=== PATIENT | male | born 1945 ===

== ENCOUNTER 2017-07-16 06:03 | Day surgery (SDC) | payer MEDICARE ==
[2017-07-16 07:38] VITALS: BMI 39.0
[2017-07-16] MEDS ORDERED: Sodium Chloride 0.9% 500 ML IV ONE (08:00)
[2017-07-16] MEDS ORDERED: (Novolin R) Insulin Human Regular 100 units/ml vial SC ONE (08:00)
[2017-07-16] MEDS ORDERED: Propofol 10 mg/ml Inj (20 ML) ONE ×2 (11:50→12:13)
[2017-07-16] MEDS ORDERED: Lactated Ringer's 500 ML IV ONE (11:53)
[2017-07-16 14:10] VITALS: TEMP 97
[2017-07-16 14:12] VITALS: PULSE 88; RESP 20
[2017-07-16 14:13] VITALS: O2SAT 100
[2017-07-16 14:24] VITALS: BP 140/70
== END 2017-07-16 13:15 | disposition home or self-care (01) ==
LOC: C.ENDO 06:03
PROVIDERS: ATTEND Internal Medicine Gastroenterology
DX: Z12.11 Encounter for screening for malignant neoplasm of colon (principal); K64.1 Second degree hemorrhoids; K60.2 Anal fissure, unspecified; E11.9 Type 2 diabetes mellitus without complications; I10 Essential (primary) hypertension
CPT/HCPCS: 82948; G0121; J2704; J3010; J7040; J7120

== ENCOUNTER 2018-03-18 16:28 | Inpatient (IN) | payer MEDICARE, OTHER ==
[~2018-03-18 16:28] MED LIST: CALCIUM CHLORIDE 100 MG/ML VIAL IV ONE; Sodium Bicarbonate (8.4%) 50 Meq Syringe ONE
[2018-03-18 16:29] VITALS: BMI 39.0
[2018-03-18] MEDS ORDERED: Morphine 4 MG/ML VIAL ONE (17:26)
--- NOTE | 2018-03-18 18:17 | C.PDOC ---
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 Patient states that he was getting out of the shower in the bathroom and he felt weakness in his right leg. He fell and he landed on his buttocks. He reports that he has difficulty moving his right leg. Patient denies having head injury an other complaints. Time Seen by Provider: 03/18/18 16:30 Chief Complaint (Nursing): Hip Pain History Per: Patient History/Exam Limitations: no limitations Onset/Duration Of Symptoms: Hrs Current Symptoms Are (Timing): Still Present Severity: Moderate Past Medical History Reviewed: Historical Data, Nursing Documentation, Vital Signs Vital Signs: Last Vital Signs Temp 97.8 F 03/18/18 16:37 Pulse 75 03/18/18 17:29 Resp 18 03/18/18 17:29 BP 196/79 H 03/18/18 17:29 Pulse Ox 97 03/18/18 18:37 - Medical History PMH: Arthritis (KNEES), HTN, Peripheral Edema, Sleep Apnea Denies: Fractures, Chronic Kidney Disease Other Surgeries: Hx of surgeries Family History: States: No Known Family Hx - Social History Hx Alcohol Use: No Hx Substance Use: No - Immunization History Hx Tetanus Toxoid Vaccination: Yes Hx Influenza Vaccination: Yes Hx Pneumococcal Vaccination: Yes Review Of Systems Except As Marked, All Systems Reviewed And Found Negative. Constitutional: Negative for: Fever, Chills Musculoskeletal: Positive for: Other (right hip pain) Neurological: Negative for: Weakness, Numbness Physical Exam - Physical Exam Appears: Non-toxic, No Acute Distress Skin: Normal Color, Warm Head: Atraumatic, Normacephalic Eye(s): bilateral: Normal Inspection Nose: Normal Oral Mucosa: Moist Neck: Supple Chest: Symmetrical Cardiovascular: Rhythm Regular Respiratory: Normal Breath Sounds, No Rales, No Rhonchi, No Wheezing Extremity: No Normal ROM (unable to move right leg secondary to pain), Tenderness (tenderness in lateral aspect of right hip), Other (erythema to anterior aspect of bilateral shins ( family reports that the erythema is chronic )) Pulses: Left Dorsalis Pedis: Decreased, Right Dorsalis Pedis: Decreased Neurological/Psych: Oriented x3, Normal Speech, Normal Cognition ED Course And Treatment - Laboratory Results Result Diagrams: 03/18/18 18:19 03/18/18 18:19 O2 Sat by Pulse Oximetry: 97 (RA) Pulse Ox Interpretation: Normal - Other Rad X-Ray- Right Hip X-Ray: Viewed By Me, Read By Radiologist Interpretation: PROCEDURE: Right femur. HISTORY: fall. COMPARISON: None. TECHNIQUE: Standard protocol for this study/examination. FINDINGS: Oblique fracture of the proximal right femur. Angulation of the major fracture fragments identified.The fracture does not extend to the lesser trochanter. Preservation of femoral acetabular relationship. No pelvic ring abnormalities identified. IMPRESSION: Acute fracture of the proximal right femur. Progress Note: Labs, UA, CXR, and X-Ray- Pelvis ordered. Case was d/w Ortho who requested CT of hip, ask to clear patient medically for surgery in the morning, keep him NPO after midnight and do not put him in DVT prophylaxis. Case was d/w hospitalist who accepted patient to CT for an admission. 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 - Scribe Statement The provider has reviewed the documentation as recorded by the Yessi Mathis Provider Attestation All medical record entries made by the Scribe were at my direction and personally dictated by me. I have reviewed the chart and agree that the record accurately reflects my personal performance of the history, physical exam, medical decision making, and the department course for this patient. I have also personally directed, reviewed, and agree with the discharge instructions and disposition. Decision To Admit - Pt Status Changed To: Hospital Disposition Of: Inpatient - Admit Certification Admit to Inpatient:: After my assessment, the patient will require hospitalization for at least two midnights. This is because of the severity of symptoms shown, intensity of services needed, and/or the medical risk in this patient being treated as an outpatient. - InPatient: Physician Admission Certification: I certify that this patient requires 2 or more midnights of care for the following reason:: Patient needs to be medically cleared and to have surgical treatment for hip fracture. - . Bed Request Type: Regular Admitting Physician: Mark Lee Patient Diagnosis: Hip fracture
[2018-03-18] MEDS ORDERED: Sodium Chloride 0.9% 1,000 ML IV ONE (18:18)
[2018-03-18 18:22] LABS: BASO # 0.1 K/uL (0.0-0.2); BASO % 0.5 % (0.0-2.0); EOS # 0.2 K/uL (0.0-0.7); EOS % 1.6 % (0.0-4.0); HEMOGLOBIN 13.8 g/dL (12.0-18.0); LYMPH # 1.6 K/uL (1.0-4.3); LYMPH % 10.9 % (20.0-40.0); MEAN CELL VOLUME 81.3 fL (80.0-94.0); MEAN PLATELET VOLUME 9.9 fL (7.2-11.7); MONO # 0.8 K/uL (0.0-0.8); MONO % 5.3 % (0.0-10.0); NEUT # 11.6 K/uL (1.8-7.0); NEUT % 81.7 % (50.0-75.0); RBC 5.32 Mil/uL (4.40-5.90); RED CELL DISTRIBUTION WIDTH 15.9 % (11.5-14.5); WHITE BLOOD COUNT 14.3 K/uL (4.8-10.8)
--- NOTE | 2018-03-18 18:25 | RAD ---
PROCEDURE: Right femur HISTORY: fall COMPARISON: None. TECHNIQUE: Standard protocol for this study/examination. FINDINGS: Oblique fracture of the proximal right femur. Angulation of the major fracture fragments identified.The fracture does not extend to the lesser trochanter. Preservation of femoral acetabular relationship. No pelvic ring abnormalities identified. IMPRESSION: Acute fracture of the proximal right femur.
[2018-03-18 18:29] LABS: SQUAMOUS EPITHIAL < 1 /hpf (0-5); URINE BILIRUBIN NEGATIVE (NEGATIVE); URINE BLOOD NEGATIVE (NEGATIVE); URINE CLARITY Clear (Clear); URINE COLOR Yellow (YELLOW); URINE GLUCOSE (UA) 3+ mg/dL (Normal); URINE LEUKOCYTE ESTERASE TRACE Leu/uL (Negative); URINE PROTEIN NEGATIVE (NEGATIVE); URINE UROBILINOGEN NORMAL mg/dL (0.2-1.0)
[2018-03-18 18:33] LABS: PROTHROMBIN TIME 10.9 SECONDS (9.7-12.2)
[2018-03-18 18:35] LABS: ALBUMIN 3.7 g/dL (3.5-5.0); ALT/SGPT 21 U/L (21-72); AST/SGOT 23 U/L (17-59); BLOOD UREA NITROGEN 17 mg/dL (9-20); CALCIUM 9.1 mg/dl (8.6-10.4); GFR AFRICAN-AMERICAN > 60; GFR NON-AFRICAN AMERICAN > 60
--- NOTE | 2018-03-18 20:26 | CT ---
EXAM: CT Right Lower Extremity Without Intravenous Contrast, Hip EXAM DATE/TIME: Exam ordered 03/18/2018 6:57 PM CLINICAL HISTORY: 72 years old, male; Injury or trauma; Fall; Initial encounter; Abrasion; Hip; Right; Additional info: Right hip fracture, requested by ortho for SX TECHNIQUE: Axial computed tomography images of the right hip without intravenous contrast. All CT scans at this facility use one or more dose reduction techniques, viz.: automated exposure control; ma/kV adjustment per patient size (including targeted exams where dose is matched to indication; i.e. head); or iterative reconstruction technique. Coronal and sagittal reformatted images were created and reviewed. COMPARISON: No relevant prior studies available. FINDINGS: Bones/joints: There is a comminuted fracture of the proximal femoral diaphysis. There is overriding of the fracture ends. No dislocation. Soft tissues: Unremarkable. Vasculature: Vascular calcifications are present. IMPRESSION: Comminuted fracture of the proximal right femoral diaphysis..
[2018-03-18] MEDS ORDERED: Sodium Chloride 0.9% 1,000 ML ONE (23:04)
--- NOTE | 2018-03-18 23:50 | CP.PCM.HP ---
<Min Em - Last Filed: 03/19/18 02:27> History of Present Illness - History of Present Illness History of Present Illness: 72 year old male with past medical history of hypertension, diabetes, CAD, arthritis of the knees, and obesity presents to the ED today after sustaining a fall at home today. Patient had just stepped out of the slower and his legs gave out and fell onto the floor. Patient landed on his buttocks on the tiled floor and unable to get up afterwards. He denies hitting his head or hurting anywhere else in his body. Patient complaints of right hip pain which is worse with any motion with left lower extremity. Patient has a right lower leg ulcer which he is taking Keflex as a treatment (8 of 10 days completed). Patient states his right leg is causing him pain and weakness. Patient is schedule to have a "circulation test" done by the end of this month to evaluate his lower extremity weakness. Patient further denies fever, chills, dizziness, headache, shortness of breath, chest pain, nausea, vomiting, or diarrhea. Son: Beck [phone] PMD: Aniceto PMHx: hypertension, diabetes, ?CAD, arthritis of the knees, and obesity PSHx: none Allergy: none Social Hx: Current smoker. Denies alcohol or other drug use. Retired, lives with 2 sons and . Family Hx: both parents with diabetes Home meds: ASA, baclofen, canagliflozin, gabapentin, insulin 70/30, losartan/ HCTZ, metoclopramide, metoprolol, protonix, setraline Present on Admission - Present on Admission Any Indicators Present on Admission: No Review of Systems - Constitutional Constitutional: As Per HPI. absent: Anorexia, Chills, Fever - EENT Eyes: As Per HPI. absent: Blind Spots, Blurred Vision, Decreased Night Vision Ears: As Per HPI. absent: Decreased Hearing, Dizziness Nose/Mouth/Throat: As Per HPI. absent: Epistaxis, Nasal Congestion, Nasal Obstruction - Cardiovascular Cardiovascular: As Per HPI. absent: Chest Pain, Chest Pain at Rest, Chest Pain with Activity - Respiratory Respiratory: As Per HPI. absent: Cough, Dyspnea, Wheezing - Gastrointestinal Gastrointestinal: As Per HPI, Constipation. absent: Abdominal Pain, Change in Bowel Habits - Genitourinary Genitourinary: As Per HPI. absent: Change in Urinary Stream - Reproductive: Male Reproductive:Male: As Per HPI - Musculoskeletal Musculoskeletal: As Per HPI, Arthralgias, Joint Swelling. absent: Numbness, Tingling - Integumentary Integumentary: As Per HPI. absent: Acne, Alopecia - Neurological Neurological: As Per HPI Past Patient History - Past Medical History & Family History Past Medical History?: Yes - Past Social History Smoking Status: Never Smoked - CARDIAC Hx Hypertension: Yes Hx Peripheral Edema: Yes - PULMONARY Hx Sleep Apnea: Yes - NEUROLOGICAL Hx Neurological Disorder: No - HEENT Hx HEENT Problems: Yes Hx Cataracts: Yes (BILAT IOL) Hx Glaucoma: Yes - RENAL Hx Chronic Kidney Disease: No - ENDOCRINE/METABOLIC Hx Endocrine Disorders: Yes Hx Diabetes Mellitus Type 2: Yes - HEMATOLOGICAL/ONCOLOGICAL Hx Blood Disorders: No - INTEGUMENTARY Hx Dermatological Problems: Yes (REDDNESS BLE) Other/Comment: FUNGAL INFECTION BILATERAL GROINS - MUSCULOSKELETAL/RHEUMATOLOGICAL Hx Arthritis: Yes (KNEES) Hx Fractures: No - GASTROINTESTINAL Hx Gastrointestinal Disorders: Yes (HEMORRHOIDS CONSTIPATION) Other/Comment: hx anal fissure - GENITOURINARY/GYNECOLOGICAL Hx Genitourinary Disorders: Yes Hx Prostate Problems: Yes - PSYCHIATRIC Hx Substance Use: No - SURGICAL HISTORY Hx Surgeries: Yes Hx Cataract Extraction: Yes (CAT EXT IOL BILAT) - ANESTHESIA Hx Anesthesia: Yes Hx Anesthesia Reactions: No Hx Malignant Hyperthermia: No Meds Allergies/Adverse Reactions: Allergies Allergy/AdvReac Type Severity Reaction Status Date / Time No Known Allergies Allergy Verified 07/16/17 07:37 Physical Exam - Constitutional Appears: No Acute Distress Additional comments: Morbidly obese male - Head Exam Head Exam: ATRAUMATIC, NORMOCEPHALIC - Eye Exam Eye Exam: EOMI, Normal appearance, PERRL Pupil Exam: PERRL - ENT Exam ENT Exam: Mucous Membranes Moist - Neck Exam Neck exam: Positive for: Normal Inspection - Respiratory Exam Respiratory Exam: Clear to Auscultation Bilateral, NORMAL BREATHING PATTERN. absent: Wheezes, Respiratory Distress - Cardiovascular Exam Cardiovascular Exam: REGULAR RHYTHM, +S1, +S2 - GI/Abdominal Exam GI & Abdominal Exam: Normal Bowel Sounds, Soft. absent: Tenderness - Extremities Exam Extremities exam: Positive for: joint swelling (right upper thigh swelling), pedal pulses present. Negative for: calf tenderness, full ROM, normal inspection (right lower leg erythema, warm, no activing drainage) - Neurological Exam Neurological exam: Alert, Oriented x3 - Psychiatric Exam Psychiatric exam: Normal Affect, Normal Mood - Skin Skin Exam: Dry, Warm Results - Vital Signs Recent Vital Signs: Last Vital Signs Temp 97.8 F 03/18/18 23:26 Pulse 100 H 03/18/18 23:26 Resp 20 03/18/18 23:26 BP 199/84 H 03/18/18 23:26 Pulse Ox 98 03/18/18 23:26 - Labs Result Diagrams: 03/18/18 18:19 03/18/18 18:19 Labs: Laboratory Results - last 24 hr 03/18/18 03/18/18 03/18/18 17:23 18:19 18:19 WBC 14.3 H RBC 5.32 Hgb 13.8 Hct 43.2 MCV 81.3 MCH 26.0 L MCHC 32.0 L RDW 15.9 H Plt Count 241 MPV 9.9 Neut % (Auto) 81.7 H Lymph % (Auto) 10.9 L [place] % (Auto) 5.3 Eos % (Auto) 1.6 Baso % (Auto) 0.5 Neut # (Auto) 11.6 H Lymph # (Auto) 1.6 [place] # (Auto) 0.8 Eos # (Auto) 0.2 Baso # (Auto) 0.1 PT 10.9 INR 1.0 APTT 42 H Sodium Potassium Chloride Carbon Dioxide Anion Gap BUN Creatinine Est GFR ( Amer) Est GFR (Non-Af Amer) POC Glucose (mg/dL) 257 H Random Glucose Calcium Total Bilirubin AST ALT Alkaline Phosphatase Total Protein Albumin Globulin Albumin/Globulin Ratio Urine Color Urine Clarity Urine pH Ur Specific [place] Urine Protein Urine Glucose (UA) Urine Ketones Urine Blood Urine Nitrate Urine Bilirubin Urine Urobilinogen Ur Leukocyte Esterase Urine WBC (Auto) Urine RBC (Auto) Ur Squamous Epith Cells 03/18/18 03/18/18 18:19 18:22 WBC RBC Hgb Hct MCV MCH MCHC RDW Plt Count MPV Neut % (Auto) Lymph % (Auto) [place] % (Auto) Eos % (Auto) Baso % (Auto) Neut # (Auto) Lymph # (Auto) [place] # (Auto) Eos # (Auto) Baso # (Auto) PT INR APTT Sodium 141 Potassium 4.2 Chloride 102 Carbon Dioxide 25 Anion Gap 18 BUN 17 Creatinine 0.7 L Est GFR ( Amer) > 60 Est GFR (Non-Af Amer) > 60 POC Glucose (mg/dL) Random Glucose 251 H Calcium 9.1 Total Bilirubin 0.5 AST 23 ALT 21 Alkaline Phosphatase 124 Total Protein 7.4 Albumin 3.7 Globulin 3.7 Albumin/Globulin Ratio 1.0 Urine Color Yellow Urine Clarity Clear Urine pH 5.0 Ur Specific [place] 1.014 Urine Protein Negative Urine Glucose (UA) 3+ H Urine Ketones Negative Urine Blood Negative Urine Nitrate Negative Urine Bilirubin Negative Urine Urobilinogen Normal Ur Leukocyte Esterase Trace Urine WBC (Auto) 3 Urine RBC (Auto) 2 Ur Squamous Epith Cells < 1 Assessment & Plan - Assessment and Plan (Free Text) Assessment: Right femur fracture -Hip xray shows acute fracture of the proximal right femur -CT right lower extremity shows comminuted fracture of the proximal right femoral diaphysis -Percocet for pain -Orthopedic consulted, Dr. Quinton Santiago help appreciated -NPO -Based on Detsky cardiac risk score calculation, patient has 20% risk of cardiovascular complications after non cardiac surgery Cellulitis, chronic -Continue Keflex 500mg Q12 -Patient already finished 8 of 10 days -Afebrile, leukocytosis may be contributed by stress response of femur fracture CAD -ASA 81mg -Metoprolol 50mg bid -Follow up echo Hypertension -HCTZ 25mg -Losartan 100mg Diabetes -FS Q6H -Lantus 15u BID, decreased from home dose due to NPO -ISS Constipation -Colace 100mg BID Prophylactic measures -Protonix -hold DVT prophylaxis for orthopedic surgery -PT/OT <Mark Lee P - Last Filed: 03/19/18 06:21> Results - Vital Signs Recent Vital Signs: Last Vital Signs Temp 97.3 F L 03/19/18 04:00 Pulse 84 03/19/18 04:00 Resp 20 03/19/18 04:00 BP 164/81 H 03/19/18 04:00 Pulse Ox 98 03/19/18 04:00 - Labs Result Diagrams: 03/18/18 18:19 03/18/18 18:19 Labs: Laboratory Results - last 24 hr 03/18/18 03/18/18 03/18/18 17:23 18:19 18:19 WBC 14.3 H RBC 5.32 Hgb 13.8 Hct 43.2 MCV 81.3 MCH 26.0 L MCHC 32.0 L RDW 15.9 H Plt Count 241 MPV 9.9 Neut % (Auto) 81.7 H Lymph % (Auto) 10.9 L [place] % (Auto) 5.3 Eos % (Auto) 1.6 Baso % (Auto) 0.5 Neut # (Auto) 11.6 H Lymph # (Auto) 1.6 [place] # (Auto) 0.8 Eos # (Auto) 0.2 Baso # (Auto) 0.1 PT 10.9 INR 1.0 APTT 42 H Sodium Potassium Chloride Carbon Dioxide Anion Gap BUN Creatinine Est GFR ( Amer) Est GFR (Non-Af Amer) POC Glucose (mg/dL) 257 H Random Glucose Calcium Total Bilirubin AST ALT Alkaline Phosphatase Total Protein Albumin Globulin Albumin/Globulin Ratio Urine Color Urine Clarity Urine pH Ur Specific [place] Urine Protein Urine Glucose (UA) Urine Ketones Urine Blood Urine Nitrate Urine Bilirubin Urine Urobilinogen Ur Leukocyte Esterase Urine WBC (Auto) Urine RBC (Auto) Ur Squamous Epith Cells 03/18/18 03/18/18 03/18/18 18:19 18:22 23:54 WBC RBC Hgb Hct MCV MCH MCHC RDW Plt Count MPV Neut % (Auto) Lymph % (Auto) [place] % (Auto) Eos % (Auto) Baso % (Auto) Neut # (Auto) Lymph # (Auto) [place] # (Auto) Eos # (Auto) Baso # (Auto) PT INR APTT Sodium 141 Potassium 4.2 Chloride 102 Carbon Dioxide 25 Anion Gap 18 BUN 17 Creatinine 0.7 L Est GFR ( Amer) > 60 Est GFR (Non-Af Amer) > 60 POC Glucose (mg/dL) 197 H Random Glucose 251 H Calcium 9.1 Total Bilirubin 0.5 AST 23 ALT 21 Alkaline Phosphatase 124 Total Protein 7.4 Albumin 3.7 Globulin 3.7 Albumin/Globulin Ratio 1.0 Urine Color Yellow Urine Clarity Clear Urine pH 5.0 Ur Specific [place] 1.014 Urine Protein Negative Urine Glucose (UA) 3+ H Urine Ketones Negative Urine Blood Negative Urine Nitrate Negative Urine Bilirubin Negative Urine Urobilinogen Normal Ur Leukocyte Esterase Trace Urine WBC (Auto) 3 Urine RBC (Auto) 2 Ur Squamous Epith Cells < 1 Attending/Attestation - Attestation I have personally seen and examined this patient.: Yes I have fully participated in the care of the patient.: Yes I have reviewed all pertinent clinical information: Yes Notes (Text): Assessment * Right femur shaft, proximal comminuted fracture, with swelling pain, after fall. * Obese, chronic OA of knees, poor functional capacity, inferior q waves in EKG with out acute ischemia. * IDDM, H/o HTN, neuropathy, chronic constipation, functional capacity not tested. * Plan * Patient is cleared for surgery for above acute fracture with moderate to high risk for prioperative CV event risk, as benefits out weigh the risk * Patient should get his am metoprolol dose prior to surgery * Maintain euglycemia, patient takes insulin 70/30 40 units bidac will give single dose of lantus 15 units with q6 hr coverage * Condom cath, hold pharmacological dvt prophylaxis till the surg done this morning.
[2018-03-19] MEDS: (Lantus) Insulin Glargine, Recombinant SC SCH ×2 (00:03→21:18)
[2018-03-19] MEDS: Oxycodone/Acetaminophen 5/325 mg Tab PO PRN ×2 (02:17→06:04)
[2018-03-19] MEDS: (Novolin R) Insulin Human Regular 100 units/ml vial SC SCH ×2 (08:10→21:12)
[2018-03-19 08:29] LABS: BASO # 0.1 K/uL (0.0-0.2); BASO % 0.7 % (0.0-2.0); EOS # 0.3 K/uL (0.0-0.7); EOS % 2.4 % (0.0-4.0); HEMOGLOBIN 11.9 g/dL (12.0-18.0); LYMPH # 2.4 K/uL (1.0-4.3); MEAN CELL VOLUME 80.1 fL (80.0-94.0); MEAN CORPUSCULAR HEMOGLOBIN 25.9 pg (27.0-31.0); MEAN CORPUSCULAR HGB CONC 32.4 g/dL (33.0-37.0); MEAN PLATELET VOLUME 9.5 fL (7.2-11.7); MONO # 0.8 K/uL (0.0-0.8); MONO % 7.5 % (0.0-10.0); NEUT # 7.3 K/uL (1.8-7.0); NEUT % 67.4 % (50.0-75.0); NRBC % 0.1 % (0.0-2.0); RBC 4.58 Mil/uL (4.40-5.90); RED CELL DISTRIBUTION WIDTH 15.5 % (11.5-14.5); WHITE BLOOD COUNT 10.8 K/uL (4.8-10.8)
[2018-03-19 08:31] LABS: INR 1.1; PROTHROMBIN TIME 12.8 SECONDS (9.7-12.2)
[2018-03-19 08:35] LABS: ALBUMIN 3.1 g/dL (3.5-5.0); ALT/SGPT 17 U/L (21-72); AST/SGOT 18 U/L (17-59); BLOOD UREA NITROGEN 22 mg/dL (9-20); CALCIUM 8.5 mg/dl (8.6-10.4); GFR AFRICAN-AMERICAN > 60; GFR NON-AFRICAN AMERICAN > 60
--- NOTE | 2018-03-19 09:13 | RAD ---
Chest x-ray single frontal view History: Preoperative evaluation. Comparison: 08/05/2016 Findings: Mild venous congestion. Right hilar prominence. Top normal heart size. Degenerative changes in the spine and shoulders. Impression: Mild venous congestion.
[2018-03-19] MEDS ORDERED: Perflutren Lipid Microsphere 1.5 ML SUS IV ONE (09:19)
[2018-03-19] MEDS ORDERED: ceFAZolin 1 gm in NS 2 GM/200 ML BAG IVPB ONE (10:00)
[2018-03-19] MEDS ORDERED: Bacitracin 50,000 UNIT in Sodium Chloride 0.9% Irrig 1,000 ML IR SCH (10:15)
[2018-03-19] MEDS ORDERED: Propofol 10 mg/ml Inj (20 ML) ONE (10:39)
[2018-03-19] MEDS ORDERED: Midazolam 2 MG/2 ML VIAL ONE (10:39)
[2018-03-19] MEDS ORDERED: Neostigmine Methylsulfate 3mg/3ml Syringe IV ONE (14:08)
[2018-03-19] MEDS: HYDROmorphone 0.5 mg/0.5 ml ISec IVP PRN ×2 (16:15→16:47)
--- NOTE | 2018-03-19 16:17 | CP.PCM.PN ---
Subjective - Date & Time of Evaluation Date of Evaluation: 03/19/18 Time of Evaluation: 16:17 - Subjective Subjective: patient seen and examined at bedside Doing well with no complaints at this time pain is controlled no appetite at this time but will order diet leg is warm and pulses are 2+ Objective - Vital Signs/Intake and Output Vital Signs (last 24 hours): Temp Pulse Resp BP Pulse Ox 97.8 F 79 20 175/77 H 99 03/19/18 08:00 03/19/18 08:00 03/19/18 08:00 03/19/18 08:00 03/19/18 08:00 Intake and Output: 03/19/18 03/19/18 06:59 18:59 Intake Total 1200 Balance 1200 - Medications Medications: Current Medications Aspirin (Ecotrin) 81 mg PO DAILY [facility] Cephalexin Monohydrate (Keflex) 500 mg PO Q12 [facility] PRN Reason: Protocol Docusate Sodium (Colace) 100 mg PO BID [facility] Gabapentin (Neurontin) 300 mg PO BID [facility] Hydrochlorothiazide (Hydrodiuril) 25 mg PO DAILY [facility] Hydromorphone HCl (Dilaudid) 0.5 mg IVP Q5M PRN PRN Reason: Pain, severe (8-10) Stop: 03/19/18 18:06 Insulin Glargine (Lantus) 15 unit SC BID [facility] Last Admin: 03/19/18 00:03 Dose: 15 unit Insulin Human Regular (Novolin R) 0 unit SC ACHS [facility] PRN Reason: Protocol Last Admin: 03/19/18 08:10 Dose: Not Given Losartan Potassium (Cozaar) 100 mg PO DAILY [facility] Metoclopramide HCl (Reglan) 5 mg PO DAILY [facility] Metoprolol Tartrate (Lopressor) 50 mg PO BID [facility] Oxycodone/Acetaminophen (Percocet 5/325 Mg Tab) 1 tab PO Q4H PRN PRN Reason: Pain, severe (8-10) Stop: 03/21/18 23:41 Last Admin: 03/19/18 06:04 Dose: 1 tab Pantoprazole Sodium (Protonix Ec Tab) 40 mg PO DAILY [facility] - Labs Labs: 03/19/18 08:12 03/19/18 08:12 PT 12.8 SECONDS (9.7-12.2) H 03/19/18 08:12 INR 1.1 03/19/18 08:12 APTT 42 SECONDS (21-34) H 03/18/18 18:19 - Constitutional Appears: Well - Head Exam Head Exam: ATRAUMATIC, NORMAL INSPECTION, NORMOCEPHALIC - Eye Exam Eye Exam: EOMI, Normal appearance, PERRL Pupil Exam: NORMAL ACCOMODATION, PERRL - ENT Exam ENT Exam: Mucous Membranes Moist, Normal Exam - Neck Exam Neck Exam: Full ROM, Normal Inspection. absent: Lymphadenopathy - Respiratory Exam Respiratory Exam: Clear to Ausculation Bilateral, NORMAL BREATHING PATTERN - Cardiovascular Exam Cardiovascular Exam: REGULAR RHYTHM, +S1, +S2. absent: Murmur - GI/Abdominal Exam GI & Abdominal Exam: Soft, Normal Bowel Sounds. absent: Tenderness - Extremities Exam Extremities Exam: Full ROM, Joint Swelling, Normal Capillary Refill, Normal Inspection, Pedal Edema Additional comments: s/p R. hip surgery. dressing c/d/i - Back Exam Back Exam: NORMAL INSPECTION - Neurological Exam Neurological Exam: Alert, Awake, CN II-XII Intact, Normal Gait, Oriented x3 - Psychiatric Exam Psychiatric exam: Normal Affect, Normal Mood - Skin Skin Exam: Dry, Intact, Normal Color, Warm Assessment and Plan (1) Hip fracture Assessment & Plan: s/p ORIF of R. leg Ortho ([facility]) ansef IV Q8 Morphine 2mg Q4 for pain Status: Acute (2) Diabetes Assessment & Plan: ASA 81 PO QD neurontin 300 PO BID ISS High Glargine 15 SC BID Reglan 5 PO QD Status: Acute (3) Constipation Assessment & Plan: colace 100 BID Status: Acute (4) HTN (hypertension) Assessment & Plan: Lopressor 50 PO BID Losartan 100 PO QD Status: Acute (5) Prophylactic measure Assessment & Plan: Lovenox 30 SC Q12 Protonix 40 Status: Acute
[2018-03-19] MEDS ORDERED: Oxycodone/Acetaminophen 5/325 mg Tab PO PRN (17:07)
[2018-03-19] MEDS ORDERED: Morphine 4 MG/ML VIAL IVP PRN (17:07)
[2018-03-19] MEDS ORDERED: Enoxaparin 30 mg Syringe SC SCH (17:15)
[2018-03-19] MEDS ORDERED: ceFAZolin IV 2 gm in Dextrose 2 GM/50 ML BAG IVPB SCH (18:00)
--- NOTE | 2018-03-19 18:36 | RAD ---
PROCEDURE: Intraoperative fluoroscopy HISTORY: RT. HIP FX. COMPARISON: Not available TECHNIQUE: Intraoperative fluoroscopy was provided for ORIF comminuted proximal right femoral fracture. Total time of fluoroscopy was less than 1 hour. FINDINGS: Multiple fluoroscopic spot films are submitted. Films are on file for review. IMPRESSION: Fluoroscopy provided.
[2018-03-19 18:47] LABS: HEMOGLOBIN 10.7 g/dL (12.0-18.0); MEAN CELL VOLUME 81.4 fL (80.0-94.0); MEAN CORPUSCULAR HEMOGLOBIN 25.5 pg (27.0-31.0); MEAN CORPUSCULAR HGB CONC 31.3 g/dL (33.0-37.0); MEAN PLATELET VOLUME 9.4 fL (7.2-11.7); RBC 4.18 Mil/uL (4.40-5.90); RED CELL DISTRIBUTION WIDTH 15.5 % (11.5-14.5); WHITE BLOOD COUNT 20.8 K/uL (4.8-10.8)
[2018-03-19 19:01] LABS: ALT/SGPT 16 U/L (21-72); AST/SGOT 23 U/L (17-59); BLOOD UREA NITROGEN 25 mg/dL (9-20); CALCIUM 8.1 mg/dl (8.6-10.4); GFR AFRICAN-AMERICAN > 60; GFR NON-AFRICAN AMERICAN 60
[2018-03-19] MEDS: ceFAZolin 2 GM in Sodium Chloride 0.9% 100 ML IVPB SCH (20:00)
[2018-03-19] MEDS: Sodium Chloride 0.9% 1,000 ML IV SCH (21:04)
--- NOTE | 2018-03-19 22:44 | PCM.SURG1 ---
Surgeon's Initial Post Op Note - Surgeon's Notes Surgeon: Missy Rushing MD Continuous Process Rotary Drum Tanner: Merline Pagan PA-C Type of Anesthesia: General Endo Pre-Operative Diagnosis: Right Hip displaced segmental subtrochanteric/ femoral shaft fracture Operative Findings: Right Hip displaced segmental subtrochanteric/ femoral shaft fracture Post-Operative Diagnosis: Right Hip displaced segmental subtrochanteric/ femoral shaft fracture Operation Performed: Right Hip displaced segmental subtrochanteric/ femoral shaft fracture. Open reduction and internal fixation with long hip nail (Long TFN) Specimen/Specimens Removed: specimen= none. complications= none. Implants= Synthes Long TFN nail, 11 mm diam, 420mm length, 110 mm helical blade, distal interlocking screws x2 Estimated Blood Loss: EBL {In ML}: 200 Blood Products Given: N/A Drains Used: No Drains Post-Op Condition: Good Date of Surgery/Procedure: 03/19/18 Time of Surgery/Procedure: 14:00
[2018-03-19 22:58] LABS: BASO # 0.1 K/uL (0.0-0.2); BASO % 0.5 % (0.0-2.0); EOS # 0.1 K/uL (0.0-0.7); EOS % 0.9 % (0.0-4.0); HEMOGLOBIN 10.6 g/dL (12.0-18.0); LYMPH # 2.2 K/uL (1.0-4.3); MEAN CELL VOLUME 81.7 fL (80.0-94.0); MEAN CORPUSCULAR HEMOGLOBIN 25.9 pg (27.0-31.0); MEAN CORPUSCULAR HGB CONC 31.6 g/dL (33.0-37.0); MEAN PLATELET VOLUME 9.7 fL (7.2-11.7); MONO # 1.5 K/uL (0.0-0.8); MONO % 9.1 % (0.0-10.0); NEUT # 12.9 K/uL (1.8-7.0); NEUT % 76.5 % (50.0-75.0); RBC 4.08 Mil/uL (4.40-5.90); RED CELL DISTRIBUTION WIDTH 15.5 % (11.5-14.5); WHITE BLOOD COUNT 16.9 K/uL (4.8-10.8)
[2018-03-19 23:13] LABS: ALBUMIN 3.1 g/dL (3.5-5.0); ALT/SGPT 17 U/L (21-72); AST/SGOT 33 U/L (17-59); BLOOD UREA NITROGEN 27 mg/dL (9-20); CALCIUM 8.3 mg/dl (8.6-10.4); GFR AFRICAN-AMERICAN > 60; GFR NON-AFRICAN AMERICAN 60
--- NOTE | 2018-03-20 00:02 | CP.PCM.PN ---
<Marily Tse - Last Filed: 03/20/18 06:07> Subjective - Date & Time of Evaluation Date of Evaluation: 03/20/18 Time of Evaluation: 06:00 - Subjective Subjective: PGY 1 Medicine Note Patient seen and examined at bedside and in no acute distress. Patient is sleepy from his medications. Patients pain is well managed. Patient denies any shortness of breath, chest pain, abdominal pain, nausea, vomiting, constipation , or diarrhea. Objective - Vital Signs/Intake and Output Vital Signs (last 24 hours): Temp Pulse Resp BP Pulse Ox 97.7 F 92 H 20 106/64 100 03/19/18 19:49 03/19/18 19:49 03/19/18 19:49 03/19/18 19:49 03/19/18 19:49 Intake and Output: 03/19/18 03/20/18 18:59 06:59 Intake Total 1750 Balance 1750 - Medications Medications: Current Medications Acetaminophen (Tylenol 325mg Tab) 650 mg PO Q4 PRN PRN Reason: Fever 101 degrees fahrenheit Aspirin (Ecotrin) 81 mg PO DAILY [facility] Docusate Sodium (Colace) 100 mg PO BID [facility] Last Admin: 03/19/18 19:49 Dose: Not Given Enoxaparin Sodium (Lovenox) 40 mg SC DAILY [facility] Gabapentin (Neurontin) 300 mg PO BID [facility] Last Admin: 03/19/18 19:51 Dose: Not Given Hydrochlorothiazide (Hydrodiuril) 25 mg PO DAILY [facility] Sodium Chloride (Sodium Chloride 0.9%) 1,000 mls @ 90 mls/hr IV .Q11H7M [facility] Last Admin: 03/19/18 21:04 Dose: 90 mls/hr Cefazolin Sodium 2 gm/ Sodium (Chloride) 100 mls @ 100 mls/hr IVPB Q8H [facility] PRN Reason: Protocol Last Admin: 03/19/18 20:00 Dose: 100 mls/hr Insulin Glargine (Lantus) 15 unit SC BID [facility] Last Admin: 03/19/18 21:18 Dose: 15 unit Insulin Human Regular (Novolin R) 0 unit SC ACHS [facility] PRN Reason: Protocol Last Admin: 03/19/18 21:12 Dose: Not Given Losartan Potassium (Cozaar) 100 mg PO DAILY [facility] Metoclopramide HCl (Reglan) 5 mg PO DAILY [facility] Metoprolol Tartrate (Lopressor) 50 mg PO BID [facility] Last Admin: 03/19/18 19:50 Dose: Not Given Morphine Sulfate (Morphine) 2 mg IVP Q4H PRN PRN Reason: Pain, severe (8-10) Ondansetron HCl (Zofran Inj) 4 mg IVP ONCE PRN PRN Reason: Nausea/Vomiting Oxycodone/Acetaminophen (Percocet 5/325 Mg Tab) 2 tab PO Q4H PRN PRN Reason: Pain, severe (8-10) Stop: 03/22/18 17:08 Pantoprazole Sodium (Protonix Ec Tab) 40 mg PO DAILY [facility] - Labs Labs: 03/19/18 22:56 03/19/18 22:56 PT 12.8 SECONDS (9.7-12.2) H 03/19/18 08:12 INR 1.1 03/19/18 08:12 APTT 42 SECONDS (21-34) H 03/18/18 18:19 - Additional Findings Additional findings: - Constitutional Appears: Well - Head Exam Head Exam: ATRAUMATIC, NORMAL INSPECTION, NORMOCEPHALIC - Eye Exam Eye Exam: EOMI, Normal appearance, PERRL Pupil Exam: NORMAL ACCOMODATION, PERRL - ENT Exam ENT Exam: Mucous Membranes Moist, Normal Exam - Neck Exam Neck Exam: Full ROM, Normal Inspection. absent: Lymphadenopathy - Respiratory Exam Respiratory Exam: Clear to Ausculation Bilateral, NORMAL BREATHING PATTERN - Cardiovascular Exam Cardiovascular Exam: REGULAR RHYTHM, +S1, +S2. absent: Murmur - GI/Abdominal Exam GI & Abdominal Exam: Soft, Normal Bowel Sounds. absent: Tenderness - Extremities Exam Extremities Exam: Full ROM, Joint Swelling, Normal Capillary Refill, Normal Inspection, Pedal Edema Additional comments: s/p R. hip surgery. dressing c/d/i - Back Exam Back Exam: NORMAL INSPECTION - Neurological Exam Neurological Exam: Alert, Awake, CN II-XII Intact, Normal Gait, Oriented x3 - Psychiatric Exam Psychiatric exam: Normal Affect, Normal Mood - Skin Skin Exam: Dry, Intact, Normal Color, Warm Assessment and Plan - Assessment and Plan (Free Text) Assessment: (1) Hip fracture Assessment & Plan: s/p ORIF of R. leg Ortho ([facility]) ansef IV Q8 Morphine 2mg Q4 for pain Status: Acute (2) Diabetes Assessment & Plan: ASA 81 PO QD neurontin 300 PO BID [facility] High Glargine 15 SC BID Reglan 5 PO QD Status: Acute (3) Constipation Assessment & Plan: colace 100 BID Status: Acute (4) HTN (hypertension) Assessment & Plan: Lopressor 50 PO BID Losartan 100 PO QD Status: Acute (5) Prophylactic measure Assessment & Plan: Lovenox 30 SC Q12 Protonix 40 Status: Acute <Alexis Olivarez - Last Filed: 03/20/18 17:43> Objective - Vital Signs/Intake and Output Vital Signs (last 24 hours): Temp Pulse Resp BP Pulse Ox 98.1 F 108 H 20 150/77 97 03/20/18 09:24 03/20/18 09:24 03/20/18 09:24 03/20/18 09:24 03/20/18 09:24 Intake and Output: 03/20/18 03/20/18 06:59 18:59 Output Total 200 Balance -200 - Medications Medications: Current Medications Acetaminophen (Tylenol 325mg Tab) 650 mg PO Q4 PRN PRN Reason: Fever 101 degrees fahrenheit Aspirin (Ecotrin) 81 mg PO DAILY [facility] Last Admin: 03/20/18 12:19 Dose: Not Given Docusate Sodium (Colace) 100 mg PO BID [facility] Last Admin: 03/20/18 12:18 Dose: Not Given Enoxaparin Sodium (Lovenox) 40 mg SC DAILY [facility] Last Admin: 03/20/18 09:43 Dose: 40 mg Gabapentin (Neurontin) 300 mg PO BID [facility] Last Admin: 03/20/18 12:14 Dose: Not Given Hydrochlorothiazide (Hydrodiuril) 25 mg PO DAILY [facility] Hydromorphone HCl (Dilaudid) 0.5 mg IVP Q6H PRN PRN Reason: Pain, moderate (4-7) Last Admin: 03/20/18 11:50 Dose: 0.5 mg Hydromorphone HCl (Dilaudid) 1 mg IVP Q6H PRN PRN Reason: Pain, severe (8-10) Sodium Chloride (Sodium Chloride 0.9%) 1,000 mls @ 90 mls/hr IV .Q11H7M [facility] Last Admin: 03/20/18 16:29 Dose: Not Given Cefazolin Sodium 2 gm/ Sodium (Chloride) 100 mls @ 100 mls/hr IVPB Q8H [facility] PRN Reason: Protocol Last Admin: 03/20/18 10:40 Dose: 100 mls/hr Insulin Glargine (Lantus) 15 unit SC BID [facility] Last Admin: 03/20/18 09:43 Dose: 15 unit Insulin Human Regular (Novolin R) 0 unit SC ACHS [facility] PRN Reason: Protocol Last Admin: 03/20/18 13:02 Dose: Not Given Losartan Potassium (Cozaar) 100 mg PO DAILY [facility] Last Admin: 03/20/18 12:13 Dose: Not Given Metoclopramide HCl (Reglan) 5 mg PO DAILY [facility] Last Admin: 03/20/18 12:14 Dose: Not Given Metoprolol Tartrate (Lopressor) 50 mg PO BID [facility] Last Admin: 03/20/18 12:13 Dose: Not Given Nystatin (Nystop Topical Powder) 0 gm TOP BID [facility] Stop: 04/03/18 18:00 Ondansetron HCl (Zofran Inj) 4 mg IVP Q6H PRN PRN Reason: Nausea/Vomiting Last Admin: 03/20/18 16:24 Dose: 4 mg Oxycodone/Acetaminophen (Percocet 5/325 Mg Tab) 2 tab PO Q4H PRN PRN Reason: Pain, severe (8-10) Stop: 03/22/18 17:08 Pantoprazole Sodium (Protonix Ec Tab) 40 mg PO DAILY [facility] Last Admin: 03/20/18 12:14 Dose: Not Given - Labs Labs: 03/20/18 06:32 03/20/18 06:32 PT 12.8 SECONDS (9.7-12.2) H 03/19/18 08:12 INR 1.1 03/19/18 08:12 APTT 42 SECONDS (21-34) H 03/18/18 18:19 Attending/Attestation - Attestation I have personally seen and examined this patient.: Yes I have fully participated in the care of the patient.: Yes I have reviewed all pertinent clinical information, including history, physical exam and plan: Yes Notes (Text): 03/20/18 17:23 Patient was seen and examined at 2:30 PM 03/20/18 Bed 667 B Also on ROS: Right Hip pain that comes and goes but is currently controlled Episode of nausea and vomiting earlier today Has not moved his bowels yet but is passing flatus Also on Exam: Phimosis of penis (this was checked as Nurse Kasia explained that she had difficulty pulling the foreskin back) Bilateral LQ Abdominal Fungal Skin infection Right Lower Leg blanchable erythema around and superior to the ankle (chronic in nature and is not warm or edematous) Assessments: 1). Right Subtrochanteric Femoral Fracture ORIF with Long Hip Nail 03/19/18 POD #1 Percocet 2 tab PO Q4H PRN Sever Pain 2). Chronic Right Lower Leg Erythema 3). Hx CAD ASA 81 mg PO 1x/day Metoprolol Tartrate 50 mg PO 2x/day Crestor 5 mg PO HS 4). Hx HTN Holding HCTZ Cozaar 100 mg PO 1x/day Metoprolol Tartrate 50 mg PO 2x/day 5). Hx DM 1 with Peripheral Neuropathy Lantus 15 units SC 2x/day [facility] ACHS Hypoglycemic Protocol Gabapentin 300 mg PO 2x/day 6). Hx Constipation Last bowel movement was 03/18/18 Colace 100 mg PO 2x/day Reglan 5 mg PO 1x/day 7). Hx Difficulty starting Urinary Stream Patient stated that he has had this for some time He does not pull skin back from head of penis when he urinates Considering the possibility of phimosis, I explained that he would certainly need to follow up with a Urologist as an outpatient for circumcision 8). Possible Depression Patient explained that he worked his entire life and then when he retired, he had multiple medical problems. He stated that he prayed every day for God to take him but he has not plans to hurt himself. His Son at bedside stated that the patient has been saying the above for years. Monitor for now 9). Prophylaxis Lovenox 40 mg SC 1x/day Bilateral SCDs Protonix 40 mg PO 1x/day Zofran 4 mg IV Q4H PRN N/V NS at 50 ml/hour Rodriguez placed today as patient had difficulty urinating and was retaining urine. Rodriguez Care (clean insertion site with betadine 3x/day was ordered) Continue PT Medicine Team to speak with Human Resources Operations Specialist on Thursday03/22/18 to make arrangements for ERIC Olivarez D.O.
[2018-03-20] MEDS: ceFAZolin 2 GM in Sodium Chloride 0.9% 100 ML IVPB SCH ×3 (02:55→19:59)
[2018-03-20 06:42] LABS: BASO % 0.3 % (0.0-2.0); EOS % 0.2 % (0.0-4.0); HEMOGLOBIN 9.6 g/dL (12.0-18.0); LYMPH # 1.2 K/uL (1.0-4.3); LYMPH % 9.2 % (20.0-40.0); MEAN CELL VOLUME 81.2 fL (80.0-94.0); MEAN CORPUSCULAR HEMOGLOBIN 26.1 pg (27.0-31.0); MEAN CORPUSCULAR HGB CONC 32.1 g/dL (33.0-37.0); MEAN PLATELET VOLUME 9.6 fL (7.2-11.7); MONO # 1.2 K/uL (0.0-0.8); MONO % 8.7 % (0.0-10.0); NEUT # 10.9 K/uL (1.8-7.0); NEUT % 81.6 % (50.0-75.0); PLATELET COUNT 249 K/uL (130-400); RBC 3.67 Mil/uL (4.40-5.90); RED CELL DISTRIBUTION WIDTH 15.7 % (11.5-14.5); WHITE BLOOD COUNT 13.4 K/uL (4.8-10.8)
[2018-03-20 07:08] LABS: ALB/GLOB RATIO 0.9 (1.0-2.1); ALBUMIN 2.7 g/dL (3.5-5.0); ALT/SGPT 15 U/L (21-72); AST/SGOT 33 U/L (17-59); BLOOD UREA NITROGEN 29 mg/dL (9-20); CALCIUM 7.9 mg/dl (8.6-10.4); GFR AFRICAN-AMERICAN > 60; GFR NON-AFRICAN AMERICAN 54
[2018-03-20] MEDS: (Novolin R) Insulin Human Regular 100 units/ml vial SC SCH ×4 (08:09→22:04)
[2018-03-20 09:20] LABS: ANISOCYTOSIS SLIGHT; BANDS 2 % (0-2); HYPOCHROMIC SLIGHT; LYMPHOCYTE 8 % (20-40); MONOCYTE 4 % (0-10); NEUTROPHIL 85 % (50-75); PLATELET ESTIMATE NORMAL (NORMAL); POLYCHROMIC SLIGHT; REACTIVE LYMPHOCYTES 1 % (0-0); TOTAL CELLS COUNTED 100; TOXIC GRANULATION PRESENT
[2018-03-20 09:21] LABS: GIANT PLATELETS PRESENT; LARGE PLATELETS PRESENT
[2018-03-20] MEDS: Pantoprazole 40 mg EC Tab PO SCH ×2 (09:42→12:14)
[2018-03-20] MEDS: (Lantus) Insulin Glargine, Recombinant SC SCH ×2 (09:43→18:53)
[2018-03-20] MEDS: Enoxaparin 40 mg Syringe SC SCH (09:43)
[2018-03-20] MEDS: Sodium Chloride 0.9% 1,000 ML IV SCH ×3 (10:41→18:45)
--- NOTE | 2018-03-20 11:10 | RAD ---
PROCEDURE: BILATERAL FEMUR RADIOGRAPHS HISTORY: pre-op evaluation COMPARISON: RIGHT HIP CT 03/18/2018. No comparison available for left femur. TECHNIQUE: Multi views of both femurs images submitted for interpretation. FINDINGS: At the right femur, the patient is seen to be status post ORIF proximal right femoral fracture with the fracture reduced by a lengthy intramedullary nail transfixed by proximal and distal interlocking components. Adequate reduction appears to have been achieved. Skin ben are identified at the lateral thigh soft tissues proximally as well as distally. Limited postoperative changes seen in local soft tissues. A small area of cortical thickening is seen medially at the distal diaphysis of the right femur history reflecting sequelae from prior trauma or other insult. Clinically correlate further. Degenerative changes are seen at the right knee and hip joint incidentally. No fracture or destructive bony lesion seen related to the left femur. Degenerative changes are seen at the left knee and hip joint incidentally. IMPRESSION: Status post ORIF reducing proximal right femoral fracture with limited postop changes noted. Small air cortical thickening is seen at the medial distal diaphysis right femur potentially from prior trauma in the past but is ultimately of uncertain origin. Clinically correlate further. Acute fracture or destructive bony lesion left femur. degenerative changes seen the bilateral hip and knee joints incidentally.
[2018-03-20] MEDS ORDERED: HYDROmorphone 0.5 mg/0.5 ml ISec IVP PRN ×2 (11:32→11:33)
[2018-03-20] MEDS ORDERED: Glucagon Recombinant 1 mg Inj IM PRN (17:35)
[2018-03-20] MEDS ORDERED: Dextrose 50% SYRINGE Inj (50 ml) IV PRN (17:35)
[2018-03-20] MEDS: Nystatin 100,000 Units/gm Topical Pow(15 gm) TOP SCH (18:03)
[2018-03-20] MEDS: Povidone Iodine Oint 10% (1 oz) TOP SCH (19:59)
[2018-03-20] MEDS ORDERED: Simethicone 80 mg Chewtab PO ONE (20:40)
[2018-03-21] MEDS ORDERED: Bisacodyl 5mg EC Tab PO ONE (00:08)
[2018-03-21] MEDS: Povidone Iodine Oint 10% (1 oz) TOP SCH ×4 (02:36→17:35)
--- NOTE | 2018-03-21 02:54 | CP.PCM.PN ---
Addendum entered and electronically signed by Patricia Reddy DO 03/21/18 06:43: of note, patient vomited dark green material overnight in small about 5cc amounts. NGT was decided to be placed with patient consent. NGT was being placed and patient pulled it out with both hands. Patient decided to wait to have NGT placed. Patient seen and evaluated by night attending Dr. Lee. CT abdomen/pelvis with IV contrast was ordered to evaluate for LLQ pain. Original Note: <Patricia Reddy - Last Filed: 03/21/18 03:08> Subjective - Date & Time of Evaluation Date of Evaluation: 03/21/18 Time of Evaluation: 02:52 - Subjective Subjective: Progress note for Dr. Olivarez Patient seen and examined multiple times during the security shift manager with son at bedside. Patient is complaining of abdominal pain in left lower quadrant, distension, and eructation. Per Son and patient, patient is vomiting liquid in small amounts in the kidney basin. Patient was given colace, dulcolax and reglan. Patient was then given a fleet enema to follow for BM. Consider NGT for decompression. Patient likely to have post-op ileus due to lack of ambulation and pain medication. Dilaudid was discontinued. Objective - Vital Signs/Intake and Output Vital Signs (last 24 hours): Temp Pulse Resp BP Pulse Ox 97.9 F 80 20 187/82 H 95 03/20/18 23:30 03/20/18 23:30 03/20/18 23:30 03/20/18 23:30 03/20/18 23:30 Intake and Output: 03/20/18 03/21/18 18:59 06:59 Output Total 200 750 Balance -200 -750 - Medications Medications: Current Medications Acetaminophen (Tylenol 325mg Tab) 650 mg PO Q4 PRN PRN Reason: Fever 101 degrees fahrenheit Aspirin (Ecotrin) 81 mg PO DAILY [facility] Last Admin: 03/20/18 12:19 Dose: Not Given Dextrose (Dextrose 50% Inj) 0 ml IV STAT PRN; Protocol PRN Reason: Hypoglycemia Protocol Dextrose (Glutose 15) 0 gm PO ONCE PRN; Protocol PRN Reason: Hypoglycemia Protocol Docusate Sodium (Colace) 100 mg PO BID [facility] Last Admin: 03/20/18 18:03 Dose: 100 mg Enoxaparin Sodium (Lovenox) 40 mg SC DAILY [facility] Last Admin: 03/20/18 09:43 Dose: 40 mg Gabapentin (Neurontin) 300 mg PO BID [facility] Last Admin: 03/20/18 18:03 Dose: 300 mg Glucagon (Glucagen Diagnostic Kit) 0 mg IM STAT PRN; Protocol PRN Reason: Hypoglycemia Protocol Hydrochlorothiazide (Hydrodiuril) 25 mg PO DAILY [facility] Hydromorphone HCl (Dilaudid) 0.5 mg IVP Q6H PRN PRN Reason: Pain, moderate (4-7) Last Admin: 03/20/18 11:50 Dose: 0.5 mg Hydromorphone HCl (Dilaudid) 1 mg IVP Q6H PRN PRN Reason: Pain, severe (8-10) Dextrose (Dextrose 5% In Water 1000 Ml) 1,000 mls @ 0 mls/hr IV .Q0M PRN; Protocol; Per Protocol PRN Reason: Hypoglycemia Protocol Sodium Chloride (Sodium Chloride 0.9%) 1,000 mls @ 50 mls/hr IV .Q20H [facility] Last Admin: 03/20/18 18:45 Dose: 50 mls/hr Cefazolin Sodium 2,000 mg/ (Sodium Chloride) 100 mls @ 100 mls/hr IVPB Q8H [facility] PRN Reason: Protocol Last Admin: 03/21/18 02:21 Dose: 100 mls/hr Insulin Glargine (Lantus) 15 unit SC BID [facility] Last Admin: 03/20/18 18:53 Dose: Not Given Insulin Human Regular (Novolin R) 0 unit SC ACHS [facility] PRN Reason: Protocol Last Admin: 03/20/18 22:04 Dose: Not Given Losartan Potassium (Cozaar) 100 mg PO DAILY [facility] Last Admin: 03/20/18 12:13 Dose: Not Given Metoclopramide HCl (Reglan) 5 mg PO DAILY [facility] Last Admin: 03/20/18 12:14 Dose: Not Given Metoprolol Tartrate (Lopressor) 50 mg PO BID [facility] Last Admin: 03/20/18 18:02 Dose: 50 mg Nystatin (Nystop Topical Powder) 0 gm TOP BID [facility] Stop: 04/03/18 18:00 Last Admin: 03/20/18 18:03 Dose: 1 applic Ondansetron HCl (Zofran Inj) 4 mg IVP Q6H PRN PRN Reason: Nausea/Vomiting Last Admin: 03/20/18 16:24 Dose: 4 mg Oxycodone/Acetaminophen (Percocet 5/325 Mg Tab) 2 tab PO Q4H PRN PRN Reason: Pain, severe (8-10) Stop: 03/22/18 17:08 Pantoprazole Sodium (Protonix Ec Tab) 40 mg PO DAILY [facility] Last Admin: 03/20/18 12:14 Dose: Not Given Povidone Iodine (Betadine 10% Oint) 0 gm TOP Q8H [facility] Last Admin: 03/21/18 02:38 Dose: 1 dose Rosuvastatin Calcium (Crestor) 5 mg PO HS [facility] Last Admin: 03/20/18 22:44 Dose: Not Given - Labs Labs: 03/20/18 06:32 03/20/18 06:32 PT 12.8 SECONDS (9.7-12.2) H 03/19/18 08:12 INR 1.1 03/19/18 08:12 APTT 42 SECONDS (21-34) H 03/18/18 18:19 - Constitutional Appears: Non-toxic, Other (uncomfortable) - Head Exam Head Exam: ATRAUMATIC, NORMAL INSPECTION, NORMOCEPHALIC - Eye Exam Eye Exam: EOMI, Normal appearance Pupil Exam: NORMAL ACCOMODATION - ENT Exam ENT Exam: Mucous Membranes Moist, Normal Exam - Neck Exam Neck Exam: Full ROM, Normal Inspection. absent: Lymphadenopathy, Tenderness - Respiratory Exam Respiratory Exam: Clear to Ausculation Bilateral, NORMAL BREATHING PATTERN. absent: Accessory Muscle Use, Chest Wall Tenderness, Decreased Breath Sounds - Cardiovascular Exam Cardiovascular Exam: REGULAR RHYTHM, +S1, +S2 - GI/Abdominal Exam GI & Abdominal Exam: Distended, Tenderness (focused on LLQ), Hypoactive Bowel Sounds (LLQ and LUQ). absent: Guarding, Rigid, Pulsatile Mass, Rebound - Extremities Exam Extremities Exam: Normal Capillary Refill. absent: Pedal Edema Additional comments: Right hip surgery dressings c/d/i - Back Exam Back Exam: NORMAL INSPECTION - Psychiatric Exam Psychiatric exam: Anxious, Normal Affect - Skin Skin Exam: Dry, Normal Color, Warm Assessment and Plan - Assessment and Plan (Free Text) Assessment: - Assessment and Plan (Free Text) Assessment: (1) Right Subtrochanteric Femoral Fracture s/p ORIF with Long Hip Nail 03/19/18 POD #[address] Bernabe Percocet 2 tab PO Q4H PRN Sever Pain, discontinued Diladudid Discontinued Ansef IV Q8 Morphine 2mg Q4 for pain, discontinued Status: Acute Bilateral Lower quadrant Abdominal Fungal Skin infection monitor Hx Diabetes Assessment & Plan: ASA 81 PO QD neurontin 300 PO BID ISS High Glargine 15 SC BID Reglan 5 PO QD Hx CAD ASA 81 mg PO QD Metoprolol Tartrate 50 mg PO BID Crestor 5 mg PO HS Hx Constipation Assessment & Plan: colace 100 BID overnight 03/21: Colace, dulcolax, reglan, and fleet enema consider NGT placement with Continuous wall suction of patient continues to feel distended. Anal fissures-per son at bedside encourage fiber diet and relaxation when having bowel movement consider sitz baths for home/outpatient treatment HTN (hypertension) Assessment & Plan: Lopressor 50 PO BID Losartan 100 PO QD Hx Difficulty starting Urinary Stream, Per nursing notes and Dr. Alexis Olivarez: Phimosis of penis He does not pull skin back from head of penis when he urinates Dr. lOivarez discussed with patient to follow up with Urologist as an outpatient for circumcision Possible Depression He stated that he prayed every day for God to take him because he worked for so long and now has many medical problems. Patient states he has no plans to hurt himself. continue to monitor Prophylaxis Lovenox 40 SC QD SCDs Protonix 40 mg SC PO QD Nausea: Zofran 4mg IV Q4H PRN Nausea/Vomiting NS @ 50cc/hr Rodriguez in place, clean insertion site with betadine TID Physical therapy: 03/22 speak with shoe parts caser to arrange for ERIC <Alexis Olivarez - Last Filed: 03/21/18 09:57> Objective - Vital Signs/Intake and Output Vital Signs (last 24 hours): Temp Pulse Resp BP Pulse Ox 98.4 F 96 H 20 185/90 H 94 L 03/21/18 08:45 03/21/18 08:45 03/21/18 08:45 03/21/18 08:45 03/21/18 08:45 Intake and Output: 03/21/18 03/21/18 06:59 18:59 Output Total 1300 Balance -1300 - Medications Medications: Current Medications Acetaminophen (Tylenol 325mg Tab) 650 mg PO Q4 PRN PRN Reason: Fever 101 degrees fahrenheit Last Admin: 03/21/18 03:35 Dose: 650 mg Aspirin (Ecotrin) 81 mg PO DAILY [facility] Last Admin: 03/20/18 12:19 Dose: Not Given Dextrose (Dextrose 50% Inj) 0 ml IV STAT PRN; Protocol PRN Reason: Hypoglycemia Protocol Dextrose (Glutose 15) 0 gm PO ONCE PRN; Protocol PRN Reason: Hypoglycemia Protocol Docusate Sodium (Colace) 100 mg PO BID [facility] Last Admin: 03/20/18 18:03 Dose: 100 mg Enoxaparin Sodium (Lovenox) 40 mg SC DAILY [facility] Last Admin: 03/20/18 09:43 Dose: 40 mg Gabapentin (Neurontin) 300 mg PO BID [facility] Last Admin: 03/20/18 18:03 Dose: 300 mg Glucagon (Glucagen Diagnostic Kit) 0 mg IM STAT PRN; Protocol PRN Reason: Hypoglycemia Protocol Hydrochlorothiazide (Hydrodiuril) 25 mg PO DAILY [facility] Hydromorphone HCl (Dilaudid) 0.5 mg IVP Q6H PRN PRN Reason: Pain, moderate (4-7) Last Admin: 03/20/18 11:50 Dose: 0.5 mg Hydromorphone HCl (Dilaudid) 1 mg IVP Q6H PRN PRN Reason: Pain, severe (8-10) Dextrose (Dextrose 5% In Water 1000 Ml) 1,000 mls @ 0 mls/hr IV .Q0M PRN; Protocol; Per Protocol PRN Reason: Hypoglycemia Protocol Sodium Chloride (Sodium Chloride 0.9%) 1,000 mls @ 50 mls/hr IV .Q20H [facility] Last Admin: 03/21/18 04:50 Dose: 50 mls/hr Cefazolin Sodium 2,000 mg/ (Sodium Chloride) 100 mls @ 100 mls/hr IVPB Q8H [facility] PRN Reason: Protocol Last Admin: 03/21/18 02:21 Dose: 100 mls/hr Vancomycin HCl 1,000 mg/ (Sodium Chloride) 250 mls @ 166.6 mls/hr IVPB Q12H [facility] PRN Reason: Protocol Piperacillin Sod/Tazobactam (Sod 3.375 gm/ Sodium Chloride) 100 mls @ 200 mls/ hr IVPB Q6H [facility] PRN Reason: Protocol Insulin Glargine (Lantus) 15 unit SC BID [facility] Last Admin: 03/20/18 18:53 Dose: Not Given Insulin Human Regular (Novolin R) 0 unit SC ACHS [facility] PRN Reason: Protocol Last Admin: 03/21/18 08:21 Dose: 3 unit Losartan Potassium (Cozaar) 100 mg PO DAILY [facility] Last Admin: 03/20/18 12:13 Dose: Not Given Metoclopramide HCl (Reglan) 5 mg PO DAILY [facility] Last Admin: 03/20/18 12:14 Dose: Not Given Metoprolol Tartrate (Lopressor) 50 mg PO BID [facility] Last Admin: 03/20/18 18:02 Dose: 50 mg Nystatin (Nystop Topical Powder) 0 gm TOP BID [facility] Stop: 04/03/18 18:00 Last Admin: 03/20/18 18:03 Dose: 1 applic Ondansetron HCl (Zofran Inj) 4 mg IVP Q6H PRN PRN Reason: Nausea/Vomiting Last Admin: 03/20/18 16:24 Dose: 4 mg Oxycodone/Acetaminophen (Percocet 5/325 Mg Tab) 2 tab PO Q4H PRN PRN Reason: Pain, severe (8-10) Stop: 03/22/18 17:08 Pantoprazole Sodium (Protonix Ec Tab) 40 mg PO DAILY [facility] Last Admin: 03/20/18 12:14 Dose: Not Given Povidone Iodine (Betadine 10% Oint) 0 gm TOP Q8H [facility] Last Admin: 03/21/18 02:38 Dose: 1 dose Rosuvastatin Calcium (Crestor) 5 mg PO HS [facility] Last Admin: 03/20/18 22:44 Dose: Not Given - Labs Labs: 03/21/18 08:08 03/21/18 08:08 PT 12.8 SECONDS (9.7-12.2) H 03/19/18 08:12 INR 1.1 03/19/18 08:12 APTT 42 SECONDS (21-34) H 03/18/18 18:19 Attending/Attestation - Attestation I have personally seen and examined this patient.: Yes I have fully participated in the care of the patient.: Yes I have reviewed all pertinent clinical information, including history, physical exam and plan: Yes Notes (Text): 03/21/18 09:16 Patient was seen and examined at 8:45 AM 03/21/18 Bed 667 B Was notified by Nurse Jess that patient was having slight blood tinged vomiting. Upon exam noticed that the patient's abdomen was extremely distended and tender to palpation in all quadrants without guarding/rebound tenderness and the patient appeared to be uncomfortable. Reviewed CT Abdomen/Pelvis myself and this indicated severe colonic distention as well as a mass like area in the rectosigmoid area. Spoke with Radiologist Dr. Falcon via phone shortly after my review and this was confirmed: CT Abdomen/Pelvis with IV Contrast: 1). Rectosigmoid colonic wall thickening with masslike appearance seen on image 164 with dilatation of colon proximal to this thickening and large amount of stool and gas within the colon. These findings are suspicious for partial versus early colonic obstruction secondary to colon cancer versus inflammatory mass secondary to infectious inflammatory versus stool related proctocolitis. 2). Gallbladder distention with gall stones and mild gallbladder wall prominence. 3). There is a gastroduodenal distention this can be due to recent ingestion versus delayed emptying. 4). Bilbasilar nonspecific infiltrates are present, consistent with atelectasis or pneumonia Spoke with both patient and son Beck (who was at the bedside) and explained the necessity of NGT placement and they agreed. NGT was placed with assistance of resident Dr. Jorge Reyez and immediately 600 mls of feculant brown fluid was produced and patient was became less uncomfortable. Stressed to patient the importance of NOT pulling out the NGT. It was placed initially on continuous suction and then on intermittent suction. General Surgery Dr. Sabillon was consulted. After explaining the possibility of RectoSigmoid Mass to patient and Son Beck, it was revealed by Beck that the patient had an unsuccessful Colonoscopy roughly 1 to 2 months ago with his outpatient Supervisor Mending Dr. Bernard. The reasons as to why the Colonoscopy could not be completed are not clear to Son and patient. Dr. Bernard has been consulted for further recommendations concerning this issue. Iron Studies have also been ordered. Considering the rise in WBC after surgery and findings on CT Abdomen/Pelvis as mentioned above, he has been started on Vancomycin 1 gm IV Q12H and Zosyn 3.375 gm IV Q6H. Blood and Urine Cultures were also drawn. Rapid Influenza, Urine Legionella Ag, Urine Strep pnuemonia Ag, Serum Mycoplasma IgG and IgM have been ordered. ID consult with Dr. Dylan Kam has been ordered. Please see below for further Assesment and Plans: Also on ROS: Right Hip pain that comes and goes but is currently controlled Episode of nausea and vomiting earlier today with some bright red blood in the vomitus Has not moved his bowels yet but is passing flatus Complains of abdominal pain secondary to distention Also on Exam: Phimosis of penis (this was checked as Nurse Kasia explained that she had difficulty pulling the foreskin back) Bilateral LQ Abdominal Fungal Skin infection Right Lower Leg blanchable erythema around and superior to the ankle (chronic in nature and is not warm or edematous) Assessments: 1). Right Subtrochanteric Femoral Fracture ORIF with Long Hip Nail 03/19/18 POD #2 Percocet 2 tab PO Q4H PRN Sever Pain has been placed on HOLD 2). Possible RectoSigmoid Mass Please see above 3). Possible Bilateral Basilar Infiltrates Please see above 4). Elevated WBC Please see above 5). Chronic Right Lower Leg Erythema 6). Hx CAD ASA 81 mg PO 1x/day Metoprolol Tartrate 50 mg PO 2x/day Crestor 5 mg PO HS 7). Hx HTN Holding HCTZ Cozaar 100 mg PO 1x/day Metoprolol Tartrate 50 mg PO 2x/day 8). Hx DM 1 with Peripheral Neuropathy Lantus 15 units SC 2x/day [facility] ACHS Hypoglycemic Protocol Gabapentin 300 mg PO 2x/day 9). Hx Constipation Last bowel movement was 03/18/18 Colace 100 mg PO 2x/day Reglan 5 mg PO 1x/day 10). Hx Difficulty starting Urinary Stream Patient stated that he has had this for some time He does not pull skin back from head of penis when he urinates Considering the possibility of phimosis, I explained 03/20/18 that he would certainly need to follow up with a Urologist as an outpatient for circumcision 11). Possible Depression Patient explained 03/20/18 that he worked his entire life and then when he retired, he had multiple medical problems. He stated that he prayed every day for God to take him but he has not plans to hurt himself. His Son at bedside stated that the patient has been saying the above for years. Monitor for now 12). Bilateral LQ Abdominal Skin Fungal Infection Nystatin Powder Topical 2x/day for 14 days from 03/20/18 through 04/03/18 13). Prophylaxis Lovenox 40 mg SC 1x/day Bilateral SCDs Protonix 40 mg PO 1x/day Zofran 4 mg IV Q4H PRN N/V NS at 50 ml/hour Rodriguez placed 03/20/18 as patient had difficulty urinating and was retaining urine. Rodriguez Care (clean insertion site with betadine 3x/day was ordered) Continue PT Medicine Team to speak with Want Ad Receiver on Thursday03/22/18 to make arrangements for ERIC Olivarez D.O. 03/21/18 09:55
[2018-03-21] MEDS: Sodium Chloride 0.9% 1,000 ML IV SCH ×2 (04:50→13:47)
[2018-03-21] MEDS ORDERED: Iohexol 350mg/ml 100 ML ONE (06:29)
[2018-03-21 08:13] LABS: BASO # 0.1 K/uL (0.0-0.2); BASO % 0.5 % (0.0-2.0); EOS % 0.1 % (0.0-4.0); HEMOGLOBIN 8.9 g/dL (12.0-18.0); LYMPH # 1.6 K/uL (1.0-4.3); LYMPH % 10.5 % (20.0-40.0); MEAN CELL VOLUME 80.5 fL (80.0-94.0); MEAN CORPUSCULAR HEMOGLOBIN 26.2 pg (27.0-31.0); MEAN CORPUSCULAR HGB CONC 32.6 g/dL (33.0-37.0); MEAN PLATELET VOLUME 9.3 fL (7.2-11.7); MONO # 1.4 K/uL (0.0-0.8); NEUT # 12.5 K/uL (1.8-7.0); NEUT % 79.9 % (50.0-75.0); NRBC % 0.1 % (0.0-2.0); RBC 3.4 Mil/uL (4.40-5.90); RED CELL DISTRIBUTION WIDTH 15.7 % (11.5-14.5); WHITE BLOOD COUNT 15.6 K/uL (4.8-10.8)
--- NOTE | 2018-03-21 08:14 | CARD ---
APPROVED REPORT EXAM: Two-dimensional and M-mode echocardiogram with Doppler, color Doppler with contrast. Other Information Quality : Technically LimitedRhythm : INDICATION Cardiac Disease: CAD Echo Enhancing Agent Indication: Endocardial border delineation Agent/Amount Used: Definity M-Mode DIMENSIONS Left Atrium (MM)4.52 (2.5-4.0cm)IVSd1.41 (0.7-1.1cm) Aortic Root3.14 (2.2-3.7cm)LVDd4.30 (4.0-5.6cm) Aortic Cusp Exc.1.57 (1.5-2.0cm)PWd1.60 (0.7-1.1cm) FS (%) 63 %LVDs1.60 (2.0-3.8cm) LVEF (%)91 (>50%) Mitral Valve MV E Ipfrkhaj64.7cm/sMV A Biydusnb621.3cm/s Tricuspid Valve TR Peak [id number]/sTR Peak [id number] LEFT VENTRICLE The left ventricle is normal size. Left ventricle systolic function is normal. The Ejection Fraction is 60-65%. There is normal LV segmental wall motion. Tissue Doppler imaging reveals abnormal left ventricular diastolic dysfunction. No left ventricle thrombus noted on this study. There is no ventricular septal defect visualized. RIGHT VENTRICLE The right ventricle is normal size. The right ventricular systolic function is normal. ATRIA The left atrium size is normal. The right atrium size is normal. The interatrial septum is intact with no evidence for an atrial septal defect. AORTIC VALVE Aortic valve fibrosclerotic with normal excursion No aortic regurgitation is present. There is no aortic valvular stenosis. There is no aortic valvular vegetation. MITRAL VALVE Mitral annular calcification is mild. There is no mitral valve stenosis. Mitral regurgitation is mild. TRICUSPID VALVE The tricuspid valve is normal in structure. There is mild tricuspid regurgitation. There is no tricuspid valve stenosis. PULMONIC VALVE The pulmonary valve is normal in structure. GREAT VESSELS The aortic root is normal in size. <Conclusion> Left ventricle systolic function is normal. LVH The Ejection Fraction is 60-65%. The right ventricular systolic function is normal. Aortic valve fibrosclerotic with normal excursion Mitral annular calcification is mild. Mitral regurgitation is mild. There is mild tricuspid regurgitation. The aortic root is normal in size.
[2018-03-21] MEDS: (Novolin R) Insulin Human Regular 100 units/ml vial SC SCH ×4 (08:21→21:32)
--- NOTE | 2018-03-21 08:27 | CT ---
EXAM: CT Abdomen and Pelvis With Intravenous Contrast CLINICAL HISTORY: 72 years old, male; Signs and symptoms; Abdominal tenderness and bloating; Prior surgery; Surgery type: Status post orif right femur; Additional info: Ileus TECHNIQUE: Axial computed tomography images of the abdomen and pelvis with intravenous contrast. All CT scans at this facility use one or more dose reduction techniques, viz.: automated exposure control; ma/kV adjustment per patient size (including targeted exams where dose is matched to indication; i.e. head); or iterative reconstruction technique. 781 images are submitted. Axial images are submitted in soft tissue and lung windows. Coronal and sagittal reformatted images were created and reviewed. CONTRAST: 100 mL of visipaque 320 administered intravenously. COMPARISON: No relevant prior studies available. FINDINGS: Lung bases: Bibasilar nonspecific infiltrates are present, consistent with atelectasis or pneumonia. Pleural space: Small left pleural effusion. Mediastinum: Nonspecific esophageal thickening likely due to underdistention versus esophagitis. Small hiatal hernia. ABDOMEN: Liver: Enlarged fatty liver. Gallbladder and bile ducts: Gallbladder distention with gallstones and mild gallbladder wall prominence. Pancreas: Unremarkable. No mass. No ductal dilation. Spleen: Unremarkable. No splenomegaly. Adrenals: Unremarkable. No mass. Kidneys and ureters: There are renal hypodensities too small to characterize. No hydronephrosis. Stomach and bowel: There is gastroduodenal distention this can be due to recent ingestion versus delayed emptying.There is rectosigmoid colonic wall thickening with masslike appearance seen on image 164 series 3 with dilatation of colon proximal to this thickening and large amount of stool and gas within the colon. These findings are suspicious for partial versus early colonic obstruction secondary to colon cancer versus inflammatory mass secondary to proctocolitis. Duodenal diverticulum. Diverticulosis. There are nonspecific fluid filled small bowel loops. These findings can represent ileus versus enteritis versus slow transit versus peristalsis. Appendix: Normal appendix. PELVIS: Bladder: Partially decompressed bladder with bladder wall thickening. Correlation with urinalysis is recommended only if clinical cystitis is suspected. There is Rodriguez catheter in place. Reproductive: Unremarkable. ABDOMEN and PELVIS: Intraperitoneal space: Unremarkable. No free air. No significant fluid collection. Bones/joints: There is right intramedullary luciana and screw fixation. The intramedullary luciana is incompletely visualized. No acute fracture. No dislocation.There are anterior flowing osteophytes bridging more than 4 vertebral bodies suggestive of dish. Soft tissues: Right lateral thigh postoperative changes. Vasculature: Unremarkable. No abdominal aortic aneurysm. Lymph nodes: Unremarkable. No enlarged lymph nodes. IMPRESSION: 1. There is rectosigmoid colonic wall thickening with masslike appearance seen on image 164 series 3 with dilatation of colon proximal to this thickening and large amount of stool and gas within the colon. These findings are suspicious for partial versus early colonic obstruction secondary to colon cancer versus inflammatory mass secondary to infectious inflammatory versus stool related proctocolitis. 2. Gallbladder distention with gallstones and mild gallbladder wall prominence.If clinically warranted, a right upper quadrant ultrasound and correlation with LFTs may be helpful for further assessment. 3.There is gastroduodenal distention this can be due to recent ingestion versus delayed emptying. 4.Bibasilar nonspecific infiltrates are present, consistent with atelectasis or pneumonia. Correlation with internal medicine , gastroenterology evaluation and further workup or followup as recommended by patient's clinical data.
[2018-03-21 08:30] LABS: ALB/GLOB RATIO 0.9 (1.0-2.1); ALBUMIN 3.2 g/dL (3.5-5.0); ALT/SGPT 12 U/L (21-72); AST/SGOT 33 U/L (17-59); BLOOD UREA NITROGEN 26 mg/dL (9-20); GFR AFRICAN-AMERICAN > 60; GFR NON-AFRICAN AMERICAN > 60
[2018-03-21] MEDS: Pantoprazole 40 mg EC Tab PO SCH (09:30)
[2018-03-21] MEDS: (Lantus) Insulin Glargine, Recombinant SC SCH ×2 (09:32→18:06)
[2018-03-21] MEDS: Enoxaparin 40 mg Syringe SC SCH (09:38)
[2018-03-21] MEDS: Nystatin 100,000 Units/gm Topical Pow(15 gm) TOP SCH ×2 (09:50→17:35)
[2018-03-21] MEDS: Piperacill/Tazo 3.375gm in Dex 3.375 GM/50 ML BAG IVPB SCH ×3 (09:54→20:57)
[2018-03-21] MEDS: Vancomycin 1 gm/NS 200 ml 1 GM/200 ML BAG IVPB SCH ×2 (11:10→22:08)
--- NOTE | 2018-03-21 12:02 | CP.PCM.CON ---
History of Present Illness - History of Present Illness History of Present Illness: General Surgery - Dr. Sabillon 72 yo M w/ hx of HTN, DM, CAD, Arthritis, Obesity, admitted to the hospital s/p fall with R femur Fx. He underwent ORIF on Thursday with Dr. Bernabe. Since surgery pt had been unable to have a BM or flatus, he developed increasing abdominal distension and so a CT abdomen/pelvis was ordered. The CT showed a dilated colon with thickening of the recto-sigmoid colon concerning for obstructing proctitis vs. malignancy. NGT was placed to relieve gastric distension with 600ml gastric contents initially drained. He currently states he feels better after NGT placement, denies any abdominal pain at this time but does admit to distension above baseline. Per the son, Pt has had issues with constipation for the past 5 years. He takes stool softeners and laxatives at home and has infrequent small/soft stools. His last colonoscopy was in June but had incomplete visualization d/t poor prep. Pt also has history of anal fissures. Review of Systems - Review of Systems All systems: reviewed and no additional remarkable complaints except (as perHPI) Past Patient History - Past Medical History & Family History Past Medical History?: Yes - Past Social History Smoking Status: Never Smoked - CARDIAC Hx Hypertension: Yes - PULMONARY Hx Sleep Apnea: Yes - NEUROLOGICAL Hx Neurological Disorder: No - HEENT Hx HEENT Problems: Yes Hx Cataracts: Yes (BILAT IOL) Hx Glaucoma: Yes - RENAL Hx Chronic Kidney Disease: No - ENDOCRINE/METABOLIC Hx Diabetes Mellitus Type 2: Yes - HEMATOLOGICAL/ONCOLOGICAL Hx Blood Disorders: No - INTEGUMENTARY Hx Dermatological Problems: Yes (REDDNESS BLE) Other/Comment: FUNGAL INFECTION BILATERAL GROINS - MUSCULOSKELETAL/RHEUMATOLOGICAL Hx Arthritis: Yes (KNEES) - GASTROINTESTINAL Hx Gastrointestinal Disorders: Yes (HEMORRHOIDS CONSTIPATION) Other/Comment: hx anal fissure - GENITOURINARY/GYNECOLOGICAL Hx Genitourinary Disorders: Yes Hx Prostate Problems: Yes - PSYCHIATRIC Hx Substance Use: No - SURGICAL HISTORY Hx Surgeries: Yes Hx Cataract Extraction: Yes (CAT EXT IOL BILAT) - ANESTHESIA Hx Anesthesia: Yes Hx Anesthesia Reactions: No Hx Malignant Hyperthermia: No Meds Allergies/Adverse Reactions: Allergies Allergy/AdvReac Type Severity Reaction Status Date / Time No Known Allergies Allergy Verified 07/16/17 07:37 - Medications Medications: Current Medications Acetaminophen (Tylenol 325mg Tab) 650 mg PO Q4 PRN PRN Reason: Fever 101 degrees fahrenheit Last Admin: 03/21/18 03:35 Dose: 650 mg Aspirin (Ecotrin) 81 mg PO DAILY [facility] Last Admin: 03/21/18 09:31 Dose: 81 mg Dextrose (Dextrose 50% Inj) 0 ml IV STAT PRN; Protocol PRN Reason: Hypoglycemia Protocol Dextrose (Glutose 15) 0 gm PO ONCE PRN; Protocol PRN Reason: Hypoglycemia Protocol Docusate Sodium (Colace) 100 mg PO BID [facility] Last Admin: 03/21/18 09:48 Dose: 100 mg Enoxaparin Sodium (Lovenox) 40 mg SC DAILY [facility] Last Admin: 03/21/18 09:38 Dose: 40 mg Gabapentin (Neurontin) 300 mg PO BID [facility] Last Admin: 03/21/18 09:31 Dose: 300 mg Glucagon (Glucagen Diagnostic Kit) 0 mg IM STAT PRN; Protocol PRN Reason: Hypoglycemia Protocol Hydrochlorothiazide (Hydrodiuril) 25 mg PO DAILY [facility] Hydromorphone HCl (Dilaudid) 0.5 mg IVP Q6H PRN PRN Reason: Pain, moderate (4-7) Last Admin: 03/20/18 11:50 Dose: 0.5 mg Hydromorphone HCl (Dilaudid) 1 mg IVP Q6H PRN PRN Reason: Pain, severe (8-10) Dextrose (Dextrose 5% In Water 1000 Ml) 1,000 mls @ 0 mls/hr IV .Q0M PRN; Protocol; Per Protocol PRN Reason: Hypoglycemia Protocol Sodium Chloride (Sodium Chloride 0.9%) 1,000 mls @ 50 mls/hr IV .Q20H [facility] Last Admin: 03/21/18 04:50 Dose: 50 mls/hr Vancomycin/Sodium Chloride (Vancomycin 1 Gm/Ns 200 Ml) 1 gm in 200 mls @ 133.333 mls/hr IVPB Q12H [facility] PRN Reason: Protocol Last Admin: 03/21/18 11:10 Dose: 133.333 mls/hr Piperacillin Sod/Tazobactam Sod (Zosyn 3.375 Gm Iv Premix) 3.375 gm in 50 mls @ 100 mls/hr IVPB Q6H [facility] PRN Reason: Protocol Last Admin: 03/21/18 09:54 Dose: 100 mls/hr Insulin Glargine (Lantus) 15 unit SC BID [facility] Last Admin: 03/21/18 09:32 Dose: 15 unit Insulin Human Regular (Novolin R) 0 unit SC ACHS [facility] PRN Reason: Protocol Last Admin: 03/21/18 08:21 Dose: 3 unit Losartan Potassium (Cozaar) 100 mg PO DAILY [facility] Last Admin: 03/21/18 09:31 Dose: 100 mg Metoclopramide HCl (Reglan) 5 mg PO DAILY [facility] Last Admin: 03/21/18 11:10 Dose: Not Given Metoprolol Tartrate (Lopressor) 50 mg PO BID [facility] Last Admin: 03/21/18 09:48 Dose: 50 mg Nystatin (Nystop Topical Powder) 0 gm TOP BID [facility] Stop: 04/03/18 18:00 Last Admin: 03/21/18 09:50 Dose: 1 applic Ondansetron HCl (Zofran Inj) 4 mg IVP Q6H PRN PRN Reason: Nausea/Vomiting Last Admin: 03/20/18 16:24 Dose: 4 mg Oxycodone/Acetaminophen (Percocet 5/325 Mg Tab) 2 tab PO Q4H PRN PRN Reason: Pain, severe (8-10) Stop: 03/22/18 17:08 Pantoprazole Sodium (Protonix Ec Tab) 40 mg PO DAILY [facility] Last Admin: 03/21/18 09:30 Dose: 40 mg Povidone Iodine (Betadine 10% Oint) 0 gm TOP Q8H [facility] Last Admin: 03/21/18 09:50 Dose: 1 dose Rosuvastatin Calcium (Crestor) 5 mg PO HS [facility] Last Admin: 03/20/18 22:44 Dose: Not Given Saccharomyces Boulardii (Florastor) 250 mg PO BID [facility] Physical Exam - Constitutional Appears: No Acute Distress - Head Exam Head Exam: ATRAUMATIC, NORMAL INSPECTION, NORMOCEPHALIC - Eye Exam Eye Exam: Normal appearance - Respiratory Exam Respiratory Exam: NORMAL BREATHING PATTERN. absent: Respiratory Distress - Cardiovascular Exam Cardiovascular Exam: REGULAR RHYTHM - GI/Abdominal Exam GI & Abdominal Exam: Distended, Soft. absent: Firm, Guarding, Rebound, Rigid, Tenderness - Neurological Exam Neurological exam: Alert, Oriented x3 - Psychiatric Exam Psychiatric exam: Normal Affect, Normal Mood - Skin Skin Exam: Dry, Intact Results - Vital Signs Recent Vital Signs: Last Vital Signs Temp 98.4 F 03/21/18 08:45 Pulse 96 H 03/21/18 08:45 Resp 20 03/21/18 08:45 BP 185/90 H 03/21/18 08:45 Pulse Ox 94 L 03/21/18 08:45 - Labs Result Diagrams: 03/21/18 08:08 03/21/18 08:08 Labs: Laboratory Results - last 24 hr 03/20/18 03/20/18 03/20/18 12:21 16:43 21:38 WBC RBC Hgb Hct MCV MCH MCHC RDW Plt Count MPV Neut % (Auto) Lymph % (Auto) [place] % (Auto) Eos % (Auto) Baso % (Auto) Neut # (Auto) Lymph # (Auto) [place] # (Auto) Eos # (Auto) Baso # (Auto) Sodium Potassium Chloride Carbon Dioxide Anion Gap BUN Creatinine Est GFR ( Amer) Est GFR (Non-Af Amer) POC Glucose (mg/dL) 202 H 207 H 217 H Random Glucose Calcium Total Bilirubin AST ALT Alkaline Phosphatase Total Protein Albumin Globulin Albumin/Globulin Ratio 03/21/18 03/21/18 03/21/18 06:25 08:08 08:08 WBC 15.6 H RBC 3.40 L Hgb 8.9 L Hct 27.4 L MCV 80.5 MCH 26.2 L MCHC 32.6 L RDW 15.7 H Plt Count 254 MPV 9.3 Neut % (Auto) 79.9 H Lymph % (Auto) 10.5 L [place] % (Auto) 9.0 Eos % (Auto) 0.1 Baso % (Auto) 0.5 Neut # (Auto) 12.5 H Lymph # (Auto) 1.6 [place] # (Auto) 1.4 H Eos # (Auto) 0.0 Baso # (Auto) 0.1 Sodium 141 Potassium 3.3 L Chloride 102 Carbon Dioxide 24 Anion Gap 18 BUN 26 H Creatinine 0.8 Est GFR ( Amer) > 60 Est GFR (Non-Af Amer) > 60 POC Glucose (mg/dL) 215 H Random Glucose 227 H Calcium 8.0 L Total Bilirubin 0.8 AST 33 ALT 12 L Alkaline Phosphatase 81 Total Protein 6.7 Albumin 3.2 L Globulin 3.4 Albumin/Globulin Ratio 0.9 L 03/21/18 11:41 WBC RBC Hgb Hct MCV MCH MCHC RDW Plt Count MPV Neut % (Auto) Lymph % (Auto) [place] % (Auto) Eos % (Auto) Baso % (Auto) Neut # (Auto) Lymph # (Auto) [place] # (Auto) Eos # (Auto) Baso # (Auto) Sodium Potassium Chloride Carbon Dioxide Anion Gap BUN Creatinine Est GFR ( Amer) Est GFR (Non-Af Amer) POC Glucose (mg/dL) 220 H Random Glucose Calcium Total Bilirubin AST ALT Alkaline Phosphatase Total Protein Albumin Globulin Albumin/Globulin Ratio Assessment & Plan - Assessment and Plan (Free Text) Assessment: 72M w/ R femur fx s/p ORIF, post-op developed sx of colonic obstruction for which general surgery was consulted -CT reviewed -Continue NGT to low continuous suction -F/U GI , Colonoscopy -Further reccs to follow after c-scope DW DR Ramandeep Marion PGY3
--- NOTE | 2018-03-21 12:10 | CP.PCM.CON ---
History of Present Illness - History of Present Illness History of Present Illness: INFECTIOUS DISEASE CONSULT; HPI; Patient is a 72yo male with PMHx significant for diabetes, hypertension, chronic idiopathic constipation using amitiza, anal fissures, osteoarthritis, depression and obesity who presented to the hospital following a mechanical fall at home. Patient fractured his right femur and is now post-op day 2 from ORIF of the right femur. Following surgery, the patient developed abdominal discomfort and has been unable to pass flatus/BM concerning for ileus. With worsening abdominal distention, a CT A/P was performed showing rectosigmoid thickening with "masslike appearance" and dilation of the colon proximal to this area. Nasogastric tube was placed for decompression, immediately draining 500-800cc dark bilious/feculent material with approximately 3000cc in the last 24 hours. Currently, patient states he is feeling better overall but continues to have abdominal distention. PATIENT WAS STARTED EMPIRICALLY ON iv ZOSYN AND iv VANCOMYCIN. INFECTIOUS DISEASE CONSULT REQUESTED BY DR TIMI DE LA CRUZ FOR INCREASING LEUKOCYTOSIS/AND Proximal colon OBSTRUCTION.. ALLERGY; NKA PMHx: See HPI PSHx: ORIF of the right femur 03/19/18 FHx: Mother/Father - DM Social: +Daily tobacco use, denies EtOH or illicit drug use. Review of Systems - Constitutional Constitutional: absent: Fever - EENT Eyes: absent: Change in Vision, Photophobia Nose/Mouth/Throat: absent: Sore Throat - Cardiovascular Cardiovascular: absent: Chest Pain, Dyspnea - Respiratory Respiratory: absent: Cough, Hemoptysis - Gastrointestinal Gastrointestinal: Abdominal Pain, Constipation, Cramping. absent: Nausea, Vomiting - Genitourinary Genitourinary: absent: Dysuria, Urinary Hesitance - Neurological Neurological: As Per HPI - Hematologic/Lymphatic Hematologic: As Per HPI. absent: Easy Bleeding, Easy Bruising Past Patient History - Past Medical History & Family History Past Medical History?: Yes - Past Social History Smoking Status: Never Smoked - CARDIAC Hx Hypertension: Yes - PULMONARY Hx Sleep Apnea: Yes - NEUROLOGICAL Hx Neurological Disorder: No - HEENT Hx HEENT Problems: Yes Hx Cataracts: Yes (BILAT IOL) Hx Glaucoma: Yes - RENAL Hx Chronic Kidney Disease: No - ENDOCRINE/METABOLIC Hx Diabetes Mellitus Type 2: Yes - HEMATOLOGICAL/ONCOLOGICAL Hx Blood Disorders: No - INTEGUMENTARY Hx Dermatological Problems: Yes (REDDNESS BLE) Other/Comment: FUNGAL INFECTION BILATERAL GROINS - MUSCULOSKELETAL/RHEUMATOLOGICAL Hx Arthritis: Yes (KNEES) - GASTROINTESTINAL Hx Gastrointestinal Disorders: Yes (HEMORRHOIDS CONSTIPATION) Other/Comment: hx anal fissure - GENITOURINARY/GYNECOLOGICAL Hx Genitourinary Disorders: Yes Hx Prostate Problems: Yes - PSYCHIATRIC Hx Substance Use: No - SURGICAL HISTORY Hx Surgeries: Yes Hx Cataract Extraction: Yes (CAT EXT IOL BILAT) - ANESTHESIA Hx Anesthesia: Yes Hx Anesthesia Reactions: No Hx Malignant Hyperthermia: No Meds Allergies/Adverse Reactions: Allergies Allergy/AdvReac Type Severity Reaction Status Date / Time No Known Allergies Allergy Verified 07/16/17 07:37 - Medications Medications: Current Medications Acetaminophen (Tylenol 325mg Tab) 650 mg PO Q4 PRN PRN Reason: Fever 101 degrees fahrenheit Last Admin: 03/21/18 03:35 Dose: 650 mg Aspirin (Ecotrin) 81 mg PO DAILY [facility] Last Admin: 03/21/18 09:31 Dose: 81 mg Dextrose (Dextrose 50% Inj) 0 ml IV STAT PRN; Protocol PRN Reason: Hypoglycemia Protocol Dextrose (Glutose 15) 0 gm PO ONCE PRN; Protocol PRN Reason: Hypoglycemia Protocol Docusate Sodium (Colace) 100 mg PO BID [facility] Last Admin: 03/21/18 09:48 Dose: 100 mg Enoxaparin Sodium (Lovenox) 40 mg SC DAILY [facility] Last Admin: 03/21/18 09:38 Dose: 40 mg Gabapentin (Neurontin) 300 mg PO BID [facility] Last Admin: 03/21/18 09:31 Dose: 300 mg Glucagon (Glucagen Diagnostic Kit) 0 mg IM STAT PRN; Protocol PRN Reason: Hypoglycemia Protocol Hydrochlorothiazide (Hydrodiuril) 25 mg PO DAILY [facility] Hydromorphone HCl (Dilaudid) 0.5 mg IVP Q6H PRN PRN Reason: Pain, moderate (4-7) Last Admin: 03/20/18 11:50 Dose: 0.5 mg Hydromorphone HCl (Dilaudid) 1 mg IVP Q6H PRN PRN Reason: Pain, severe (8-10) Dextrose (Dextrose 5% In Water 1000 Ml) 1,000 mls @ 0 mls/hr IV .Q0M PRN; Protocol; Per Protocol PRN Reason: Hypoglycemia Protocol Sodium Chloride (Sodium Chloride 0.9%) 1,000 mls @ 50 mls/hr IV .Q20H [facility] Last Admin: 03/21/18 04:50 Dose: 50 mls/hr Vancomycin/Sodium Chloride (Vancomycin 1 Gm/Ns 200 Ml) 1 gm in 200 mls @ 133.333 mls/hr IVPB Q12H [facility] PRN Reason: Protocol Last Admin: 03/21/18 11:10 Dose: 133.333 mls/hr Piperacillin Sod/Tazobactam Sod (Zosyn 3.375 Gm Iv Premix) 3.375 gm in 50 mls @ 100 mls/hr IVPB Q6H [facility] PRN Reason: Protocol Last Admin: 03/21/18 09:54 Dose: 100 mls/hr Insulin Glargine (Lantus) 15 unit SC BID [facility] Last Admin: 03/21/18 09:32 Dose: 15 unit Insulin Human Regular (Novolin R) 0 unit SC ACHS [facility] PRN Reason: Protocol Last Admin: 03/21/18 08:21 Dose: 3 unit Losartan Potassium (Cozaar) 100 mg PO DAILY [facility] Last Admin: 03/21/18 09:31 Dose: 100 mg Metoclopramide HCl (Reglan) 5 mg PO DAILY [facility] Last Admin: 03/21/18 11:10 Dose: Not Given Metoprolol Tartrate (Lopressor) 50 mg PO BID [facility] Last Admin: 03/21/18 09:48 Dose: 50 mg Nystatin (Nystop Topical Powder) 0 gm TOP BID [facility] Stop: 04/03/18 18:00 Last Admin: 03/21/18 09:50 Dose: 1 applic Ondansetron HCl (Zofran Inj) 4 mg IVP Q6H PRN PRN Reason: Nausea/Vomiting Last Admin: 03/20/18 16:24 Dose: 4 mg Oxycodone/Acetaminophen (Percocet 5/325 Mg Tab) 2 tab PO Q4H PRN PRN Reason: Pain, severe (8-10) Stop: 03/22/18 17:08 Pantoprazole Sodium (Protonix Ec Tab) 40 mg PO DAILY [facility] Last Admin: 03/21/18 09:30 Dose: 40 mg Povidone Iodine (Betadine 10% Oint) 0 gm TOP Q8H [facility] Last Admin: 03/21/18 09:50 Dose: 1 dose Rosuvastatin Calcium (Crestor) 5 mg PO HS [facility] Last Admin: 03/20/18 22:44 Dose: Not Given Saccharomyces Boulardii (Florastor) 250 mg PO BID [facility] Physical Exam - Constitutional Appears: No Acute Distress - Head Exam Head Exam: NORMAL INSPECTION - Eye Exam Eye Exam: EOMI, PERRL - ENT Exam ENT Exam: Normal Oropharynx - Neck Exam Neck exam: Positive for: Normal Inspection - Respiratory Exam Respiratory Exam: Clear to Auscultation Bilateral - Cardiovascular Exam Cardiovascular Exam: REGULAR RHYTHM, +S1, +S2 - GI/Abdominal Exam GI & Abdominal Exam: Distended, Hypoactive Bowel Sounds, Tenderness. absent: Guarding - Extremities Exam Extremities exam: Positive for: pedal pulses present. Negative for: calf tenderness, pedal edema - Neurological Exam Neurological exam: Alert, Oriented x3 - Psychiatric Exam Psychiatric exam: Normal Mood - Skin Skin Exam: Normal Color, Warm Results - Vital Signs Recent Vital Signs: Last Vital Signs Temp 98.4 F 03/21/18 08:45 Pulse 96 H 03/21/18 08:45 Resp 20 03/21/18 08:45 BP 185/90 H 03/21/18 08:45 Pulse Ox 94 L 03/21/18 08:45 - Labs Result Diagrams: 03/22/18 07:17 03/22/18 07:17 Labs: Laboratory Results - last 24 hr 03/20/18 03/20/18 03/20/18 12:21 16:43 21:38 WBC RBC Hgb Hct MCV MCH MCHC RDW Plt Count MPV Neut % (Auto) Lymph % (Auto) [place] % (Auto) Eos % (Auto) Baso % (Auto) Neut # (Auto) Lymph # (Auto) [place] # (Auto) Eos # (Auto) Baso # (Auto) Sodium Potassium Chloride Carbon Dioxide Anion Gap BUN Creatinine Est GFR ( Amer) Est GFR (Non-Af Amer) POC Glucose (mg/dL) 202 H 207 H 217 H Random Glucose Calcium Total Bilirubin AST ALT Alkaline Phosphatase Total Protein Albumin Globulin Albumin/Globulin Ratio 03/21/18 03/21/18 03/21/18 06:25 08:08 08:08 WBC 15.6 H RBC 3.40 L Hgb 8.9 L Hct 27.4 L MCV 80.5 MCH 26.2 L MCHC 32.6 L RDW 15.7 H Plt Count 254 MPV 9.3 Neut % (Auto) 79.9 H Lymph % (Auto) 10.5 L [place] % (Auto) 9.0 Eos % (Auto) 0.1 Baso % (Auto) 0.5 Neut # (Auto) 12.5 H Lymph # (Auto) 1.6 [place] # (Auto) 1.4 H Eos # (Auto) 0.0 Baso # (Auto) 0.1 Sodium 141 Potassium 3.3 L Chloride 102 Carbon Dioxide 24 Anion Gap 18 BUN 26 H Creatinine 0.8 Est GFR ( Amer) > 60 Est GFR (Non-Af Amer) > 60 POC Glucose (mg/dL) 215 H Random Glucose 227 H Calcium 8.0 L Total Bilirubin 0.8 AST 33 ALT 12 L Alkaline Phosphatase 81 Total Protein 6.7 Albumin 3.2 L Globulin 3.4 Albumin/Globulin Ratio 0.9 L 03/21/18 11:41 WBC RBC Hgb Hct MCV MCH MCHC RDW Plt Count MPV Neut % (Auto) Lymph % (Auto) [place] % (Auto) Eos % (Auto) Baso % (Auto) Neut # (Auto) Lymph # (Auto) [place] # (Auto) Eos # (Auto) Baso # (Auto) Sodium Potassium Chloride Carbon Dioxide Anion Gap BUN Creatinine Est GFR ( Amer) Est GFR (Non-Af Amer) POC Glucose (mg/dL) 220 H Random Glucose Calcium Total Bilirubin AST ALT Alkaline Phosphatase Total Protein Albumin Globulin Albumin/Globulin Ratio - Imaging and Cardiology CT scan - abdomen/PELVISWITH iv CONTRAST. Status: Report reviewed by me (SEE FULL REPORT. nEGATIVE FOR FREE AIR,? MASS RECTOSIGMOID WITH DILATATION OF THE COLON.GALLBLADDER DISTENTION WITH GALLSTONES.) Assessment & Plan (1) Leukocytosis Status: Acute (2) Colonic obstruction Status: Acute (3) Proctitis Status: Acute (4) Constipation Status: Acute (5) Diabetes Status: Acute (6) HTN (hypertension) Status: Acute (7) Hip fracture Status: Acute - Assessment and Plan (Free Text) Plan: PLAN; PANCULTURES NGT. CONTINUE IV ZOSYN 3.375 EVERY 8 HOURLY 03/21/18. CONTINUE iv VANCOMYCIN 1 G EVERY 12 HOURLY 03/21/18. ADD IV fLAGYL 500 iv PIGGYBACK EVERY 8 HOURLY 03/21/18. GI AND SURGERY ON BOARD. FOLLOW-UP CULTURES TO ADJUST ABX. CASE DISCUSSED WITH PMD. WILL FOLLOW ALONG WITH YOU.
[2018-03-21] MEDS: metroNIDAZOLE IV 500 mg/100 ml 500 MG/100 ML BAG IVPB SCH ×2 (13:43→21:50)
[2018-03-21] MEDS: Saccharomyces Boulardi 250 mg Cap PO SCH (17:44)
[2018-03-22] MEDS: Povidone Iodine Oint 10% (1 oz) TOP SCH ×3 (02:40→17:22)
[2018-03-22] MEDS: Piperacill/Tazo 3.375gm in Dex 3.375 GM/50 ML BAG IVPB SCH (03:39)
[2018-03-22] MEDS: metroNIDAZOLE IV 500 mg/100 ml 500 MG/100 ML BAG IVPB SCH ×3 (05:10→21:06)
--- NOTE | 2018-03-22 06:32 | CP.PCM.CON ---
<Reinaldo Jeffers - Last Filed: 03/22/18 08:59> History of Present Illness - History of Present Illness History of Present Illness: PGY5 GI Fellow Consult Note Patient is a 72yo male with PMHx significant for diabetes, hypertension, chronic idiopathic constipation using amitiza, anal fissures, osteoarthritis, depression and obesity who presented to the hospital following a mechanical fall at home. Patient fractured his right femur and is now post-op day 3 from ORIF of the right femur. Following surgery, the patient developed abdominal discomfort and has been unable to pass flatus/BM concerning for ileus. With worsening abdominal distention, a CT A/P was performed showing rectosigmoid thickening with "masslike appearance" and dilation of the colon proximal to this area. Nasogastric tube was placed for decompression, immediately draining 500-800cc dark bilious/feculent material with approximately 3000cc in the last 24 hours. Currently, patient states he is feeling better overall but continues to have abdominal distention. He passed a minimal smear of fecal material last night but otherwise denies flatus/BM. 12 system ROS performed and negative except where stated. PMHx: See HPI PSHx: ORIF of the right femur FHx: Mother/Father - DM Social: +Daily tobacco use, denies EtOH or illicit drug use Endo: Colonoscopy in 2011 which was unremarkable per patient Colonoscopy in 06/2017 - copious liquid and semi-solid stool precluding visualization - examination limited to extent of transverse colon without any overt lesions Past Patient History - Past Medical History & Family History Past Medical History?: Yes - Past Social History Smoking Status: Never Smoked - CARDIAC Hx Hypertension: Yes - PULMONARY Hx Sleep Apnea: Yes - NEUROLOGICAL Hx Neurological Disorder: No - HEENT Hx HEENT Problems: Yes Hx Cataracts: Yes (BILAT IOL) Hx Glaucoma: Yes - RENAL Hx Chronic Kidney Disease: No - ENDOCRINE/METABOLIC Hx Diabetes Mellitus Type 2: Yes - HEMATOLOGICAL/ONCOLOGICAL Hx Blood Disorders: No - INTEGUMENTARY Hx Dermatological Problems: Yes (REDDNESS BLE) Other/Comment: FUNGAL INFECTION BILATERAL GROINS - MUSCULOSKELETAL/RHEUMATOLOGICAL Hx Arthritis: Yes (KNEES) - GASTROINTESTINAL Hx Gastrointestinal Disorders: Yes (HEMORRHOIDS CONSTIPATION) Other/Comment: hx anal fissure - GENITOURINARY/GYNECOLOGICAL Hx Genitourinary Disorders: Yes Hx Prostate Problems: Yes - PSYCHIATRIC Hx Substance Use: No - SURGICAL HISTORY Hx Surgeries: Yes Hx Cataract Extraction: Yes (CAT EXT IOL BILAT) - ANESTHESIA Hx Anesthesia: Yes Hx Anesthesia Reactions: No Hx Malignant Hyperthermia: No Meds Allergies/Adverse Reactions: Allergies Allergy/AdvReac Type Severity Reaction Status Date / Time No Known Allergies Allergy Verified 07/16/17 07:37 - Medications Medications: Current Medications Acetaminophen (Tylenol 325mg Tab) 650 mg PO Q4 PRN PRN Reason: Fever 101 degrees fahrenheit Last Admin: 03/21/18 03:35 Dose: 650 mg Aspirin (Ecotrin) 81 mg PO DAILY [facility] Last Admin: 03/21/18 09:31 Dose: 81 mg Dextrose (Dextrose 50% Inj) 0 ml IV STAT PRN; Protocol PRN Reason: Hypoglycemia Protocol Dextrose (Glutose 15) 0 gm PO ONCE PRN; Protocol PRN Reason: Hypoglycemia Protocol Docusate Sodium (Colace) 100 mg PO BID [facility] Last Admin: 03/21/18 17:44 Dose: 100 mg Enoxaparin Sodium (Lovenox) 40 mg SC DAILY [facility] Last Admin: 03/21/18 09:38 Dose: 40 mg Gabapentin (Neurontin) 300 mg PO BID [facility] Last Admin: 03/21/18 17:44 Dose: 300 mg Glucagon (Glucagen Diagnostic Kit) 0 mg IM STAT PRN; Protocol PRN Reason: Hypoglycemia Protocol Hydrochlorothiazide (Hydrodiuril) 25 mg PO DAILY [facility] Hydromorphone HCl (Dilaudid) 0.5 mg IVP Q6H PRN PRN Reason: Pain, moderate (4-7) Last Admin: 03/20/18 11:50 Dose: 0.5 mg Hydromorphone HCl (Dilaudid) 1 mg IVP Q6H PRN PRN Reason: Pain, severe (8-10) Dextrose (Dextrose 5% In Water 1000 Ml) 1,000 mls @ 0 mls/hr IV .Q0M PRN; Protocol; Per Protocol PRN Reason: Hypoglycemia Protocol Sodium Chloride (Sodium Chloride 0.9%) 1,000 mls @ 50 mls/hr IV .Q20H [facility] Last Admin: 03/21/18 13:47 Dose: 50 mls/hr Vancomycin/Sodium Chloride (Vancomycin 1 Gm/Ns 200 Ml) 1 gm in 200 mls @ 133.333 mls/hr IVPB Q12H [facility] PRN Reason: Protocol Last Admin: 03/21/18 22:08 Dose: 133.333 mls/hr Piperacillin Sod/Tazobactam Sod (Zosyn 3.375 Gm Iv Premix) 3.375 gm in 50 mls @ 100 mls/hr IVPB Q6H [facility] PRN Reason: Protocol Last Admin: 03/22/18 03:39 Dose: 100 mls/hr Metronidazole (Flagyl) 500 mg in 100 mls @ 100 mls/hr IVPB Q8 [facility] PRN Reason: Protocol Last Admin: 03/22/18 05:10 Dose: 100 mls/hr Insulin Glargine (Lantus) 15 unit SC BID [facility] Last Admin: 03/21/18 18:06 Dose: Not Given Insulin Human Regular (Novolin R) 0 unit SC ACHS [facility] PRN Reason: Protocol Last Admin: 03/21/18 21:32 Dose: Not Given Losartan Potassium (Cozaar) 100 mg PO DAILY [facility] Last Admin: 03/21/18 09:31 Dose: 100 mg Metoclopramide HCl (Reglan) 5 mg PO DAILY [facility] Last Admin: 03/21/18 11:10 Dose: Not Given Metoprolol Tartrate (Lopressor) 50 mg PO BID [facility] Last Admin: 03/21/18 17:44 Dose: 50 mg Nystatin (Nystop Topical Powder) 0 gm TOP BID [facility] Stop: 04/03/18 18:00 Last Admin: 03/21/18 17:35 Dose: 1 applic Ondansetron HCl (Zofran Inj) 4 mg IVP Q6H PRN PRN Reason: Nausea/Vomiting Last Admin: 03/20/18 16:24 Dose: 4 mg Oxycodone/Acetaminophen (Percocet 5/325 Mg Tab) 2 tab PO Q4H PRN PRN Reason: Pain, severe (8-10) Stop: 03/22/18 17:08 Pantoprazole Sodium (Protonix Ec Tab) 40 mg PO DAILY [facility] Last Admin: 03/21/18 09:30 Dose: 40 mg Povidone Iodine (Betadine 10% Oint) 0 gm TOP Q8H [facility] Last Admin: 03/22/18 02:40 Dose: 1 dose Rosuvastatin Calcium (Crestor) 5 mg PO HS [facility] Last Admin: 03/21/18 22:00 Dose: Not Given Saccharomyces Boulardii (Florastor) 250 mg PO BID [facility] Last Admin: 03/21/18 17:44 Dose: 250 mg Sodium Phosphate (Fleet Enema) 135 ml DE TID [facility] Stop: 03/22/18 14:01 Last Admin: 03/21/18 21:23 Dose: Not Given Physical Exam - Constitutional Appears: No Acute Distress, Other (obese) - Eye Exam Eye Exam: EOMI, PERRL - ENT Exam ENT Exam: Mucous Membranes Dry Additional comments: NGT in place, bilious output - Respiratory Exam Respiratory Exam: Clear to Auscultation Bilateral. absent: Rales, Rhonchi, Wheezes - Cardiovascular Exam Cardiovascular Exam: RRR, +S1, +S2 - GI/Abdominal Exam GI & Abdominal Exam: Distended, Hypoactive Bowel Sounds, Tenderness (RUQ/ Epigastric/LUQ). absent: Firm, Guarding, Hernia, Normal Bowel Sounds, Rigid - Extremities Exam Extremities exam: Positive for: normal inspection. Negative for: pedal edema - Neurological Exam Neurological exam: Alert, Oriented x3 - Psychiatric Exam Psychiatric exam: Normal Affect, Normal Mood - Skin Skin Exam: Dry, Warm Results - Vital Signs Recent Vital Signs: Last Vital Signs Temp 99.4 F 03/22/18 04:20 Pulse 86 03/22/18 04:20 Resp 20 03/22/18 04:20 BP 162/71 H 03/22/18 04:20 Pulse Ox 95 03/22/18 04:20 - Labs Result Diagrams: 03/22/18 07:17 03/22/18 07:17 Labs: Laboratory Results - last 24 hr 03/21/18 03/21/18 03/21/18 06:25 08:08 08:08 WBC 15.6 H RBC 3.40 L Hgb 8.9 L Hct 27.4 L MCV 80.5 MCH 26.2 L MCHC 32.6 L RDW 15.7 H Plt Count 254 MPV 9.3 Neut % (Auto) 79.9 H Lymph % (Auto) 10.5 L [place] % (Auto) 9.0 Eos % (Auto) 0.1 Baso % (Auto) 0.5 Neut # (Auto) 12.5 H Lymph # (Auto) 1.6 [place] # (Auto) 1.4 H Eos # (Auto) 0.0 Baso # (Auto) 0.1 Sodium 141 Potassium 3.3 L Chloride 102 Carbon Dioxide 24 Anion Gap 18 BUN 26 H Creatinine 0.8 Est GFR ( Amer) > 60 Est GFR (Non-Af Amer) > 60 POC Glucose (mg/dL) 215 H Random Glucose 227 H Calcium 8.0 L Total Bilirubin 0.8 AST 33 ALT 12 L Alkaline Phosphatase 81 Total Protein 6.7 Albumin 3.2 L Globulin 3.4 Albumin/Globulin Ratio 0.9 L Influenza Typ A,B (EIA) 03/21/18 03/21/18 03/21/18 11:41 16:45 21:04 WBC RBC Hgb Hct MCV MCH MCHC RDW Plt Count MPV Neut % (Auto) Lymph % (Auto) [place] % (Auto) Eos % (Auto) Baso % (Auto) Neut # (Auto) Lymph # (Auto) [place] # (Auto) Eos # (Auto) Baso # (Auto) Sodium Potassium Chloride Carbon Dioxide Anion Gap BUN Creatinine Est GFR ( Amer) Est GFR (Non-Af Amer) POC Glucose (mg/dL) 220 H 180 H 154 H Random Glucose Calcium Total Bilirubin AST ALT Alkaline Phosphatase Total Protein Albumin Globulin Albumin/Globulin Ratio Influenza Typ A,B (EIA) 03/21/18 22:40 WBC RBC Hgb Hct MCV MCH MCHC RDW Plt Count MPV Neut % (Auto) Lymph % (Auto) [place] % (Auto) Eos % (Auto) Baso % (Auto) Neut # (Auto) Lymph # (Auto) [place] # (Auto) Eos # (Auto) Baso # (Auto) Sodium Potassium Chloride Carbon Dioxide Anion Gap BUN Creatinine Est GFR ( Amer) Est GFR (Non-Af Amer) POC Glucose (mg/dL) Random Glucose Calcium Total Bilirubin AST ALT Alkaline Phosphatase Total Protein Albumin Globulin Albumin/Globulin Ratio Influenza Typ A,B (EIA) Negative for flu a/b Assessment & Plan - Assessment and Plan (Free Text) Assessment: Patient is a 72yo male with PMHx significant for diabetes, hypertension, chronic idiopathic constipation using amitiza, anal fissures, osteoarthritis, depression and obesity who presented to the hospital following a mechanical fall at home. Our service is consulted for abnormal CT findings and constipation. -Constipation 2/2 post-operative ileus vs bowel obstruction R/O malignancy given CT findings -Cholelithiasis -Chronic idiopathic constipation -HTN -DM Plan: -Pt is POD#3 from ORIF right femur -CT A/P with IV contrast reviewed - bowel evaluation limited in absence of PO contrast -Rectosigmoid thickening/fecal impaction/stercoral procto-colitis in differential - no overt lesion/mass/obstructions noted on poorly prepped colonoscopy in June and were able to pass colonoscopy to transverse colon -Patient will ultimately benefit from non-emergent flexible sigmoidoscopy to evaluate rectosigmoid thickening noted on imaging; in the meantime, would urge attempts at disimpaction with medication and digital disimpaction if patient allows -Disimpaction attempted yesterday but stopped due to patient discomfort -NGT to LIS, NPO for now - diet per surgery/medicine - OK to have ice chips -Tap water enema x2 -Management of suspected ileus vs obstruction per primary/surgical services -As no plan for procedure today; recommend ongoing Lovenox prophylaxis as indicated - Date & Time Date: 03/22/18 Time: 06:30 <Víctor Puente - Last Filed: 03/22/18 12:45> Meds - Medications Medications: Current Medications Aspirin (Ecotrin) 81 mg PO DAILY [facility] Last Admin: 03/22/18 10:39 Dose: 81 mg Docusate Sodium (Colace) 100 mg PO BID [facility] Last Admin: 03/22/18 10:38 Dose: 100 mg Enoxaparin Sodium (Lovenox) 40 mg SC DAILY [facility] Last Admin: 03/22/18 10:40 Dose: 40 mg Gabapentin (Neurontin) 300 mg PO BID [facility] Last Admin: 03/22/18 10:39 Dose: 300 mg Hydrochlorothiazide (Hydrodiuril) 25 mg PO DAILY [facility] Hydromorphone HCl (Dilaudid) 0.5 mg IVP Q6H PRN PRN Reason: Pain, moderate (4-7) Last Admin: 03/20/18 11:50 Dose: 0.5 mg Hydromorphone HCl (Dilaudid) 1 mg IVP Q6H PRN PRN Reason: Pain, severe (8-10) Sodium Chloride (Sodium Chloride 0.9%) 1,000 mls @ 50 mls/hr IV .Q20H [facility] Last Admin: 03/22/18 10:40 Dose: 50 mls/hr Vancomycin/Sodium Chloride (Vancomycin 1 Gm/Ns 200 Ml) 1 gm in 200 mls @ 133.333 mls/hr IVPB Q12H [facility] PRN Reason: Protocol Last Admin: 03/22/18 10:41 Dose: 133.333 mls/hr Metronidazole (Flagyl) 500 mg in 100 mls @ 100 mls/hr IVPB Q8 [facility] PRN Reason: Protocol Last Admin: 03/22/18 05:10 Dose: 100 mls/hr Potassium Chloride (Potassium Chloride 10 Meq/100 Ml) 10 meq in 100 mls @ 100 mls/hr IVPB Q1H [facility] Stop: 03/22/18 13:14 Last Admin: 03/22/18 12:21 Dose: Not Given Ciprofloxacin (Cipro 400mg/200ml Dsw) 400 mg in 200 mls @ 133 mls/hr IVPB Q12H [facility] PRN Reason: Protocol Last Admin: 03/22/18 10:39 Dose: 133 mls/hr Insulin Human Regular (Novolin R) 0 unit SC ACHS [facility] PRN Reason: Protocol Last Admin: 03/22/18 12:20 Dose: 2 unit Losartan Potassium (Cozaar) 100 mg PO DAILY [facility] Last Admin: 03/22/18 10:39 Dose: 100 mg Metoprolol Tartrate (Lopressor) 50 mg PO BID [facility] Last Admin: 03/22/18 10:39 Dose: 50 mg Nystatin (Nystop Topical Powder) 0 gm TOP BID [facility] Stop: 04/03/18 18:00 Last Admin: 03/22/18 10:40 Dose: 1 applic Povidone Iodine (Betadine 10% Oint) 0 gm TOP Q8H [facility] Last Admin: 03/22/18 10:39 Dose: 1 dose Rosuvastatin Calcium (Crestor) 5 mg PO HS [facility] Last Admin: 03/21/18 22:00 Dose: Not Given Saccharomyces Boulardii (Florastor) 250 mg PO BID [facility] Last Admin: 03/22/18 10:38 Dose: 250 mg Sodium Phosphate (Fleet Enema) 135 ml DE TID [facility] Stop: 03/22/18 14:01 Last Admin: 03/22/18 10:39 Dose: Not Given Results - Vital Signs Recent Vital Signs: Last Vital Signs Temp 97.6 F 03/22/18 08:43 Pulse 90 03/22/18 08:43 Resp 20 03/22/18 08:43 BP 165/82 H 03/22/18 08:43 Pulse Ox 100 03/22/18 08:43 - Labs Result Diagrams: 03/22/18 07:17 03/22/18 07:17 Labs: Laboratory Results - last 24 hr 03/21/18 03/21/18 03/21/18 16:45 21:04 22:40 WBC RBC Hgb Hct MCV MCH MCHC RDW Plt Count MPV Neut % (Auto) Lymph % (Auto) [place] % (Auto) Eos % (Auto) Baso % (Auto) Neut # (Auto) Lymph # (Auto) [place] # (Auto) Eos # (Auto) Baso # (Auto) Sodium Potassium Chloride Carbon Dioxide Anion Gap BUN Creatinine Est GFR ( Amer) Est GFR (Non-Af Amer) POC Glucose (mg/dL) 180 H 154 H Random Glucose Calcium Phosphorus Magnesium Iron TIBC % Saturation Ferritin Total Bilirubin AST ALT Alkaline Phosphatase Total Protein Albumin Globulin Albumin/Globulin Ratio Influenza Typ A,B (EIA) Negative for flu a/b 03/22/18 03/22/18 03/22/18 06:56 07:17 07:17 WBC 15.6 H RBC 3.23 L Hgb 8.5 L Hct 26.1 L MCV 80.9 MCH 26.2 L MCHC 32.4 L RDW 15.1 H Plt Count 244 MPV 9.5 Neut % (Auto) 74.1 Lymph % (Auto) 14.2 L [place] % (Auto) 8.4 Eos % (Auto) 3.0 Baso % (Auto) 0.3 Neut # (Auto) 11.5 H Lymph # (Auto) 2.2 [place] # (Auto) 1.3 H Eos # (Auto) 0.5 Baso # (Auto) 0.0 Sodium 144 Potassium 3.1 L Chloride 105 Carbon Dioxide 24 Anion Gap 18 BUN 25 H Creatinine 0.9 Est GFR ( Amer) > 60 Est GFR (Non-Af Amer) > 60 POC Glucose (mg/dL) 156 H Random Glucose 148 H Calcium 7.8 L Phosphorus 3.2 Magnesium 2.0 Iron TIBC % Saturation Ferritin 28.6 Total Bilirubin 0.9 AST 32 ALT 18 L D Alkaline Phosphatase 76 Total Protein 6.0 L Albumin 2.8 L Globulin 3.2 Albumin/Globulin Ratio 0.9 L Influenza Typ A,B (EIA) 04/23/18 04/23/18 07:17 11:14 WBC RBC Hgb Hct MCV MCH MCHC RDW Plt Count MPV Neut % (Auto) Lymph % (Auto) [place] % (Auto) Eos % (Auto) Baso % (Auto) Neut # (Auto) Lymph # (Auto) [place] # (Auto) Eos # (Auto) Baso # (Auto) Sodium Potassium Chloride Carbon Dioxide Anion Gap BUN Creatinine Est GFR ( Amer) Est GFR (Non-Af Amer) POC Glucose (mg/dL) 159 H Random Glucose Calcium Phosphorus Magnesium Iron < 10 L TIBC 292 % Saturation 3.4 L Ferritin Total Bilirubin AST ALT Alkaline Phosphatase Total Protein Albumin Globulin Albumin/Globulin Ratio Influenza Typ A,B (EIA) Attending/Attestation - Attestation I have personally seen and examined this patient.: Yes I have fully participated in the care of the patient.: Yes I have reviewed all pertinent clinical information: Yes Notes (Text): 03/22/18 12:44 This is a 72 year old male with PMHx significant for diabetes, hypertension, chronic idiopathic constipation using amitiza, anal fissures, osteoarthritis, depression and obesity who presented to the hospital following a mechanical fall at home. Our service is consulted for abnormal CT findings and constipation s/p POD#[address] from [address] A/P with IV contrast reviewed - bowel evaluation limited in absence of PO contrast with Rectosigmoid thickening/fecal impaction/stercoral procto-colitis in differential - no overt lesion/mass/obstructions noted on poorly prepped colonoscopy in June and were able to pass colonoscopy to transverse colon -Patient will ultimately benefit from non-emergent colonoscopy to evaluate rectosigmoid thickening noted on imaging; in the meantime, would urge attempts at disimpaction with medication and digital disimpaction if patient allows -Disimpaction attempted yesterday but stopped due to patient discomfort -NGT to LIS, NPO for now - diet per surgery/medicine - OK to have ice chips -Tap water enema x2 -Management of suspected ileus vs obstruction per primary/surgical services -As no plan for procedure today; recommend ongoing Lovenox prophylaxis as indicated
[2018-03-22 07:33] LABS: BASO % 0.3 % (0.0-2.0); EOS # 0.5 K/uL (0.0-0.7); HEMOGLOBIN 8.5 g/dL (12.0-18.0); LYMPH # 2.2 K/uL (1.0-4.3); LYMPH % 14.2 % (20.0-40.0); MEAN CELL VOLUME 80.9 fL (80.0-94.0); MEAN CORPUSCULAR HEMOGLOBIN 26.2 pg (27.0-31.0); MEAN CORPUSCULAR HGB CONC 32.4 g/dL (33.0-37.0); MEAN PLATELET VOLUME 9.5 fL (7.2-11.7); MONO # 1.3 K/uL (0.0-0.8); MONO % 8.4 % (0.0-10.0); NEUT # 11.5 K/uL (1.8-7.0); NEUT % 74.1 % (50.0-75.0); NRBC % 0.1 % (0.0-2.0); RBC 3.23 Mil/uL (4.40-5.90); RED CELL DISTRIBUTION WIDTH 15.1 % (11.5-14.5); WHITE BLOOD COUNT 15.6 K/uL (4.8-10.8)
[2018-03-22] MEDS: (Novolin R) Insulin Human Regular 100 units/ml vial SC SCH ×4 (08:11→22:02)
[2018-03-22 08:15] LABS: ALB/GLOB RATIO 0.9 (1.0-2.1); ALBUMIN 2.8 g/dL (3.5-5.0); ALT/SGPT 18 U/L (21-72); AST/SGOT 32 U/L (17-59); BLOOD UREA NITROGEN 25 mg/dL (9-20); CALCIUM 7.8 mg/dl (8.6-10.4); GFR AFRICAN-AMERICAN > 60; GFR NON-AFRICAN AMERICAN > 60
[2018-03-22 08:16] LABS: % IRON SATURATION 3.4 (20-55); IRON < 10 ug/dL (49-181); TOTAL IRON BINDING CAPACITY 292 ug/dL (250-450)
--- NOTE | 2018-03-22 08:20 | CP.PCM.PN ---
Subjective - Date & Time of Evaluation Date of Evaluation: 03/22/18 Time of Evaluation: 08:18 - Subjective Subjective: PGY-1 surgery progress note for Dr Sabillon. No acute events noted overnight. Patient with NGT in place with suction with output cannister full. He stated he felt better compared to yesterday but stated his belly still seems larger than normal and also still feels some abdominal discomfort. He currently denies flatus or bowel movement. He asked if the NGT could be removed because it irritated him. Objective - Vital Signs/Intake and Output Vital Signs (last 24 hours): Temp Pulse Resp BP Pulse Ox 99.4 F 86 20 162/71 H 95 03/22/18 04:20 03/22/18 04:20 03/22/18 04:20 03/22/18 04:20 03/22/18 04:20 Intake and Output: 03/22/18 03/22/18 06:59 18:59 Intake Total 750 Output Total 1000 Balance -250 - Medications Medications: Current Medications Aspirin (Ecotrin) 81 mg PO DAILY [facility] Last Admin: 03/21/18 09:31 Dose: 81 mg Docusate Sodium (Colace) 100 mg PO BID [facility] Last Admin: 03/21/18 17:44 Dose: 100 mg Enoxaparin Sodium (Lovenox) 40 mg SC DAILY [facility] Last Admin: 03/21/18 09:38 Dose: 40 mg Gabapentin (Neurontin) 300 mg PO BID [facility] Last Admin: 03/21/18 17:44 Dose: 300 mg Hydrochlorothiazide (Hydrodiuril) 25 mg PO DAILY [facility] Hydromorphone HCl (Dilaudid) 0.5 mg IVP Q6H PRN PRN Reason: Pain, moderate (4-7) Last Admin: 03/20/18 11:50 Dose: 0.5 mg Hydromorphone HCl (Dilaudid) 1 mg IVP Q6H PRN PRN Reason: Pain, severe (8-10) Sodium Chloride (Sodium Chloride 0.9%) 1,000 mls @ 50 mls/hr IV .Q20H [facility] Last Admin: 03/21/18 13:47 Dose: 50 mls/hr Vancomycin/Sodium Chloride (Vancomycin 1 Gm/Ns 200 Ml) 1 gm in 200 mls @ 133.333 mls/hr IVPB Q12H [facility] PRN Reason: Protocol Last Admin: 03/21/18 22:08 Dose: 133.333 mls/hr Piperacillin Sod/Tazobactam Sod (Zosyn 3.375 Gm Iv Premix) 3.375 gm in 50 mls @ 100 mls/hr IVPB Q6H [facility] PRN Reason: Protocol Last Admin: 03/22/18 03:39 Dose: 100 mls/hr Metronidazole (Flagyl) 500 mg in 100 mls @ 100 mls/hr IVPB Q8 [facility] PRN Reason: Protocol Last Admin: 03/22/18 05:10 Dose: 100 mls/hr Insulin Glargine (Lantus) 15 unit SC BID [facility] Last Admin: 03/21/18 18:06 Dose: Not Given Insulin Human Regular (Novolin R) 0 unit SC ACHS [facility] PRN Reason: Protocol Last Admin: 03/22/18 08:11 Dose: 2 unit Losartan Potassium (Cozaar) 100 mg PO DAILY [facility] Last Admin: 03/21/18 09:31 Dose: 100 mg Metoclopramide HCl (Reglan) 5 mg PO DAILY [facility] Last Admin: 03/21/18 11:10 Dose: Not Given Metoprolol Tartrate (Lopressor) 50 mg PO BID [facility] Last Admin: 03/21/18 17:44 Dose: 50 mg Nystatin (Nystop Topical Powder) 0 gm TOP BID [facility] Stop: 04/03/18 18:00 Last Admin: 03/21/18 17:35 Dose: 1 applic Povidone Iodine (Betadine 10% Oint) 0 gm TOP Q8H [facility] Last Admin: 03/22/18 02:40 Dose: 1 dose Rosuvastatin Calcium (Crestor) 5 mg PO HS [facility] Last Admin: 03/21/18 22:00 Dose: Not Given Saccharomyces Boulardii (Florastor) 250 mg PO BID [facility] Last Admin: 03/21/18 17:44 Dose: 250 mg Sodium Phosphate (Fleet Enema) 135 ml UT TID [facility] Stop: 03/22/18 14:01 Last Admin: 03/21/18 21:23 Dose: Not Given - Labs Labs: 03/22/18 07:17 03/22/18 07:17 PT 12.8 SECONDS (9.7-12.2) H 03/19/18 08:12 INR 1.1 03/19/18 08:12 APTT 42 SECONDS (21-34) H 03/18/18 18:19 - Additional Findings Additional findings: - Constitutional Appears: No Acute Distress, Other (obese) - Eye Exam Eye Exam: EOMI, PERRL - ENT Exam ENT Exam: Mucous Membranes Dry Additional comments: NGT in place, bilious output - Respiratory Exam Respiratory Exam: Clear to Auscultation Bilateral. absent: Rales, Rhonchi, Wheezes - Cardiovascular Exam Cardiovascular Exam: RRR, +S1, +S2 - GI/Abdominal Exam GI & Abdominal Exam: Distended, Hypoactive Bowel Sounds, Tenderness (RUQ/ Epigastric/LUQ). absent: Firm, Guarding, Hernia, Normal Bowel Sounds, Rigid - Extremities Exam Extremities exam: Positive for: normal inspection. Negative for: pedal edema - Neurological Exam Neurological exam: Alert, Oriented x3 - Psychiatric Exam Psychiatric exam: Normal Affect, Normal Mood - Skin Skin Exam: Dry, Warm Assessment and Plan - Assessment and Plan (Free Text) Assessment: 72M w/ R femur fx s/p ORIF, post-op developed sx of colonic obstruction for which general surgery was consulted -CT reviewed - rectosigmoid colonic wall thickening with mass-like appearance -Continue NGT to low continuous suction -F/U GI, flexible sigmoidoscopy (planned for later this afternoon) -Further reccs to follow after flexible sigmoidoscopy RAJIV Sabillon
[2018-03-22 09:25] LABS: FERRITIN 28.6 ng/mL
[2018-03-22] MEDS: Saccharomyces Boulardi 250 mg Cap PO SCH ×2 (10:38→17:22)
[2018-03-22] MEDS: Ciprofloxacin 400mg/200ml D5W 400 MG/200 ML BAG IVPB SCH ×2 (10:39→21:06)
[2018-03-22] MEDS: Nystatin 100,000 Units/gm Topical Pow(15 gm) TOP SCH ×2 (10:40→17:22)
[2018-03-22] MEDS: Sodium Chloride 0.9% 1,000 ML IV SCH (10:40)
[2018-03-22] MEDS: Enoxaparin 40 mg Syringe SC SCH (10:40)
[2018-03-22] MEDS: Vancomycin 1 gm/NS 200 ml 1 GM/200 ML BAG IVPB SCH ×2 (10:41→23:54)
[2018-03-22] MEDS ORDERED: Mineral Oil Enema 135 ml RC ONE (13:21)
[2018-03-22] MEDS ORDERED: Hydrocortisone 2.5% Rectal Cream(30 gm) PR PRN (13:22)
--- NOTE | 2018-03-22 13:31 | CP.PCM.PN ---
Subjective - Date & Time of Evaluation Date of Evaluation: 03/22/18 Time of Evaluation: 13:28 - Subjective Subjective: Patient seen and examined at bedside Complaining of rectal pain that he attributes to his anal fissure Agrees to mineral oil enema No other complaints at this time Objective - Vital Signs/Intake and Output Vital Signs (last 24 hours): Temp Pulse Resp BP Pulse Ox 97.6 F 90 20 165/82 H 100 03/22/18 08:43 03/22/18 08:43 03/22/18 08:43 03/22/18 08:43 03/22/18 08:43 Intake and Output: 03/22/18 03/22/18 06:59 18:59 Intake Total 750 Output Total 1000 Balance -250 - Medications Medications: Current Medications Aspirin (Ecotrin) 81 mg PO DAILY [facility] Last Admin: 03/22/18 10:39 Dose: 81 mg Enoxaparin Sodium (Lovenox) 40 mg SC DAILY [facility] Last Admin: 03/22/18 10:40 Dose: 40 mg Gabapentin (Neurontin) 300 mg PO BID [facility] Last Admin: 03/22/18 10:39 Dose: 300 mg Hydralazine HCl (Apresoline) 10 mg IVP Q6H PRN PRN Reason: Systolic Blood Pressure Hydrochlorothiazide (Hydrodiuril) 25 mg PO DAILY [facility] Hydrocortisone (Anusol-Hc) [address] BID PRN PRN Reason: Pain, Mild (1-3) Hydromorphone HCl (Dilaudid) 0.5 mg IVP Q6H PRN PRN Reason: Pain, moderate (4-7) Last Admin: 03/20/18 11:50 Dose: 0.5 mg Hydromorphone HCl (Dilaudid) 1 mg IVP Q6H PRN PRN Reason: Pain, severe (8-10) Sodium Chloride (Sodium Chloride 0.9%) 1,000 mls @ 50 mls/hr IV .Q20H [facility] Last Admin: 03/22/18 10:40 Dose: 50 mls/hr Vancomycin/Sodium Chloride (Vancomycin 1 Gm/Ns 200 Ml) 1 gm in 200 mls @ 133.333 mls/hr IVPB Q12H [facility] PRN Reason: Protocol Last Admin: 03/22/18 10:41 Dose: 133.333 mls/hr Metronidazole (Flagyl) 500 mg in 100 mls @ 100 mls/hr IVPB Q8 [facility] PRN Reason: Protocol Last Admin: 03/22/18 05:10 Dose: 100 mls/hr Ciprofloxacin (Cipro 400mg/200ml Dsw) 400 mg in 200 mls @ 133 mls/hr IVPB Q12H [facility] PRN Reason: Protocol Last Admin: 03/22/18 10:39 Dose: 133 mls/hr Insulin Human Regular (Novolin R) 0 unit SC ACHS [facility] PRN Reason: Protocol Last Admin: 03/22/18 12:20 Dose: 2 unit Mineral Oil (Fleet Mineral Oil Enema) 135 ml RC ONCE ONE Stop: 03/22/18 13:22 Nystatin (Nystop Topical Powder) 0 gm TOP BID [facility] Stop: 04/03/18 18:00 Last Admin: 03/22/18 10:40 Dose: 1 applic Povidone Iodine (Betadine 10% Oint) 0 gm TOP Q8H [facility] Last Admin: 03/22/18 10:39 Dose: 1 dose Saccharomyces Boulardii (Florastor) 250 mg PO BID [facility] Last Admin: 03/22/18 10:38 Dose: 250 mg Sodium Phosphate (Fleet Enema) [address] TID [facility] Stop: 03/22/18 14:01 Last Admin: 03/22/18 10:39 Dose: Not Given - Labs Labs: 03/22/18 07:17 03/22/18 07:17 PT 12.8 SECONDS (9.7-12.2) H 03/19/18 08:12 INR 1.1 03/19/18 08:12 APTT 42 SECONDS (21-34) H 03/18/18 18:19 - Constitutional Appears: Well - Head Exam Head Exam: ATRAUMATIC, NORMAL INSPECTION, NORMOCEPHALIC - Eye Exam Eye Exam: EOMI, Normal appearance, PERRL Pupil Exam: NORMAL ACCOMODATION, PERRL - ENT Exam ENT Exam: Mucous Membranes Moist, Normal Exam - Neck Exam Neck Exam: Full ROM, Normal Inspection. absent: Lymphadenopathy - Respiratory Exam Respiratory Exam: Clear to Ausculation Bilateral, NORMAL BREATHING PATTERN - Cardiovascular Exam Cardiovascular Exam: REGULAR RHYTHM, +S1, +S2. absent: Murmur - GI/Abdominal Exam GI & Abdominal Exam: Distended, Soft, Hypoactive Bowel Sounds, Normal Bowel Sounds. absent: Tenderness - Rectal Exam Rectal Exam: NORMAL INSPECTION - Exam Exam: Circumcision, NORMAL INSPECTION External exam: NORMAL EXTERNAL EXAM Speculum exam: NORMAL SPECULUM EXAM Bimanual exam: NORMAL BIMANUAL EXAM - Extremities Exam Extremities Exam: Full ROM, Normal Capillary Refill, Normal Inspection. absent : Joint Swelling, Pedal Edema - Back Exam Back Exam: NORMAL INSPECTION - Neurological Exam Neurological Exam: Alert, Awake, CN II-XII Intact, Normal Gait, Oriented x3 - Psychiatric Exam Psychiatric exam: Normal Affect, Normal Mood - Skin Skin Exam: Dry, Intact, Normal Color, Warm Assessment and Plan (1) Constipation Assessment & Plan: CT: rectosigmoid colonic wall thickening w/mass like irma w/ dilation of colon proximal thickening and large amount of stool and gas w/in colon. Suspicious for colon cancer Vs inflammatory mass 2/2 infectious inflam Vs stool related proctocolitis GI ([facility]) - plan for non emergent colonoscopy. Surgery ([facility]) - Waiting for results of scope Mineral oil enema NGT Low-intermittent suction Cipro/flagyl Status: Acute (2) Hip fracture Assessment & Plan: Right Subtrochanteric Femoral Fracture s/p ORIF with Long Hip Nail 03/19/[address] Bernabe PT OT Lovenox resumed Spoke with Ortho PA as to when he can be manipulated to get colonoscopy. Will follow her reccs Status: Acute (3) Diabetes Assessment & Plan: ISS High Hold home insulin as patient NPO Status: Acute (4) HTN (hypertension) Assessment & Plan: hydralzine PRN hold PO meds as patient is NPO to suction Status: Acute (5) Prophylactic measure Assessment & Plan: Lovenox GI PPX not indicated Status: Acute
[2018-03-22 16:49] LABS: LEGIONELLA AG URINE NEGATIVE (NEGATIVE)
--- NOTE | 2018-03-22 17:13 | CP.PCM.PN ---
Subjective - Date & Time of Evaluation Date of Evaluation: 03/22/18 Time of Evaluation: 14:00 - Subjective Subjective: Patient still complaining of a lot of pain in his right hip, but he says that he was out of bed to chair today. Denies numbness/tinglign. Objective - Vital Signs/Intake and Output Vital Signs (last 24 hours): Temp Pulse Resp BP Pulse Ox 98.6 F 89 20 162/75 H 97 03/22/18 15:47 03/22/18 15:47 03/22/18 15:47 03/22/18 15:47 03/22/18 15:47 Intake and Output: 03/22/18 03/22/18 06:59 18:59 Intake Total 750 Output Total 1000 400 Balance -250 -400 - Medications Medications: Current Medications Aspirin (Ecotrin) 81 mg PO DAILY [facility] Last Admin: 03/22/18 10:39 Dose: 81 mg Enoxaparin Sodium (Lovenox) 40 mg SC DAILY [facility] Last Admin: 03/22/18 10:40 Dose: 40 mg Gabapentin (Neurontin) 300 mg PO BID [facility] Last Admin: 03/22/18 10:39 Dose: 300 mg Hydralazine HCl (Apresoline) 10 mg IVP Q6H PRN PRN Reason: Systolic Blood Pressure Hydrocortisone (Anusol-Hc) 0 gm ID BID PRN PRN Reason: Pain, Mild (1-3) Sodium Chloride (Sodium Chloride 0.9%) 1,000 mls @ 50 mls/hr IV .Q20H [facility] Last Admin: 03/22/18 10:40 Dose: 50 mls/hr Vancomycin/Sodium Chloride (Vancomycin 1 Gm/Ns 200 Ml) 1 gm in 200 mls @ 133.333 mls/hr IVPB Q12H [facility] PRN Reason: Protocol Last Admin: 03/22/18 10:41 Dose: 133.333 mls/hr Metronidazole (Flagyl) 500 mg in 100 mls @ 100 mls/hr IVPB Q8 [facility] PRN Reason: Protocol Last Admin: 03/22/18 15:05 Dose: 100 mls/hr Ciprofloxacin (Cipro 400mg/200ml Dsw) 400 mg in 200 mls @ 133 mls/hr IVPB Q12H [facility] PRN Reason: Protocol Last Admin: 03/22/18 10:39 Dose: 133 mls/hr Insulin Human Regular (Novolin R) 0 unit SC ACHS [facility] PRN Reason: Protocol Last Admin: 03/22/18 12:20 Dose: 2 unit Nystatin (Nystop Topical Powder) 0 gm TOP BID [facility] Stop: 04/03/18 18:00 Last Admin: 03/22/18 10:40 Dose: 1 applic Povidone Iodine (Betadine 10% Oint) 0 gm TOP Q8H [facility] Last Admin: 03/22/18 10:39 Dose: 1 dose Saccharomyces Boulardii (Florastor) 250 mg PO BID [facility] Last Admin: 03/22/18 10:38 Dose: 250 mg - Labs Labs: 03/22/18 07:17 03/22/18 07:17 PT 12.8 SECONDS (9.7-12.2) H 03/19/18 08:12 INR 1.1 03/19/18 08:12 APTT 42 SECONDS (21-34) H 03/18/18 18:19 - Extremities Exam Additional comments: Right hip: +ROM ankle/toes, sensation intact, +DP/PT pulses calves soft NT neg homans dressing change, small amount of serous drainage from middle incision Assessment and Plan (1) Displaced subtrochanteric fracture of right femur Assessment & Plan: POD#3 s/p right hip nail -patient with post op ileus, possible rectal mass -d/w Dr. Rushing regarding if position for flex sig is acceptable at this time -PT/OT -VTE proph -d/w Dr. Rushing Status: Acute
[2018-03-22 18:21] LABS: N MENINGITIS ACY/W135 NEGATIVE (NEGATIVE); N MENINGITIS B/ECOLI K1 NEGATIVE (NEGATIVE); STREP PNEUMONIAE NEGATIVE (NEGATIVE); STREPTOCOCCUS B NEGATIVE (NEGATIVE)
--- NOTE | 2018-03-22 18:43 | CP.PCM.PN ---
Subjective - Date & Time of Evaluation Date of Evaluation: 03/22/18 Time of Evaluation: 18:43 - Subjective Subjective: CHIEF COMPLAINTS TODAY : Tmax 99.7 vs BP 155/64 +VE NGT draining greenish aspirate. c/o abdominal pain on palpation. Denies any flatus so far. ROS. HEENT : N. Resp : No SOB wheezing, cough Cardio : No CP, PND orthopnea GI : +ve ABDOMINAL PAIN, NO n/v DIRECTOR OF NEUROLOGY : No headache , focal deficit. Musculoskel : N Ext. : Pedal pulses intact, no edema or calf pain RT. HIP DRESSING IN PLACE. Derm : N Psych : N. PE. Pt. is alert awake in no distress. +VE NGT DRAINING GREENISH DRAINAGE. V.S As noted in the chart Head ,ear nose,throat and eyes : Normal. Neck : Supple with normal carotids. Lungs: Clear air entry. Heart : S1 & S2 normal . . No murmur. S4 + Abd : SLIGHTLY DISTENDED, DIFFUSE GENERALIZED TENDERNESS ON PALPATION, HYPOACTIVE BOWEL SOUNDS. Neuro : Moves all ext. with no localized deficit. Ext : RT HIP FRACTURE S/P ORIF, DRESSING C/D/I. with intact pulses. Neg. calf tenderness Derm : No rashes or decubitus ulcer. Radiology/Labs . WBC'S 15.6 H/H 8.5/26 0.1 cREATININE 0.9/bun 25 LFTS NORMAL. BLOOD CULTURES 03/21/18 -VE 24 HOURS URINE CULTURE -VE GROWTH . Asssessment : LEUKOCYTOSIS. ? COLONIC OBSTRUCTION/ RECTOSIGMOID MASS CHRONIC CONSTIPATION. PROCTOCOLITIS/ANAL FISSURE DIABETES MELLITUS. HYPERTENSION. MORBID OBESITY. S/P ORIF RT FEMUR FRACTURE/WITH NAILING. 03/19/18 Plan : NGT-TO SUCTION. NPO CONTINUE iv ANTIBIOTICS- PATIENT PRESENTLY ON CIPRO/ IV fLAGYL. GI ON BOARD- PATIENT FOR URGENT COLONOSCOPY VS SIGMOIDOSCOPY LATER THIS AFTERNOON.. SURGERY ON BOARD. Objective - Vital Signs/Intake and Output Vital Signs (last 24 hours): Temp Pulse Resp BP Pulse Ox 98.6 F 89 20 162/75 H 97 03/22/18 15:47 03/22/18 15:47 03/22/18 15:47 03/22/18 15:47 03/22/18 15:47 Intake and Output: 03/22/18 03/22/18 06:59 18:59 Intake Total 750 Output Total 1000 400 Balance -250 -400 - Medications Medications: Current Medications Aspirin (Ecotrin) 81 mg PO DAILY [facility] Last Admin: 03/22/18 10:39 Dose: 81 mg Enoxaparin Sodium (Lovenox) 40 mg SC DAILY [facility] Last Admin: 03/22/18 10:40 Dose: 40 mg Gabapentin (Neurontin) 300 mg PO BID [facility] Last Admin: 03/22/18 17:22 Dose: 300 mg Hydralazine HCl (Apresoline) 10 mg IVP Q6H PRN PRN Reason: Systolic Blood Pressure Last Admin: 03/22/18 17:33 Dose: 10 mg Hydrocortisone (Anusol-Hc) 0 gm NE BID PRN PRN Reason: Pain, Mild (1-3) Sodium Chloride (Sodium Chloride 0.9%) 1,000 mls @ 50 mls/hr IV .Q20H [facility] Last Admin: 03/22/18 10:40 Dose: 50 mls/hr Vancomycin/Sodium Chloride (Vancomycin 1 Gm/Ns 200 Ml) 1 gm in 200 mls @ 133.333 mls/hr IVPB Q12H [facility] PRN Reason: Protocol Last Admin: 03/22/18 10:41 Dose: 133.333 mls/hr Metronidazole (Flagyl) 500 mg in 100 mls @ 100 mls/hr IVPB Q8 [facility] PRN Reason: Protocol Last Admin: 03/22/18 15:05 Dose: 100 mls/hr Ciprofloxacin (Cipro 400mg/200ml Dsw) 400 mg in 200 mls @ 133 mls/hr IVPB Q12H [facility] PRN Reason: Protocol Last Admin: 03/22/18 10:39 Dose: 133 mls/hr Insulin Human Regular (Novolin R) 0 unit SC ACHS [facility] PRN Reason: Protocol Last Admin: 03/22/18 17:22 Dose: 2 unit Nystatin (Nystop Topical Powder) 0 gm TOP BID [facility] Stop: 04/03/18 18:00 Last Admin: 03/22/18 17:22 Dose: 1 applic Povidone Iodine (Betadine 10% Oint) 0 gm TOP Q8H [facility] Last Admin: 03/22/18 17:22 Dose: 1 dose Saccharomyces Boulardii (Florastor) 250 mg PO BID [facility] Last Admin: 03/22/18 17:22 Dose: 250 mg - Labs Labs: 03/22/18 07:17 03/22/18 07:17 PT 12.8 SECONDS (9.7-12.2) H 03/19/18 08:12 INR 1.1 03/19/18 08:12 APTT 42 SECONDS (21-34) H 03/18/18 18:19 Assessment and Plan (1) Leukocytosis Status: Acute (2) Colonic obstruction Status: Acute (3) Proctitis Status: Acute (4) Constipation Status: Acute (5) Diabetes Status: Acute (6) HTN (hypertension) Status: Acute (7) Hip fracture Status: Acute
[2018-03-23] MEDS: Povidone Iodine Oint 10% (1 oz) TOP SCH ×4 (02:30→18:18)
[2018-03-23] MEDS: metroNIDAZOLE IV 500 mg/100 ml 500 MG/100 ML BAG IVPB SCH ×3 (05:27→21:16)
--- NOTE | 2018-03-23 07:14 | CP.PCM.PN ---
<Reinaldo Jeffers - Last Filed: 03/23/18 08:16> Subjective - Date & Time of Evaluation Date of Evaluation: 03/23/18 Time of Evaluation: 07:08 - Subjective Subjective: PGY5 GI Fellow Progress Note Patient seen and examined bedside this morning. The patient's son is present during examination to assist with translation, though patient does understand some Belarusian. The patient continues to have some abdominal pain along with right leg/hip discomfort. He had no significant bowel movement with the use of enemas yesterday. He does not currently have any rectal pain but is very hesitant to have any manipulation of this area due to severe pain experienced previously with disimpaction attempt. 12 system ROS performed and negative except where stated. Objective - Vital Signs/Intake and Output Vital Signs (last 24 hours): Temp Pulse Resp BP Pulse Ox 98.6 F 86 20 136/78 96 03/22/18 23:40 03/22/18 23:40 03/22/18 23:40 03/22/18 23:40 03/22/18 23:40 Intake and Output: 03/23/18 03/23/18 06:59 18:59 Output Total 650 Balance -650 - Medications Medications: Current Medications Aspirin (Ecotrin) 81 mg PO DAILY [facility] Last Admin: 03/22/18 10:39 Dose: 81 mg Docusate Sodium (Colace) 100 mg PO BID [facility] Enoxaparin Sodium (Lovenox) 40 mg SC DAILY [facility] Last Admin: 03/22/18 10:40 Dose: 40 mg Gabapentin (Neurontin) 300 mg PO BID [facility] [place] Last Admin: 03/22/18 17:22 Dose: 300 mg Hydralazine HCl (Apresoline) 10 mg IVP Q6H [facility]N PRN Reason: Systolic Blood Pressure Last Admin: 03/22/18 17:33 Dose: 10 mg Hydrocortisone (Anusol-Hc) 0 gm [place] BID PRN PRN Reason: Pain, Mild (1-3) Sodium Chloride (Sodium Chloride 0.9%) 1,000 mls @ 50 mls/hr IV .Q20H [facility] [place] Last Admin: 03/22/18 10:40 Dose: 50 mls/hr Vancomycin/Sodium Chloride (Vancomycin 1 Gm/Ns 200 Ml) 1 gm in 200 mls @ 133.333 mls/hr IVPB Q12H [facility] PRN Reason: Protocol Last Admin: 03/22/18 23:54 Dose: 133.333 mls/hr Metronidazole (Flagyl) 500 mg in 100 mls @ 100 mls/hr IVPB Q8 [facility] PRN Reason: Protocol Last Admin: 03/23/18 05:27 Dose: 100 mls/hr Ciprofloxacin (Cipro 400mg/200ml Dsw) 400 mg in 200 mls @ 133 mls/hr IVPB Q12H [facility] PRN Reason: Protocol Last Admin: 03/22/18 21:06 Dose: 133 mls/hr Insulin Human Regular (Novolin R) 0 unit SC ACHS [facility] PRN Reason: Protocol Last Admin: 03/22/18 22:02 Dose: Not Given Lidocaine HCl (Lidocaine Hydrochloride Jelly 2% 5 Ml) 15 ml TOP BID PRN PRN Reason: Other Nystatin (Nystop Topical Powder) 0 gm TOP BID [facility] [place] Stop: 04/03/18 18:00 Last Admin: 03/22/18 17:22 Dose: 1 applic Povidone Iodine (Betadine 10% Oint) 0 gm TOP Q8H [facility] [place] Last Admin: 03/23/18 02:30 Dose: 1 dose Saccharomyces Boulardii (Florastor) 250 mg PO BID [facility] [place] Last Admin: 03/22/18 17:22 Dose: 250 mg - Labs Labs: 03/22/18 07:17 03/22/18 07:17 PT 12.8 SECONDS (9.7-12.2) H 03/19/18 08:12 INR 1.1 03/19/18 08:12 APTT 42 SECONDS (21-34) H 03/18/18 18:19 - Constitutional Appears: No Acute Distress, Other (obese) - Eye Exam Eye Exam: EOMI, PERRL - ENT Exam ENT Exam: Mucous Membranes Dry Additional comments: NGT to LIS - Respiratory Exam Respiratory Exam: Clear to Ausculation Bilateral. absent: Rales, Rhonchi, Wheezes - Cardiovascular Exam Cardiovascular Exam: RRR, +S1, +S2 - GI/Abdominal Exam GI & Abdominal Exam: Distended, Firm, Hypoactive Bowel Sounds. absent: Guarding , Rigid, Tenderness, Organomegaly - Extremities Exam Extremities Exam: Normal Inspection. absent: Pedal Edema - Neurological Exam Neurological Exam: Alert, Awake, Oriented x3 - Psychiatric Exam Psychiatric exam: Normal Affect, Normal Mood - Skin Skin Exam: Dry, Warm Assessment and Plan - Assessment and Plan (Free Text) Assessment: Patient is a 72yo male with PMHx significant for diabetes, hypertension, chronic idiopathic constipation using amitiza, anal fissures, osteoarthritis, depression and obesity who presented to the hospital following a mechanical fall at home. Our service is consulted for abnormal CT findings and constipation. -Constipation 2/2 post-operative ileus vs bowel obstruction R/O malignancy given CT findings -Anal fissure -Cholelithiasis -Chronic idiopathic constipation -HTN -DM Plan: -Pt is POD#4 from ORIF right femur -Suspect fecal impaction though patient unwilling to undergo digital disimpaction 2/2 pain - positioning is also limiting given that patient cannot readily be placed in left lateral decubitus positioning -Use Lidocaine jelly BID PRN rectal pain 2/2 fissure -Nitroglycerine and Diltiazem MN not available in pharmacy; patient to bring Diltiazem MN from home - of note, was only using occasionally, not daily as directed -Sitz bath Q8H -Colace 100mg PO BID once tolerating PO -Consider agents such as Methylnaltrexone for ongoing constipation -Abnormal CT imaging noted - colonoscopy in June with poor prep though no overt lesions in rectosigmoid -Consider non-emergent sigmoidoscopy - OK to place in left lateral positioning per orthopedics -May require disimpaction under anesthesia -NGT to LIS - management per surgical service -Ongoing Lovenox prophylaxis as indicated <Balbir Bernard - Last Filed: 03/23/18 08:35> Objective - Vital Signs/Intake and Output Vital Signs (last 24 hours): Temp Pulse Resp BP Pulse Ox 98.0 F 88 20 177/76 H 98 03/23/18 08:15 03/23/18 08:15 03/23/18 08:15 03/23/18 08:15 03/23/18 08:15 Intake and Output: 03/23/18 03/23/18 06:59 18:59 Intake Total 250 Output Total 1200 Balance -950 - Medications Medications: Current Medications Aspirin (Ecotrin) 81 mg PO DAILY [facility] [place] Last Admin: 03/22/18 10:39 Dose: 81 mg Docusate Sodium (Colace) 100 mg PO BID [facility] [place] Enoxaparin Sodium (Lovenox) 40 mg SC DAILY [facility] Last Admin: 03/22/18 10:40 Dose: 40 mg Gabapentin (Neurontin) 300 mg PO BID [facility] Last Admin: 03/22/18 17:22 Dose: 300 mg Hydralazine HCl (Apresoline) 10 mg IVP Q6H PRN PRN Reason: Systolic Blood Pressure Last Admin: 03/22/18 17:33 Dose: 10 mg Hydrocortisone (Anusol-Hc) 0 gm [place] BID PRN PRN Reason: Pain, Mild (1-3) Sodium Chloride (Sodium Chloride 0.9%) 1,000 mls @ 50 mls/hr IV .Q20H [facility] [place] Last Admin: 03/22/18 10:40 Dose: 50 mls/hr Vancomycin/Sodium Chloride (Vancomycin 1 Gm/Ns 200 Ml) 1 gm in 200 mls @ 133.333 mls/hr IVPB Q12H [facility] PRN Reason: Protocol Last Admin: 03/22/18 23:54 Dose: 133.333 mls/hr Metronidazole (Flagyl) 500 mg in 100 mls @ 100 mls/hr IVPB Q8 [facility] PRN Reason: Protocol Last Admin: 03/23/18 05:27 Dose: 100 mls/hr Ciprofloxacin (Cipro 400mg/200ml Dsw) 400 mg in 200 mls @ 133 mls/hr IVPB Q12H [facility] PRN Reason: Protocol Last Admin: 03/22/18 21:06 Dose: 133 mls/hr Insulin Human Regular (Novolin R) 0 unit SC ACHS [facility] PRN Reason: Protocol Last Admin: 03/22/18 22:02 Dose: Not Given Lidocaine HCl (Lidocaine Hydrochloride Jelly 2% 5 Ml) 15 ml TOP BID PRN PRN Reason: Other Non-Formulary Medication (Non-Formulary) 1 ea MN TID [facility] [place] Stop: 05/18/18 23:59 Nystatin (Nystop Topical Powder) 0 gm TOP BID [facility] [place] [place] Stop: 04/03/18 18:00 Last Admin: 03/22/18 17:22 Dose: 1 applic Povidone Iodine (Betadine 10% Oint) 0 gm TOP Q8H [facility] Last Admin: 03/23/18 02:30 Dose: 1 dose Saccharomyces Boulardii (Florastor) 250 mg PO BID [facility] Last Admin: 03/22/18 17:22 Dose: 250 mg - Labs Labs: 03/23/18 08:02 03/22/18 07:17 PT 12.8 SECONDS (9.7-12.2) H 03/19/18 08:12 INR 1.1 03/19/18 08:12 APTT 42 SECONDS (21-34) H 03/18/18 18:19 Attending/Attestation - Attestation I have personally seen and examined this patient.: Yes I have fully participated in the care of the patient.: Yes I have reviewed all pertinent clinical information, including history, physical exam and plan: Yes Notes (Text): 03/23/18 08:31 I have seen and examined patient with GI fellow. No acute events overnight. He denies abdominal pain, nausea, vomiting. He continues to have high output via NGT (nearly 600 cc of fecal material over past 4 hours). He has not had any significant bowel movement despite multiple enemas yesterday. DM / HTN Obesity CIC s/p mechanical fall with R femur trauma s/p ORIF Post operative ileus vs bowel obstruction - NPO - Continue with NGT, monitor output - Continue with IVF hydration - Avoid narcotic pain medication as this may exacerbate underlying constipation - Obtain abdominal XR - Maintain bowel regimen, repeat enema today - Consider use of relistor given post operative ileus refractory to conventional therapy - Case discussed with orthopedic team at bedside, would be ok to position patient in L lateral decubitus position if sigmoidoscopy is indicated. Will defer for time being but consider if symptoms persist after additional 24-48 hours. Will continue to monitor patient clinical course.
[2018-03-23 08:19] LABS: BASO # 0.2 K/uL (0.0-0.2); LYMPH % 11.8 % (20.0-40.0); MEAN CORPUSCULAR HGB CONC 32.3 g/dL (33.0-37.0); MEAN PLATELET VOLUME 9.7 fL (7.2-11.7); WHITE BLOOD COUNT 16.9 K/uL (4.8-10.8)
[2018-03-23 08:28] LABS: BASO % 0.9 % (0.0-2.0); EOS # 1.4 K/uL (0.0-0.7); HEMOGLOBIN 8.9 g/dL (12.0-18.0); MEAN CELL VOLUME 82.3 fL (80.0-94.0); MEAN CORPUSCULAR HEMOGLOBIN 26.6 pg (27.0-31.0); MONO # 1.6 K/uL (0.0-0.8); MONO % 9.7 % (0.0-10.0); NEUT # 11.8 K/uL (1.8-7.0); NEUT % 69.6 % (50.0-75.0); NRBC % 0.2 % (0.0-2.0); RBC 3.37 Mil/uL (4.40-5.90); RED CELL DISTRIBUTION WIDTH 16.2 % (11.5-14.5)
[2018-03-23 08:37] LABS: ALB/GLOB RATIO 0.9 (1.0-2.1); ALBUMIN 2.9 g/dL (3.5-5.0); ALT/SGPT 13 U/L (21-72); AST/SGOT 33 U/L (17-59); BLOOD UREA NITROGEN 25 mg/dL (9-20); GFR AFRICAN-AMERICAN > 60; GFR NON-AFRICAN AMERICAN > 60
[2018-03-23] MEDS: (Novolin R) Insulin Human Regular 100 units/ml vial SC SCH ×4 (08:43→21:07)
[2018-03-23] MEDS ORDERED: Sodium Chloride 0.9% 1,000 ML IV SCH (09:07)
--- NOTE | 2018-03-23 09:11 | CP.PCM.PN ---
Subjective - Date & Time of Evaluation Date of Evaluation: 03/23/18 Time of Evaluation: 09:11 - Subjective Subjective: patient seen and examined at bedside Small BM at bedside. No other complaints at this time denies belly pain, nausea or vomiting. some pain in the right hip Objective - Vital Signs/Intake and Output Vital Signs (last 24 hours): Temp Pulse Resp BP Pulse Ox 98.0 F 88 20 177/76 H 98 03/23/18 08:15 03/23/18 08:15 03/23/18 08:15 03/23/18 08:15 03/23/18 08:15 Intake and Output: 03/23/18 03/23/18 06:59 18:59 Intake Total 250 Output Total 1200 Balance -950 - Medications Medications: Current Medications Aspirin (Ecotrin) 81 mg PO DAILY [facility] Last Admin: 03/22/18 10:39 Dose: 81 mg Docusate Sodium (Colace) 100 mg PO BID [facility] Enoxaparin Sodium (Lovenox) 40 mg SC DAILY [facility] Last Admin: 03/22/18 10:40 Dose: 40 mg Gabapentin (Neurontin) 300 mg PO BID [facility] Last Admin: 03/22/18 17:22 Dose: 300 mg Hydralazine HCl (Apresoline) 10 mg IVP Q6H PRN PRN Reason: Systolic Blood Pressure Last Admin: 03/22/18 17:33 Dose: 10 mg Hydrocortisone (Anusol-Hc) 0 gm [place] BID PRN PRN Reason: Pain, Mild (1-3) Vancomycin/Sodium Chloride (Vancomycin 1 Gm/Ns 200 Ml) 1 gm in 200 mls @ 133.333 mls/hr IVPB Q12H [facility] PRN Reason: Protocol Last Admin: 03/22/18 23:54 Dose: 133.333 mls/hr Metronidazole (Flagyl) 500 mg in 100 mls @ 100 mls/hr IVPB Q8 [facility] PRN Reason: Protocol Last Admin: 03/23/18 05:27 Dose: 100 mls/hr Ciprofloxacin (Cipro 400mg/200ml Dsw) 400 mg in 200 mls @ 133 mls/hr IVPB Q12H [facility] PRN Reason: Protocol Last Admin: 03/22/18 21:06 Dose: 133 mls/hr Sodium Chloride (Sodium Chloride 0.9%) 1,000 mls @ 75 mls/hr IV .[id number] [facility] Insulin Human Regular (Novolin R) 0 unit SC ACHS [facility] PRN Reason: Protocol Last Admin: 03/23/18 08:43 Dose: Not Given Lidocaine HCl (Lidocaine Hydrochloride Jelly 2% 5 Ml) 15 ml TOP BID PRN PRN Reason: Other Non-Formulary Medication (Non-Formulary) 1 ea AL TID [facility] Stop: 05/18/18 23:59 Nystatin (Nystop Topical Powder) 0 gm TOP BID [facility] Stop: 04/03/18 18:00 Last Admin: 03/22/18 17:22 Dose: 1 applic Povidone Iodine (Betadine 10% Oint) 0 gm TOP Q8H [facility] Last Admin: 03/23/18 02:30 Dose: 1 dose Saccharomyces Boulardii (Florastor) 250 mg PO BID [facility] Last Admin: 03/22/18 17:22 Dose: 250 mg - Labs Labs: 03/23/18 08:02 03/23/18 08:02 PT 12.8 SECONDS (9.7-12.2) H 03/19/18 08:12 INR 1.1 03/19/18 08:12 APTT 42 SECONDS (21-34) H 03/18/18 18:19 - Additional Findings Additional findings: - Constitutional Appears: Well - Head Exam Head Exam: ATRAUMATIC, NORMAL INSPECTION, NORMOCEPHALIC - Eye Exam Eye Exam: EOMI, Normal appearance, PERRL Pupil Exam: NORMAL ACCOMODATION, PERRL - ENT Exam ENT Exam: Mucous Membranes Moist, Normal Exam - Neck Exam Neck Exam: Full ROM, Normal Inspection. absent: Lymphadenopathy - Respiratory Exam Respiratory Exam: Clear to Ausculation Bilateral, NORMAL BREATHING PATTERN - Cardiovascular Exam Cardiovascular Exam: REGULAR RHYTHM, +S1, +S2. absent: Murmur - GI/Abdominal Exam GI & Abdominal Exam: Distended, Soft, Hypoactive Bowel Sounds, Normal Bowel Sounds. absent: Tenderness - Rectal Exam Rectal Exam: NORMAL INSPECTION - Exam Exam: Circumcision, NORMAL INSPECTION External exam: NORMAL EXTERNAL EXAM Speculum exam: NORMAL SPECULUM EXAM Bimanual exam: NORMAL BIMANUAL EXAM - Extremities Exam Extremities Exam: Full ROM, Normal Capillary Refill, Normal Inspection. absent : Joint Swelling, Pedal Edema - Back Exam Back Exam: NORMAL INSPECTION - Neurological Exam Neurological Exam: Alert, Awake, CN II-XII Intact, Normal Gait, Oriented x3 - Psychiatric Exam Psychiatric exam: Normal Affect, Normal Mood - Skin Skin Exam: Dry, Intact, Normal Color, Warm Assessment and Plan (1) Constipation Assessment & Plan: (1) Constipation Assessment & Plan: CT: rectosigmoid colonic wall thickening w/mass like irma w/ dilation of colon proximal thickening and large amount of stool and gas w/in colon. Suspicious for colon cancer Vs inflammatory mass 2/2 infectious inflam Vs stool related proctocolitis GI ([facility]) - if no improvement in 24-248 hrs, flex sig Surgery ([facility]) - Waiting for results of scope. before intervention. Spoke about possibility of rectal tube to decompress. will follow reccs Mineral oil enema NGT Low-intermittent suction Cipro/flagyl Status: Acute (2) Hip fracture Assessment & Plan: Right Subtrochanteric Femoral Fracture s/p ORIF with Long Hip Nail 03/19/[address] Bernabe - amanda with positioning for scope PT OT Lovenox held today Status: Acute (3) Diabetes Assessment & Plan: ISS High Hold home insulin as patient NPO Status: Acute (4) HTN (hypertension) Assessment & Plan: hydralzine PRN hold PO meds as patient is NPO to suction Status: Acute (5) Prophylactic measure Assessment & Plan: Lovenox GI PPX not indicated Status: Acute Status: Acute (2) Hip fracture Status: Acute (3) Diabetes Status: Acute (4) HTN (hypertension) Status: Acute (5) Prophylactic measure Status: Acute
--- NOTE | 2018-03-23 09:30 | CP.PCM.PN ---
Subjective - Date & Time of Evaluation Date of Evaluation: 03/23/18 Time of Evaluation: 08:00 - Subjective Subjective: Patient seen and examined at bedside this AM. Patient complains of nausea but no emesis, and worsened pain in his abdomen. patient denies passing flatus or having a bowel movement. Objective - Vital Signs/Intake and Output Vital Signs (last 24 hours): Temp Pulse Resp BP Pulse Ox 98.0 F 88 20 177/76 H 98 03/23/18 08:15 03/23/18 08:15 03/23/18 08:15 03/23/18 08:15 03/23/18 08:15 Intake and Output: 03/23/18 03/23/18 06:59 18:59 Intake Total 250 Output Total 1200 Balance -950 - Medications Medications: Current Medications Aspirin (Ecotrin) 81 mg PO DAILY [facility] Last Admin: 03/22/18 10:39 Dose: 81 mg Docusate Sodium (Colace) 100 mg PO BID [facility] Enoxaparin Sodium (Lovenox) 40 mg SC DAILY [facility] Last Admin: 03/22/18 10:40 Dose: 40 mg Gabapentin (Neurontin) 300 mg PO BID [facility] Last Admin: 03/22/18 17:22 Dose: 300 mg Home Med (Patient's Own Topical) 1 gm TOP TID [facility] Stop: 05/18/18 23:59 Hydralazine HCl (Apresoline) 10 mg IVP Q6H PRN PRN Reason: Systolic Blood Pressure Last Admin: 03/22/18 17:33 Dose: 10 mg Hydrocortisone (Anusol-Hc) 0 gm [place] BID PRN PRN Reason: Pain, Mild (1-3) Vancomycin/Sodium Chloride (Vancomycin 1 Gm/Ns 200 Ml) 1 gm in 200 mls @ 133.333 mls/hr IVPB Q12H [facility] PRN Reason: Protocol Last Admin: 03/22/18 23:54 Dose: 133.333 mls/hr Metronidazole (Flagyl) 500 mg in 100 mls @ 100 mls/hr IVPB Q8 [facility] PRN Reason: Protocol Last Admin: 03/23/18 05:27 Dose: 100 mls/hr Ciprofloxacin (Cipro 400mg/200ml Dsw) 400 mg in 200 mls @ 133 mls/hr IVPB Q12H [facility] PRN Reason: Protocol Last Admin: 03/22/18 21:06 Dose: 133 mls/hr Sodium Chloride (Sodium Chloride 0.9%) 1,000 mls @ 75 mls/hr IV .[id number] [facility] Potassium Chloride (Potassium Chloride 10 Meq/100 Ml) 10 meq in 100 mls @ 100 mls/hr IVPB Q1H [facility] Stop: 03/23/18 12:59 Insulin Human Regular (Novolin R) 0 unit SC ACHS [facility] PRN Reason: Protocol Last Admin: 03/23/18 08:43 Dose: Not Given Lidocaine HCl (Lidocaine Hydrochloride Jelly 2% 5 Ml) 15 ml TOP BID PRN PRN Reason: Other Nystatin (Nystop Topical Powder) 0 gm TOP BID [facility] Stop: 04/03/18 18:00 Last Admin: 03/22/18 17:22 Dose: 1 applic Povidone Iodine (Betadine 10% Oint) 0 gm TOP Q8H [facility] Last Admin: 03/23/18 02:30 Dose: 1 dose Saccharomyces Boulardii (Florastor) 250 mg PO BID [facility] Last Admin: 03/22/18 17:22 Dose: 250 mg - Labs Labs: 03/23/18 08:02 03/23/18 08:02 PT 12.8 SECONDS (9.7-12.2) H 03/19/18 08:12 INR 1.1 03/19/18 08:12 APTT 42 SECONDS (21-34) H 03/18/18 18:19 - Constitutional Appears: Well, Non-toxic, No Acute Distress - Head Exam Head Exam: ATRAUMATIC, NORMOCEPHALIC - Eye Exam Eye Exam: Normal appearance. absent: Conjunctival injection, Scleral icterus - ENT Exam ENT Exam: Mucous Membranes Dry Additional comments: NGT in place in right nares - Respiratory Exam Respiratory Exam: NORMAL BREATHING PATTERN. absent: Accessory Muscle Use, Respiratory Distress - GI/Abdominal Exam GI & Abdominal Exam: Distended (severe), Soft, Tenderness (RUQ, Epigastrium, LUQ ). absent: Rebound - Extremities Exam Extremities Exam: absent: Calf Tenderness, Pedal Edema, Tenderness - Neurological Exam Neurological Exam: Alert, Awake, Oriented x3 - Psychiatric Exam Psychiatric exam: Anxious, Normal Affect - Skin Skin Exam: Dry, Normal Color, Warm Assessment and Plan - Assessment and Plan (Free Text) Assessment: 72M with colonic obstruction d/t thickening of sigmoid colon/rectum concerning for inflammation vs mass Plan: -No surgical intervention at this time--would recommend colonoscopy for decompression and diagnosis of the distal sigmoid/rectal thickening. Patient may need diverting colostomy if obstruction does not resolve and he is not decompressed by other means but would prefer a diagnosis to guide surgical planning -NPO -NGT to continuous low wall suction -Monitor closely for bowel function -Enemas -IVF -Management per primary -discussed with Primary and GI team Discussed with Dr. Ramandeep Jimenez PYG2
[2018-03-23] MEDS ORDERED: Mineral Oil Enema 135 ml RC ONE (09:34)
--- NOTE | 2018-03-23 09:52 | CP.PCM.PN ---
Subjective - Date & Time of Evaluation Date of Evaluation: 03/23/18 Time of Evaluation: 09:50 - Subjective Subjective: Patient states he is not feeling as good today. Still complaining of pain in his right hip. Objective - Vital Signs/Intake and Output Vital Signs (last 24 hours): Temp Pulse Resp BP Pulse Ox 98.0 F 88 20 177/76 H 98 03/23/18 08:15 03/23/18 08:15 03/23/18 08:15 03/23/18 08:15 03/23/18 08:15 Intake and Output: 03/23/18 03/23/18 06:59 18:59 Intake Total 250 Output Total 1200 Balance -950 - Medications Medications: Current Medications Aspirin (Ecotrin) 81 mg PO DAILY [facility] Last Admin: 03/22/18 10:39 Dose: 81 mg Docusate Sodium (Colace) 100 mg PO BID [facility] Enoxaparin Sodium (Lovenox) 40 mg SC DAILY [facility] Last Admin: 03/22/18 10:40 Dose: 40 mg Gabapentin (Neurontin) 300 mg PO BID [facility] Last Admin: 03/22/18 17:22 Dose: 300 mg Home Med (Patient's Own Topical) 1 gm TOP TID [facility] Stop: 05/18/18 23:59 Hydralazine HCl (Apresoline) 10 mg IVP Q6H PRN PRN Reason: Systolic Blood Pressure Last Admin: 03/22/18 17:33 Dose: 10 mg Hydrocortisone (Anusol-Hc) 0 gm [place] BID PRN PRN Reason: Pain, Mild (1-3) Vancomycin/Sodium Chloride (Vancomycin 1 Gm/Ns 200 Ml) 1 gm in 200 mls @ 133.333 mls/hr IVPB Q12H [facility] PRN Reason: Protocol Last Admin: 03/22/18 23:54 Dose: 133.333 mls/hr Metronidazole (Flagyl) 500 mg in 100 mls @ 100 mls/hr IVPB Q8 [facility] PRN Reason: Protocol Last Admin: 03/23/18 05:27 Dose: 100 mls/hr Ciprofloxacin (Cipro 400mg/200ml Dsw) 400 mg in 200 mls @ 133 mls/hr IVPB Q12H [facility] PRN Reason: Protocol Last Admin: 03/22/18 21:06 Dose: 133 mls/hr Sodium Chloride (Sodium Chloride 0.9%) 1,000 mls @ 75 mls/hr IV .[id number] [facility] Potassium Chloride (Potassium Chloride 10 Meq/100 Ml) 10 meq in 100 mls @ 100 mls/hr IVPB Q1H [facility] Stop: 03/23/18 12:59 Insulin Human Regular (Novolin R) 0 unit SC ACHS [facility] PRN Reason: Protocol Last Admin: 03/23/18 08:43 Dose: Not Given Lidocaine HCl (Lidocaine Hydrochloride Jelly 2% 5 Ml) 15 ml TOP BID PRN PRN Reason: Other Mineral Oil (Fleet Mineral Oil Enema) 135 ml RC ONCE ONE Stop: 03/23/18 09:35 Nystatin (Nystop Topical Powder) 0 gm TOP BID [facility] Stop: 04/03/18 18:00 Last Admin: 03/22/18 17:22 Dose: 1 applic Povidone Iodine (Betadine 10% Oint) 0 gm TOP Q8H [facility] Last Admin: 03/23/18 02:30 Dose: 1 dose Saccharomyces Boulardii (Florastor) 250 mg PO BID [facility] Last Admin: 03/22/18 17:22 Dose: 250 mg - Labs Labs: 03/23/18 08:02 03/23/18 08:02 PT 12.8 SECONDS (9.7-12.2) H 03/19/18 08:12 INR 1.1 03/19/18 08:12 APTT 42 SECONDS (21-34) H 03/18/18 18:19 - Extremities Exam Additional comments: thigh swollen, ice applied, moderate serous drainage from middle incision, incision intact, no erythema, +ROM ankle/toes, sensation intact +Dp/PT pulses Assessment and Plan (1) Displaced subtrochanteric fracture of right femur Assessment & Plan: POD#4 s/p IM nailing Dr. Rushing notified of drainage, will hold lovenox today/joey ice PT/OT per Dr. Rushing, patient ok for positioning for GI procedures d/c planning VTE proph, cont SCDs Status: Acute
[2018-03-23] MEDS: Ciprofloxacin 400mg/200ml D5W 400 MG/200 ML BAG IVPB SCH ×2 (10:30→22:32)
[2018-03-23] MEDS: Saccharomyces Boulardi 250 mg Cap PO SCH ×2 (10:31→18:14)
--- NOTE | 2018-03-23 10:34 | RAD ---
HISTORY: abdominal pain, constipation COMPARISON: Abdomen and pelvis CT examination 03/21/2018. FINDINGS: BOWEL: Gaseous distention of the colon is appreciated with mild improvement at the right upper quadrant and transverse colon segment with remaining loops not simply change, particularly the mid to distal sigmoid segment remains prominently distended up to 13.8 cm greatest transverse dimension. Trace gas is suggested possibly a rectum or within the small-bowel loop in the inferior right hemipelvis. Potential distal large bowel obstruction pattern persists. A large volume of free intraperitoneal gas is not identified with lesser amounts difficult to evaluate using KUB technique. Consider follow-up obstructive series or CT if free air is a clinical question. Nasonex tube is in placed apparently terminating at the proximal stomach. Consider advancing the catheter further 10-15 cm into the stomach although the stomach is currently decompressed as compared to the prior CT. No suspicious intra-abdominal calcifications. BONES: Multilevel lumbar spondylosis appreciated. OTHER FINDINGS: None. IMPRESSION: A mild decrease in proximal large bowel distention is evident though significant distension remains there. Prominent distention of the distal large bowel including the mid to distal sigmoid segment is unchanged. There is questionable gas at the rectum. Potential distal large bowel obstruction pattern remains. Nasogastric tube is in place terminating in the proximal stomach. Consider advancing the catheter further 10-15 cm into the stomach.
[2018-03-23] MEDS: Nystatin 100,000 Units/gm Topical Pow(15 gm) TOP SCH ×3 (11:58→18:18)
[2018-03-23] MEDS: Vancomycin 1 gm/NS 200 ml 1 GM/200 ML BAG IVPB SCH (12:49)
[2018-03-23] MEDS ORDERED: Lidocaine 2% Jelly (5 ml) TOP PRN (13:39)
--- NOTE | 2018-03-23 14:52 | CP.PCM.PN ---
Subjective - Date & Time of Evaluation Date of Evaluation: 03/23/18 Time of Evaluation: 14:52 - Subjective Subjective: CHIEF COMPLAINTS TODAY : afebrile +VE NGT draining greenish aspirate. c/o abdominal pain on palpation. Denies any flatus so far. abdomen slightly more distended. ROS. HEENT : N. 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 Musculoskel : N Ext. : Pedal pulses intact, no edema or calf pain RT. HIP DRESSING IN PLACE. Derm : N Psych : N. PE. Pt. is alert awake in no distress. +VE NGT DRAINING GREENISH DRAINAGE. V.S As noted in the chart Head ,ear nose,throat and eyes : Normal. Neck : Supple with normal carotids. Lungs: Clear air entry. Heart : S1 & S2 normal . . No murmur. S4 + Abd : SLIGHTLY DISTENDED, DIFFUSE GENERALIZED TENDERNESS ON PALPATION, HYPOACTIVE BOWEL SOUNDS. Neuro : Moves all ext. with no localized deficit. Ext : RT HIP FRACTURE S/P ORIF, DRESSING C/D/I. with intact pulses. Neg. calf tenderness Derm : No rashes or decubitus ulcer. Radiology/Labs . . BLOOD CULTURES 03/21/18 -VE to date URINE CULTURE -VE GROWTH . Asssessment : LEUKOCYTOSIS. ? COLONIC OBSTRUCTION/ RECTOSIGMOID MASS CHRONIC CONSTIPATION. PROCTOCOLITIS/ANAL FISSURE DIABETES MELLITUS. HYPERTENSION. MORBID OBESITY. S/P ORIF RT FEMUR FRACTURE/WITH NAILING. 03/19/18 Plan : NGT-TO SUCTION. NPO CONTINUE iv ANTIBIOTICS- PATIENT PRESENTLY ON CIPRO/ IV fLAGYL. GI ON BOARD- PATIENT FOR sigmoidoscopy/coloscopy in a.m. SURGERY ON BOARD. CASE DISCUSSED WITH THE SON/AND PATIENT. Objective - Vital Signs/Intake and Output Vital Signs (last 24 hours): Temp Pulse Resp BP Pulse Ox 98.0 F 88 20 177/76 H 98 03/23/18 08:15 03/23/18 08:15 03/23/18 08:15 03/23/18 08:15 03/23/18 08:15 Intake and Output: 03/23/18 03/23/18 06:59 18:59 Intake Total 250 Output Total 1200 Balance -950 - Medications Medications: Current Medications Aspirin (Ecotrin) 81 mg PO DAILY [facility] Last Admin: 03/23/18 10:31 Dose: Not Given Docusate Sodium (Colace) 100 mg PO BID [facility] Last Admin: 03/23/18 10:31 Dose: Not Given Enoxaparin Sodium (Lovenox) 40 mg SC DAILY [facility] Last Admin: 03/22/18 10:40 Dose: 40 mg Gabapentin (Neurontin) 300 mg PO BID [facility] Last Admin: 03/23/18 10:31 Dose: Not Given Home Med (Patient's Own Topical) 1 gm TOP TID [facility] Stop: 05/18/18 23:59 Home Med (Patient's Own Medication) 1 tab PO QPM [facility] Hydralazine HCl (Apresoline) 10 mg IVP Q6H PRN PRN Reason: Systolic Blood Pressure Last Admin: 03/22/18 17:33 Dose: 10 mg Hydrocortisone (Anusol-Hc) 0 gm [place] BID PRN PRN Reason: Pain, Mild (1-3) Vancomycin/Sodium Chloride (Vancomycin 1 Gm/Ns 200 Ml) 1 gm in 200 mls @ 133.333 mls/hr IVPB Q12H [facility] PRN Reason: Protocol Last Admin: 03/23/18 12:49 Dose: 133.333 mls/hr Metronidazole (Flagyl) 500 mg in 100 mls @ 100 mls/hr IVPB Q8 [facility] PRN Reason: Protocol Last Admin: 03/23/18 14:14 Dose: 100 mls/hr Ciprofloxacin (Cipro 400mg/200ml Dsw) 400 mg in 200 mls @ 133 mls/hr IVPB Q12H [facility] PRN Reason: Protocol Last Admin: 03/23/18 10:30 Dose: 133 mls/hr Potassium Chloride 40 meq/ (Sodium Chloride) 1,020 mls @ 75 mls/hr IV .[id number] [facility] Last Admin: 03/23/18 14:12 Dose: 75 mls/hr Insulin Human Regular (Novolin R) 0 unit SC ACHS [facility] PRN Reason: Protocol Last Admin: 03/23/18 12:48 Dose: Not Given Lidocaine HCl (Lidocaine Hydrochloride Jelly 2% 5 Ml) 0 ml TOP BID PRN PRN Reason: Other Nystatin (Nystop Topical Powder) 0 gm TOP BID [facility] Stop: 04/03/18 18:00 Last Admin: 03/23/18 13:45 Dose: 1 applic Povidone Iodine (Betadine 10% Oint) 0 gm TOP Q8H [facility] Last Admin: 03/23/18 13:44 Dose: 1 dose Saccharomyces Boulardii (Florastor) 250 mg PO BID [facility] Last Admin: 03/23/18 10:31 Dose: Not Given - Labs Labs: 03/23/18 08:02 03/23/18 08:02 PT 12.8 SECONDS (9.7-12.2) H 03/19/18 08:12 INR 1.1 03/19/18 08:12 APTT 42 SECONDS (21-34) H 03/18/18 18:19 Assessment and Plan (1) Leukocytosis Status: Acute (2) Colonic obstruction Status: Acute (3) Proctitis Status: Acute (4) Constipation Status: Acute (5) Diabetes Status: Acute (6) HTN (hypertension) Status: Acute (7) Hip fracture Status: Acute
[2018-03-23 17:14] LABS: BLOOD UREA NITROGEN 24 mg/dL (9-20); CALCIUM 7.8 mg/dl (8.6-10.4); GFR AFRICAN-AMERICAN > 60; GFR NON-AFRICAN AMERICAN > 60
[2018-03-23] MEDS: DILTIAZEM 2% TOP SCH (18:14)
[2018-03-24] MEDS: Vancomycin 1 gm/NS 200 ml 1 GM/200 ML BAG IVPB SCH ×2 (01:01→11:15)
[2018-03-24] MEDS: Povidone Iodine Oint 10% (1 oz) TOP SCH ×3 (01:08→18:30)
--- NOTE | 2018-03-24 04:34 | CP.PCM.PN ---
Subjective - Date & Time of Evaluation Date of Evaluation: 03/24/18 Time of Evaluation: 04:32 - Subjective Subjective: NGT replaced at 10pm called again around 2am when patient pulled out NGT again replaced again, confirmed by X-Ray both times with help of medical student Rock Fisher PGY2 Objective - Vital Signs/Intake and Output Vital Signs (last 24 hours): Temp Pulse Resp BP Pulse Ox 98 F 103 H 20 166/64 H 98 03/23/18 23:35 03/23/18 23:35 03/23/18 23:35 03/23/18 23:35 03/23/18 23:35 Intake and Output: 03/23/18 03/24/18 18:59 06:59 Intake Total 500 Output Total 950 900 Balance -450 -900 - Medications Medications: Current Medications Aspirin (Ecotrin) 81 mg PO DAILY [facility] Last Admin: 03/23/18 10:31 Dose: Not Given Docusate Sodium (Colace) 100 mg PO BID [facility] Last Admin: 03/23/18 18:14 Dose: Not Given Enoxaparin Sodium (Lovenox) 40 mg SC DAILY [facility] Last Admin: 03/22/18 10:40 Dose: 40 mg Gabapentin (Neurontin) 300 mg PO BID [facility] Last Admin: 03/23/18 18:14 Dose: Not Given Home Med (Patient's Own Topical) 1 gm TOP TID [facility] Stop: 05/18/18 23:59 Last Admin: 03/23/18 18:14 Dose: Not Given Home Med (Patient's Own Medication) 1 tab PO QPM [facility] Last Admin: 03/23/18 18:14 Dose: Not Given Hydralazine HCl (Apresoline) 10 mg IVP Q6H PRN PRN Reason: Systolic Blood Pressure Last Admin: 03/23/18 19:44 Dose: 10 mg Hydrocortisone (Anusol-Hc) 0 gm [place] BID PRN PRN Reason: Pain, Mild (1-3) Vancomycin/Sodium Chloride (Vancomycin 1 Gm/Ns 200 Ml) 1 gm in 200 mls @ 133.333 mls/hr IVPB Q12H [facility] PRN Reason: Protocol Last Admin: 03/24/18 01:01 Dose: 133.333 mls/hr Metronidazole (Flagyl) 500 mg in 100 mls @ 100 mls/hr IVPB Q8 [facility] PRN Reason: Protocol Last Admin: 03/23/18 21:16 Dose: 100 mls/hr Ciprofloxacin (Cipro 400mg/200ml Dsw) 400 mg in 200 mls @ 133 mls/hr IVPB Q12H [facility] PRN Reason: Protocol Last Admin: 03/23/18 22:32 Dose: 133 mls/hr Potassium Chloride 40 meq/ (Sodium Chloride) 1,020 mls @ 75 mls/hr IV .[id number] [facility] Last Admin: 03/23/18 14:12 Dose: 75 mls/hr Insulin Human Regular (Novolin R) 0 unit SC ACHS [facility] PRN Reason: Protocol Last Admin: 03/23/18 21:07 Dose: Not Given Lidocaine HCl (Lidocaine Hydrochloride Jelly 2% 5 Ml) 0 ml TOP BID PRN PRN Reason: Other Nystatin (Nystop Topical Powder) 0 gm TOP BID [facility] Stop: 04/03/18 18:00 Last Admin: 03/23/18 18:18 Dose: 1 applic Povidone Iodine (Betadine 10% Oint) 0 gm TOP Q8H [facility] Last Admin: 03/24/18 01:08 Dose: 1 dose Saccharomyces Boulardii (Florastor) 250 mg PO BID [facility] Last Admin: 03/23/18 18:14 Dose: Not Given - Labs Labs: 03/23/18 08:02 03/23/18 16:53 PT 12.8 SECONDS (9.7-12.2) H 03/19/18 08:12 INR 1.1 03/19/18 08:12 APTT 42 SECONDS (21-34) H 03/18/18 18:19
[2018-03-24] MEDS: metroNIDAZOLE IV 500 mg/100 ml 500 MG/100 ML BAG IVPB SCH ×3 (05:41→21:00)
--- NOTE | 2018-03-24 07:49 | RAD ---
Chest x-ray single frontal view History: NG tube placement. Comparison: 03/18/2018 Findings: NG tube extending into the stomach. Mild venous congestion. Linear consolidative changes in the left mid to lower lung zone. Enlarged ectatic aorta. Cardiomegaly. Degenerative changes in the spine and shoulders. Impression: NG tube extending into the stomach. Few distended loops of bowel in the upper to mid abdomen. Mild venous congestion. Linear consolidative changes in the left mid to lower lung zone. Enlarged ectatic aorta. Cardiomegaly.
[2018-03-24] MEDS: (Novolin R) Insulin Human Regular 100 units/ml vial SC SCH ×4 (07:58→22:22)
--- NOTE | 2018-03-24 08:02 | RAD ---
HISTORY: NGT COMPARISON: 03/23/2018 FINDINGS: LUNGS: Linear subsegmental atelectasis left base and left perihilar. No acute infiltrate. PLEURA: No significant pleural effusion identified, no pneumothorax apparent. CARDIOVASCULAR: Nasogastric tube extends to left upper quadrant of abdomen. Normal heart size. OSSEOUS STRUCTURES: No significant abnormalities. VISUALIZED UPPER ABDOMEN: Normal. OTHER FINDINGS: None. IMPRESSION: Nasogastric tube in appropriate position.
--- NOTE | 2018-03-24 08:58 | CP.PCM.PN ---
Subjective - Date & Time of Evaluation Date of Evaluation: 03/24/18 Time of Evaluation: 08:55 - Subjective Subjective: Patient complaining of right hip/thigh pain. He didn't sleep last night and is very tired. Complaining of B knee pain also. Objective - Vital Signs/Intake and Output Vital Signs (last 24 hours): Temp Pulse Resp BP Pulse Ox 98.7 F 111 H 20 169/73 H 97 03/24/18 08:20 03/24/18 08:20 03/24/18 08:20 03/24/18 08:20 03/24/18 08:20 Intake and Output: 03/24/18 03/24/18 06:59 18:59 Intake Total 700 Output Total 1850 Balance -1150 - Medications Medications: Current Medications Aspirin (Ecotrin) 81 mg PO DAILY [facility] Last Admin: 03/23/18 10:31 Dose: Not Given Docusate Sodium (Colace) 100 mg PO BID [facility] Last Admin: 03/23/18 18:14 Dose: Not Given Enoxaparin Sodium (Lovenox) 40 mg SC DAILY [facility] Last Admin: 03/22/18 10:40 Dose: 40 mg Gabapentin (Neurontin) 300 mg PO BID [facility] Last Admin: 03/23/18 18:14 Dose: Not Given Home Med (Patient's Own Topical) 1 gm TOP TID [facility] Stop: 05/18/18 23:59 Last Admin: 03/23/18 18:14 Dose: Not Given Home Med (Patient's Own Medication) 1 tab PO QPM [facility] Last Admin: 03/23/18 18:14 Dose: Not Given Hydralazine HCl (Apresoline) 10 mg IVP Q6H PRN PRN Reason: Systolic Blood Pressure Last Admin: 03/24/18 05:51 Dose: 10 mg Hydrocortisone (Anusol-Hc) 0 gm SD BID PRN PRN Reason: Pain, Mild (1-3) Vancomycin/Sodium Chloride (Vancomycin 1 Gm/Ns 200 Ml) 1 gm in 200 mls @ 133.333 mls/hr IVPB Q12H [facility] PRN Reason: Protocol Last Admin: 03/24/18 01:01 Dose: 133.333 mls/hr Metronidazole (Flagyl) 500 mg in 100 mls @ 100 mls/hr IVPB Q8 [facility] PRN Reason: Protocol Last Admin: 03/24/18 05:41 Dose: 100 mls/hr Ciprofloxacin (Cipro 400mg/200ml Dsw) 400 mg in 200 mls @ 133 mls/hr IVPB Q12H [facility] PRN Reason: Protocol Last Admin: 03/23/18 22:32 Dose: 133 mls/hr Potassium Chloride 40 meq/ (Sodium Chloride) 1,020 mls @ 75 mls/hr IV .[id number] [facility] Last Admin: 03/23/18 14:12 Dose: 75 mls/hr Insulin Human Regular (Novolin R) 0 unit SC ACHS [facility] PRN Reason: Protocol Last Admin: 03/24/18 07:58 Dose: Not Given Lidocaine HCl (Lidocaine Hydrochloride Jelly 2% 5 Ml) 0 ml TOP BID PRN PRN Reason: Other Metoprolol Tartrate (Lopressor) 5 mg IVP Q12 [facility] Nystatin (Nystop Topical Powder) 0 gm TOP BID [facility] Stop: 04/03/18 18:00 Last Admin: 03/23/18 18:18 Dose: 1 applic Povidone Iodine (Betadine 10% Oint) 0 gm TOP Q8H [facility] Last Admin: 03/24/18 01:08 Dose: 1 dose Saccharomyces Boulardii (Florastor) 250 mg PO BID [facility] Last Admin: 03/23/18 18:14 Dose: Not Given - Labs Labs: 03/23/18 08:02 03/23/18 16:53 PT 12.8 SECONDS (9.7-12.2) H 03/19/18 08:12 INR 1.1 03/19/18 08:12 APTT 42 SECONDS (21-34) H 03/18/18 18:19 - Extremities Exam Additional comments: Still moderate serous drainage from hip. thigh swollen, no change, bilateral LE swelling as well, calves soft NT neg homans +ROM ankle/toes,s enastion intact +DP/PT pulses Assessment and Plan (1) Displaced subtrochanteric fracture of right femur Assessment & Plan: On post op imaging, noted bilateral femur films, left knee shows moderate knee DJD also which would account for the knee pain, no fracture dopplers r/o DVT due to swelling in leg joey after dopplers dressing changes VTE proph, resume lovenox today, held yesterday per Dr. Motta PT/OT d/w Dr. Motta agrees with above Status: Acute
[2018-03-24] MEDS: Ciprofloxacin 400mg/200ml D5W 400 MG/200 ML BAG IVPB SCH ×2 (09:16→22:22)
[2018-03-24] MEDS: Metoprolol 1 mg/ml Inj IVP SCH ×2 (09:18→22:21)
[2018-03-24] MEDS: Saccharomyces Boulardi 250 mg Cap PO SCH ×2 (09:19→18:29)
[2018-03-24] MEDS: Nystatin 100,000 Units/gm Topical Pow(15 gm) TOP SCH ×2 (09:20→18:29)
[2018-03-24] MEDS: DILTIAZEM 2% TOP SCH ×3 (09:20→18:30)
[2018-03-24] MEDS: Enoxaparin 40 mg Syringe SC SCH (10:00)
[2018-03-24 11:46] LABS: ALB/GLOB RATIO 0.9 (1.0-2.1); ALT/SGPT 11 U/L (21-72); AST/SGOT 29 U/L (17-59); BLOOD UREA NITROGEN 23 mg/dL (9-20); CALCIUM 8.2 mg/dl (8.6-10.4); GFR AFRICAN-AMERICAN > 60; GFR NON-AFRICAN AMERICAN > 60
--- NOTE | 2018-03-24 11:57 | VASCLAB ---
PROCEDURE: Lower Extremity Venous Duplex Exam. HISTORY: BLE swelling, r/o DVT PRIORS: None. TECHNIQUE: Bilateral common femoral, femoral, popliteal and posterior tibial, peroneal and great saphenous veins were evaluated. Flow was assessed with color Doppler, compressibility, assessment of phasic flow and augmentation response. Report prepared by Genaro Burns, ELVIN, RVT FINDINGS: RIGHT: 1. Common Femoral Vein: 1.1. Compressibility - Fully compressible: Thrombus - None : Flow - Phasic: Augmentation -Normal: Reflux - None. 2. Femoral Vein: 2.1. Compressibility - Fully compressible: Thrombus - None : Flow - Phasic: Augmentation -Normal: Reflux - None. 3. Popliteal Vein: 3.1. Compressibility - Fully compressible: Thrombus - None : Flow - Phasic: Augmentation -Normal: Reflux - None. 4. Posterior Tibial Vein: 4.1. Compressibility - Fully compressible: Thrombus - None: Flow - Phasic: Augmentation -Normal: Reflux - None. 5. Peroneal Vein: 5.1. Compressibility - Fully compressible: Thrombus - None: Flow - Phasic: Augmentation -Normal: Reflux - None. 6. Great Saphenous Vein: 6.1. Compressibility - Fully compressible: Thrombus - None: Flow - Phasic: Augmentation - Normal: Reflux - None. LEFT: 1. Common Femoral Vein: 1.1. Compressibility - Fully compressible: Thrombus - None: Flow - Phasic: Augmentation -Normal: Reflux - None. 2. Femoral Vein: 2.1. Compressibility - Fully compressible: Thrombus - None: Flow - Phasic: Augmentation -Normal: Reflux - None. 3. Popliteal Vein: 3.1. Compressibility - Fully compressible: Thrombus - None : Flow - Phasic: Augmentation -Normal: Reflux - None. 4. Posterior Tibial Vein: 4.1. Compressibility - Fully compressible: Thrombus - None: Flow - Phasic: Augmentation -Normal: Reflux - None. 5. Peroneal Vein: 5.1. Compressibility - Fully compressible: Thrombus - None: Flow - Phasic: Augmentation -Normal: Reflux - None. 6. Great Saphenous Vein: 6.1. Compressibility - Fully compressible: Thrombus - None: Flow - Phasic: Augmentation - Normal: Reflux - None. OTHER FINDINGS: Right: None significant. Left: None significant. IMPRESSION: Right: No evidence of deep or superficial vein thrombosis of the right lower extremity. Normal valve function noted of the right side. Left: No evidence of deep or superficial vein thrombosis of the left lower extremity. Normal valve function noted of the left side.
[2018-03-24] MEDS ORDERED: Lactated Ringer's 500 ML IV ONE (12:55)
[2018-03-24] MEDS ORDERED: Midazolam 2 MG/2 ML VIAL ONE (12:57)
--- NOTE | 2018-03-24 13:31 | CP.PCM.PN ---
Subjective - Date & Time of Evaluation Date of Evaluation: 03/24/18 Time of Evaluation: 13:29 - Subjective Subjective: Patient seen and examined at bedside still complaining of abdominal pain. No other complaints at this time No BM Not passing gas Going for colonoscopy today Objective - Vital Signs/Intake and Output Vital Signs (last 24 hours): Temp Pulse Resp BP Pulse Ox 98.7 F 97 H 20 172/79 H 100 03/24/18 13:00 03/24/18 13:00 03/24/18 13:00 03/24/18 13:00 03/24/18 13:00 Intake and Output: 03/24/18 03/24/18 06:59 18:59 Intake Total 700 Output Total 1850 Balance -1150 - Medications Medications: Current Medications Aspirin (Ecotrin) 81 mg PO DAILY [facility] Last Admin: 03/24/18 09:19 Dose: Not Given Docusate Sodium (Colace) 100 mg PO BID [facility] Last Admin: 03/24/18 09:19 Dose: Not Given Enoxaparin Sodium (Lovenox) 40 mg SC DAILY [facility] Last Admin: 03/22/18 10:40 Dose: 40 mg Gabapentin (Neurontin) 300 mg PO BID [facility] Last Admin: 03/24/18 09:20 Dose: Not Given Home Med (Patient's Own Topical) 1 gm TOP TID [facility] Stop: 05/18/18 23:59 Last Admin: 03/24/18 09:20 Dose: 1 gm Home Med (Patient's Own Medication) 1 tab PO QPM [facility] Last Admin: 03/23/18 18:14 Dose: Not Given Hydralazine HCl (Apresoline) 10 mg IVP Q6H PRN PRN Reason: Systolic Blood Pressure Last Admin: 03/24/18 05:51 Dose: 10 mg Hydrocortisone (Anusol-Hc) 0 gm UT BID PRN PRN Reason: Pain, Mild (1-3) Vancomycin/Sodium Chloride (Vancomycin 1 Gm/Ns 200 Ml) 1 gm in 200 mls @ 133.333 mls/hr IVPB Q12H [facility] PRN Reason: Protocol Last Admin: 03/24/18 01:01 Dose: 133.333 mls/hr Metronidazole (Flagyl) 500 mg in 100 mls @ 100 mls/hr IVPB Q8 [facility] PRN Reason: Protocol Last Admin: 03/24/18 05:41 Dose: 100 mls/hr Ciprofloxacin (Cipro 400mg/200ml Dsw) 400 mg in 200 mls @ 133 mls/hr IVPB Q12H [facility] PRN Reason: Protocol Last Admin: 03/24/18 09:16 Dose: 133 mls/hr Potassium Chloride 40 meq/ (Sodium Chloride) 1,020 mls @ 75 mls/hr IV .[id number] [facility] Last Admin: 03/23/18 14:12 Dose: 75 mls/hr Insulin Human Regular (Novolin R) 0 unit SC ACHS [facility] PRN Reason: Protocol Last Admin: 03/24/18 07:58 Dose: Not Given Lidocaine HCl (Lidocaine Hydrochloride Jelly 2% 5 Ml) 0 ml TOP BID PRN PRN Reason: Other Metoprolol Tartrate (Lopressor) 5 mg IVP Q12 [facility] Last Admin: 03/24/18 09:18 Dose: 5 mg Nystatin (Nystop Topical Powder) 0 gm TOP BID [facility] Stop: 04/03/18 18:00 Last Admin: 03/24/18 09:20 Dose: 1 applic Povidone Iodine (Betadine 10% Oint) 0 gm TOP Q8H [facility] Last Admin: 03/24/18 01:08 Dose: 1 dose Saccharomyces Boulardii (Florastor) 250 mg PO BID [facility] Last Admin: 03/24/18 09:19 Dose: Not Given - Labs Labs: 03/23/18 08:02 03/24/18 10:58 PT 12.8 SECONDS (9.7-12.2) H 03/19/18 08:12 INR 1.1 03/19/18 08:12 APTT 42 SECONDS (21-34) H 03/18/18 18:19 - Additional Findings Additional findings: - Constitutional Appears: Well - Head Exam Head Exam: ATRAUMATIC, NORMAL INSPECTION, NORMOCEPHALIC - Eye Exam Eye Exam: EOMI, Normal appearance, PERRL Pupil Exam: NORMAL ACCOMODATION, PERRL - ENT Exam ENT Exam: Mucous Membranes Moist, Normal Exam - Neck Exam Neck Exam: Full ROM, Normal Inspection. absent: Lymphadenopathy - Respiratory Exam Respiratory Exam: Clear to Ausculation Bilateral, NORMAL BREATHING PATTERN - Cardiovascular Exam Cardiovascular Exam: REGULAR RHYTHM, +S1, +S2. absent: Murmur - GI/Abdominal Exam GI & Abdominal Exam: Distended, Soft, Hypoactive Bowel Sounds, Normal Bowel Sounds. absent: Tenderness - Rectal Exam Rectal Exam: NORMAL INSPECTION - Extremities Exam Extremities Exam: Full ROM, Normal Capillary Refill, Normal Inspection. absent : Joint Swelling, Pedal Edema - Back Exam Back Exam: NORMAL INSPECTION - Neurological Exam Neurological Exam: Alert, Awake, CN II-XII Intact, Normal Gait, Oriented x3 - Psychiatric Exam Psychiatric exam: Normal Affect, Normal Mood - Skin Skin Exam: Dry, Intact, Normal Color, Warm Assessment and Plan - Assessment and Plan (Free Text) Assessment: (1) Constipation Assessment & Plan: CT: rectosigmoid colonic wall thickening w/mass like irma w/ dilation of colon proximal thickening and large amount of stool and gas w/in colon. Suspicious for colon cancer Vs inflammatory mass 2/2 infectious inflam Vs stool related proctocolitis GI ([facility]) - follow up scope today Surgery ([facility]) - Waiting for results of scope before intervention. will follow reccs NGT Low-intermittent suction Cipro/flagyl Status: Acute (2) Hip fracture Assessment & Plan: Right Subtrochanteric Femoral Fracture s/p ORIF with Long Hip Nail 03/19/[address] Bernabe - amanda with positioning for scope PT OT Status: Acute (3) Diabetes Assessment & Plan: ISS High Hold home insulin as patient NPO Status: Acute (4) HTN (hypertension) Assessment & Plan: hydralzine PRN hold PO meds as patient is NPO to suction Status: Acute (5) Prophylactic measure Assessment & Plan: Lovenox 40sc qd GI PPX not indicated Status: Acute Status: Acute
--- NOTE | 2018-03-24 17:59 | CP.PCM.PN ---
Subjective - Date & Time of Evaluation Date of Evaluation: 03/24/18 Time of Evaluation: 11:10 - Subjective Subjective: Patient seen and examined at bedside. patient underwent colonscopy wiht GI today which found a large amount of liquid stool, no other significant findings. Patient states he had one more watery bowel movement after an enema. Patient's NGT is removed--patient states it was out when he came back from endoscopy. he states he wants water. Advised him to stay NPO Objective - Vital Signs/Intake and Output Vital Signs (last 24 hours): Temp Pulse Resp BP Pulse Ox 98.3 F 102 H 20 172/74 H 97 03/24/18 15:05 03/24/18 15:46 03/24/18 15:05 03/24/18 15:05 03/24/18 15:05 Intake and Output: 03/24/18 03/24/18 06:59 18:59 Intake Total 700 Output Total 1850 350 Balance -1150 -350 - Medications Medications: Current Medications Aspirin (Ecotrin) 81 mg PO DAILY [facility] Last Admin: 03/24/18 09:19 Dose: Not Given Docusate Sodium (Colace) 100 mg PO BID [facility] Last Admin: 03/24/18 09:19 Dose: Not Given Enoxaparin Sodium (Lovenox) 40 mg SC DAILY [facility] Last Admin: 03/24/18 10:00 Dose: Not Given Gabapentin (Neurontin) 300 mg PO BID [facility] Last Admin: 03/24/18 09:20 Dose: Not Given Home Med (Patient's Own Topical) 1 gm TOP TID [facility] Stop: 05/18/18 23:59 Last Admin: 03/24/18 13:51 Dose: Not Given Home Med (Patient's Own Medication) 1 tab PO QPM [facility] Last Admin: 03/23/18 18:14 Dose: Not Given Hydralazine HCl (Apresoline) 10 mg IVP Q6H PRN PRN Reason: Systolic Blood Pressure Last Admin: 03/24/18 05:51 Dose: 10 mg Hydrocortisone (Anusol-Hc) 25 mg RC BID [facility] Stop: 04/07/18 10:01 Metronidazole (Flagyl) 500 mg in 100 mls @ 100 mls/hr IVPB Q8 [facility] PRN Reason: Protocol Last Admin: 03/24/18 13:50 Dose: Not Given Ciprofloxacin (Cipro 400mg/200ml Dsw) 400 mg in 200 mls @ 133 mls/hr IVPB Q12H [facility] PRN Reason: Protocol Last Admin: 03/24/18 09:16 Dose: 133 mls/hr Potassium Chloride 40 meq/ (Sodium Chloride) 1,020 mls @ 75 mls/hr IV .[id number] [facility] Last Admin: 03/23/18 14:12 Dose: 75 mls/hr Insulin Human Regular (Novolin R) 0 unit SC ACHS [facility] PRN Reason: Protocol Last Admin: 03/24/18 17:26 Dose: Not Given Lidocaine HCl (Lidocaine Hydrochloride Jelly 2% 5 Ml) 0 ml TOP BID PRN PRN Reason: Other Metoprolol Tartrate (Lopressor) 5 mg IVP Q12 [facility] Last Admin: 03/24/18 09:18 Dose: 5 mg Nystatin (Nystop Topical Powder) 0 gm TOP BID [facility] Stop: 04/03/18 18:00 Last Admin: 03/24/18 09:20 Dose: 1 applic Povidone Iodine (Betadine 10% Oint) 0 gm TOP Q8H [facility] Last Admin: 03/24/18 10:00 Dose: 1 dose Saccharomyces Boulardii (Florastor) 250 mg PO BID [facility] Last Admin: 03/24/18 09:19 Dose: Not Given Simethicone (Mylicon Chew Tab) 80 mg PO TID [facility] - Labs Labs: 03/23/18 08:02 03/24/18 10:58 PT 12.8 SECONDS (9.7-12.2) H 03/19/18 08:12 INR 1.1 03/19/18 08:12 APTT 42 SECONDS (21-34) H 03/18/18 18:19 - Constitutional Appears: Non-toxic, No Acute Distress - Head Exam Head Exam: ATRAUMATIC, NORMOCEPHALIC - Eye Exam Eye Exam: absent: Conjunctival injection, Normal appearance, Scleral icterus - ENT Exam ENT Exam: Mucous Membranes Dry, Normal Oropharynx - Respiratory Exam Respiratory Exam: NORMAL BREATHING PATTERN. absent: Accessory Muscle Use, Respiratory Distress - Cardiovascular Exam Cardiovascular Exam: RRR - GI/Abdominal Exam GI & Abdominal Exam: Distended (severe), Soft, Tenderness (epigastrium) - Extremities Exam Extremities Exam: absent: Calf Tenderness, Pedal Edema, Tenderness - Neurological Exam Neurological Exam: Alert, Awake, Oriented x3 - Psychiatric Exam Psychiatric exam: Normal Affect, Normal Mood - Skin Skin Exam: Dry, Intact, Normal Color, Warm Assessment and Plan - Assessment and Plan (Free Text) Assessment: 72M with severe colonic obstipation vs obstruction Plan: -Keep patient NPO and continue enemas -If patient worsens, re-insert NGT -Encourage in bed physical exercises as tolerated -Decrease opioid use as tolerated -will continue to monitor closely -IVF, nausea medication PRN Discussed with Dr. Ramandeep Jimenez, PGY2
[2018-03-24] MEDS: Simethicone 80 mg Chewtab PO SCH (18:29)
--- NOTE | 2018-03-24 18:31 | CP.PCM.PN ---
Subjective - Date & Time of Evaluation Date of Evaluation: 03/24/18 Time of Evaluation: 18:26 - Subjective Subjective: Patient seen and examined. s/p sigmoidoscopy today showing significant fecal retention, therefore precluding comprehensive examination with limited visibility, though no bulky mass lesion appreciated. He continues to endorse abdominal distention, discomfort, and lack of bowel movement. He self removed NGT following procedure. Objective - Vital Signs/Intake and Output Vital Signs (last 24 hours): Temp Pulse Resp BP Pulse Ox 98.3 F 102 H 20 172/74 H 97 03/24/18 15:05 03/24/18 15:46 03/24/18 15:05 03/24/18 15:05 03/24/18 15:05 Intake and Output: 03/24/18 03/24/18 06:59 18:59 Intake Total 700 Output Total 1850 350 Balance -1150 -350 - Medications Medications: Current Medications Aspirin (Ecotrin) 81 mg PO DAILY [facility] Last Admin: 03/24/18 09:19 Dose: Not Given Docusate Sodium (Colace) 100 mg PO BID [facility] Last Admin: 03/24/18 09:19 Dose: Not Given Enoxaparin Sodium (Lovenox) 40 mg SC DAILY [facility] Last Admin: 03/24/18 10:00 Dose: Not Given Gabapentin (Neurontin) 300 mg PO BID [facility] Last Admin: 03/24/18 09:20 Dose: Not Given Home Med (Patient's Own Topical) 1 gm TOP TID [facility] Stop: 05/18/18 23:59 Last Admin: 03/24/18 13:51 Dose: Not Given Home Med (Patient's Own Medication) 1 tab PO QPM [facility] Last Admin: 03/23/18 18:14 Dose: Not Given Hydralazine HCl (Apresoline) 10 mg IVP Q6H PRN PRN Reason: Systolic Blood Pressure Last Admin: 03/24/18 05:51 Dose: 10 mg Hydrocortisone (Anusol-Hc) 25 mg RC BID [facility] Stop: 04/07/18 10:01 Metronidazole (Flagyl) 500 mg in 100 mls @ 100 mls/hr IVPB Q8 [facility] PRN Reason: Protocol Last Admin: 03/24/18 13:50 Dose: Not Given Ciprofloxacin (Cipro 400mg/200ml Dsw) 400 mg in 200 mls @ 133 mls/hr IVPB Q12H [facility] PRN Reason: Protocol Last Admin: 03/24/18 09:16 Dose: 133 mls/hr Potassium Chloride 40 meq/ (Sodium Chloride) 1,020 mls @ 75 mls/hr IV .[id number] [facility] Last Admin: 03/23/18 14:12 Dose: 75 mls/hr Insulin Human Regular (Novolin R) 0 unit SC ACHS [facility] PRN Reason: Protocol Last Admin: 03/24/18 17:26 Dose: Not Given Lidocaine HCl (Lidocaine Hydrochloride Jelly 2% 5 Ml) 0 ml TOP BID PRN PRN Reason: Other Metoprolol Tartrate (Lopressor) 5 mg IVP Q12 [facility] Last Admin: 03/24/18 09:18 Dose: 5 mg Nystatin (Nystop Topical Powder) 0 gm TOP BID [facility] Stop: 04/03/18 18:00 Last Admin: 03/24/18 09:20 Dose: 1 applic Povidone Iodine (Betadine 10% Oint) 0 gm TOP Q8H [facility] Last Admin: 03/24/18 10:00 Dose: 1 dose Saccharomyces Boulardii (Florastor) 250 mg PO BID [facility] Last Admin: 03/24/18 09:19 Dose: Not Given Simethicone (Mylicon Chew Tab) 80 mg PO TID [facility] - Labs Labs: 03/23/18 08:02 03/24/18 10:58 PT 12.8 SECONDS (9.7-12.2) H 03/19/18 08:12 INR 1.1 03/19/18 08:12 APTT 42 SECONDS (21-34) H 03/18/18 18:19 Assessment and Plan - Assessment and Plan (Free Text) Assessment: DM / HTN Obesity CIC s/p ORIF of R femur, development of post operative ileus Plan: - Suggest replacement of NGT, monitor output - Continue with IVF hydration therapy - Follow up surgical recommendations regarding management of post operative ileus, would consider agent such as relistor given clinical scenario - Avoid narcotic pain medication as this may contribute to ongoing symptoms - No further planned GI intervention, will sign off case. Please reconsult as necessary, thank you.
--- NOTE | 2018-03-24 22:05 | CP.PCM.PN ---
Subjective - Date & Time of Evaluation Date of Evaluation: 03/24/18 Time of Evaluation: 22:04 - Subjective Subjective: CHIEF COMPLAINTS TODAY : afebrile VSS S/P SIGMOIDOSCOPY- MUCH FEACAL RETENTION. PULLED OUT NGT. ROS. HEENT : N. Resp : No SOB wheezing, cough Cardio : No CP, PND orthopnea GI : +ve ABDOMINAL PAIN /DISTENSION, NO n/v FAMILY THERAPIST : No headache , focal deficit. Musculoskel : N Ext. : Pedal pulses intact, no edema or calf pain RT. HIP DRESSING IN PLACE. Derm : N Psych : N. PE. Pt. is alert awake in no distress. V.S As noted in the chart Head ,ear nose,throat and eyes : Normal. Neck : Supple with normal carotids. Lungs: Clear air entry. Heart : S1 & S2 normal . . No murmur. S4 + Abd : DISTENDED, DIFFUSE GENERALIZED TENDERNESS ON PALPATION, HYPOACTIVE BOWEL SOUNDS. Neuro : Moves all ext. with no localized deficit. Ext : RT HIP FRACTURE S/P ORIF, DRESSING C/D/I. with intact pulses. Neg. calf tenderness Derm : No rashes or decubitus ulcer. Radiology/Labs . . BLOOD CULTURES 03/21/18 -VE to date URINE CULTURE -VE GROWTH . Asssessment : LEUKOCYTOSIS. S/P SIGMOIDOSCOPY 03/24/18-FEACAL RETENTION/ NO MASS CHRONIC CONSTIPATION. PROCTOCOLITIS/ANAL FISSURE DIABETES MELLITUS. HYPERTENSION. MORBID OBESITY. S/P ORIF RT FEMUR FRACTURE/WITH NAILING. 03/19/18 Plan : PER GI LAXATIVES CONTINUE iv ANTIBIOTICS- PATIENT PRESENTLY ON CIPRO/ IV fLAGYL. CASE DISCUSSED WITH THE SON/AND STAFF. Objective - Vital Signs/Intake and Output Vital Signs (last 24 hours): Temp Pulse Resp BP Pulse Ox 98.3 F 102 H 20 172/74 H 97 03/24/18 15:05 03/24/18 15:46 03/24/18 15:05 03/24/18 15:05 03/24/18 15:05 Intake and Output: 03/24/18 03/25/18 18:59 06:59 Output Total 350 Balance -350 - Medications Medications: Current Medications Aspirin (Ecotrin) 81 mg PO DAILY [facility] Last Admin: 03/24/18 09:19 Dose: Not Given Docusate Sodium (Colace) 100 mg PO BID [facility] Last Admin: 03/24/18 18:28 Dose: 100 mg Enoxaparin Sodium (Lovenox) 40 mg SC DAILY [facility] Last Admin: 03/24/18 10:00 Dose: Not Given Gabapentin (Neurontin) 300 mg PO BID [facility] Last Admin: 03/24/18 18:28 Dose: 300 mg Home Med (Patient's Own Topical) 1 gm TOP TID [facility] Stop: 05/18/18 23:59 Last Admin: 03/24/18 18:30 Dose: Not Given Home Med (Patient's Own Medication) 1 tab PO QPM [facility] Last Admin: 03/24/18 18:29 Dose: 1 tab Hydralazine HCl (Apresoline) 10 mg IVP Q6H PRN PRN Reason: Systolic Blood Pressure Last Admin: 03/24/18 18:28 Dose: 10 mg Hydrocortisone (Anusol-Hc) 25 mg RC BID [facility] Stop: 04/07/18 10:01 Last Admin: 03/24/18 18:38 Dose: Not Given Metronidazole (Flagyl) 500 mg in 100 mls @ 100 mls/hr IVPB Q8 [facility] PRN Reason: Protocol Last Admin: 03/24/18 13:50 Dose: Not Given Ciprofloxacin (Cipro 400mg/200ml Dsw) 400 mg in 200 mls @ 133 mls/hr IVPB Q12H [facility] PRN Reason: Protocol Last Admin: 03/24/18 09:16 Dose: 133 mls/hr Potassium Chloride 40 meq/ (Sodium Chloride) 1,020 mls @ 75 mls/hr IV .[id number] [facility] Last Admin: 03/24/18 18:30 Dose: Not Given Insulin Human Regular (Novolin R) 0 unit SC ACHS [facility] PRN Reason: Protocol Last Admin: 03/24/18 17:26 Dose: Not Given Lidocaine HCl (Lidocaine Hydrochloride Jelly 2% 5 Ml) 0 ml TOP BID PRN PRN Reason: Other Metoprolol Tartrate (Lopressor) 5 mg IVP Q12 [facility] Last Admin: 03/24/18 09:18 Dose: 5 mg Nystatin (Nystop Topical Powder) 0 gm TOP BID [facility] Stop: 04/03/18 18:00 Last Admin: 03/24/18 18:29 Dose: 1 applic Povidone Iodine (Betadine 10% Oint) 0 gm TOP Q8H [facility] Last Admin: 03/24/18 18:30 Dose: 1 dose Saccharomyces Boulardii (Florastor) 250 mg PO BID [facility] Last Admin: 03/24/18 18:29 Dose: 250 mg Simethicone (Mylicon Chew Tab) 80 mg PO TID [facility] Last Admin: 03/24/18 18:29 Dose: 80 mg - Labs Labs: 03/23/18 08:02 03/24/18 10:58 PT 12.8 SECONDS (9.7-12.2) H 03/19/18 08:12 INR 1.1 03/19/18 08:12 APTT 42 SECONDS (21-34) H 03/18/18 18:19 Assessment and Plan (1) Leukocytosis Status: Acute (2) Colonic obstruction Status: Acute (3) Proctitis Status: Acute (4) Constipation Status: Acute (5) Diabetes Status: Acute (6) HTN (hypertension) Status: Acute (7) Hip fracture Status: Acute
[2018-03-25] MEDS: Povidone Iodine Oint 10% (1 oz) TOP SCH ×3 (02:20→16:48)
[2018-03-25] MEDS: metroNIDAZOLE IV 500 mg/100 ml 500 MG/100 ML BAG IVPB SCH ×3 (05:44→21:14)
[2018-03-25] MEDS: (Novolin R) Insulin Human Regular 100 units/ml vial SC SCH ×5 (08:59→21:42)
--- NOTE | 2018-03-25 10:25 | CP.PCM.PN ---
Subjective - Date & Time of Evaluation Date of Evaluation: 03/25/18 Time of Evaluation: 10:20 - Subjective Subjective: General Surgery - Dr. Sabillon PT S&E. S/P Colonoscopy yesterday with Dr. Bernard. Pt also removed NGT at that time. Currently he is NPO with ice chips. He had a soft BM overnight per the son. Still complaints of abdominal pain with worsening distension now s/p colonoscopy. No Nausea/Vomiting. Objective - Vital Signs/Intake and Output Vital Signs (last 24 hours): Temp Pulse Resp BP Pulse Ox 97.6 F 112 H 20 166/82 H 98 03/25/18 08:39 03/25/18 08:39 03/25/18 08:39 03/25/18 08:39 03/25/18 08:39 Intake and Output: 03/25/18 03/25/18 06:59 18:59 Output Total 100 Balance -100 - Medications Medications: Current Medications Aspirin (Ecotrin) 81 mg PO DAILY [facility] Last Admin: 03/24/18 09:19 Dose: Not Given Docusate Sodium (Colace) 100 mg PO BID [facility] Last Admin: 03/24/18 18:28 Dose: 100 mg Enoxaparin Sodium (Lovenox) 40 mg SC DAILY [facility] Last Admin: 03/24/18 10:00 Dose: Not Given Home Med (Patient's Own Topical) 1 gm TOP TID [facility] Stop: 05/18/18 23:59 Last Admin: 03/24/18 18:30 Dose: Not Given Home Med (Patient's Own Medication) 1 tab PO QPM [facility] Last Admin: 03/24/18 18:29 Dose: 1 tab Hydralazine HCl (Apresoline) 10 mg IVP Q6H PRN PRN Reason: Systolic Blood Pressure Last Admin: 03/24/18 18:28 Dose: 10 mg Hydrocortisone (Anusol-Hc) 25 mg RC BID [facility] Stop: 04/07/18 10:01 Last Admin: 03/24/18 22:20 Dose: 25 mg Metronidazole (Flagyl) 500 mg in 100 mls @ 100 mls/hr IVPB Q8 [facility] PRN Reason: Protocol Last Admin: 03/25/18 05:44 Dose: 100 mls/hr Ciprofloxacin (Cipro 400mg/200ml Dsw) 400 mg in 200 mls @ 133 mls/hr IVPB Q12H [facility] PRN Reason: Protocol Last Admin: 03/24/18 22:22 Dose: 133 mls/hr Potassium Chloride 40 meq/ (Sodium Chloride) 1,020 mls @ 75 mls/hr IV .[id number] [facility] Last Admin: 03/25/18 00:33 Dose: 75 mls/hr Insulin Human Regular (Novolin R) 0 unit SC ACHS [facility] PRN Reason: Protocol Last Admin: 03/25/18 08:59 Dose: 3 unit Lidocaine HCl (Lidocaine Hydrochloride Jelly 2% 5 Ml) 0 ml TOP BID PRN PRN Reason: Other Metoprolol Tartrate (Lopressor) 50 mg PO BID [facility] Nystatin (Nystop Topical Powder) 0 gm TOP BID [facility] Stop: 04/03/18 18:00 Last Admin: 03/24/18 18:29 Dose: 1 applic Povidone Iodine (Betadine 10% Oint) 0 gm TOP Q8H [facility] Last Admin: 03/25/18 02:20 Dose: 1 dose Saccharomyces Boulardii (Florastor) 250 mg PO BID [facility] Last Admin: 03/24/18 18:29 Dose: 250 mg Simethicone (Mylicon Chew Tab) 80 mg PO TID [facility] Last Admin: 03/24/18 18:29 Dose: 80 mg - Labs Labs: 03/23/18 08:02 03/24/18 10:58 PT 12.8 SECONDS (9.7-12.2) H 03/19/18 08:12 INR 1.1 03/19/18 08:12 APTT 42 SECONDS (21-34) H 03/18/18 18:19 - Constitutional Appears: No Acute Distress - Head Exam Head Exam: ATRAUMATIC, NORMAL INSPECTION, NORMOCEPHALIC - Eye Exam Eye Exam: Normal appearance - GI/Abdominal Exam GI & Abdominal Exam: Distended, Firm, Tenderness. absent: Guarding, Rigid - Neurological Exam Neurological Exam: Alert, Oriented x3 - Psychiatric Exam Psychiatric exam: Normal Affect, Normal Mood - Skin Skin Exam: Dry, Intact Assessment and Plan - Assessment and Plan (Free Text) Assessment: 72M with severe colonic obstruction vs. ileus Plan: -NPO with ice chips -Rectal tube insertion -Can continue enemas thru tube -If patient worsens, re-insert NGT -No opiods -Will continue to monitor closely Dw Dr Sabillon
[2018-03-25] MEDS: Enoxaparin 40 mg Syringe SC SCH (10:33)
[2018-03-25] MEDS: Saccharomyces Boulardi 250 mg Cap PO SCH ×2 (10:33→17:44)
[2018-03-25] MEDS: Simethicone 80 mg Chewtab PO SCH ×3 (10:33→17:44)
[2018-03-25] MEDS: Nystatin 100,000 Units/gm Topical Pow(15 gm) TOP SCH ×2 (10:35→17:45)
[2018-03-25] MEDS: DILTIAZEM 2% TOP SCH ×3 (10:36→17:46)
[2018-03-25] MEDS: Ciprofloxacin 400mg/200ml D5W 400 MG/200 ML BAG IVPB SCH ×2 (10:40→22:25)
--- NOTE | 2018-03-25 13:02 | CP.PCM.PN ---
Subjective - Date & Time of Evaluation Date of Evaluation: 03/25/18 Time of Evaluation: 12:59 - Subjective Subjective: patient seen and examined at bedside belly was still very distended today Decided to put rectal tube in for decompression Will repeat Abdominal xray to reevaluate patient states belly pain feels better after rectal tube Objective - Vital Signs/Intake and Output Vital Signs (last 24 hours): Temp Pulse Resp BP Pulse Ox 97.6 F 112 H 20 166/82 H 98 03/25/18 08:39 03/25/18 08:39 03/25/18 08:39 03/25/18 08:39 03/25/18 08:39 Intake and Output: 03/25/18 03/25/18 06:59 18:59 Output Total 100 Balance -100 - Medications Medications: Current Medications Aspirin (Ecotrin) 81 mg PO DAILY [facility] Last Admin: 03/25/18 10:32 Dose: 81 mg Docusate Sodium (Colace) 100 mg PO BID [facility] Last Admin: 03/25/18 10:32 Dose: 100 mg Enoxaparin Sodium (Lovenox) 40 mg SC DAILY [facility] Last Admin: 03/25/18 10:33 Dose: 40 mg Home Med (Patient's Own Topical) 1 gm TOP TID [facility] Stop: 05/18/18 23:59 Last Admin: 03/25/18 10:36 Dose: 1 gm Home Med (Patient's Own Medication) 1 tab PO QPM [facility] Last Admin: 03/24/18 18:29 Dose: 1 tab Hydralazine HCl (Apresoline) 10 mg IVP Q6H PRN PRN Reason: Systolic Blood Pressure Last Admin: 03/24/18 18:28 Dose: 10 mg Hydrocortisone (Anusol-Hc) 25 mg RC BID [facility] Stop: 04/07/18 10:01 Last Admin: 03/25/18 10:34 Dose: 25 mg Metronidazole (Flagyl) 500 mg in 100 mls @ 100 mls/hr IVPB Q8 [facility] PRN Reason: Protocol Last Admin: 03/25/18 05:44 Dose: 100 mls/hr Ciprofloxacin (Cipro 400mg/200ml Dsw) 400 mg in 200 mls @ 133 mls/hr IVPB Q12H [facility] PRN Reason: Protocol Last Admin: 03/25/18 10:40 Dose: 133 mls/hr Potassium Chloride 40 meq/ (Sodium Chloride) 1,020 mls @ 75 mls/hr IV .[id number] [facility] Last Admin: 03/25/18 00:33 Dose: 75 mls/hr Insulin Human Regular (Novolin R) 0 unit SC ACHS [facility] PRN Reason: Protocol Last Admin: 03/25/18 12:53 Dose: 3 unit Lidocaine HCl (Lidocaine Hydrochloride Jelly 2% 5 Ml) 0 ml TOP BID PRN PRN Reason: Other Metoclopramide HCl (Reglan) 10 mg IVP Q6H [facility] Stop: 03/26/18 13:01 Metoprolol Tartrate (Lopressor) 50 mg PO BID [facility] Last Admin: 03/25/18 10:40 Dose: 50 mg Nystatin (Nystop Topical Powder) 0 gm TOP BID [facility] Stop: 04/03/18 18:00 Last Admin: 03/25/18 10:35 Dose: 1 applic Povidone Iodine (Betadine 10% Oint) 0 gm TOP Q8H [facility] Last Admin: 03/25/18 10:34 Dose: 1 dose Saccharomyces Boulardii (Florastor) 250 mg PO BID [facility] Last Admin: 03/25/18 10:33 Dose: 250 mg Simethicone (Mylicon Chew Tab) 80 mg PO TID [facility] Last Admin: 03/25/18 10:33 Dose: 80 mg - Labs Labs: 03/23/18 08:02 03/24/18 10:58 PT 12.8 SECONDS (9.7-12.2) H 03/19/18 08:12 INR 1.1 03/19/18 08:12 APTT 42 SECONDS (21-34) H 03/18/18 18:19 - Additional Findings Additional findings: - Constitutional Appears: Well - Head Exam Head Exam: ATRAUMATIC, NORMAL INSPECTION, NORMOCEPHALIC - Eye Exam Eye Exam: EOMI, Normal appearance, PERRL Pupil Exam: NORMAL ACCOMODATION, PERRL - ENT Exam ENT Exam: Mucous Membranes Moist, Normal Exam - Neck Exam Neck Exam: Full ROM, Normal Inspection. absent: Lymphadenopathy - Respiratory Exam Respiratory Exam: Clear to Ausculation Bilateral, NORMAL BREATHING PATTERN - Cardiovascular Exam Cardiovascular Exam: REGULAR RHYTHM, +S1, +S2. absent: Murmur - GI/Abdominal Exam GI & Abdominal Exam: Distended, Soft, Hypoactive Bowel Sounds, Normal Bowel Sounds. absent: Tenderness - Rectal Exam Rectal Exam: NORMAL INSPECTION - Extremities Exam Extremities Exam: Full ROM, Normal Capillary Refill, Normal Inspection. absent : Joint Swelling, Pedal Edema - Back Exam Back Exam: NORMAL INSPECTION - Neurological Exam Neurological Exam: Alert, Awake, CN II-XII Intact, Normal Gait, Oriented x3 - Psychiatric Exam Psychiatric exam: Normal Affect, Normal Mood - Skin Skin Exam: Dry, Intact, Normal Color, Warm Assessment and Plan - Assessment and Plan (Free Text) Assessment: (1) Constipation Assessment & Plan: CT: rectosigmoid colonic wall thickening w/mass like irma w/ dilation of colon proximal thickening and large amount of stool and gas w/in colon. Suspicious for colon cancer Vs inflammatory mass 2/2 infectious inflam Vs stool related proctocolitis GI (Puente) - no decompression was performed Surgery (Ramandeep) - advised for reglan and rectal tube for decompression. This was done today and significant decompression was achieved. Will repeat abdominal xray to reevaluate Cipro/flagyl Status: Acute (2) Hip fracture Assessment & Plan: Right Subtrochanteric Femoral Fracture s/p ORIF with Long Hip Nail 03/19/[address] Srinivasa patel with positioning for scope PT OT Status: Acute (3) Diabetes Assessment & Plan: ISS High Hold home insulin as patient NPO Status: Acute (4) HTN (hypertension) Assessment & Plan: hydralzine PRN Status: Acute (5) Prophylactic measure Assessment & Plan: Lovenox 40sc qd GI PPX not indicated Status: Acute
--- NOTE | 2018-03-25 13:02 | CP.PCM.PN ---
Subjective - Date & Time of Evaluation Date of Evaluation: 03/25/18 Time of Evaluation: 12:00 - Subjective Subjective: Patient states pain in right hip continues, but is controlled. No new complaints regarding hip. Objective - Vital Signs/Intake and Output Vital Signs (last 24 hours): Temp Pulse Resp BP Pulse Ox 97.6 F 112 H 20 166/82 H 98 03/25/18 08:39 03/25/18 08:39 03/25/18 08:39 03/25/18 08:39 03/25/18 08:39 Intake and Output: 03/25/18 03/25/18 06:59 18:59 Output Total 100 Balance -100 - Medications Medications: Current Medications Aspirin (Ecotrin) 81 mg PO DAILY [facility] Last Admin: 03/25/18 10:32 Dose: 81 mg Docusate Sodium (Colace) 100 mg PO BID [facility] Last Admin: 03/25/18 10:32 Dose: 100 mg Enoxaparin Sodium (Lovenox) 40 mg SC DAILY [facility] Last Admin: 03/25/18 10:33 Dose: 40 mg Home Med (Patient's Own Topical) 1 gm TOP TID [facility] Stop: 05/18/18 23:59 Last Admin: 03/25/18 10:36 Dose: 1 gm Home Med (Patient's Own Medication) 1 tab PO QPM [facility] Last Admin: 03/24/18 18:29 Dose: 1 tab Hydralazine HCl (Apresoline) 10 mg IVP Q6H PRN PRN Reason: Systolic Blood Pressure Last Admin: 03/24/18 18:28 Dose: 10 mg Hydrocortisone (Anusol-Hc) 25 mg RC BID [facility] Stop: 04/07/18 10:01 Last Admin: 03/25/18 10:34 Dose: 25 mg Metronidazole (Flagyl) 500 mg in 100 mls @ 100 mls/hr IVPB Q8 [facility] PRN Reason: Protocol Last Admin: 03/25/18 05:44 Dose: 100 mls/hr Ciprofloxacin (Cipro 400mg/200ml Dsw) 400 mg in 200 mls @ 133 mls/hr IVPB Q12H [facility] PRN Reason: Protocol Last Admin: 03/25/18 10:40 Dose: 133 mls/hr Potassium Chloride 40 meq/ (Sodium Chloride) 1,020 mls @ 75 mls/hr IV .[id number] [facility] Last Admin: 03/25/18 00:33 Dose: 75 mls/hr Insulin Human Regular (Novolin R) 0 unit SC ACHS [facility] PRN Reason: Protocol Last Admin: 03/25/18 12:53 Dose: 3 unit Lidocaine HCl (Lidocaine Hydrochloride Jelly 2% 5 Ml) 0 ml TOP BID PRN PRN Reason: Other Metoclopramide HCl (Reglan) 10 mg IVP Q6H [facility] Stop: 03/26/18 13:01 Metoprolol Tartrate (Lopressor) 50 mg PO BID [facility] Last Admin: 03/25/18 10:40 Dose: 50 mg Nystatin (Nystop Topical Powder) 0 gm TOP BID [facility] Stop: 04/03/18 18:00 Last Admin: 03/25/18 10:35 Dose: 1 applic Povidone Iodine (Betadine 10% Oint) 0 gm TOP Q8H [facility] Last Admin: 03/25/18 10:34 Dose: 1 dose Saccharomyces Boulardii (Florastor) 250 mg PO BID [facility] Last Admin: 03/25/18 10:33 Dose: 250 mg Simethicone (Mylicon Chew Tab) 80 mg PO TID [facility] Last Admin: 03/25/18 10:33 Dose: 80 mg - Labs Labs: 03/23/18 08:02 03/24/18 10:58 PT 12.8 SECONDS (9.7-12.2) H 03/19/18 08:12 INR 1.1 03/19/18 08:12 APTT 42 SECONDS (21-34) H 03/18/18 18:19 - Extremities Exam Additional comments: Still moderate serous drainage from hip, however gauze only half saturated, which is significant improvement. thigh swollen, no change, bilateral LE swelling as well, calves soft NT neg homans +ROM ankle/toes,s enastion intact +DP/PT pulses Assessment and Plan (1) Displaced subtrochanteric fracture of right femur Assessment & Plan: POD#6 s/p IM nail left subtroch fx On post op imaging, noted bilateral femur films, left knee shows moderate knee DJD also which would account for the knee pain, no fracture dopplers neg for DVT joey to RLE as per Dr. Rushing dressing changes VTE proph, resume lovenox today, held Tues per Dr. Cancholar PT/OT d/w Dr. Rushing agrees with above Status: Acute
[2018-03-25 14:09] LABS: BASO # 0.1 K/uL (0.0-0.2); BASO % 0.6 % (0.0-2.0); EOS % 0.3 % (0.0-4.0); HEMOGLOBIN 9.3 g/dL (12.0-18.0); LYMPH # 1.1 K/uL (1.0-4.3); LYMPH % 7.4 % (20.0-40.0); MEAN CELL VOLUME 81.1 fL (80.0-94.0); MEAN CORPUSCULAR HEMOGLOBIN 26.1 pg (27.0-31.0); MEAN CORPUSCULAR HGB CONC 32.2 g/dL (33.0-37.0); MEAN PLATELET VOLUME 8.8 fL (7.2-11.7); MONO # 1.1 K/uL (0.0-0.8); MONO % 7.5 % (0.0-10.0); NEUT # 12.6 K/uL (1.8-7.0); NEUT % 84.2 % (50.0-75.0); NRBC % 0.2 % (0.0-2.0); PLATELET COUNT 381 K/uL (130-400); RBC 3.55 Mil/uL (4.40-5.90); RED CELL DISTRIBUTION WIDTH 16.1 % (11.5-14.5); WHITE BLOOD COUNT 14.9 K/uL (4.8-10.8)
[2018-03-25 14:43] LABS: ANISOCYTOSIS SLIGHT; BANDS 4 % (0-2); EOSINOPHIL 1 % (0-4); LYMPHOCYTE 8 % (20-40); MONOCYTE 5 % (0-10); MYELOCYTE 1 % (0-0); NEUTROPHIL 81 % (50-75); NUCLEATED RED BLOOD CELL 1 % (0-0); PLATELET ESTIMATE NORMAL (NORMAL); TOTAL CELLS COUNTED 100
[2018-03-25 14:44] LABS: ALB/GLOB RATIO 0.9 (1.0-2.1); ALBUMIN 2.9 g/dL (3.5-5.0); ALT/SGPT 10 U/L (21-72); AST/SGOT 21 U/L (17-59); BLOOD UREA NITROGEN 36 mg/dL (9-20); CALCIUM 8.6 mg/dl (8.6-10.4); GFR AFRICAN-AMERICAN > 60; GFR NON-AFRICAN AMERICAN 60; HYPOCHROMIC SLIGHT
--- NOTE | 2018-03-25 19:24 | CP.PCM.PN ---
Subjective - Date & Time of Evaluation Date of Evaluation: 03/25/18 Time of Evaluation: 19:24 - Subjective Subjective: CHIEF COMPLAINTS TODAY : afebrile VSS S/P SIGMOIDOSCOPY- MUCH FEACAL RETENTION. S/P RECTAL TUBE- 1/ BAG FULL WITH FEACES. ABDOMINAL DISTENSION ++ ROS. HEENT : N. Resp : No SOB wheezing, cough Cardio : No CP, PND orthopnea GI : +ve ABDOMINAL PAIN /DISTENSION, NO n/v [employer] : No headache , focal deficit. Musculoskel : N Ext. : Pedal pulses intact, no edema or calf pain RT. HIP DRESSING IN PLACE. Derm : N Psych : N. PE. Pt. is alert awake in no distress. V.S As noted in the chart Head ,ear nose,throat and eyes : Normal. Neck : Supple with normal carotids. Lungs: Clear air entry. Heart : S1 & S2 normal . . No murmur. S4 + Abd : DISTENDED, DIFFUSE GENERALIZED TENDERNESS ON PALPATION, HYPOACTIVE BOWEL SOUNDS. Neuro : Moves all ext. with no localized deficit. Ext : RT HIP FRACTURE S/P ORIF, DRESSING C/D/I. with intact pulses. Neg. calf tenderness Derm : No rashes or decubitus ulcer. Radiology/Labs . . BLOOD CULTURES 03/21/18 -VE to date URINE CULTURE -VE GROWTH . Asssessment : LEUKOCYTOSIS. S/P SIGMOIDOSCOPY 03/24/18-FEACAL RETENTION/ NO MASS CHRONIC CONSTIPATION. PROCTOCOLITIS/ANAL FISSURE DIABETES MELLITUS. HYPERTENSION. MORBID OBESITY. S/P ORIF RT FEMUR FRACTURE/WITH NAILING. 03/19/18 Plan : PER GI LAXATIVES RECTAL TUBE IN PLACE. CONTINUE iv ANTIBIOTICS- PATIENT PRESENTLY ON CIPRO/ IV fLAGYL. CASE DISCUSSED WITH THE SON/AND STAFF. Objective - Vital Signs/Intake and Output Vital Signs (last 24 hours): Temp Pulse Resp BP Pulse Ox 97.7 F 94 H 20 153/81 H 97 03/25/18 15:00 03/25/18 15:00 03/25/18 15:00 03/25/18 15:00 03/25/18 15:00 Intake and Output: 03/25/18 03/26/18 18:59 06:59 Intake Total 700 Output Total 500 Balance 200 - Medications Medications: Current Medications Aspirin (Ecotrin) 81 mg PO DAILY [facility] Last Admin: 03/25/18 10:32 Dose: 81 mg Docusate Sodium (Colace) 100 mg PO BID [facility] Last Admin: 03/25/18 17:44 Dose: 100 mg Enoxaparin Sodium (Lovenox) 40 mg SC DAILY [facility] Last Admin: 03/25/18 10:33 Dose: 40 mg Home Med (Patient's Own Topical) 1 gm TOP TID [facility] Stop: 05/18/18 23:59 Last Admin: 03/25/18 17:46 Dose: 1 gm Home Med (Patient's Own Medication) 1 tab PO QPM [facility] Last Admin: 03/25/18 17:48 Dose: 1 tab Hydralazine HCl (Apresoline) 10 mg IVP Q6H PRN PRN Reason: Systolic Blood Pressure Last Admin: 03/24/18 18:28 Dose: 10 mg Hydrocortisone (Anusol-Hc) 25 mg RC BID [facility] Stop: 04/07/18 10:01 Last Admin: 03/25/18 19:07 Dose: Not Given Metronidazole (Flagyl) 500 mg in 100 mls @ 100 mls/hr IVPB Q8 [facility] PRN Reason: Protocol Last Admin: 03/25/18 14:57 Dose: 100 mls/hr Ciprofloxacin (Cipro 400mg/200ml Dsw) 400 mg in 200 mls @ 133 mls/hr IVPB Q12H [facility] PRN Reason: Protocol Last Admin: 03/25/18 10:40 Dose: 133 mls/hr Potassium Chloride 40 meq/ (Sodium Chloride) 1,020 mls @ 75 mls/hr IV .[id number] [facility] Last Admin: 03/25/18 19:06 Dose: 75 mls/hr Insulin Human Regular (Novolin R) 0 unit SC ACHS [facility] PRN Reason: Protocol Last Admin: 03/25/18 16:44 Dose: 3 unit Lidocaine HCl (Lidocaine Hydrochloride Jelly 2% 5 Ml) 0 ml TOP BID PRN PRN Reason: Other Metoclopramide HCl (Reglan) 10 mg IVP Q6H [facility] Stop: 03/26/18 13:01 Last Admin: 03/25/18 19:07 Dose: 10 mg Metoprolol Tartrate (Lopressor) 50 mg PO BID [facility] Last Admin: 03/25/18 17:44 Dose: 50 mg Nystatin (Nystop Topical Powder) 0 gm TOP BID [facility] Stop: 04/03/18 18:00 Last Admin: 03/25/18 17:45 Dose: 1 applic Povidone Iodine (Betadine 10% Oint) 0 gm TOP Q8H [facility] Last Admin: 03/25/18 16:48 Dose: Not Given Saccharomyces Boulardii (Florastor) 250 mg PO BID [facility] Last Admin: 03/25/18 17:44 Dose: 250 mg Simethicone (Mylicon Chew Tab) 80 mg PO TID [facility] Last Admin: 03/25/18 17:44 Dose: 80 mg - Labs Labs: 03/25/18 14:02 03/25/18 14:02 PT 12.8 SECONDS (9.7-12.2) H 03/19/18 08:12 INR 1.1 03/19/18 08:12 APTT 42 SECONDS (21-34) H 03/18/18 18:19 Assessment and Plan (1) Leukocytosis Status: Acute (2) Colonic obstruction Status: Acute (3) Proctitis Status: Acute (4) Constipation Status: Acute (5) Diabetes Status: Acute (6) HTN (hypertension) Status: Acute (7) Hip fracture Status: Acute
--- NOTE | 2018-03-26 01:26 | CP.PCM.PN ---
Subjective - Date & Time of Evaluation Date of Evaluation: 03/26/18 Time of Evaluation: 01:24 - Subjective Subjective: Paged around midnight for abdominal distention as per surgery notes, recommended to replace NGT if becomes distended patient had been vomiting green bile as per nursing staff NGT replaced; green bile/stomach contents immediately came out drained 1.5L before I left the room set to intermittent low suction patient requesting to have it removed tomorrow AM i would recommend psych consult as patient has expressed depressive symptoms every night when I see him to replace the NGT Tao Fisher PGY2 Objective - Vital Signs/Intake and Output Vital Signs (last 24 hours): Temp Pulse Resp BP Pulse Ox 97.7 F 84 20 150/79 95 03/25/18 23:35 03/25/18 23:35 03/25/18 23:35 03/25/18 23:35 03/25/18 23:35 Intake and Output: 03/25/18 03/26/18 18:59 06:59 Intake Total 700 Output Total 500 1400 Balance 200 -1400 - Medications Medications: Current Medications Aspirin (Ecotrin) 81 mg PO DAILY [facility] Last Admin: 03/25/18 10:32 Dose: 81 mg Docusate Sodium (Colace) 100 mg PO BID [facility] Last Admin: 03/25/18 17:44 Dose: 100 mg Enoxaparin Sodium (Lovenox) 40 mg SC DAILY [facility] Last Admin: 03/25/18 10:33 Dose: 40 mg Furosemide (Lasix) 20 mg IVP BID [facility] Last Admin: 03/25/18 20:33 Dose: 20 mg Home Med (Patient's Own Topical) 1 gm TOP TID [facility] Stop: 05/18/18 23:59 Last Admin: 03/25/18 17:46 Dose: 1 gm Home Med (Patient's Own Medication) 1 tab PO QPM [facility] Last Admin: 03/25/18 17:48 Dose: 1 tab Hydralazine HCl (Apresoline) 10 mg IVP Q6H PRN PRN Reason: Systolic Blood Pressure Last Admin: 03/24/18 18:28 Dose: 10 mg Hydrocortisone (Anusol-Hc) 25 mg RC BID [facility] Stop: 04/07/18 10:01 Last Admin: 03/25/18 19:07 Dose: Not Given Metronidazole (Flagyl) 500 mg in 100 mls @ 100 mls/hr IVPB Q8 [facility] PRN Reason: Protocol Last Admin: 03/25/18 21:14 Dose: 100 mls/hr Ciprofloxacin (Cipro 400mg/200ml Dsw) 400 mg in 200 mls @ 133 mls/hr IVPB Q12H [facility] PRN Reason: Protocol Last Admin: 03/25/18 22:25 Dose: 133 mls/hr Potassium Chloride 40 meq/ (Sodium Chloride) 1,020 mls @ 75 mls/hr IV .[id number] [facility] Last Admin: 03/25/18 19:06 Dose: 75 mls/hr Insulin Human Regular (Novolin R) 0 unit SC ACHS [facility] PRN Reason: Protocol Last Admin: 03/25/18 21:42 Dose: Not Given Lidocaine HCl (Lidocaine Hydrochloride Jelly 2% 5 Ml) 0 ml TOP BID PRN PRN Reason: Other Metoclopramide HCl (Reglan) 10 mg IVP Q6H [facility] Stop: 03/26/18 13:01 Last Admin: 03/25/18 19:07 Dose: 10 mg Metoprolol Tartrate (Lopressor) 50 mg PO BID [facility] Last Admin: 03/25/18 17:44 Dose: 50 mg Nystatin (Nystop Topical Powder) 0 gm TOP BID [facility] Stop: 04/03/18 18:00 Last Admin: 03/25/18 17:45 Dose: 1 applic Povidone Iodine (Betadine 10% Oint) 0 gm TOP Q8H [facility] Last Admin: 03/25/18 16:48 Dose: Not Given Saccharomyces Boulardii (Florastor) 250 mg PO BID [facility] Last Admin: 03/25/18 17:44 Dose: 250 mg Simethicone (Mylicon Chew Tab) 80 mg PO TID [facility] Last Admin: 03/25/18 17:44 Dose: 80 mg - Labs Labs: 03/25/18 14:02 03/25/18 14:02 PT 12.8 SECONDS (9.7-12.2) H 03/19/18 08:12 INR 1.1 03/19/18 08:12 APTT 42 SECONDS (21-34) H 03/18/18 18:19
[2018-03-26] MEDS: Povidone Iodine Oint 10% (1 oz) TOP SCH ×3 (01:28→18:04)
[2018-03-26] MEDS: metroNIDAZOLE IV 500 mg/100 ml 500 MG/100 ML BAG IVPB SCH ×3 (05:37→21:25)
--- NOTE | 2018-03-26 07:22 | CP.PCM.PN ---
Subjective - Date & Time of Evaluation Date of Evaluation: 03/26/18 Time of Evaluation: 07:21 - Subjective Subjective: Patient seen and examined at bedside States he is nto doing well complaining of abdominal apin NGT inserted night, 3L out CT today to reeval stricture Will follow surgery reccs Objective - Vital Signs/Intake and Output Vital Signs (last 24 hours): Temp Pulse Resp BP Pulse Ox 97.7 F 84 20 150/79 95 03/25/18 23:35 03/25/18 23:35 03/25/18 23:35 03/25/18 23:35 03/25/18 23:35 Intake and Output: 03/26/18 03/26/18 06:59 18:59 Intake Total 550 Output Total 1700 Balance -1150 - Medications Medications: Current Medications Aspirin (Ecotrin) 81 mg PO DAILY [facility] Last Admin: 03/25/18 10:32 Dose: 81 mg Docusate Sodium (Colace) 100 mg PO BID [facility] Last Admin: 03/25/18 17:44 Dose: 100 mg Enoxaparin Sodium (Lovenox) 40 mg SC DAILY [facility] Last Admin: 03/25/18 10:33 Dose: 40 mg Furosemide (Lasix) 20 mg IVP BID [facility] Last Admin: 03/25/18 20:33 Dose: 20 mg Home Med (Patient's Own Topical) 1 gm TOP TID [facility] Stop: 05/18/18 23:59 Last Admin: 03/25/18 17:46 Dose: 1 gm Home Med (Patient's Own Medication) 1 tab PO QPM [facility] Last Admin: 03/25/18 17:48 Dose: 1 tab Hydralazine HCl (Apresoline) 10 mg IVP Q6H PRN PRN Reason: Systolic Blood Pressure Last Admin: 03/24/18 18:28 Dose: 10 mg Hydrocortisone (Anusol-Hc) 25 mg RC BID [facility] Stop: 04/07/18 10:01 Last Admin: 03/25/18 19:07 Dose: Not Given Metronidazole (Flagyl) 500 mg in 100 mls @ 100 mls/hr IVPB Q8 [facility] PRN Reason: Protocol Last Admin: 03/26/18 05:37 Dose: 100 mls/hr Ciprofloxacin (Cipro 400mg/200ml Dsw) 400 mg in 200 mls @ 133 mls/hr IVPB Q12H [facility] PRN Reason: Protocol Last Admin: 03/25/18 22:25 Dose: 133 mls/hr Potassium Chloride 40 meq/ (Sodium Chloride) 1,020 mls @ 75 mls/hr IV .[id number] [facility] Last Admin: 03/25/18 19:06 Dose: 75 mls/hr Insulin Human Regular (Novolin R) 0 unit SC ACHS [facility] PRN Reason: Protocol Last Admin: 03/25/18 21:42 Dose: Not Given Lidocaine HCl (Lidocaine Hydrochloride Jelly 2% 5 Ml) 0 ml TOP BID PRN PRN Reason: Other Metoclopramide HCl (Reglan) 10 mg IVP Q6H [facility] Stop: 03/26/18 13:01 Last Admin: 03/26/18 01:43 Dose: 10 mg Metoprolol Tartrate (Lopressor) 50 mg PO BID [facility] Last Admin: 03/25/18 17:44 Dose: 50 mg Nystatin (Nystop Topical Powder) 0 gm TOP BID [facility] Stop: 04/03/18 18:00 Last Admin: 03/25/18 17:45 Dose: 1 applic Povidone Iodine (Betadine 10% Oint) 0 gm TOP Q8H [facility] Last Admin: 03/26/18 01:28 Dose: Not Given Saccharomyces Boulardii (Florastor) 250 mg PO BID [facility] Last Admin: 03/25/18 17:44 Dose: 250 mg Simethicone (Mylicon Chew Tab) 80 mg PO TID [facility] Last Admin: 03/25/18 17:44 Dose: 80 mg - Labs Labs: 03/25/18 14:02 03/25/18 14:02 PT 12.8 SECONDS (9.7-12.2) H 03/19/18 08:12 INR 1.1 03/19/18 08:12 APTT 42 SECONDS (21-34) H 03/18/18 18:19 - Constitutional Appears: Well - Head Exam Head Exam: ATRAUMATIC, NORMAL INSPECTION, NORMOCEPHALIC - Eye Exam Eye Exam: EOMI, Normal appearance, PERRL Pupil Exam: NORMAL ACCOMODATION, PERRL - ENT Exam ENT Exam: Mucous Membranes Moist, Normal Exam - Neck Exam Neck Exam: Full ROM, Normal Inspection. absent: Lymphadenopathy - Respiratory Exam Respiratory Exam: Clear to Ausculation Bilateral, NORMAL BREATHING PATTERN - Cardiovascular Exam Cardiovascular Exam: REGULAR RHYTHM, +S1, +S2. absent: Murmur - GI/Abdominal Exam GI & Abdominal Exam: Distended, Soft, Normal Bowel Sounds. absent: Tenderness - Rectal Exam Additional comments: rectal tube - Extremities Exam Extremities Exam: Full ROM, Normal Capillary Refill, Normal Inspection. absent : Joint Swelling, Pedal Edema - Back Exam Back Exam: NORMAL INSPECTION - Neurological Exam Neurological Exam: Alert, Awake, CN II-XII Intact, Normal Gait, Oriented x3 - Psychiatric Exam Psychiatric exam: Normal Affect, Normal Mood - Skin Skin Exam: Dry, Intact, Normal Color, Warm Assessment and Plan - Assessment and Plan (Free Text) Assessment: (1) Constipation Assessment & Plan: CT: rectosigmoid colonic wall thickening w/mass like irma w/ dilation of colon proximal thickening and large amount of stool and gas w/in colon. Suspicious for colon cancer Vs inflammatory mass 2/2 infectious inflam Vs stool related proctocolitis Repeat CT showed decompression of the colon after rectal tube placement. still some dilated loops of small bowel likely secondary to ileus as patient is not mobile. F/U official read GI ([facility]) - no decompression was perform Surgery ([facility]) - advised for reglan and rectal tube Cipro/flagyl Consider removing rectal tube tomorrow and see if patient can pass gas and stool by himself. Patient able to pass water by himself as well. Once passing gas consider liquid diet Status: Acute (2) Hip fracture Assessment & Plan: Right Subtrochanteric Femoral Fracture s/p ORIF with Long Hip Nail 03/19/[address] Bernabe - amanda with positioning for scope PT OT Status: Acute (3) Diabetes Assessment & Plan: ISS High Hold home insulin as patient NPO Status: Acute (4) HTN (hypertension) Assessment & Plan: hydralzine PRN Status: Acute (5) Prophylactic measure Assessment & Plan: Lovenox 40sc qd GI PPX not indicated Status: Acute
[2018-03-26 08:22] LABS: BASO # 0.1 K/uL (0.0-0.2); BASO % 0.4 % (0.0-2.0); EOS # 0.3 K/uL (0.0-0.7); EOS % 1.9 % (0.0-4.0); HEMOGLOBIN 8.9 g/dL (12.0-18.0); LYMPH # 1.6 K/uL (1.0-4.3); LYMPH % 9.5 % (20.0-40.0); MEAN CELL VOLUME 81.9 fL (80.0-94.0); MEAN CORPUSCULAR HEMOGLOBIN 26.1 pg (27.0-31.0); MEAN CORPUSCULAR HGB CONC 31.9 g/dL (33.0-37.0); MEAN PLATELET VOLUME 9.3 fL (7.2-11.7); MONO # 1.5 K/uL (0.0-0.8); NEUT % 79.2 % (50.0-75.0); NRBC % 0.1 % (0.0-2.0); PLATELET COUNT 382 K/uL (130-400); RED CELL DISTRIBUTION WIDTH 16.3 % (11.5-14.5); WHITE BLOOD COUNT 16.5 K/uL (4.8-10.8)
[2018-03-26 08:27] LABS: INR 1.3; PROTHROMBIN TIME 14.8 SECONDS (9.7-12.2)
[2018-03-26] MEDS: (Novolin R) Insulin Human Regular 100 units/ml vial SC SCH ×4 (08:30→22:03)
[2018-03-26 08:40] LABS: ALB/GLOB RATIO 0.9 (1.0-2.1); ALBUMIN 2.8 g/dL (3.5-5.0); ALT/SGPT 13 U/L (21-72); AST/SGOT 21 U/L (17-59); BLOOD UREA NITROGEN 39 mg/dL (9-20); GFR AFRICAN-AMERICAN > 60; GFR NON-AFRICAN AMERICAN > 60
[2018-03-26] MEDS ORDERED: Iohexol 240 (50 ml) PO ONE (09:00)
[2018-03-26] MEDS: Ciprofloxacin 400mg/200ml D5W 400 MG/200 ML BAG IVPB SCH ×3 (09:00→22:32)
--- NOTE | 2018-03-26 09:57 | CP.PCM.PN ---
Subjective - Date & Time of Evaluation Date of Evaluation: 03/26/18 Time of Evaluation: 09:56 - Subjective Subjective: Patient not feeling well today, tired. Poor bed mobility. Objective - Vital Signs/Intake and Output Vital Signs (last 24 hours): Temp Pulse Resp BP Pulse Ox 98.0 F 95 H 20 150/79 96 03/26/18 09:03 03/26/18 09:03 03/26/18 09:03 03/26/18 09:04 03/26/18 09:03 Intake and Output: 03/26/18 03/26/18 06:59 18:59 Intake Total 550 Output Total 1700 Balance -1150 - Medications Medications: Current Medications Aspirin (Ecotrin) 81 mg PO DAILY [facility] Last Admin: 03/26/18 09:04 Dose: 81 mg Docusate Sodium (Colace) 100 mg PO BID [facility] Last Admin: 03/25/18 17:44 Dose: 100 mg Enoxaparin Sodium (Lovenox) 40 mg SC DAILY [facility] Last Admin: 03/25/18 10:33 Dose: 40 mg Furosemide (Lasix) 20 mg IVP BID [facility] Last Admin: 03/26/18 09:04 Dose: 20 mg Home Med (Patient's Own Topical) 1 gm TOP TID [facility] Stop: 05/18/18 23:59 Last Admin: 03/25/18 17:46 Dose: 1 gm Home Med (Patient's Own Medication) 1 tab PO QPM [facility] Last Admin: 03/25/18 17:48 Dose: 1 tab Hydralazine HCl (Apresoline) 10 mg IVP Q6H PRN PRN Reason: Systolic Blood Pressure Last Admin: 03/24/18 18:28 Dose: 10 mg Hydrocortisone (Anusol-Hc) 25 mg RC BID [facility] Stop: 04/07/18 10:01 Last Admin: 03/25/18 19:07 Dose: Not Given Metronidazole (Flagyl) 500 mg in 100 mls @ 100 mls/hr IVPB Q8 [facility] PRN Reason: Protocol Last Admin: 03/26/18 05:37 Dose: 100 mls/hr Ciprofloxacin (Cipro 400mg/200ml Dsw) 400 mg in 200 mls @ 133 mls/hr IVPB Q12H [facility] PRN Reason: Protocol Last Admin: 03/25/18 22:25 Dose: 133 mls/hr Potassium Chloride (Potassium Chloride 20 Meq/100 Ml) 20 meq in 100 mls @ 50 mls/hr IVPB ONCE ONE Stop: 03/26/18 10:44 Last Admin: 03/26/18 09:10 Dose: 50 mls/hr Potassium Chloride (Potassium Chloride 20 Meq/100 Ml) 20 meq in 100 mls @ 50 mls/hr IVPB ONCE ONE Stop: 03/26/18 12:45 Potassium Chloride 40 meq/ (Sodium Chloride) 1,020 mls @ 125 mls/hr IV .Q8H10M [facility] Last Admin: 03/26/18 09:11 Dose: 125 mls/hr Insulin Human Regular (Novolin R) 0 unit SC ACHS [facility] PRN Reason: Protocol Last Admin: 03/26/18 08:30 Dose: 2 unit Lidocaine HCl (Lidocaine Hydrochloride Jelly 2% 5 Ml) 0 ml TOP BID PRN PRN Reason: Other Metoclopramide HCl (Reglan) 10 mg IVP Q6H [facility] Stop: 03/26/18 13:01 Last Admin: 03/26/18 08:31 Dose: Not Given Metoprolol Tartrate (Lopressor) 50 mg PO BID [facility] Last Admin: 03/26/18 09:03 Dose: 50 mg Nystatin (Nystop Topical Powder) 0 gm TOP BID [facility] Stop: 04/03/18 18:00 Last Admin: 03/25/18 17:45 Dose: 1 applic Povidone Iodine (Betadine 10% Oint) 0 gm TOP Q8H [facility] Last Admin: 03/26/18 01:28 Dose: Not Given Saccharomyces Boulardii (Florastor) 250 mg PO BID [facility] Last Admin: 03/25/18 17:44 Dose: 250 mg Simethicone (Mylicon Chew Tab) 80 mg PO TID [facility] Last Admin: 03/25/18 17:44 Dose: 80 mg - Labs Labs: 03/26/18 08:09 03/26/18 08:09 PT 14.8 SECONDS (9.7-12.2) H 03/26/18 08:09 INR 1.3 03/26/18 08:09 APTT 31 SECONDS (21-34) 03/26/18 08:09 - Extremities Exam Additional comments: Still moderate serous drainage from hip, no change. thigh swollen, no change, bilateral LE swelling as well, calves soft NT neg homans +ROM ankle/toes, sensation intact +DP/PT pulses Assessment and Plan (1) Displaced subtrochanteric fracture of right femur Assessment & Plan: POD#7 s/p IM nail left subtroch fx On post op imaging, noted bilateral femur films, left knee shows moderate knee DJD also which would account for the knee pain, no fracture dopplers neg for DVT joey to RLE as per Dr. Rushing dressing changes q shift VTE proph PT/OT d/w Dr. Rushing agrees with above Status: Acute
[2018-03-26 09:59] LABS: ANISOCYTOSIS SLIGHT; BANDS 2 % (0-2); EOSINOPHIL 2 % (0-4); LYMPHOCYTE 11 % (20-40); MONOCYTE 9 % (0-10); NEUTROPHIL 76 % (50-75); PLATELET ESTIMATE NORMAL (NORMAL); TOTAL CELLS COUNTED 100
[2018-03-26 10:00] LABS: HYPOCHROMIC SLIGHT
--- NOTE | 2018-03-26 10:08 | CP.PCM.PN ---
Subjective - Date & Time of Evaluation Date of Evaluation: 03/26/18 Time of Evaluation: 06:40 - Subjective Subjective: Patient seen and examined at bedside this AM. Patient had nausea and vomiting overnight so an NGT was placed with 1600cc's of dark bilious fluid output. Patient also had urinary retention and had to be catheterized twice. Rectal tube placed by primary yesterday with no significant output Objective - Vital Signs/Intake and Output Vital Signs (last 24 hours): Temp Pulse Resp BP Pulse Ox 98.0 F 95 H 20 150/79 96 03/26/18 09:03 03/26/18 09:03 03/26/18 09:03 03/26/18 09:04 03/26/18 09:03 Intake and Output: 03/26/18 03/26/18 06:59 18:59 Intake Total 550 Output Total 1700 Balance -1150 - Medications Medications: Current Medications Aspirin (Ecotrin) 81 mg PO DAILY [facility] Last Admin: 03/26/18 09:04 Dose: 81 mg Docusate Sodium (Colace) 100 mg PO BID [facility] Last Admin: 03/25/18 17:44 Dose: 100 mg Enoxaparin Sodium (Lovenox) 40 mg SC DAILY [facility] Last Admin: 03/25/18 10:33 Dose: 40 mg Furosemide (Lasix) 20 mg IVP BID [facility] Last Admin: 03/26/18 09:04 Dose: 20 mg Home Med (Patient's Own Topical) 1 gm TOP TID [facility] Stop: 05/18/18 23:59 Last Admin: 03/25/18 17:46 Dose: 1 gm Home Med (Patient's Own Medication) 1 tab PO QPM [facility] Last Admin: 03/25/18 17:48 Dose: 1 tab Hydralazine HCl (Apresoline) 10 mg IVP Q6H PRN PRN Reason: Systolic Blood Pressure Last Admin: 03/24/18 18:28 Dose: 10 mg Hydrocortisone (Anusol-Hc) 25 mg RC BID [facility] Stop: 04/07/18 10:01 Last Admin: 03/25/18 19:07 Dose: Not Given Metronidazole (Flagyl) 500 mg in 100 mls @ 100 mls/hr IVPB Q8 [facility] PRN Reason: Protocol Last Admin: 03/26/18 05:37 Dose: 100 mls/hr Ciprofloxacin (Cipro 400mg/200ml Dsw) 400 mg in 200 mls @ 133 mls/hr IVPB Q12H [facility] PRN Reason: Protocol Last Admin: 03/25/18 22:25 Dose: 133 mls/hr Potassium Chloride (Potassium Chloride 20 Meq/100 Ml) 20 meq in 100 mls @ 50 mls/hr IVPB ONCE ONE Stop: 03/26/18 10:44 Last Admin: 03/26/18 09:10 Dose: 50 mls/hr Potassium Chloride (Potassium Chloride 20 Meq/100 Ml) 20 meq in 100 mls @ 50 mls/hr IVPB ONCE ONE Stop: 03/26/18 12:45 Potassium Chloride 40 meq/ (Sodium Chloride) 1,020 mls @ 125 mls/hr IV .Q8H10M [facility] Last Admin: 03/26/18 09:11 Dose: 125 mls/hr Insulin Human Regular (Novolin R) 0 unit SC ACHS [facility] PRN Reason: Protocol Last Admin: 03/26/18 08:30 Dose: 2 unit Lidocaine HCl (Lidocaine Hydrochloride Jelly 2% 5 Ml) 0 ml TOP BID PRN PRN Reason: Other Metoclopramide HCl (Reglan) 10 mg IVP Q6H [facility] Stop: 03/26/18 13:01 Last Admin: 03/26/18 08:31 Dose: Not Given Metoprolol Tartrate (Lopressor) 50 mg PO BID [facility] Last Admin: 03/26/18 09:03 Dose: 50 mg Nystatin (Nystop Topical Powder) 0 gm TOP BID [facility] Stop: 04/03/18 18:00 Last Admin: 03/25/18 17:45 Dose: 1 applic Povidone Iodine (Betadine 10% Oint) 0 gm TOP Q8H [facility] Last Admin: 03/26/18 01:28 Dose: Not Given Saccharomyces Boulardii (Florastor) 250 mg PO BID [facility] Last Admin: 03/25/18 17:44 Dose: 250 mg Simethicone (Mylicon Chew Tab) 80 mg PO TID [facility] Last Admin: 03/25/18 17:44 Dose: 80 mg - Labs Labs: 03/26/18 08:09 03/26/18 08:09 PT 14.8 SECONDS (9.7-12.2) H 03/26/18 08:09 INR 1.3 03/26/18 08:09 APTT 31 SECONDS (21-34) 03/26/18 08:09 - Constitutional Appears: Non-toxic, No Acute Distress - Head Exam Head Exam: ATRAUMATIC, NORMOCEPHALIC - Eye Exam Eye Exam: Normal appearance. absent: Conjunctival injection, Scleral icterus - ENT Exam ENT Exam: Mucous Membranes Moist Additional comments: NGT in place - Respiratory Exam Respiratory Exam: NORMAL BREATHING PATTERN. absent: Accessory Muscle Use, Respiratory Distress - GI/Abdominal Exam GI & Abdominal Exam: Distended (severe), Soft, Tenderness (epigastric) - Extremities Exam Extremities Exam: absent: Calf Tenderness, Pedal Edema - Neurological Exam Neurological Exam: Alert, Awake, Oriented x3 - Psychiatric Exam Psychiatric exam: Normal Affect, Normal Mood - Skin Skin Exam: Dry, Intact, Normal Color, Warm Assessment and Plan - Assessment and Plan (Free Text) Assessment: 72M with severe post op ileus vs colonic obstruction, worsening Plan: repeat CT scan to assess level of distention and the area of prior inflammation in the distal colon Strict NPO, continue NGT to continuous low suction Strict urine, NGT, and bowel output--patient has low urine output/24 hours Patient may need a decompressing colostomy pending progression, NGT output, and CT scan results Continue daily labs--WBC increasing--replete electrolytes as needed IVF Physical therapy Discussed with family bedside, Dr. Sabillon, and primary Shabana Jimenez, [id number]
--- NOTE | 2018-03-26 10:36 | CP.PCM.PN ---
Subjective - Date & Time of Evaluation Date of Evaluation: 03/26/18 Time of Evaluation: 10:34 - Subjective Subjective: marked distention persists. review of filims showa mostly large bowel distention. may benefit from a transverse colostomy. will wait for ct ersults then decide Objective - Vital Signs/Intake and Output Vital Signs (last 24 hours): Temp Pulse Resp BP Pulse Ox 98.0 F 95 H 20 150/79 96 03/26/18 09:03 03/26/18 09:03 03/26/18 09:03 03/26/18 09:04 03/26/18 09:03 Intake and Output: 03/26/18 03/26/18 06:59 18:59 Intake Total 550 Output Total 1700 Balance -1150 - Medications Medications: Current Medications Aspirin (Ecotrin) 81 mg PO DAILY [facility] Last Admin: 03/26/18 09:04 Dose: 81 mg Docusate Sodium (Colace) 100 mg PO BID [facility] Last Admin: 03/25/18 17:44 Dose: 100 mg Enoxaparin Sodium (Lovenox) 40 mg SC DAILY [facility] Last Admin: 03/25/18 10:33 Dose: 40 mg Furosemide (Lasix) 20 mg IVP BID [facility] Last Admin: 03/26/18 09:04 Dose: 20 mg Home Med (Patient's Own Topical) 1 gm TOP TID [facility] Stop: 05/18/18 23:59 Last Admin: 03/25/18 17:46 Dose: 1 gm Home Med (Patient's Own Medication) 1 tab PO QPM [facility] Last Admin: 03/25/18 17:48 Dose: 1 tab Hydralazine HCl (Apresoline) 10 mg IVP Q6H PRN PRN Reason: Systolic Blood Pressure Last Admin: 03/24/18 18:28 Dose: 10 mg Hydrocortisone (Anusol-Hc) 25 mg RC BID [facility] Stop: 04/07/18 10:01 Last Admin: 03/25/18 19:07 Dose: Not Given Metronidazole (Flagyl) 500 mg in 100 mls @ 100 mls/hr IVPB Q8 [facility] PRN Reason: Protocol Last Admin: 03/26/18 05:37 Dose: 100 mls/hr Ciprofloxacin (Cipro 400mg/200ml Dsw) 400 mg in 200 mls @ 133 mls/hr IVPB Q12H [facility] PRN Reason: Protocol Last Admin: 03/25/18 22:25 Dose: 133 mls/hr Potassium Chloride (Potassium Chloride 20 Meq/100 Ml) 20 meq in 100 mls @ 50 mls/hr IVPB ONCE ONE Stop: 03/26/18 10:44 Last Admin: 03/26/18 09:10 Dose: 50 mls/hr Potassium Chloride (Potassium Chloride 20 Meq/100 Ml) 20 meq in 100 mls @ 50 mls/hr IVPB ONCE ONE Stop: 03/26/18 12:45 Potassium Chloride 40 meq/ (Sodium Chloride) 1,020 mls @ 125 mls/hr IV .Q8H10M [facility] Last Admin: 03/26/18 09:11 Dose: 125 mls/hr Insulin Human Regular (Novolin R) 0 unit SC ACHS [facility] PRN Reason: Protocol Last Admin: 03/26/18 08:30 Dose: 2 unit Lidocaine HCl (Lidocaine Hydrochloride Jelly 2% 5 Ml) 0 ml TOP BID PRN PRN Reason: Other Metoclopramide HCl (Reglan) 10 mg IVP Q6H [facility] Stop: 03/26/18 13:01 Last Admin: 03/26/18 08:31 Dose: Not Given Metoprolol Tartrate (Lopressor) 50 mg PO BID [facility] Last Admin: 03/26/18 09:03 Dose: 50 mg Nystatin (Nystop Topical Powder) 0 gm TOP BID [facility] Stop: 04/03/18 18:00 Last Admin: 03/25/18 17:45 Dose: 1 applic Povidone Iodine (Betadine 10% Oint) 0 gm TOP Q8H [facility] Last Admin: 03/26/18 01:28 Dose: Not Given Saccharomyces Boulardii (Florastor) 250 mg PO BID [facility] Last Admin: 03/25/18 17:44 Dose: 250 mg Simethicone (Mylicon Chew Tab) 80 mg PO TID [facility] Last Admin: 03/25/18 17:44 Dose: 80 mg - Labs Labs: 03/26/18 08:09 03/26/18 08:09 PT 14.8 SECONDS (9.7-12.2) H 03/26/18 08:09 INR 1.3 03/26/18 08:09 APTT 31 SECONDS (21-34) 03/26/18 08:09
[2018-03-26] MEDS: DILTIAZEM 2% TOP SCH ×3 (11:53→17:56)
[2018-03-26] MEDS: Saccharomyces Boulardi 250 mg Cap PO SCH ×2 (11:55→18:04)
[2018-03-26] MEDS: Enoxaparin 40 mg Syringe SC SCH (11:55)
[2018-03-26] MEDS: Nystatin 100,000 Units/gm Topical Pow(15 gm) TOP SCH ×2 (11:56→17:56)
[2018-03-26] MEDS: Simethicone 80 mg Chewtab PO SCH ×3 (11:56→18:27)
--- NOTE | 2018-03-26 14:03 | RAD ---
HISTORY: pre op COMPARISON: 03/24/2018. FINDINGS: LUNGS: There are low lung volumes which may be related to poor inspiratory effort. There is subsegmental atelectasis in the left mid lung. PLEURA: No significant pleural effusion identified, no pneumothorax apparent. CARDIOVASCULAR: Normal. OSSEOUS STRUCTURES: No significant abnormalities. VISUALIZED UPPER ABDOMEN: Normal. OTHER FINDINGS: The nasogastric tube terminates in the stomach. IMPRESSION: No active pulmonary disease. Subsegmental atelectasis in the left mid lung.
--- NOTE | 2018-03-26 15:03 | CT ---
PROCEDURE: CT Abdomen and Pelvis without intravenous contrast HISTORY: Obstruction COMPARISON: 03/21/2018 TECHNIQUE: Without contrast.. Contrast Dose: 0 Radiation dose: Total exam DLP = Total exam DLP = 1553.47 mGy-cm. This CT exam was performed using one or more of the following dose reduction techniques: Automated exposure control, adjustment of the mA and/or kV according to patient size, and/or use of iterative reconstruction technique. FINDINGS: LOWER THORAX: Small nonspecific nodular opacities in the right lower lobe not evident on prior examination. Trace left pleural effusion and left lower lobe compressive atelectasis. Nasogastric tube noted. LIVER: Unremarkable. No gross lesion or ductal dilatation. GALLBLADDER AND BILE DUCTS: Cholelithiasis. Mild mural thickening of the gallbladder. Nonspecific findings. Consider correlation with ultrasound examination. PANCREAS: No mass or ductal dilatation. Duodenal diverticulum of 2nd duodenum extends into the pancreatic head. SPLEEN: Unremarkable. ADRENALS: Unremarkable. No mass. KIDNEYS AND URETERS: 13 mm right lower pole exophytic cortical cyst. High density right upper pole right renal mass, 14 mm. Likely hyperdense cyst. 9 mm exophytic left lower pole renal cortical mass, likely cyst. VASCULATURE: Unremarkable. No aortic aneurysm. BOWEL: Circumferential mural thickening of the rectum and distal sigmoid colon. Mural thickening of the transverse colon. Findings consistent with nonspecific colitis. Neoplasm less likely. Rectal tube noted. Mild dilatation of loops of small bowel in the upper abdomen containing oral contrast. Unlikely to be obstructed. There is gas and fluid seen within the colon. APPENDIX: Unremarkable. Normal appendix. PERITONEUM: Unremarkable. No free fluid. No free air. LYMPH NODES: Unremarkable. No enlarged lymph nodes. BLADDER: Unremarkable. REPRODUCTIVE: Normal prostate BONES: Status post ORIF right hip. No acute fracture. OTHER FINDINGS: None. IMPRESSION: Mural thickening of the rectosigmoid colon and transverse colon suspicious for nonspecific colitis. No evidence of mechanical small-bowel obstruction. Rectal tube. Nasogastric tube. Minimal left pleural effusion. Nonspecific small nodular opacities in right lower lobe.
--- NOTE | 2018-03-26 22:25 | CP.PCM.PN ---
Subjective - Date & Time of Evaluation Date of Evaluation: 03/26/18 Time of Evaluation: 22:25 - Subjective Subjective: CHIEF COMPLAINTS TODAY : afebrile VSS UNCOMFORTABLE. S/P NGT INSERTION LAST NIGHT- MUCH BILIOUS DRAINAGE C/O NOT PASSING FLATUS S/P RECTAL TUBE 03/25/18 ABDOMINAL DISTENSION ++ the patient went for CT of the abdomen and pelvis today. ROS. HEENT : N.+VE NGT-DRAINING BILIOUS DRAINAGE Resp : No SOB wheezing, cough Cardio : No CP, PND orthopnea GI : +ve ABDOMINAL PAIN /DISTENSION, NO n/v CERTIFIED LOW VISION THERAPIST : No headache , focal deficit. Musculoskel : N Ext. : Pedal pulses intact, no edema or calf pain RT. HIP DRESSING IN PLACE. Derm : N Psych : N. PE. Pt. is alert awake in no distress. +VE NG TUBE DRAINING BILIOUS DRAINAGE V.S As noted in the chart Head ,ear nose,throat and eyes : Normal. Neck : Supple with normal carotids. Lungs: Clear air entry. Heart : S1 & S2 normal . . No murmur. S4 + Abd : DISTENDED, DIFFUSE GENERALIZED TENDERNESS ON PALPATION, HYPOACTIVE BOWEL SOUNDS. Neuro : Moves all ext. with no localized deficit. Ext : RT HIP FRACTURE S/P ORIF, DRESSING C/D/I. with intact pulses. Neg. calf tenderness Derm : No rashes or decubitus ulcer. Radiology/Labs . 03/26/18 CT abdomen and pelvis by mouth contrast. Nonspecific nodular densities right lower lobe. Mural thickening rectosigmoid colon and transverse colon./Nonspecific colitis. -ve SBO./+NGT, +VE RECTAL TUBE. wbc 16.5, HEMOGLOBIN 8.9. sODIUM 149, K-3.3. lftS NORMAL. . BLOOD CULTURES 03/21/18 -VE to date URINE CULTURE -VE GROWTH . Asssessment : LEUKOCYTOSIS. S/P SIGMOIDOSCOPY 03/24/18-FEACAL RETENTION/ NO MASS CHRONIC CONSTIPATION. PROCTOCOLITIS/ANAL FISSURE DIABETES MELLITUS. HYPERTENSION. MORBID OBESITY. S/P ORIF RT FEMUR FRACTURE/WITH NAILING. 03/19/18 Plan : PER GI LAXATIVES RECTAL TUBE IN PLACE/ NGT IN PLACE. CONTINUE iv ANTIBIOTICS- PATIENT PRESENTLY ON CIPRO/ IV fLAGYL. SEEN BY GENERAL SURGERY. CASE DISCUSSED WITH THE SON/AND STAFF. Objective - Vital Signs/Intake and Output Vital Signs (last 24 hours): Temp Pulse Resp BP Pulse Ox 97.9 F 88 20 167/84 H 100 03/26/18 15:05 03/26/18 15:05 03/26/18 15:05 03/26/18 15:05 03/26/18 15:05 - Medications Medications: Current Medications Aspirin (Ecotrin) 81 mg PO DAILY [facility] Last Admin: 03/26/18 09:04 Dose: 81 mg Docusate Sodium (Colace) 100 mg PO BID [facility] Last Admin: 03/26/18 18:04 Dose: Not Given Enoxaparin Sodium (Lovenox) 40 mg SC DAILY [facility] Last Admin: 03/26/18 11:55 Dose: Not Given Home Med (Patient's Own Topical) 1 gm TOP TID [facility] Stop: 05/18/18 23:59 Last Admin: 03/26/18 17:56 Dose: 1 gm Home Med (Patient's Own Medication) 1 tab PO QPM [facility] Last Admin: 03/26/18 18:05 Dose: Not Given Hydralazine HCl (Apresoline) 10 mg IVP Q6H PRN PRN Reason: Systolic Blood Pressure Last Admin: 03/24/18 18:28 Dose: 10 mg Hydrocortisone (Anusol-Hc) 25 mg RC BID [facility] Stop: 04/07/18 10:01 Last Admin: 03/26/18 18:05 Dose: Not Given Metronidazole (Flagyl) 500 mg in 100 mls @ 100 mls/hr IVPB Q8 [facility] PRN Reason: Protocol Last Admin: 03/26/18 21:25 Dose: 100 mls/hr Ciprofloxacin (Cipro 400mg/200ml Dsw) 400 mg in 200 mls @ 133 mls/hr IVPB Q12H [facility] PRN Reason: Protocol Last Admin: 03/26/18 11:54 Dose: Not Given Potassium Chloride 40 meq/ (Sodium Chloride) 1,020 mls @ 125 mls/hr IV .Q8H10M [facility] Last Admin: 03/26/18 09:11 Dose: 125 mls/hr Insulin Human Regular (Novolin R) 0 unit SC ACHS [facility] PRN Reason: Protocol Last Admin: 03/26/18 22:03 Dose: Not Given Lidocaine HCl (Lidocaine Hydrochloride Jelly 2% 5 Ml) 0 ml TOP BID PRN PRN Reason: Other Metoprolol Tartrate (Lopressor) 50 mg PO BID [facility] Last Admin: 03/26/18 18:05 Dose: Not Given Nystatin (Nystop Topical Powder) 0 gm TOP BID [facility] Stop: 04/03/18 18:00 Last Admin: 03/26/18 17:56 Dose: 1 applic Povidone Iodine (Betadine 10% Oint) 0 gm TOP Q8H [facility] Last Admin: 03/26/18 18:04 Dose: Not Given Saccharomyces Boulardii (Florastor) 250 mg PO BID [facility] Last Admin: 03/26/18 18:04 Dose: Not Given Simethicone (Mylicon Chew Tab) 80 mg PO TID [facility] Last Admin: 03/26/18 18:27 Dose: Not Given - Labs Labs: 03/26/18 08:09 03/26/18 08:09 PT 14.8 SECONDS (9.7-12.2) H 03/26/18 08:09 INR 1.3 03/26/18 08:09 APTT 31 SECONDS (21-34) 03/26/18 08:09 Assessment and Plan (1) Leukocytosis Status: Acute (2) Colonic obstruction Status: Acute (3) Proctitis Status: Acute (4) Constipation Status: Acute (5) Diabetes Status: Acute (6) HTN (hypertension) Status: Acute (7) Hip fracture Status: Acute
[2018-03-26] MEDS ORDERED: DiphenhydrAMINE 50 mg/ml Inj IVP STA (23:57)
[2018-03-27] MEDS: metroNIDAZOLE IV 500 mg/100 ml 500 MG/100 ML BAG IVPB SCH ×3 (05:12→22:45)
[2018-03-27] MEDS: Povidone Iodine Oint 10% (1 oz) TOP SCH ×3 (05:16→18:27)
--- NOTE | 2018-03-27 06:47 | CP.PCM.PN ---
Subjective - Date & Time of Evaluation Date of Evaluation: 03/27/18 Time of Evaluation: 06:47 - Subjective Subjective: General Surgery - Dr. Sabillon PT S&E. TYLER. Pt had relatively no output from the rectal tube overnight per nursing. He had had 300 from the NGT overnight, brown gastric drainage. He is now voiding on his own and OOB to chair with assistance. His only complaint is being unable to sleep last night. He denies any abdominal pain. Objective - Vital Signs/Intake and Output Vital Signs (last 24 hours): Temp Pulse Resp BP Pulse Ox 97.2 F L 104 H 20 165/72 H 96 03/26/18 23:20 03/26/18 23:20 03/26/18 23:20 03/26/18 23:20 03/26/18 23:20 Intake and Output: 03/26/18 03/27/18 18:59 06:59 Output Total 700 Balance -700 - Medications Medications: Current Medications Aspirin (Ecotrin) 81 mg PO DAILY [facility] Last Admin: 03/26/18 09:04 Dose: 81 mg Docusate Sodium (Colace) 100 mg PO BID [facility] Last Admin: 03/26/18 18:04 Dose: Not Given Enoxaparin Sodium (Lovenox) 40 mg SC DAILY [facility] Last Admin: 03/26/18 11:55 Dose: Not Given Home Med (Patient's Own Topical) 1 gm TOP TID [facility] Stop: 05/18/18 23:59 Last Admin: 03/26/18 17:56 Dose: 1 gm Home Med (Patient's Own Medication) 1 tab PO QPM [facility] Last Admin: 03/26/18 18:05 Dose: Not Given Hydralazine HCl (Apresoline) 10 mg IVP Q6H PRN PRN Reason: Systolic Blood Pressure Last Admin: 03/24/18 18:28 Dose: 10 mg Hydrocortisone (Anusol-Hc) 25 mg RC BID [facility] Stop: 04/07/18 10:01 Last Admin: 03/26/18 18:05 Dose: Not Given Metronidazole (Flagyl) 500 mg in 100 mls @ 100 mls/hr IVPB Q8 [facility] PRN Reason: Protocol Last Admin: 03/27/18 05:12 Dose: 100 mls/hr Ciprofloxacin (Cipro 400mg/200ml Dsw) 400 mg in 200 mls @ 133 mls/hr IVPB Q12H [facility] PRN Reason: Protocol Last Admin: 03/26/18 22:32 Dose: 133 mls/hr Potassium Chloride 40 meq/ (Sodium Chloride) 1,020 mls @ 125 mls/hr IV .Q8H10M [facility] Last Admin: 03/26/18 09:11 Dose: 125 mls/hr Insulin Human Regular (Novolin R) 0 unit SC ACHS [facility] PRN Reason: Protocol Last Admin: 03/26/18 22:03 Dose: Not Given Lidocaine HCl (Lidocaine Hydrochloride Jelly 2% 5 Ml) 0 ml TOP BID PRN PRN Reason: Other Metoprolol Tartrate (Lopressor) 50 mg PO BID [facility] Last Admin: 03/26/18 18:05 Dose: Not Given Nystatin (Nystop Topical Powder) 0 gm TOP BID [facility] Stop: 04/03/18 18:00 Last Admin: 03/26/18 17:56 Dose: 1 applic Povidone Iodine (Betadine 10% Oint) 0 gm TOP Q8H [facility] Last Admin: 03/27/18 05:16 Dose: Not Given Saccharomyces Boulardii (Florastor) 250 mg PO BID [facility] Last Admin: 03/26/18 18:04 Dose: Not Given Simethicone (Mylicon Chew Tab) 80 mg PO TID [facility] Last Admin: 03/26/18 18:27 Dose: Not Given - Labs Labs: 03/26/18 08:09 03/26/18 08:09 PT 14.8 SECONDS (9.7-12.2) H 03/26/18 08:09 INR 1.3 03/26/18 08:09 APTT 31 SECONDS (21-34) 03/26/18 08:09 - Constitutional Appears: No Acute Distress - Head Exam Head Exam: ATRAUMATIC, NORMAL INSPECTION, NORMOCEPHALIC - Eye Exam Eye Exam: Normal appearance - Respiratory Exam Respiratory Exam: NORMAL BREATHING PATTERN. absent: Respiratory Distress - GI/Abdominal Exam GI & Abdominal Exam: Distended (mild, greatly decreased from prior), Soft. absent: Firm, Guarding, Rigid, Tenderness, Rebound - Neurological Exam Neurological Exam: Alert, Oriented x3 - Psychiatric Exam Psychiatric exam: Normal Affect, Normal Mood - Skin Skin Exam: Dry, Intact Assessment and Plan - Assessment and Plan (Free Text) Assessment: 72M with severe post op ileus vs colonic obstruction, resolving Plan: -OK to start Ice Sips/Chips from our standpoint -Monitor Is/Os -Encourage OOB to chair and physical therapy -Further management per medical team -No surgical intervention at this time, will continue to follow until improved bowel function DW Dr Sabillon
[2018-03-27 08:52] LABS: BASO # 0.1 K/uL (0.0-0.2); BASO % 0.7 % (0.0-2.0); EOS # 0.5 K/uL (0.0-0.7); EOS % 2.8 % (0.0-4.0); HEMOGLOBIN 8.8 g/dL (12.0-18.0); LYMPH # 1.8 K/uL (1.0-4.3); LYMPH % 11.2 % (20.0-40.0); MEAN CORPUSCULAR HEMOGLOBIN 26.2 pg (27.0-31.0); MEAN CORPUSCULAR HGB CONC 31.6 g/dL (33.0-37.0); MEAN PLATELET VOLUME 9.6 fL (7.2-11.7); MONO # 1.4 K/uL (0.0-0.8); MONO % 8.4 % (0.0-10.0); NEUT # 12.5 K/uL (1.8-7.0); NEUT % 76.9 % (50.0-75.0); NRBC % 0.2 % (0.0-2.0); RBC 3.34 Mil/uL (4.40-5.90); RED CELL DISTRIBUTION WIDTH 16.9 % (11.5-14.5); WHITE BLOOD COUNT 16.3 K/uL (4.8-10.8)
--- NOTE | 2018-03-27 09:02 | CP.PCM.PN ---
<Crystal Valdez - Last Filed: 03/27/18 08:58> Subjective - Date & Time of Evaluation Date of Evaluation: 03/27/18 Time of Evaluation: 08:58 - Subjective Subjective: PGY2 progress note for Dr. Reyez Pt seen and examined at bedside. NGT tube and rectal tube in place. NGT tube draining dark brown/billious fluid. About 300 cc drained overnight. Rectal tube draining mild amount of brown fluid. Patient states that he is passing gas and had a bowel movement overnight. Patient also states that he is urinating on his own. Pt states abd pain has improved and denies having any bloating at this point. Per son, pt is tolerating small amount of ice chips and juice (even with NG tube in place). Currently denies having any LE pain, CP , SOB, N/V, F/C. Patient is insistent upon removing the NG tube. States that it is very uncomfortable. Objective - Vital Signs/Intake and Output Vital Signs (last 24 hours): Temp Pulse Resp BP Pulse Ox 98.6 F 106 H 20 164/79 H 96 03/27/18 07:00 03/27/18 07:00 03/27/18 07:00 03/27/18 07:00 03/27/18 07:00 Intake and Output: 03/27/18 03/27/18 06:59 18:59 Intake Total 1100 Output Total 700 500 Balance -700 600 - Medications Medications: Current Medications Aspirin (Ecotrin) 81 mg PO DAILY [facility] Last Admin: 03/26/18 09:04 Dose: 81 mg Docusate Sodium (Colace) 100 mg PO BID [facility] Last Admin: 03/26/18 18:04 Dose: Not Given Enoxaparin Sodium (Lovenox) 40 mg SC DAILY [facility] Last Admin: 03/26/18 11:55 Dose: Not Given Home Med (Patient's Own Topical) 1 gm TOP TID [facility] Stop: 05/18/18 23:59 Last Admin: 03/26/18 17:56 Dose: 1 gm Home Med (Patient's Own Medication) 1 tab PO QPM [facility] Last Admin: 03/26/18 18:05 Dose: Not Given Hydralazine HCl (Apresoline) 10 mg IVP Q6H PRN PRN Reason: Systolic Blood Pressure Last Admin: 03/24/18 18:28 Dose: 10 mg Hydrocortisone (Anusol-Hc) 25 mg RC BID [facility] Stop: 04/07/18 10:01 Last Admin: 03/26/18 18:05 Dose: Not Given Metronidazole (Flagyl) 500 mg in 100 mls @ 100 mls/hr IVPB Q8 [facility] PRN Reason: Protocol Last Admin: 03/27/18 05:12 Dose: 100 mls/hr Ciprofloxacin (Cipro 400mg/200ml Dsw) 400 mg in 200 mls @ 133 mls/hr IVPB Q12H [facility] PRN Reason: Protocol Last Admin: 03/26/18 22:32 Dose: 133 mls/hr Potassium Chloride 40 meq/ (Sodium Chloride) 1,020 mls @ 125 mls/hr IV .Q8H10M [facility] Last Admin: 03/26/18 09:11 Dose: 125 mls/hr Insulin Human Regular (Novolin R) 0 unit SC ACHS [facility] PRN Reason: Protocol Last Admin: 03/26/18 22:03 Dose: Not Given Lidocaine HCl (Lidocaine Hydrochloride Jelly 2% 5 Ml) 0 ml TOP BID PRN PRN Reason: Other Metoprolol Tartrate (Lopressor) 50 mg PO BID [facility] Last Admin: 03/26/18 18:05 Dose: Not Given Nystatin (Nystop Topical Powder) 0 gm TOP BID [facility] Stop: 04/03/18 18:00 Last Admin: 03/26/18 17:56 Dose: 1 applic Povidone Iodine (Betadine 10% Oint) 0 gm TOP Q8H [facility] Last Admin: 03/27/18 05:16 Dose: Not Given Saccharomyces Boulardii (Florastor) 250 mg PO BID [facility] Last Admin: 03/26/18 18:04 Dose: Not Given Simethicone (Mylicon Chew Tab) 80 mg PO TID [facility] Last Admin: 03/26/18 18:27 Dose: Not Given - Labs Labs: 03/27/18 08:36 03/26/18 08:09 PT 14.8 SECONDS (9.7-12.2) H 03/26/18 08:09 INR 1.3 03/26/18 08:09 APTT 31 SECONDS (21-34) 03/26/18 08:09 - Constitutional Appears: Non-toxic, No Acute Distress - Head Exam Head Exam: ATRAUMATIC - ENT Exam ENT Exam: Mucous Membranes Moist - Respiratory Exam Respiratory Exam: Clear to Ausculation Bilateral. absent: Accessory Muscle Use , Rales, Rhonchi, Wheezes, Respiratory Distress - Cardiovascular Exam Cardiovascular Exam: REGULAR RHYTHM, +S1, +S2. absent: Gallop, Rubs, Murmur - GI/Abdominal Exam GI & Abdominal Exam: Distended, Soft, Hyperactive Bowel Sounds. absent: Firm, Guarding, Rigid, Tenderness - Extremities Exam Extremities Exam: absent: Pedal Edema, Tenderness - Neurological Exam Neurological Exam: Alert, Awake, Oriented x3 - Psychiatric Exam Psychiatric exam: Normal Affect, Normal Mood - Skin Skin Exam: Dry, Intact, Normal Color, Warm Assessment and Plan - Assessment and Plan (Free Text) Assessment: Constipation -CT abd 03/21/18: rectosigmoid colonic wall thickening w/mass like irma w/ dilation of colon proximal thickening and large amount of stool and gas w/in colon. Suspicious for colon cancer Vs inflammatory mass 2/2 infectious inflam Vs stool related proctocolitis -Repeat CT abd/pelvis with PO contrast 03/26/18: Mural thickening of rectosigmoid colon and transverse colon suspicious of nonspecific colitis. No evidence of SBO. See full report for details. -GI ([facility]) - no decompression was perform -Surgery ([place]) - recommend pt advance to ice chips -Cipro/flagyl. Florastor -No pain medications on board. -Will repeat CT abd/pelvis without contrast today. If further decompresison noted, will Right Hip fracture -Right Subtrochanteric Femoral Fracture s/p ORIF with Long Hip Nail 03/19/18 -Ortho Dr. Bernabe - ok with positioning for scope -PT OT -Continue Aspirin Diabetes -ISS High -Hold home insulin as patient NPO -Likely a component gastroparesis HTN (hypertension) -hydralzine PRN -Lopressor 50 mg po BID Prophylactic measure -Lovenox 40sc qd -Simethicone Case discussed with attending, Dr. Reyez <Fernando Reeyz H - Last Filed: 03/27/18 10:45> Objective - Vital Signs/Intake and Output Vital Signs (last 24 hours): Temp Pulse Resp BP Pulse Ox 98.6 F 106 H 20 164/79 H 96 03/27/18 07:00 03/27/18 07:00 03/27/18 07:00 03/27/18 07:00 03/27/18 07:00 Intake and Output: 03/27/18 03/27/18 06:59 18:59 Intake Total 1100 Output Total 700 500 Balance -700 600 - Medications Medications: Current Medications Aspirin (Ecotrin) 81 mg PO DAILY [facility] Last Admin: 03/27/18 10:23 Dose: Not Given Docusate Sodium (Colace) 100 mg PO BID [facility] Last Admin: 03/27/18 10:23 Dose: Not Given Enoxaparin Sodium (Lovenox) 40 mg SC DAILY [facility] Last Admin: 03/27/18 10:28 Dose: 40 mg Home Med (Patient's Own Topical) 1 gm TOP TID [facility] Stop: 05/18/18 23:59 Last Admin: 03/27/18 10:24 Dose: Not Given Home Med (Patient's Own Medication) 1 tab PO QPM [facility] Last Admin: 03/26/18 18:05 Dose: Not Given Hydralazine HCl (Apresoline) 10 mg IVP Q6H PRN PRN Reason: Systolic Blood Pressure Last Admin: 03/24/18 18:28 Dose: 10 mg Hydrocortisone (Anusol-Hc) 25 mg RC BID [facility] Stop: 04/07/18 10:01 Last Admin: 03/26/18 18:05 Dose: Not Given Metronidazole (Flagyl) 500 mg in 100 mls @ 100 mls/hr IVPB Q8 [facility] PRN Reason: Protocol Last Admin: 03/27/18 05:12 Dose: 100 mls/hr Ciprofloxacin (Cipro 400mg/200ml Dsw) 400 mg in 200 mls @ 133 mls/hr IVPB Q12H [facility] PRN Reason: Protocol Last Admin: 03/27/18 10:29 Dose: 133 mls/hr Potassium Chloride 40 meq/ (Sodium Chloride) 1,020 mls @ 125 mls/hr IV .Q8H10M [facility] Last Admin: 03/26/18 09:11 Dose: 125 mls/hr Insulin Human Regular (Novolin R) 0 unit SC ACHS [facility] PRN Reason: Protocol Last Admin: 03/27/18 10:24 Dose: Not Given Lidocaine HCl (Lidocaine Hydrochloride Jelly 2% 5 Ml) 0 ml TOP BID PRN PRN Reason: Other Metoprolol Tartrate (Lopressor) 50 mg PO BID [facility] Last Admin: 03/27/18 10:23 Dose: Not Given Nystatin (Nystop Topical Powder) 0 gm TOP BID [facility] Stop: 04/03/18 18:00 Last Admin: 03/26/18 17:56 Dose: 1 applic Povidone Iodine (Betadine 10% Oint) 0 gm TOP Q8H [facility] Last Admin: 03/27/18 10:23 Dose: Not Given Saccharomyces Boulardii (Florastor) 250 mg PO BID [facility] Last Admin: 03/27/18 10:23 Dose: Not Given Simethicone (Mylicon Chew Tab) 80 mg PO TID [facility] Last Admin: 03/27/18 10:24 Dose: Not Given - Labs Labs: 03/27/18 08:36 03/27/18 08:36 PT 14.8 SECONDS (9.7-12.2) H 03/26/18 08:09 INR 1.3 03/26/18 08:09 APTT 31 SECONDS (21-34) 03/26/18 08:09 Attending/Attestation - Attestation I have personally seen and examined this patient.: Yes I have fully participated in the care of the patient.: Yes I have reviewed all pertinent clinical information, including history, physical exam and plan: Yes Notes (Text): 03/27/18 10:38 Medical attending: Patient was seen and examined by me as well. Agree with the above note by the resident The patient's family member, his son, was at bedside. Patient was ok with this and the son participated in discussion as well As mentioned previously, the patient has had a fracture of his femur and later had severe ileus/possible obstruction the following days. He has been mostly bed bound because of the recent fracture of the femur. Per review of notes, earlier in the week he had an NGT placed in after developed pain of the abdomen and CT showed very dilated GI tract findings. This first NGT helped the pain and it was later removed. Unfortunately he redeveloped again pain and the NGT was placed back in and 1300 cc of dark color was removed. He feels better this morning. He said the pain was less. He said he really wanted the NGT out despite it still having a dark brown color in. We will repeat the CT again of the abdomen and pelvis. The patient really wanted the NGT out however I explained to him that while he may feel fine now that the NGT was still suctioning out dark brown material and that we are getting a new CT thank you Fernando Reyez
[2018-03-27 09:19] LABS: ALB/GLOB RATIO 0.9 (1.0-2.1); ALBUMIN 2.7 g/dL (3.5-5.0); ALT/SGPT 15 U/L (21-72); AST/SGOT 19 U/L (17-59); BLOOD UREA NITROGEN 30 mg/dL (9-20); CALCIUM 8.2 mg/dl (8.6-10.4); GFR AFRICAN-AMERICAN > 60; GFR NON-AFRICAN AMERICAN > 60
[2018-03-27] MEDS: Saccharomyces Boulardi 250 mg Cap PO SCH ×2 (10:23→18:28)
[2018-03-27] MEDS: DILTIAZEM 2% TOP SCH ×3 (10:24→18:29)
[2018-03-27] MEDS: Simethicone 80 mg Chewtab PO SCH ×3 (10:24→18:28)
[2018-03-27] MEDS: (Novolin R) Insulin Human Regular 100 units/ml vial SC SCH ×4 (10:24→22:36)
[2018-03-27] MEDS: Enoxaparin 40 mg Syringe SC SCH (10:28)
--- NOTE | 2018-03-27 10:28 | CT ---
PROCEDURE: CT abdomen pelvis dated 03/27/2018 HISTORY: Rule out SBO COMPARISON: Comparison made with prior CT scan abdomen pelvis 03/26/2018 TECHNIQUE: Contiguous axial images of the abdomen and pelvis performed without oral or intravenous contrast material. Additional 2 dimensional sagittal and coronal the the the the the reformats generated. Radiation dose: Total exam DLP = This CT exam was performed using one or more of the following dose reduction techniques: Automated exposure control, adjustment of the mA and/or kV according to patient size, and/or use of iterative reconstruction technique. FINDINGS: LOWER THORAX: Small left-sided effusion and minor left basilar atelectasis. Trace right-sided effusion. Cardiomegaly. No significant pericardial effusion. In situ NGT, tip of which is located in the fundal region of the stomach. . LIVER: Liver exhibits normal size of. No obvious hepatic masses or collections. Small amount of perihepatic ascites present. GALLBLADDER AND BILE DUCTS: Probable cholelithiasis. PANCREAS: Pancreas appears slightly atrophic and fatty replaced. SPLEEN: Unremarkable. No splenomegaly. Tiny amount of perisplenic ascites. ADRENALS: Unremarkable. KIDNEYS AND URETERS: . No evidence of nephrolithiasis or hydronephrosis. Small exophytic cyst arising from the anteromedial aspect lower pole left kidney. . No change small partially exophytic hyperdense lesion anterior aspect midpole right kidney which could represent hyperdense cyst. BLADDER: Urinary bladder is physiologically distended. No evidence of intraluminal urinary bladder calculi. REPRODUCTIVE: Prostate gland mildly enlarged unchanged. APPENDIX: Normal appendix. BOWEL: Evaluation of the bowel is limited due to the lack of oral contrast material. Stomach is collapsed. . Re- demonstrated are multiple mildly distended air-filled and fluid-filled loops of small bowel. Small bowel loops appear less distended compared the prior exam No evidence of acute mechanical small bowel obstruction. There is a moderate amount of liquid stool present within distal descending and sigmoid colon as well as rectum. There is mild distention of the sigmoid colon. . In situ rectal tube is present. . Previously noted mild mural wall thickening of the distal sigmoid and rectum less well seen on this study due to the presence of fluid stool PERITONEUM: No free air. Infiltration changes within the subcutaneous tissues particularly along the right flank. LYMPH NODES: Unremarkable. No enlarged lymph nodes. VASCULATURE: Unremarkable. No aortic aneurysm. BONES: Status post ORIF changes right hip. Follow-up Mild multilevel degenerative spondylosis of the lower thoracic and lumbar spine. There is a very thin multilevel anterior bridging osteophyte and/or ossification of the anterior longitudinal ligament. Rule out ankylosing spondylitis. OTHER FINDINGS: None. IMPRESSION: There are multiple on minimally distended fluid-filled loops of small bowel. Loops of small bowel appear less distended. There is a moderate amount of stool within the distal descending colon, sigmoid and rectum of which obscured previously noted mural wall thickening of the distal sigmoid and rectum. In situ rectal tube. There is also in situ NG tube. . Small amount of perihepatic and perisplenic ascites. . Probable cholelithiasis. Infiltration changes are seen within the subcutaneous tissues particularly notable in the right flank Small left-sided effusion with suspected trace right effusion. ORIF changes right hip
[2018-03-27] MEDS: Ciprofloxacin 400mg/200ml D5W 400 MG/200 ML BAG IVPB SCH ×2 (10:29→22:44)
[2018-03-27] MEDS: Nystatin 100,000 Units/gm Topical Pow(15 gm) TOP SCH ×2 (10:43→18:29)
--- NOTE | 2018-03-27 12:50 | CP.PCM.PN ---
Subjective - Date & Time of Evaluation Date of Evaluation: 03/27/18 Time of Evaluation: 12:50 - Subjective Subjective: CHIEF COMPLAINTS TODAY : afebrile VSS IV INFILTRATED S/P NGT MUCH BILIOUS DRAINAGE PASSING FLATUS RECTAL TUBE - SCANTY DRAINAGE S/P RECTAL TUBE 03/25/18 ROS. 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 Musculoskel : N Ext. : Pedal pulses intact, no edema or calf pain RT. HIP DRESSING IN PLACE. Derm : N Psych : N. PE. Pt. is alert awake in no distress. +VE NG TUBE DRAINING BILIOUS DRAINAGE V.S As noted in the chart Head ,ear nose,throat and eyes : Normal. Neck : Supple with normal carotids. Lungs: Clear air entry. Heart : S1 & S2 normal . . No murmur. S4 + Abd : DISTENDED, DIFFUSE GENERALIZED TENDERNESS ON PALPATION, HYPOACTIVE BOWEL SOUNDS. Neuro : Moves all ext. with no localized deficit. Ext : RT HIP FRACTURE S/P ORIF, DRESSING C/D/I. with intact pulses. Neg. calf tenderness Derm : No rashes or decubitus ulcer. Radiology/Labs . 03/26/18 CT abdomen and pelvis by mouth contrast. Nonspecific nodular densities right lower lobe. Mural thickening rectosigmoid colon and transverse colon./Nonspecific colitis. -ve SBO./+NGT, +VE RECTAL TUBE. BLOOD CULTURES 03/21/18 -VE to date URINE CULTURE -VE GROWTH . Asssessment : LEUKOCYTOSIS. S/P SIGMOIDOSCOPY 03/24/18-FEACAL RETENTION/ NO MASS CHRONIC CONSTIPATION. PROCTOCOLITIS/ANAL FISSURE DIABETES MELLITUS. HYPERTENSION. MORBID OBESITY. S/P ORIF RT FEMUR FRACTURE/WITH NAILING. 03/19/18 Plan : PER GI LAXATIVES RECTAL TUBE IN PLACE/ NGT IN PLACE. CONTINUE iv ANTIBIOTICS- PATIENT PRESENTLY ON CIPRO/ IV fLAGYL. PER SURGERY Objective - Vital Signs/Intake and Output Vital Signs (last 24 hours): Temp Pulse Resp BP Pulse Ox 98.6 F 106 H 20 164/79 H 96 03/27/18 07:00 03/27/18 07:00 03/27/18 07:00 03/27/18 07:00 03/27/18 07:00 Intake and Output: 03/27/18 03/27/18 06:59 18:59 Intake Total 1100 Output Total 700 500 Balance -700 600 - Medications Medications: Current Medications Aspirin (Ecotrin) 81 mg PO DAILY [facility] Last Admin: 03/27/18 10:23 Dose: Not Given Docusate Sodium (Colace) 100 mg PO BID [facility] Last Admin: 03/27/18 10:23 Dose: Not Given Enoxaparin Sodium (Lovenox) 40 mg SC DAILY [facility] Last Admin: 03/27/18 10:28 Dose: 40 mg Home Med (Patient's Own Topical) 1 gm TOP TID [facility] Stop: 05/18/18 23:59 Last Admin: 03/27/18 10:24 Dose: Not Given Home Med (Patient's Own Medication) 1 tab PO QPM [facility] Last Admin: 03/26/18 18:05 Dose: Not Given Hydralazine HCl (Apresoline) 10 mg IVP Q6H PRN PRN Reason: Systolic Blood Pressure Last Admin: 03/24/18 18:28 Dose: 10 mg Hydrocortisone (Anusol-Hc) 25 mg RC BID [facility] Stop: 04/07/18 10:01 Last Admin: 03/27/18 10:41 Dose: Not Given Metronidazole (Flagyl) 500 mg in 100 mls @ 100 mls/hr IVPB Q8 [facility] PRN Reason: Protocol Last Admin: 03/27/18 05:12 Dose: 100 mls/hr Ciprofloxacin (Cipro 400mg/200ml Dsw) 400 mg in 200 mls @ 133 mls/hr IVPB Q12H [facility] PRN Reason: Protocol Last Admin: 03/27/18 10:29 Dose: 133 mls/hr Potassium Chloride 40 meq/ (Sodium Chloride) 1,020 mls @ 125 mls/hr IV .Q8H10M [facility] Last Admin: 03/26/18 09:11 Dose: 125 mls/hr Insulin Human Regular (Novolin R) 0 unit SC ACHS [facility] PRN Reason: Protocol Last Admin: 03/27/18 10:24 Dose: Not Given Lidocaine HCl (Lidocaine Hydrochloride Jelly 2% 5 Ml) 0 ml TOP BID PRN PRN Reason: Other Metoprolol Tartrate (Lopressor) 50 mg PO BID [facility] Last Admin: 03/27/18 10:23 Dose: Not Given Nystatin (Nystop Topical Powder) 0 gm TOP BID [facility] Stop: 04/03/18 18:00 Last Admin: 03/27/18 10:43 Dose: 1 applic Povidone Iodine (Betadine 10% Oint) 0 gm TOP Q8H [facility] Last Admin: 03/27/18 10:23 Dose: Not Given Saccharomyces Boulardii (Florastor) 250 mg PO BID [facility] Last Admin: 03/27/18 10:23 Dose: Not Given Simethicone (Mylicon Chew Tab) 80 mg PO TID [facility] Last Admin: 03/27/18 10:24 Dose: Not Given - Labs Labs: 03/27/18 08:36 03/27/18 08:36 PT 14.8 SECONDS (9.7-12.2) H 03/26/18 08:09 INR 1.3 03/26/18 08:09 APTT 31 SECONDS (21-34) 03/26/18 08:09 Assessment and Plan (1) Leukocytosis Status: Acute (2) Colonic obstruction Status: Acute (3) Proctitis Status: Acute (4) Constipation Status: Acute (5) Diabetes Status: Acute (6) HTN (hypertension) Status: Acute (7) Hip fracture Status: Acute
[2018-03-28] MEDS: Povidone Iodine Oint 10% (1 oz) TOP SCH ×3 (02:00→18:06)
[2018-03-28] MEDS: metroNIDAZOLE IV 500 mg/100 ml 500 MG/100 ML BAG IVPB SCH ×3 (05:05→22:33)
--- NOTE | 2018-03-28 09:31 | CP.PCM.PN ---
Subjective - Date & Time of Evaluation Date of Evaluation: 03/28/18 Time of Evaluation: 09:00 - Subjective Subjective: Patient pulled out his EGD last night. Son present at bed side like previous day. Both the patient and son were really concerned about rectal tube and continually asked if it could come out. They explain there is a history of rectal fissure and the tube is irritating the area greatly. Patient is denying abdominal pain at this moment. However I made it clear to them that given the long history of diabetes that he likely has diabetic gastroparesis - when combined with the recent large hip fracture and he is no longer actively walking - all of this makes him more at risk for things such as illeus/SBO. They are aware that if stomach pain returns that we may need to place back the NGT. The repeat CT showed multiple minimally distended loops of bowel that have decreased in size. Objective - Vital Signs/Intake and Output Vital Signs (last 24 hours): Temp Pulse Resp BP Pulse Ox 98.0 F 121 H 20 149/85 95 03/28/18 07:30 03/28/18 07:30 03/28/18 07:30 03/28/18 07:30 03/28/18 07:30 - Medications Medications: Current Medications Aspirin (Ecotrin) 81 mg PO DAILY [facility] Last Admin: 03/27/18 10:23 Dose: Not Given Docusate Sodium (Colace) 100 mg PO BID [facility] Last Admin: 03/27/18 18:28 Dose: Not Given Enoxaparin Sodium (Lovenox) 40 mg SC DAILY [facility] Last Admin: 03/27/18 10:28 Dose: 40 mg Home Med (Patient's Own Topical) 1 gm TOP TID [facility] Stop: 05/18/18 23:59 Last Admin: 03/27/18 18:29 Dose: Not Given Home Med (Patient's Own Medication) 1 tab PO QPM [facility] Last Admin: 03/27/18 18:29 Dose: Not Given Hydralazine HCl (Apresoline) 10 mg IVP Q6H PRN PRN Reason: Systolic Blood Pressure Last Admin: 03/27/18 18:27 Dose: 10 mg Hydrocortisone (Anusol-Hc) 25 mg RC BID [facility] Stop: 04/07/18 10:01 Last Admin: 03/27/18 18:27 Dose: Not Given Metronidazole (Flagyl) 500 mg in 100 mls @ 100 mls/hr IVPB Q8 [facility] PRN Reason: Protocol Last Admin: 03/28/18 05:05 Dose: 100 mls/hr Ciprofloxacin (Cipro 400mg/200ml Dsw) 400 mg in 200 mls @ 133 mls/hr IVPB Q12H [facility] PRN Reason: Protocol Last Admin: 03/27/18 22:44 Dose: 133 mls/hr Potassium Chloride 40 meq/ (Sodium Chloride) 1,020 mls @ 125 mls/hr IV .Q8H10M [facility] Last Admin: 03/27/18 21:23 Dose: Not Given Insulin Human Regular (Novolin R) 0 unit SC ACHS [facility] PRN Reason: Protocol Last Admin: 03/27/18 22:36 Dose: Not Given Lidocaine HCl (Lidocaine Hydrochloride Jelly 2% 5 Ml) 0 ml TOP BID PRN PRN Reason: Other Metoprolol Tartrate (Lopressor) 50 mg PO BID [facility] Last Admin: 03/27/18 18:28 Dose: Not Given Nystatin (Nystop Topical Powder) 0 gm TOP BID [facility] Stop: 04/03/18 18:00 Last Admin: 03/27/18 18:29 Dose: 1 applic Povidone Iodine (Betadine 10% Oint) 0 gm TOP Q8H [facility] Last Admin: 03/28/18 08:47 Dose: Not Given Saccharomyces Boulardii (Florastor) 250 mg PO BID [facility] Last Admin: 03/27/18 18:28 Dose: Not Given Simethicone (Mylicon Chew Tab) 80 mg PO TID [facility] Last Admin: 03/27/18 18:28 Dose: Not Given - Labs Labs: 03/27/18 08:36 03/27/18 08:36 PT 14.8 SECONDS (9.7-12.2) H 03/26/18 08:09 INR 1.3 03/26/18 08:09 APTT 31 SECONDS (21-34) 03/26/18 08:09 Assessment and Plan - Assessment and Plan (Free Text) Assessment: Constipation 03/28: He pulled out his NGT last night. I discussed with the patient and the family that should he redevelop pain we may have to put the NGT back in. Patient had repeat CT done which showed there is decreasing bowel loop distention. He is currently not in any pain at the moment, they kept asking for the rectal tune to be discontinued so we will remove this and see how he does. Remains NPO except ice chips We also discussed with the family given the history of diabetes - probably there is some diabetes gastroparesis that is affecting him as well. -CT abd 03/21/18: rectosigmoid colonic wall thickening w/mass like irma w/ dilation of colon proximal thickening and large amount of stool and gas w/in colon. Suspicious for colon cancer Vs inflammatory mass 2/2 infectious inflam Vs stool related proctocolitis -Repeat CT abd/pelvis with PO contrast 03/26/18: Mural thickening of rectosigmoid colon and transverse colon suspicious of nonspecific colitis. No evidence of SBO. See full report for details. -GI ([facility]) - no decompression was perform -Surgery ([facility]) - recommend pt advance to ice chips -Cipro/flagyl. Florastor -No pain medications on board. Right Hip fracture 03/28: Currently pain is controlled, continue with PT/OT -Right Subtrochanteric Femoral Fracture s/p ORIF with Long Hip Nail 03/19/18 -PT OT -Continue Aspirin Diabetes ISS High Hold home insulin as patient NPO Likely a component gastroparesis HTN (hypertension) -hydralzine PRN -Lopressor 50 mg po BID Prophylactic measure -Lovenox 40sc qd -Simethicone
--- NOTE | 2018-03-28 10:05 | CP.PCM.PN ---
Subjective - Date & Time of Evaluation Date of Evaluation: 03/28/18 Time of Evaluation: 07:30 - Subjective Subjective: Patient seen and examined at bedside this AM. Patient pulled out his NGT again last night. It had 1500cc's of fluid output prior to his pulling it out. Patient denies any abdominal pain but only pain in his rectum where the rectal tube is in place. has minimal liquid stool output in the tube but there appears to be more solid stool in the tube possibly clogging it. Objective - Vital Signs/Intake and Output Vital Signs (last 24 hours): Temp Pulse Resp BP Pulse Ox 98.0 F 121 H 20 149/85 95 03/28/18 07:30 03/28/18 07:30 03/28/18 07:30 03/28/18 07:30 03/28/18 07:30 - Medications Medications: Current Medications Aspirin (Ecotrin) 81 mg PO DAILY [facility] Last Admin: 03/27/18 10:23 Dose: Not Given Docusate Sodium (Colace) 100 mg PO BID [facility] Last Admin: 03/27/18 18:28 Dose: Not Given Enoxaparin Sodium (Lovenox) 40 mg SC DAILY [facility] Last Admin: 03/27/18 10:28 Dose: 40 mg Home Med (Patient's Own Topical) 1 gm TOP TID [facility] Stop: 05/18/18 23:59 Last Admin: 03/27/18 18:29 Dose: Not Given Home Med (Patient's Own Medication) 1 tab PO QPM [facility] Last Admin: 03/27/18 18:29 Dose: Not Given Hydralazine HCl (Apresoline) 10 mg IVP Q6H PRN PRN Reason: Systolic Blood Pressure Last Admin: 03/27/18 18:27 Dose: 10 mg Hydrocortisone (Anusol-Hc) 25 mg RC BID [facility] Stop: 04/07/18 10:01 Last Admin: 03/27/18 18:27 Dose: Not Given Metronidazole (Flagyl) 500 mg in 100 mls @ 100 mls/hr IVPB Q8 [facility] PRN Reason: Protocol Last Admin: 03/28/18 05:05 Dose: 100 mls/hr Ciprofloxacin (Cipro 400mg/200ml Dsw) 400 mg in 200 mls @ 133 mls/hr IVPB Q12H [facility] PRN Reason: Protocol Last Admin: 03/27/18 22:44 Dose: 133 mls/hr Potassium Chloride 40 meq/ (Sodium Chloride) 1,020 mls @ 125 mls/hr IV .Q8H10M [facility] Last Admin: 03/27/18 21:23 Dose: Not Given Insulin Human Regular (Novolin R) 0 unit SC ACHS [facility] PRN Reason: Protocol Last Admin: 03/27/18 22:36 Dose: Not Given Lidocaine HCl (Lidocaine Hydrochloride Jelly 2% 5 Ml) 0 ml TOP BID PRN PRN Reason: Other Metoprolol Tartrate (Lopressor) 50 mg PO BID [facility] Last Admin: 03/27/18 18:28 Dose: Not Given Nystatin (Nystop Topical Powder) 0 gm TOP BID [facility] Stop: 04/03/18 18:00 Last Admin: 03/27/18 18:29 Dose: 1 applic Povidone Iodine (Betadine 10% Oint) 0 gm TOP Q8H [facility] Last Admin: 03/28/18 08:47 Dose: Not Given Saccharomyces Boulardii (Florastor) 250 mg PO BID [facility] Last Admin: 03/27/18 18:28 Dose: Not Given Simethicone (Mylicon Chew Tab) 80 mg PO TID [facility] Last Admin: 03/27/18 18:28 Dose: Not Given - Labs Labs: 03/27/18 08:36 03/27/18 08:36 PT 14.8 SECONDS (9.7-12.2) H 03/26/18 08:09 INR 1.3 03/26/18 08:09 APTT 31 SECONDS (21-34) 03/26/18 08:09 - Constitutional Appears: Well, Non-toxic, No Acute Distress - Head Exam Head Exam: ATRAUMATIC, NORMOCEPHALIC - Eye Exam Eye Exam: Normal appearance. absent: Conjunctival injection, Scleral icterus - ENT Exam ENT Exam: Mucous Membranes Moist, Normal Oropharynx - Respiratory Exam Respiratory Exam: NORMAL BREATHING PATTERN. absent: Accessory Muscle Use, Respiratory Distress - GI/Abdominal Exam GI & Abdominal Exam: Distended (severely), Soft. absent: Tenderness - Extremities Exam Extremities Exam: absent: Calf Tenderness, Pedal Edema - Neurological Exam Neurological Exam: Alert, Awake, Oriented x3 - Psychiatric Exam Psychiatric exam: Normal Affect, Normal Mood - Skin Skin Exam: Dry, Normal Color, Warm Assessment and Plan - Assessment and Plan (Free Text) Assessment: 72M with colonic ileus vs obstruction CT abdomen and pelvis 03/27 (with NGT in place on suction): minimally distended fluid-filled loops of small bowel. Loops of small bowel appear less distended. There is a moderate amount of stool within the distal descending colon, sigmoid and rectum of which obscured previously noted mural wall thickening of the distal sigmoid and rectum. In situ rectal tube. There is also in situ NG tube. Small amount of perihepatic and perisplenic ascites. Plan: Keep patient on ice chips May consider D/C rectal tube or replacing with a larger rectal tube as there may be solid stool obstructing the rectal tube Monitor for nausea and vomiting encouraged participation with physical therapy following activity guidelines per ortho Follow up AM CBC/chem panel IVF discussed with Dr. Sabillon, further recommendations per him Shabana Jimenez, PGY2
[2018-03-28] MEDS: (Novolin R) Insulin Human Regular 100 units/ml vial SC SCH ×4 (10:24→22:19)
[2018-03-28] MEDS: Ciprofloxacin 400mg/200ml D5W 400 MG/200 ML BAG IVPB SCH ×2 (10:28→22:32)
[2018-03-28] MEDS: Enoxaparin 40 mg Syringe SC SCH (10:28)
[2018-03-28] MEDS: Simethicone 80 mg Chewtab PO SCH ×3 (10:29→18:06)
[2018-03-28] MEDS: DILTIAZEM 2% TOP SCH ×3 (10:30→18:07)
[2018-03-28] MEDS: Saccharomyces Boulardi 250 mg Cap PO SCH ×2 (10:30→18:06)
[2018-03-28] MEDS: Nystatin 100,000 Units/gm Topical Pow(15 gm) TOP SCH ×2 (10:30→18:07)
[2018-03-28 19:55] LABS: BASO # 0.1 K/uL (0.0-0.2); BASO % 0.4 % (0.0-2.0); EOS # 0.2 K/uL (0.0-0.7); HEMOGLOBIN 9.4 g/dL (12.0-18.0); LYMPH # 1.2 K/uL (1.0-4.3); LYMPH % 7.4 % (20.0-40.0); MEAN CELL VOLUME 82.4 fL (80.0-94.0); MEAN CORPUSCULAR HEMOGLOBIN 25.9 pg (27.0-31.0); MEAN CORPUSCULAR HGB CONC 31.4 g/dL (33.0-37.0); MEAN PLATELET VOLUME 9.6 fL (7.2-11.7); MONO # 1.5 K/uL (0.0-0.8); MONO % 9.4 % (0.0-10.0); NEUT # 13.4 K/uL (1.8-7.0); NEUT % 81.8 % (50.0-75.0); NRBC % 0.4 % (0.0-2.0); PLATELET COUNT 456 K/uL (130-400); RBC 3.61 Mil/uL (4.40-5.90); RED CELL DISTRIBUTION WIDTH 16.8 % (11.5-14.5); WHITE BLOOD COUNT 16.4 K/uL (4.8-10.8)
[2018-03-28 20:08] LABS: BLOOD UREA NITROGEN 23 mg/dL (9-20); CALCIUM 8.4 mg/dl (8.6-10.4); GFR AFRICAN-AMERICAN > 60; GFR NON-AFRICAN AMERICAN > 60
[2018-03-28 20:21] LABS: ANISOCYTOSIS SLIGHT; BASOPHIL 1 % (0-2); EOSINOPHIL 1 % (0-4); LYMPHOCYTE 13 % (20-40); MONOCYTE 8 % (0-10); NEUTROPHIL 77 % (50-75); PLATELET ESTIMATE SLIGHTLY INCREASED (NORMAL); POIKILOCYTOSIS SLIGHT; TOTAL CELLS COUNTED 100
[2018-03-28 20:22] LABS: HYPOCHROMIC SLIGHT; LARGE PLATELETS PRESENT; OVALOCYTES SLIGHT; POLYCHROMIC SLIGHT
--- NOTE | 2018-03-28 22:02 | CARD ---
APPROVED REPORT EKG Measurement Heart [id number] OK 150P16 [id number] <Conclusion> Normal sinus rhythm Possible Left atrial enlargement Inferior infarct, age undetermined Abnormal ECG
--- NOTE | 2018-03-29 01:03 | CP.PCM.PN ---
Subjective - Date & Time of Evaluation Date of Evaluation: 03/29/18 Time of Evaluation: 01:00 - Subjective Subjective: paged at 12:30Am for SOB, abdominal distention patient is adamant about not having tube placed explained that patient could have rupture of his intestines if he does not get tube placed patient continues to refuse ordered EKG; looks unchanged from previous; sinus tachycardia with no ST T wave changes ordered ESTHER ordered chest X-Ray Patient is diaphoretic, tachycardic with shortness of breath lungs with rhonci/rales on the right side satting 96% on RA will attempt to convince him to get NGT placed again. Tao Fisher PGY2 Objective - Vital Signs/Intake and Output Vital Signs (last 24 hours): Temp Pulse Resp BP Pulse Ox 97.5 F L 90 20 150/76 95 03/28/18 23:20 03/28/18 23:20 03/28/18 23:20 03/28/18 23:20 03/28/18 23:20 - Medications Medications: Current Medications Aspirin (Ecotrin) [address] [facility] Last Admin: 03/28/18 10:30 Dose: 81 mg Docusate Sodium (Colace) [address] [facility] Last Admin: 03/28/18 18:06 Dose: 100 mg Enoxaparin Sodium (Lovenox) [address] [facility] Last Admin: 03/28/18 10:28 Dose: 40 mg Home Med (Patient's Own Topical) [address] [facility] Stop: 05/18/18 23:59 Last Admin: 03/28/18 18:07 Dose: 1 gm Home Med (Patient's Own Medication) [address] [facility] Last Admin: 03/28/18 18:07 Dose: 1 tab Hydralazine HCl (Apresoline) 10 mg IVP Q6H PRN PRN Reason: Systolic Blood Pressure Last Admin: 03/27/18 18:27 Dose: 10 mg Hydrocortisone (Anusol-Hc) [address] [facility] Stop: 04/07/18 10:01 Last Admin: 03/28/18 18:06 Dose: Not Given Metronidazole (Flagyl) 500 mg in 100 mls @ 100 mls/hr IVPB Q8 [facility] PRN Reason: Protocol Last Admin: 03/28/18 22:33 Dose: 100 mls/hr Ciprofloxacin (Cipro 400mg/200ml Dsw) 400 mg in 200 mls @ 133 mls/hr IVPB Q12H [facility] PRN Reason: Protocol Last Admin: 03/28/18 22:32 Dose: 133 mls/hr Potassium Chloride 40 meq/ (Sodium Chloride) 1,020 mls @ 125 mls/hr IV .Q8H10M [facility] Last Admin: 03/28/18 18:07 Dose: Not Given Insulin Human Regular (Novolin R) 0 unit SC ACHS [facility] PRN Reason: Protocol Last Admin: 03/28/18 22:19 Dose: Not Given Lidocaine HCl (Lidocaine Hydrochloride Jelly 2% 5 Ml) 0 ml TOP BID PRN PRN Reason: Other Metoprolol Tartrate (Lopressor) [address] [facility] Last Admin: 03/28/18 18:06 Dose: 50 mg Mirtazapine (Remeron) [address] [facility] Last Admin: 03/28/18 22:32 Dose: 15 mg Nystatin (Nystop Topical Powder) [address] [facility] Stop: 04/03/18 18:00 Last Admin: 03/28/18 18:07 Dose: 1 applic Povidone Iodine (Betadine 10% Oint) [address] [facility] Last Admin: 03/28/18 18:06 Dose: Not Given Saccharomyces Boulardii (Florastor) [address] [facility] Last Admin: 03/28/18 18:06 Dose: 250 mg Simethicone (Mylicon Chew Tab) [address] [facility] Last Admin: 03/28/18 18:06 Dose: 80 mg - Labs Labs: 03/28/18 19:45 03/28/18 19:45 PT 14.8 SECONDS (9.7-12.2) H 03/26/18 08:09 INR 1.3 03/26/18 08:09 APTT 31 SECONDS (21-34) 03/26/18 08:09
[2018-03-29] MEDS ORDERED: Albuterol-Ipratrop 3 mg / 0.5 (3 ml) UD INH PRN (01:24)
[2018-03-29] MEDS ORDERED: Albuterol-Ipratrop 3 mg / 0.5 (3 ml) UD INH STA (01:24)
[2018-03-29] MEDS: Povidone Iodine Oint 10% (1 oz) TOP SCH ×2 (01:40→13:10)
[2018-03-29 02:20] LABS: CK-MB 4.08 ng/mL (0.0-3.38)
[2018-03-29] MEDS: metroNIDAZOLE IV 500 mg/100 ml 500 MG/100 ML BAG IVPB SCH ×2 (05:56→14:40)
[2018-03-29] MEDS ORDERED: Phenol Topical 1.4% Throat Spray (180 ml) MT PRN (06:57)
--- NOTE | 2018-03-29 08:13 | CP.PCM.PN ---
Subjective - Date & Time of Evaluation Date of Evaluation: 03/29/18 Time of Evaluation: 08:09 - Subjective Subjective: PGY-1 surgery progress note for Dr Sabillon. Overnight patient felt nauseous after taking a sip of water and became diaphoretic. EKG and ESTHER was done. residential leasing manager, Dr Jimenez, evaluated patient and placed NGT tube which drained 750ml bile colored liquid - patient stated he felt comfortable after NGT insertion. Today patient stated he's passing flatus and is having small bowel movements. Objective - Vital Signs/Intake and Output Vital Signs (last 24 hours): Temp Pulse Resp BP Pulse Ox 97.5 F L 90 20 150/76 95 03/28/18 23:20 03/28/18 23:20 03/28/18 23:20 03/28/18 23:20 03/28/18 23:20 Intake and Output: 03/29/18 03/29/18 06:59 18:59 Intake Total 1000 Output Total 950 Balance 50 - Medications Medications: Current Medications Aspirin (Ecotrin) 81 mg PO DAILY [facility] Last Admin: 03/28/18 10:30 Dose: 81 mg Diphenhydramine HCl (Benadryl) 12.5 mg PO Q8H [facility] Docusate Sodium (Colace) 100 mg PO BID [facility] Last Admin: 03/28/18 18:06 Dose: 100 mg Enoxaparin Sodium (Lovenox) 40 mg SC DAILY [facility] Last Admin: 03/28/18 10:28 Dose: 40 mg Home Med (Patient's Own Topical) 1 gm TOP TID [facility] Stop: 05/18/18 23:59 Last Admin: 03/28/18 18:07 Dose: 1 gm Home Med (Patient's Own Medication) 1 tab PO QPM [facility] Last Admin: 03/28/18 18:07 Dose: 1 tab Hydralazine HCl (Apresoline) 10 mg IVP Q6H PRN PRN Reason: Systolic Blood Pressure Last Admin: 03/27/18 18:27 Dose: 10 mg Hydrocortisone (Anusol-Hc) 25 mg RC BID [facility] Stop: 04/07/18 10:01 Last Admin: 03/28/18 18:06 Dose: Not Given Metronidazole (Flagyl) 500 mg in 100 mls @ 100 mls/hr IVPB Q8 [facility] PRN Reason: Protocol Last Admin: 03/29/18 05:56 Dose: 100 mls/hr Ciprofloxacin (Cipro 400mg/200ml Dsw) 400 mg in 200 mls @ 133 mls/hr IVPB Q12H [facility] PRN Reason: Protocol Last Admin: 03/28/18 22:32 Dose: 133 mls/hr Potassium Chloride 40 meq/ (Sodium Chloride) 1,020 mls @ 125 mls/hr IV .Q8H10M [facility] Last Admin: 03/29/18 05:53 Dose: 125 mls/hr Insulin Human Regular (Novolin R) 0 unit SC ACHS [facility] PRN Reason: Protocol Last Admin: 03/28/18 22:19 Dose: Not Given Lidocaine HCl (Lidocaine Hydrochloride Jelly 2% 5 Ml) 0 ml TOP BID PRN PRN Reason: Other Metoclopramide HCl (Reglan) 5 mg PO Q8H [facility] Metoprolol Tartrate (Lopressor) 50 mg PO BID [facility] Last Admin: 03/28/18 18:06 Dose: 50 mg Nystatin (Nystop Topical Powder) 0 gm TOP BID [facility] Stop: 04/03/18 18:00 Last Admin: 03/28/18 18:07 Dose: 1 applic Phenol/Menthol (Phenaseptic 1.4% Throat [place]) 1 ml MT Q2H PRN PRN Reason: Sore Throat Povidone Iodine (Betadine 10% Oint) 0 gm TOP Q8H [facility] Last Admin: 03/29/18 01:40 Dose: Not Given Saccharomyces Boulardii (Florastor) 250 mg PO BID [facility] Last Admin: 03/28/18 18:06 Dose: 250 mg Simethicone (Mylicon Chew Tab) 80 mg PO TID [facility] Last Admin: 03/28/18 18:06 Dose: 80 mg - Labs Labs: 03/28/18 19:45 03/28/18 19:45 PT 14.8 SECONDS (9.7-12.2) H 03/26/18 08:09 INR 1.3 03/26/18 08:09 APTT 31 SECONDS (21-34) 03/26/18 08:09 - Additional Findings Additional findings: - Constitutional Appears: Well, Non-toxic, No Acute Distress - Head Exam Head Exam: ATRAUMATIC, NORMOCEPHALIC - Eye Exam Eye Exam: Normal appearance. absent: Conjunctival injection, Scleral icterus - ENT Exam ENT Exam: Mucous Membranes Moist, Normal Oropharynx - Respiratory Exam Respiratory Exam: NORMAL BREATHING PATTERN. absent: Accessory Muscle Use, Respiratory Distress - GI/Abdominal Exam GI & Abdominal Exam: Distended (severely), Soft. absent: Tenderness - Extremities Exam Extremities Exam: absent: Calf Tenderness, Pedal Edema - Neurological Exam Neurological Exam: Alert, Awake, Oriented x3 - Psychiatric Exam Psychiatric exam: Normal Affect, Normal Mood - Skin Skin Exam: Dry, Normal Color, Warm Assessment and Plan - Assessment and Plan (Free Text) Assessment: 72M with colonic/small bowel ileus vs obstruction CT abdomen and pelvis 03/27 (with NGT in place on suction): minimally distended fluid-filled loops of small bowel. Loops of small bowel appear less distended. There is a moderate amount of stool within the distal descending colon, sigmoid and rectum of which obscured previously noted mural wall thickening of the distal sigmoid and rectum. In situ rectal tube. There is also in situ NG tube. Small amount of perihepatic and perisplenic ascites. Plan: Latest CT shows improvement Keep patient on ice chips Rectal tube discontinued Monitor for nausea and vomiting Encouraged participation with physical therapy following activity guidelines per ortho IVF - consider TPN as patient has been NPO now for many days Status post colonoscopy which did not show any significant findings discussed with Dr. Sabillon, further recommendations per him
[2018-03-29 08:30] LABS: BASO # 0.1 K/uL (0.0-0.2); BASO % 0.6 % (0.0-2.0); EOS # 0.1 K/uL (0.0-0.7); EOS % 0.2 % (0.0-4.0); HEMOGLOBIN 10.2 g/dL (12.0-18.0); LYMPH # 1.2 K/uL (1.0-4.3); LYMPH % 5.4 % (20.0-40.0); MEAN CELL VOLUME 83.7 fL (80.0-94.0); MEAN CORPUSCULAR HEMOGLOBIN 26.3 pg (27.0-31.0); MEAN CORPUSCULAR HGB CONC 31.4 g/dL (33.0-37.0); MEAN PLATELET VOLUME 9.9 fL (7.2-11.7); MONO # 1.3 K/uL (0.0-0.8); NEUT # 19.7 K/uL (1.8-7.0); NEUT % 87.8 % (50.0-75.0); NRBC % 0.4 % (0.0-2.0); PLATELET COUNT 483 K/uL (130-400); RBC 3.88 Mil/uL (4.40-5.90); RED CELL DISTRIBUTION WIDTH 16.9 % (11.5-14.5); WHITE BLOOD COUNT 22.4 K/uL (4.8-10.8)
--- NOTE | 2018-03-29 08:35 | RAD ---
Chest x-ray single frontal view History: Shortness breath. Comparison: 03/26/2018 Findings: Interval removal of a nasogastric tube. Prominent linear nodular consolidative opacification/opacities within the left mid to lower lung zone. Small left pleural effusion. Cardiomegaly. Venous congestion. Degenerative changes in the spine and shoulders. Impression: Interval removal of a nasogastric tube. Prominent linear nodular consolidative opacification/opacities within the left mid to lower lung zone. Small left pleural effusion. Cardiomegaly. Venous congestion.
[2018-03-29 08:43] LABS: BLOOD UREA NITROGEN 28 mg/dL (9-20); CALCIUM 8.9 mg/dl (8.6-10.4); GFR AFRICAN-AMERICAN > 60; GFR NON-AFRICAN AMERICAN 54
[2018-03-29] MEDS: (Novolin R) Insulin Human Regular 100 units/ml vial SC SCH ×3 (08:56→17:41)
[2018-03-29 09:29] LABS: BANDS 22 % (0-2); LYMPHOCYTE 2 % (20-40); MONOCYTE 2 % (0-10); MYELOCYTE 1 % (0-0); NEUTROPHIL 73 % (50-75); PLATELET ESTIMATE SLIGHTLY INCREASED (NORMAL); TOTAL CELLS COUNTED 100
[2018-03-29 09:30] LABS: ANISOCYTOSIS SLIGHT; HYPOCHROMIC SLIGHT; TOXIC GRANULATION PRESENT
--- NOTE | 2018-03-29 10:23 | PCM.ANES ---
Anesthesia Emergent Intubation - Diagnosis Working Diagnosis:: Asystole - Intubation Attempts Previous Number of Intubation Attempts:: 1 - Pre-Intubation Vital Signs Oxygen Delivery Method: Ambu-Bag Level Of Consciousness: Comatose/Unresponsive - Airway Management Oropharyngeal Area Suctioned: No Rapid Sequence: No Cricoid Pressure: No Possible Aspiration: Yes (Patient possibly aspirated prior to my arrival) - Method of Intubation ETT Size: 7.5 - Intubation Devices Chata Blade Size Used: 3 - Placement Confirmation Positive EtCO2: Yes Recommendations: Ventilator
--- NOTE | 2018-03-29 11:40 | CP.PCM.CON ---
History of Present Illness - History of Present Illness History of Present Illness: Code Status: Now DNR. Critical Care consult note for Dr. May This is a 72 year old male with PMHx HTN, DM, CAD who initially presented to the hospital after a fall. Patient diagnosed with right subtrocahnteric femoral fracture and had ORIF on 03/19/18. He developed post op illeus and has had NGT on suction intermittently during hospital course. At around 10:00 this morning, patient found unresponsive and had code blue called. ACLS protocol initiated with ROSC in about 20 minutes. Patient intubated, emergency femoral TLC was placed, and NGT placed/set on suction. Patient transferred to the ICU. Per chart review: PMHx: hypertension, diabetes, CAD, arthritis of the knees, and obesity PSHx: Right hip ORIF 03/19/18 Allergies: none Social Hx: Current smoker. Denies alcohol or other drug use. Retired, lives with 2 sons and . Family Hx: both parents with diabetes Review of Systems - Review of Systems Systems not reviewed;Unavailable: Acuity of Condition, Intubated Past Patient History - Past Medical History & Family History Past Medical History?: Yes - Past Social History Smoking Status: Never Smoked - CARDIAC Hx Hypertension: Yes - PULMONARY Hx Sleep Apnea: Yes - NEUROLOGICAL Hx Neurological Disorder: No - HEENT Hx HEENT Problems: Yes Hx Cataracts: Yes (BILAT IOL) Hx Glaucoma: Yes - RENAL Hx Chronic Kidney Disease: No - ENDOCRINE/METABOLIC Hx Diabetes Mellitus Type 2: Yes - HEMATOLOGICAL/ONCOLOGICAL Hx Blood Disorders: No - INTEGUMENTARY Hx Dermatological Problems: Yes (REDDNESS BLE) Other/Comment: FUNGAL INFECTION BILATERAL GROINS - MUSCULOSKELETAL/RHEUMATOLOGICAL Hx Arthritis: Yes (KNEES) - GASTROINTESTINAL Hx Gastrointestinal Disorders: Yes (HEMORRHOIDS CONSTIPATION) Other/Comment: hx anal fissure - GENITOURINARY/GYNECOLOGICAL Hx Genitourinary Disorders: Yes Hx Prostate Problems: Yes - PSYCHIATRIC Hx Substance Use: No - SURGICAL HISTORY Hx Surgeries: Yes Hx Cataract Extraction: Yes (CAT EXT IOL BILAT) - ANESTHESIA Hx Anesthesia: Yes Hx Anesthesia Reactions: No Hx Malignant Hyperthermia: No Meds Allergies/Adverse Reactions: Allergies Allergy/AdvReac Type Severity Reaction Status Date / Time No Known Allergies Allergy Verified 07/16/17 07:37 - Medications Medications: Current Medications Aspirin (Ecotrin) 81 mg PO DAILY [facility] Last Admin: 04/29/18 10:30 Dose: 81 mg Diphenhydramine HCl (Benadryl) 12.5 mg PO Q8H [facility] Docusate Sodium (Colace) 100 mg PO BID [facility] Last Admin: 03/28/18 18:06 Dose: 100 mg Enoxaparin Sodium (Lovenox) 40 mg SC DAILY [facility] Last Admin: 03/28/18 10:28 Dose: 40 mg Home Med (Patient's Own Topical) 1 gm TOP TID [facility] Stop: 05/18/18 23:59 Last Admin: 03/28/18 18:07 Dose: 1 gm Home Med (Patient's Own Medication) 1 tab PO QPM [facility] Last Admin: 03/28/18 18:07 Dose: 1 tab Hydralazine HCl (Apresoline) 10 mg IVP Q6H PRN PRN Reason: Systolic Blood Pressure Last Admin: 03/27/18 18:27 Dose: 10 mg Hydrocortisone (Anusol-Hc) 25 mg RC BID [facility] Stop: 04/07/18 10:01 Last Admin: 03/28/18 18:06 Dose: Not Given Metronidazole (Flagyl) 500 mg in 100 mls @ 100 mls/hr IVPB Q8 [facility] PRN Reason: Protocol Last Admin: 03/29/18 05:56 Dose: 100 mls/hr Ciprofloxacin (Cipro 400mg/200ml Dsw) 400 mg in 200 mls @ 133 mls/hr IVPB Q12H [facility] PRN Reason: Protocol Last Admin: 03/28/18 22:32 Dose: 133 mls/hr Potassium Chloride 40 meq/ (Sodium Chloride) 1,020 mls @ 125 mls/hr IV .Q8H10M [facility] Last Admin: 03/29/18 05:53 Dose: 125 mls/hr Insulin Human Regular (Novolin R) 0 unit SC ACHS [facility] PRN Reason: Protocol Last Admin: 03/29/18 08:56 Dose: 2 unit Lidocaine HCl (Lidocaine Hydrochloride Jelly 2% 5 Ml) 0 ml TOP BID PRN PRN Reason: Other Metoclopramide HCl (Reglan) 5 mg PO Q8H [facility] Metoprolol Tartrate (Lopressor) 50 mg PO BID [facility] Last Admin: 03/28/18 18:06 Dose: 50 mg Nystatin (Nystop Topical Powder) 0 gm TOP BID [facility] Stop: 04/03/18 18:00 Last Admin: 03/28/18 18:07 Dose: 1 applic Phenol/Menthol (Phenaseptic 1.4% Throat [place]) 1 ml MT Q2H PRN PRN Reason: Sore Throat Povidone Iodine (Betadine 10% Oint) 0 gm TOP Q8H [facility] Last Admin: 03/29/18 01:40 Dose: Not Given Saccharomyces Boulardii (Florastor) 250 mg PO BID [facility] Last Admin: 03/28/18 18:06 Dose: 250 mg Simethicone (Mylicon Chew Tab) 80 mg PO TID [facility] Last Admin: 03/28/18 18:06 Dose: 80 mg Physical Exam - Constitutional Appears: Chronically Ill - Head Exam Head Exam: ATRAUMATIC, NORMOCEPHALIC - Eye Exam Eye Exam: absent: Normal appearance (arcus senilus bilateral) Pupil Exam: Fixed, Mydriatic - ENT Exam ENT Exam: Mucous Membranes Moist Additional comments: ETT and NGT in place - Respiratory Exam Respiratory Exam: Rales, Wheezes. absent: Rhonchi Additional comments: On ventilator - Cardiovascular Exam Cardiovascular Exam: Tachycardia, +S1, +S2 - GI/Abdominal Exam GI & Abdominal Exam: Distended, Hypoactive Bowel Sounds, Soft - Extremities Exam Extremities exam: Positive for: pedal edema - Neurological Exam Additional comments: Brain stem reflexes not intact Unresponsive - Skin Skin Exam: Dry, Warm Results - Vital Signs Recent Vital Signs: Last Vital Signs Temp 98.1 F 03/29/18 08:38 Pulse 66 03/29/18 08:38 Resp 20 03/29/18 08:38 BP 132/71 03/29/18 08:38 Pulse Ox 100 03/29/18 08:38 - Labs Result Diagrams: 03/29/18 08:20 03/29/18 08:20 Labs: Laboratory Results - last 24 hr 03/28/18 03/28/18 03/28/18 17:17 19:45 19:45 WBC 16.4 H RBC 3.61 L Hgb 9.4 L Hct 29.8 L MCV 82.4 MCH 25.9 L MCHC 31.4 L RDW 16.8 H Plt Count 456 H MPV 9.6 Neut % (Auto) 81.8 H Lymph % (Auto) 7.4 L [place] % (Auto) 9.4 Eos % (Auto) 1.0 Baso % (Auto) 0.4 Neut # (Auto) 13.4 H Lymph # (Auto) 1.2 [place] # (Auto) 1.5 H Eos # (Auto) 0.2 Baso # (Auto) 0.1 Neutrophils % (Manual) 77 H Band Neutrophils % Lymphocytes % (Manual) 13 L Monocytes % (Manual) 8 Eosinophils % (Manual) 1 Basophils % (Manual) 1 Myelocytes % Toxic Granulation Platelet Estimate Slightly increased H Large Platelets Present Polychromasia Slight Hypochromasia (manual) Slight Poikilocytosis (manual Slight Anisocytosis (manual) Slight Ovalocytes Slight Sodium 151 H Potassium 4.2 Chloride 114 H Carbon Dioxide 26 Anion Gap 15 BUN 23 H Creatinine 1.0 Est GFR ( Amer) > 60 Est GFR (Non-Af Amer) > 60 POC Glucose (mg/dL) 182 H Random Glucose 189 H Calcium 8.4 L Phosphorus 3.2 Magnesium 2.2 Total Creatine Kinase CK-MB (Mass) Troponin I 03/28/18 03/29/18 03/29/18 20:59 01:17 06:21 WBC RBC Hgb Hct MCV MCH MCHC RDW Plt Count MPV Neut % (Auto) Lymph % (Auto) [place] % (Auto) Eos % (Auto) Baso % (Auto) Neut # (Auto) Lymph # (Auto) [place] # (Auto) Eos # (Auto) Baso # (Auto) Neutrophils % (Manual) Band Neutrophils % Lymphocytes % (Manual) Monocytes % (Manual) Eosinophils % (Manual) Basophils % (Manual) Myelocytes % Toxic Granulation Platelet Estimate Large Platelets Polychromasia Hypochromasia (manual) Poikilocytosis (manual Anisocytosis (manual) Ovalocytes Sodium Potassium Chloride Carbon Dioxide Anion Gap BUN Creatinine Est GFR ( Amer) Est GFR (Non-Af Amer) POC Glucose (mg/dL) 178 H 160 H Random Glucose Calcium Phosphorus Magnesium Total Creatine Kinase 45 L CK-MB (Mass) 4.08 H Troponin I < 0.0120 03/29/18 03/29/18 08:20 08:20 WBC 22.4 H RBC 3.88 L Hgb 10.2 L Hct 32.5 L MCV 83.7 MCH 26.3 L MCHC 31.4 L RDW 16.9 H Plt Count 483 H MPV 9.9 Neut % (Auto) 87.8 H Lymph % (Auto) 5.4 L [place] % (Auto) 6.0 Eos % (Auto) 0.2 Baso % (Auto) 0.6 Neut # (Auto) 19.7 H Lymph # (Auto) 1.2 [place] # (Auto) 1.3 H Eos # (Auto) 0.1 Baso # (Auto) 0.1 Neutrophils % (Manual) 73 Band Neutrophils % 22 H* Lymphocytes % (Manual) 2 L Monocytes % (Manual) 2 Eosinophils % (Manual) Basophils % (Manual) Myelocytes % 1 H Toxic Granulation Present Platelet Estimate Slightly increased H Large Platelets Polychromasia Hypochromasia (manual) Slight Poikilocytosis (manual Anisocytosis (manual) Slight Ovalocytes Sodium 151 H Potassium 5.2 Chloride 114 H Carbon Dioxide 23 Anion Gap 20 BUN 28 H Creatinine 1.3 Est GFR ( Amer) > 60 Est GFR (Non-Af Amer) 54 POC Glucose (mg/dL) Random Glucose 168 H Calcium 8.9 Phosphorus 4.1 Magnesium 2.2 Total Creatine Kinase CK-MB (Mass) Troponin I Assessment & Plan - Assessment and Plan (Free Text) Assessment: This is a 72 year old male with PMHx HTN, DM, CAD who went into cardiac arrest with v-fib and torsades de pointes. ROSC was about 20 minutes after the start of code blue. Patient now in the ICU intubated and on pressors. Family at this time wishes for DNR and terminal extubation; however, the patient's wishes were to extubate only if no change after 1 day on the ventilator. Patient now DNR at this time. Possible terminal extubation tomorrow. Neuro Intubated, not sedated Unresponsive Cardio Assessment: Cardiac Arrest, History of CAD, History of HTN Currently on Levophed and Dopamine drips ASA 81 mg PO daily Pulm Intubated and on the ventilator GI Assessment: Post op Illeus, abdominal distention NPO Will need to re-insert NGT. Current one was not suctioning Endocrine Assessment: DM Regular ISS Renal Monitor Infectious Disease Cipro and Flagyl switched to Zosyn per ID Prophylaxis Lovenox SC daily Discussed with Dr. May
[2018-03-29 12:16] LABS: ARTERIAL BLOOD GAS O2 SAT 95.1 % (95-98); ARTERIAL BLOOD GAS PCO2 48 mm/Hg (35-45); ARTERIAL BLOOD GAS PH 7.14 (7.35-7.45); ARTERIAL BLOOD GAS PO2 88 mm/Hg (80-100); ARTERIAL BLOOD GAS TCO2 17.8 mmol/L (22-28)
--- NOTE | 2018-03-29 12:46 | RAD ---
Chest x-ray single frontal view History: Intubation. Comparison: 03/29/2018 Findings: Endotracheal tube extending towards the proximal right mainstem bronchus. Retraction approximately 2 centimeters is recommended. Severe venous congestion. Confluent airspace opacities within the right hilar region as well as the left mid to lower lung zone. Small left pleural effusion. Cardiomegaly. Enlarged ectatic aorta. Degenerative changes spine and shoulders. Impression: Endotracheal tube extending towards the proximal right mainstem bronchus. Retraction approximately 2 centimeters is recommended. Severe venous congestion. Confluent airspace opacities within the right hilar region as well as the left mid to lower lung zone. Small left pleural effusion. Cardiomegaly. Enlarged ectatic aorta.
--- NOTE | 2018-03-29 13:02 | CP.PCM.CON ---
History of Present Illness - History of Present Illness History of Present Illness: Palliative consult called by Doctor José Miguel for family support and goals of care discussion Patient is a 72 yo male admitted from home on 03/18/18 post fall in the bathroom and right leg pain. In ED CT of LEs was significant for Right hip Comminuted Fx. Surgical repair took place on 03/19/18. In postoperative period, patient developed Ileus. NGT was placed for decompression and GI consult called. Patient managed to pull out NGT X 3. Last time was early this morning. Earlier this morning, patent found to be and respiratory and cardiac distress when Precious Escoto was called. Patient was given CPR for 20 min and finally pulse was regained. Patient intubated at the scene and transferred to ICU. Immediately after the Code, I was called to support family during this difficult time and discuss further plan of care. PMH: arthritis, HTN, pedal edema Soc. Hx: , lives at home, Rastafari uatsdin Fam. Hx: No significant Review of Systems - Review of Systems All systems: reviewed and no additional remarkable complaints except Review of Systems: ROS obtained from nursing. Patient was just intubated due to cardiac arrest Past Patient History - Past Medical History & Family History Past Medical History?: Yes - Past Social History Smoking Status: Never Smoked - CARDIAC Hx Hypertension: Yes - PULMONARY Hx Sleep Apnea: Yes - NEUROLOGICAL Hx Neurological Disorder: No - HEENT Hx HEENT Problems: Yes Hx Cataracts: Yes (BILAT IOL) Hx Glaucoma: Yes - RENAL Hx Chronic Kidney Disease: No - ENDOCRINE/METABOLIC Hx Diabetes Mellitus Type 2: Yes - HEMATOLOGICAL/ONCOLOGICAL Hx Blood Disorders: No - INTEGUMENTARY Hx Dermatological Problems: Yes (REDDNESS BLE) Other/Comment: FUNGAL INFECTION BILATERAL GROINS - MUSCULOSKELETAL/RHEUMATOLOGICAL Hx Arthritis: Yes (KNEES) - GASTROINTESTINAL Hx Gastrointestinal Disorders: Yes (HEMORRHOIDS CONSTIPATION) Other/Comment: hx anal fissure - GENITOURINARY/GYNECOLOGICAL Hx Genitourinary Disorders: Yes Hx Prostate Problems: Yes - PSYCHIATRIC Hx Substance Use: No - SURGICAL HISTORY Hx Surgeries: Yes Hx Cataract Extraction: Yes (CAT EXT IOL BILAT) - ANESTHESIA Hx Anesthesia: Yes Hx Anesthesia Reactions: No Hx Malignant Hyperthermia: No Meds Allergies/Adverse Reactions: Allergies Allergy/AdvReac Type Severity Reaction Status Date / Time No Known Allergies Allergy Verified 07/16/17 07:37 - Medications Medications: Current Medications Aspirin (Ecotrin) 81 mg PO DAILY [facility] Last Admin: 03/28/18 10:30 Dose: 81 mg Diphenhydramine HCl (Benadryl) 12.5 mg PO Q8H [facility] Docusate Sodium (Colace) 100 mg PO BID [facility] Last Admin: 03/28/18 18:06 Dose: 100 mg Enoxaparin Sodium (Lovenox) 40 mg SC DAILY [facility] Last Admin: 03/28/18 10:28 Dose: 40 mg Home Med (Patient's Own Topical) 1 gm TOP TID [facility] Stop: 05/18/18 23:59 Last Admin: 03/28/18 18:07 Dose: 1 gm Home Med (Patient's Own Medication) 1 tab PO QPM [facility] Last Admin: 03/28/18 18:07 Dose: 1 tab Hydralazine HCl (Apresoline) 10 mg IVP Q6H [facility]N PRN Reason: Systolic Blood Pressure Last Admin: 03/27/18 18:27 Dose: 10 mg Hydrocortisone (Anusol-Hc) 25 mg RC BID [facility] Stop: 04/07/18 10:01 Last Admin: 03/28/18 18:06 Dose: Not Given Metronidazole (Flagyl) 500 mg in 100 mls @ 100 mls/hr IVPB Q8 [facility] PRN Reason: Protocol Last Admin: 03/29/18 05:56 Dose: 100 mls/hr Ciprofloxacin (Cipro 400mg/200ml Dsw) 400 mg in 200 mls @ 133 mls/hr IVPB Q12H [facility] PRN Reason: Protocol Last Admin: 03/28/18 22:32 Dose: 133 mls/hr Potassium Chloride 40 meq/ (Sodium Chloride) 1,020 mls @ 125 mls/hr IV .Q8H10M [facility] Last Admin: 03/29/18 05:53 Dose: 125 mls/hr Insulin Human Regular (Novolin R) 0 unit SC ACHS [facility] PRN Reason: Protocol Last Admin: 03/29/18 08:56 Dose: 2 unit Lidocaine HCl (Lidocaine Hydrochloride Jelly 2% 5 Ml) 0 ml TOP BID PRN PRN Reason: Other Metoclopramide HCl (Reglan) 5 mg PO Q8H [facility] Metoprolol Tartrate (Lopressor) 50 mg PO BID [facility] Last Admin: 03/28/18 18:06 Dose: 50 mg Nystatin (Nystop Topical Powder) 0 gm TOP BID [facility] Stop: 04/03/18 18:00 Last Admin: 03/28/18 18:07 Dose: 1 applic Phenol/Menthol (Phenaseptic 1.4% Throat [place]) 1 ml MT Q2H PRN PRN Reason: Sore Throat Povidone Iodine (Betadine 10% Oint) 0 gm TOP Q8H [facility] Last Admin: 03/29/18 01:40 Dose: Not Given Saccharomyces Boulardii (Florastor) 250 mg PO BID [facility] Last Admin: 03/28/18 18:06 Dose: 250 mg Simethicone (Mylicon Chew Tab) 80 mg PO TID [facility] Last Admin: 03/28/18 18:06 Dose: 80 mg Physical Exam - Constitutional Appears: In Acute Distress - Head Exam Head Exam: ATRAUMATIC, NORMAL INSPECTION, NORMOCEPHALIC - Eye Exam Pupil Exam: Fixed - ENT Exam Additional comments: NGT - Neck Exam Additional comments: ETT tube - Respiratory Exam Additional comments: On MV support - Cardiovascular Exam Cardiovascular Exam: Tachycardia, REGULAR RHYTHM - GI/Abdominal Exam GI & Abdominal Exam: Distended, Firm - Rectal Exam Rectal Exam: Deferred - Exam Additional comments: Rodriguez cath - Extremities Exam Extremities exam: Positive for: pedal edema - Back Exam Back exam: NORMAL INSPECTION - Neurological Exam Neurological exam: Motor Sensory Deficit - Psychiatric Exam Psychiatric exam: Flat Affect - Skin Skin Exam: Pallor Results - Vital Signs Recent Vital Signs: Last Vital Signs Temp 98.1 F 03/29/18 08:38 Pulse 66 03/29/18 08:38 Resp 20 03/29/18 08:38 BP 132/71 03/29/18 08:38 Pulse Ox 100 03/29/18 08:38 - Labs Result Diagrams: 03/29/18 08:20 03/29/18 08:20 Labs: Laboratory Results - last 24 hr 03/28/18 03/28/18 03/28/18 17:17 19:45 19:45 WBC 16.4 H RBC 3.61 L Hgb 9.4 L Hct 29.8 L MCV 82.4 MCH 25.9 L MCHC 31.4 L RDW 16.8 H Plt Count 456 H MPV 9.6 Neut % (Auto) 81.8 H Lymph % (Auto) 7.4 L [place] % (Auto) 9.4 Eos % (Auto) 1.0 Baso % (Auto) 0.4 Neut # (Auto) 13.4 H Lymph # (Auto) 1.2 [place] # (Auto) 1.5 H Eos # (Auto) 0.2 Baso # (Auto) 0.1 Neutrophils % (Manual) 77 H Band Neutrophils % Lymphocytes % (Manual) 13 L Monocytes % (Manual) 8 Eosinophils % (Manual) 1 Basophils % (Manual) 1 Myelocytes % Toxic Granulation Platelet Estimate Slightly increased H Large Platelets Present Polychromasia Slight Hypochromasia (manual) Slight Poikilocytosis (manual Slight Anisocytosis (manual) Slight Ovalocytes Slight Puncture Site pCO2 pO2 HCO3 ABG pH ABG Total CO2 ABG O2 Saturation ABG Base Excess Peng Test ABG Potassium A-a O2 Difference Respiratory Index Glucose Lactate Vent Mode FiO2 PEEP Crit Value Called To Crit Value Called By Crit Value Read Back Blood Gas Notified Time Sodium 151 H Potassium 4.2 Chloride 114 H Carbon Dioxide 26 Anion Gap 15 BUN 23 H Creatinine 1.0 Est GFR ( Amer) > 60 Est GFR (Non-Af Amer) > 60 POC Glucose (mg/dL) 182 H Random Glucose 189 H Calcium 8.4 L Phosphorus 3.2 Magnesium 2.2 Total Creatine Kinase CK-MB (Mass) Troponin I Arterial Blood Potassium 03/28/18 03/29/18 03/29/18 20:59 01:17 06:21 WBC RBC Hgb Hct MCV MCH MCHC RDW Plt Count MPV Neut % (Auto) Lymph % (Auto) [place] % (Auto) Eos % (Auto) Baso % (Auto) Neut # (Auto) Lymph # (Auto) [place] # (Auto) Eos # (Auto) Baso # (Auto) Neutrophils % (Manual) Band Neutrophils % Lymphocytes % (Manual) Monocytes % (Manual) Eosinophils % (Manual) Basophils % (Manual) Myelocytes % Toxic Granulation Platelet Estimate Large Platelets Polychromasia Hypochromasia (manual) Poikilocytosis (manual Anisocytosis (manual) Ovalocytes Puncture Site pCO2 pO2 HCO3 ABG pH ABG Total CO2 ABG O2 Saturation ABG Base Excess Peng Test ABG Potassium A-a O2 Difference Respiratory Index Glucose Lactate Vent Mode FiO2 PEEP Crit Value Called To Crit Value Called By Crit Value Read Back Blood Gas Notified Time Sodium Potassium Chloride Carbon Dioxide Anion Gap BUN Creatinine Est GFR ( Amer) Est GFR (Non-Af Amer) POC Glucose (mg/dL) 178 H 160 H Random Glucose Calcium Phosphorus Magnesium Total Creatine Kinase 45 L CK-MB (Mass) 4.08 H Troponin I < 0.0120 Arterial Blood Potassium 03/29/18 03/29/18 03/29/18 08:20 08:20 12:06 WBC 22.4 H RBC 3.88 L Hgb 10.2 L Hct 32.5 L MCV 83.7 MCH 26.3 L MCHC 31.4 L RDW 16.9 H Plt Count 483 H MPV 9.9 Neut % (Auto) 87.8 H Lymph % (Auto) 5.4 L [place] % (Auto) 6.0 Eos % (Auto) 0.2 Baso % (Auto) 0.6 Neut # (Auto) 19.7 H Lymph # (Auto) 1.2 [place] # (Auto) 1.3 H Eos # (Auto) 0.1 Baso # (Auto) 0.1 Neutrophils % (Manual) 73 Band Neutrophils % 22 H* Lymphocytes % (Manual) 2 L Monocytes % (Manual) 2 Eosinophils % (Manual) Basophils % (Manual) Myelocytes % 1 H Toxic Granulation Present Platelet Estimate Slightly increased H Large Platelets Polychromasia Hypochromasia (manual) Slight Poikilocytosis (manual Anisocytosis (manual) Slight Ovalocytes Puncture Site Rb pCO2 48 H pO2 88 HCO3 15.0 L ABG pH 7.14 L* ABG Total CO2 17.8 L ABG O2 Saturation 95.1 ABG Base Excess -12.6 L Peng Test Na ABG Potassium 5.6 H A-a O2 Difference 565.0 Respiratory Index 6.4 Glucose 243 H Lactate 7.8 H* Vent Mode Prvc FiO2 100.0 PEEP 5 Crit Value Called To Dr vázquez Crit Value Called By Saranya coleman hackler doll wigs Crit Value Read Back Y Blood Gas Notified Time 1217 Sodium 151 H 147.0 Potassium 5.2 Chloride 114 H 115.0 H Carbon Dioxide 23 Anion Gap 20 BUN 28 H Creatinine 1.3 Est GFR ( Amer) > 60 Est GFR (Non-Af Amer) 54 POC Glucose (mg/dL) Random Glucose 168 H Calcium 8.9 Phosphorus 4.1 Magnesium 2.2 Total Creatine Kinase CK-MB (Mass) Troponin I Arterial Blood Potassium 5.6 H Assessment & Plan - Assessment and Plan (Free Text) Assessment: Palliative consult Code status was Full Code prior to visit, no Advance Directive on chart. PPS 0% I reviewed medical records, all diagnostic studies, examined patient in the bed and discussed his status with family Patient was just intubated, on Dopamine and on his way to ICU. Pupils fixed, eyes wide open, GCS 3. NGT in place, drainage dark green. Abdomen large, distended ,and firm. Respirations supported by MV. There is pedal edema. WBC 22.4 , afebrile. BP 132/77, HR 66, O2Sat 100% on MV. Patient's son Beck and patient's present. I met with them and offered support. We discussed current patient's condition. Son stated that patient was doing well prior to fall, but since than he started declining. Son admits that patient made whole situation worse, by pulling out NGT and drinking water while he was NPO. We discussed CPR given to patient and possibility of some anoxic brain injury as patient remained with fixed pupils. Son and said that patient has spoken to them in recent past and told them, if he ever got intubated, they could allow it for only 1 day. I offered more information about terminal extubation. Later on, patient's daughter and son in law joined the meeting as well. FLETCHER discussed. I made sure family understand the meaning of DNR/DNI. Son and agreed with DNR. They asked if patient could be extubated later on today. I discussed this with ICU team, Hellen bookkeeping manager and Ene from and we agreed that we should at least allow 24 hr before extubating as those were patient's wishes. This was shared with family. Patient's son also , reflected to their Rastafari Confucianist what calls for cremation after . His concern was if family would have enough time to arrange for the ritual. We discussed the process of terminal extubation. Impression * This is acutely ill man, S/P Code Blue, on full life support * GCS of 3 * Severe abdominal distention * Family supportive of patient's wishes not to have his life prolonged by agressive measures for more than 1 day only * Family chose DNR * Family is considering Terminal extubation Suggestion * Continue full life support * NGT to suction for decompressing of abdomen * Neuro status check * Discuss terminal extubation one more time with family, in am Advance care planing 45 min
--- NOTE | 2018-03-29 13:06 | CP.PCM.PN ---
Subjective - Date & Time of Evaluation Date of Evaluation: 03/29/18 Time of Evaluation: 13:06 - Subjective Subjective: . CHIEF COMPLAINTS TODAY : PT ON VENTILATOR- TRANSFERRED TO ICU S/P code blue WITH ROSC IN ABOUT 20 MINUTES UNRESPONSIVE. fAMILY AT BEDSIDE. ROS. HEENT : N Resp : No SOB wheezing, cough Cardio : No CP, PND orthopnea GI : +ve ABDOMINAL DISTENSION, NO n/v RETIREMENT CONSULTANT : No headache , focal deficit. Musculoskel : N Ext. : Pedal pulses intact, no edema or calf pain RT. HIP DRESSING IN PLACE. Derm : N Psych : N. PE. Pt. UNRESPONSIVE, ON VENTILATOR V.S As noted in the chart Head ,ear nose,throat and eyes : Normal. Neck : Supple with normal carotids. Lungs: Clear air entry. Heart : S1 & S2 normal . . No murmur. S4 + Abd : DISTENDED, HYPOACTIVE BOWEL SOUNDS. Neuro : UNRESPONSIVE. PLANT[employer] EQ[employer]OCAL Ext : RT HIP FRACTURE S/P ORIF, DRESSING C/D/I. with intact pulses. Neg. calf tenderness Derm : No rashes or decubitus ulcer. Radiology/Labs . 03/26/18 CT abdomen and pelvis by mouth contrast. Nonspecific nodular densities right lower lobe. Mural thickening rectosigmoid colon and transverse colon./Nonspecific colitis. -ve SBO./+NGT, +VE RECTAL TUBE. BLOOD CULTURES 03/21/18 -VE to date URINE CULTURE -VE GROWTH . Asssessment : S/P code blue/ CARDIAC ARREST /RESPIRATORY FAILURE LEUKOCYTOSIS WITH BANDEMIA S/P SIGMOIDOSCOPY 03/24/18-FEACAL RETENTION/ NO MASS CHRONIC CONSTIPATION. PROCTOCOLITIS/ANAL FISSURE DIABETES MELLITUS. HYPERTENSION. MORBID OBESITY. S/P ORIF RT FEMUR FRACTURE/WITH NAILING. 03/19/18 Plan : blood cultures 2 sets DC IV Cipro Start IV Zosyn 3.375 every 6 hourly..03/29/18 Continue IV Flagyl 500 every 8 hourly. CASE DISCUSSED WITH FAMILY AT BEDSIDE AND SON PRESENT. PATIENT SEEN BY PALLIATIVE CARE,AND EVENTS NOTED. PROGNOSIS GUARDED/AND GRAVE. Objective - Vital Signs/Intake and Output Vital Signs (last 24 hours): Temp Pulse Resp BP Pulse Ox 98.1 F 66 20 132/71 100 03/29/18 08:38 03/29/18 08:38 03/29/18 08:38 03/29/18 08:38 03/29/18 08:38 Intake and Output: 03/29/18 03/29/18 06:59 18:59 Intake Total 1000 Output Total 950 Balance 50 - Medications Medications: Current Medications Aspirin (Ecotrin) 81 mg PO DAILY [facility] Last Admin: 03/28/18 10:30 Dose: 81 mg Diphenhydramine HCl (Benadryl) 12.5 mg PO Q8H [facility] Docusate Sodium (Colace) 100 mg PO BID [facility] Last Admin: 03/28/18 18:06 Dose: 100 mg Enoxaparin Sodium (Lovenox) 40 mg SC DAILY [facility] Last Admin: 03/28/18 10:28 Dose: 40 mg Home Med (Patient's Own Topical) 1 gm TOP TID [facility] Stop: 05/18/18 23:59 Last Admin: 03/28/18 18:07 Dose: 1 gm Home Med (Patient's Own Medication) 1 tab PO QPM [facility] Last Admin: 03/28/18 18:07 Dose: 1 tab Hydralazine HCl (Apresoline) 10 mg IVP Q6H PRN PRN Reason: Systolic Blood Pressure Last Admin: 03/27/18 18:27 Dose: 10 mg Hydrocortisone (Anusol-Hc) 25 mg RC BID [facility] Stop: 04/07/18 10:01 Last Admin: 03/28/18 18:06 Dose: Not Given Metronidazole (Flagyl) 500 mg in 100 mls @ 100 mls/hr IVPB Q8 [facility] PRN Reason: Protocol Last Admin: 03/29/18 05:56 Dose: 100 mls/hr Potassium Chloride 40 meq/ (Sodium Chloride) 1,020 mls @ 125 mls/hr IV .Q8H10M [facility] Last Admin: 03/29/18 05:53 Dose: 125 mls/hr Piperacillin Sod/Tazobactam Sod (Zosyn 3.375 Gm Iv Premix) 3.375 gm in 50 mls @ 100 mls/hr IVPB Q6H [facility] PRN Reason: Protocol Insulin Human Regular (Novolin R) 0 unit SC ACHS [facility] PRN Reason: Protocol Last Admin: 03/29/18 08:56 Dose: 2 unit Lidocaine HCl (Lidocaine Hydrochloride Jelly 2% 5 Ml) 0 ml TOP BID PRN PRN Reason: Other Metoclopramide HCl (Reglan) 5 mg PO Q8H [facility] Metoprolol Tartrate (Lopressor) 50 mg PO BID [facility] Last Admin: 03/28/18 18:06 Dose: 50 mg Nystatin (Nystop Topical Powder) 0 gm TOP BID [facility] Stop: 04/03/18 18:00 Last Admin: 03/28/18 18:07 Dose: 1 applic Phenol/Menthol (Phenaseptic 1.4% Throat [place]) 1 ml MT Q2H PRN PRN Reason: Sore Throat Povidone Iodine (Betadine 10% Oint) 0 gm TOP Q8H [facility] Last Admin: 03/29/18 01:40 Dose: Not Given Saccharomyces Boulardii (Florastor) 250 mg PO BID [facility] Last Admin: 03/28/18 18:06 Dose: 250 mg Simethicone (Mylicon Chew Tab) 80 mg PO TID [facility] Last Admin: 03/28/18 18:06 Dose: 80 mg - Labs Labs: 03/29/18 08:20 03/29/18 08:20 PT 14.8 SECONDS (9.7-12.2) H 03/26/18 08:09 INR 1.3 03/26/18 08:09 APTT 31 SECONDS (21-34) 03/26/18 08:09 Assessment and Plan (1) Leukocytosis Status: Acute (2) Colonic obstruction Status: Acute (3) Proctitis Status: Acute (4) Constipation Status: Acute (5) Diabetes Status: Acute (6) HTN (hypertension) Status: Acute (7) Hip fracture Status: Acute
[2018-03-29] MEDS: DiphenhydrAMINE 12.5 mg/5 ml LIQ UD (5 ml) PO SCH ×3 (13:10→23:45)
[2018-03-29] MEDS: Saccharomyces Boulardi 250 mg Cap PO SCH ×2 (13:10→17:29)
[2018-03-29] MEDS: Enoxaparin 40 mg Syringe SC SCH (13:11)
[2018-03-29] MEDS: Simethicone 80 mg Chewtab PO SCH ×3 (13:11→17:50)
[2018-03-29] MEDS: Nystatin 100,000 Units/gm Topical Pow(15 gm) TOP SCH ×2 (13:12→17:45)
[2018-03-29] MEDS: DILTIAZEM 2% TOP SCH ×3 (13:12→17:47)
[2018-03-29] MEDS: Piperacill/Tazo 3.375gm in Dex 3.375 GM/50 ML BAG IVPB SCH ×2 (14:00→20:10)
[2018-03-29] MEDS: DOPamine 400mg/250ml D5W 400 MG/250 ML BAG IV PRN ×2 (14:38→21:40)
--- NOTE | 2018-03-29 16:48 | PCM.RRT ---
<DeloresgraceJorge - Last Filed: 03/29/18 16:45> [employer] Nurses Assessment - Situation Date: 03/29/18 (Code Blue) Time [employer] was called: 10:01 [employer]IOR [employer] Responder Arrival Time:: 10:01 [employer] Location:: Med/Surg Room Number: 667B [employer] Called By: RN - IV IV Inserted during SENIOR MATERIALS PLANNER?: Yes IV Fluids Initiated During [employer]ENIOR [employer]ERIALS [employer]NER?: Levo. Dopamine. NS New IV Insertion Tolerance: Fair - Respiratory [employer] Delivery Method: Intubated Oxygen Flow Rate: 100 Received Nebulizer Treatments: No Was the Patient Ventilated with Bag/Mask 100% O2?: Yes Secretions Suctioned?: Yes Was the Patient Intubated?: Yes Was the Patient Placed on a Ventilator?: Yes - Ventilator Settings Mode: PRVC Ventilator Respiratory Rate Settin Ventilator Tidal Volume Settin PEEP/CPAP (cm H2O): 5 SAO2 %: 88 FIO2 (% Oxygen): 100 - Diagnostic Test Ordered EKG: Yes Chest X-Ray: Yes CPR started during SENIOR MATERIALS PLANNER?: Yes - [place] Coma Scale Coma Scale Eye Opening: No response Coma Scale Motor: None Coma Scale Verbal: No response Coma Scale Total: 3 - Sepsis Screen Part 1 Sepsis Screen Part 1: Hypotensive - Recommendations 5) S[employer]IOR [employer] Level of Care Recommendations: Transfer to ICU Notifications: Attending Physician, Consultations, Family or Designated Caregiver I.Reason for S[employer]IOR [employer]S [employer]NER - A) Acute Change in Patient: Subjective: Patient was found unresponsive by Nurse. CPR initiated. Intubated by anesthesiologist. L. fem TLC placed by ny. first Epi at 1004, Calcium @ 1010, second epi @ 1010, third epi @ 1012, bnicarb @ 1014, cardioverted @ 200J at 1015 , Mg Given @ 1016, Epi given @ 1017, cardioverted @ 200J @ 1018, Cardioverted at 300J @ 1019. Pulse returned at 1020, Dopamine and levophed started at 1024. Bicarb given @ 1026. BP check was 90/60. NGT inserted removed 1.5 L of bile. Patient transferred to ICU <Alexis Olivarez - Last Filed: 03/29/18 19:25> Attending/Attestation - Attestation I have personally seen and examined this patient.: Yes I have fully participated in the care of the patient.: Yes I have reviewed all pertinent clinical information, including history, physical exam and plan: Yes Notes (Text): 03/29/18 19:21 Please see details of code above. This code was run with the Medicine and ICU Team. Conversation with Son and indicated that the patient's wishes are not to be on Vent for more than 24 hours and both Son and are in agreement. I spoke with Palliative Care Nurse Lis and she met with both son and . Plan is for terminal extubation after 24 hours should his status not improve. Assessments: Right Subtrochanteric Femoral Fracture Fecal Retention SBO Elevated WBC Chronic Right LE Erythema Hx CAD Hx HTN Hx DM 1 Hx Constipation secondary Diabetic Gastroperesis Hx Difficulty Starting Urinary Stream Possible Depression Bilateral LQ Abdominal Skin Fungal Infection Alexis Olivarez D.O.
[2018-03-29] MEDS: Sodium Chloride 0.9% 1,000 ML IV SCH (20:10)
[2018-03-30] MEDS: Povidone Iodine Oint 10% (1 oz) TOP SCH ×2 (02:10→13:05)
[2018-03-30] MEDS: Piperacill/Tazo 3.375gm in Dex 3.375 GM/50 ML BAG IVPB SCH ×2 (02:10→08:00)
[2018-03-30] MEDS: (Novolin R) Insulin Human Regular 100 units/ml vial SC SCH ×3 (06:00→11:30)
[2018-03-30 06:51] LABS: BASO % 0.1 % (0.0-2.0); EOS % 0.1 % (0.0-4.0); HEMOGLOBIN 8.4 g/dL (12.0-18.0); LYMPH # 1.5 K/uL (1.0-4.3); LYMPH % 7.9 % (20.0-40.0); MEAN CELL VOLUME 83.4 fL (80.0-94.0); MEAN CORPUSCULAR HEMOGLOBIN 26.2 pg (27.0-31.0); MEAN CORPUSCULAR HGB CONC 31.4 g/dL (33.0-37.0); MEAN PLATELET VOLUME 10.2 fL (7.2-11.7); MONO # 1.2 K/uL (0.0-0.8); MONO % 6.1 % (0.0-10.0); NEUT # 16.6 K/uL (1.8-7.0); NEUT % 85.8 % (50.0-75.0); NRBC % 1.6 % (0.0-2.0); PLATELET COUNT 217 K/uL (130-400); RBC 3.21 Mil/uL (4.40-5.90); RED CELL DISTRIBUTION WIDTH 17.3 % (11.5-14.5); WHITE BLOOD COUNT 19.3 K/uL (4.8-10.8)
[2018-03-30 07:02] LABS: ALB/GLOB RATIO 0.8 (1.0-2.1); ALBUMIN 2.2 g/dL (3.5-5.0); CALCIUM 8.2 mg/dl (8.6-10.4)
[2018-03-30 07:20] LABS: SQUAMOUS EPITHIAL 1 /hpf (0-5); URINE BACTERIA MANY (<OCC); URINE BILIRUBIN 1+ (NEGATIVE); URINE BLOOD 2+ (NEGATIVE); URINE GLUCOSE (UA) NORMAL (Normal); URINE LEUKOCYTE ESTERASE 1+ Leu/uL (Negative); URINE PROTEIN 1+ mg/dL (NEGATIVE); WBC CLUMPS OCC /hpf
[2018-03-30] MEDS: Sodium Chloride 0.9% 1,000 ML IV SCH (07:20)
[2018-03-30 08:02] LABS: URINE COLOR BROWN (YELLOW)
[2018-03-30 08:03] LABS: URINE CLARITY SLIGHT-CLOUDY (Clear)
[2018-03-30] MEDS: DiphenhydrAMINE 12.5 mg/5 ml LIQ UD (5 ml) PO SCH (08:16)
[2018-03-30 08:52] LABS: BANDS 28 % (0-2); LYMPHOCYTE 8 % (20-40); MONOCYTE 2 % (0-10); NEUTROPHIL 62 % (50-75); NUCLEATED RED BLOOD CELL 1 % (0-0); TOTAL CELLS COUNTED 100
--- NOTE | 2018-03-30 08:52 | CP.CCUPN ---
Addendum entered and electronically signed by Jordan Caba DO 03/30/18 16:32: Code blue called at 15:59. Patient went into cardiac arrest. ACLS protocol was initiated. Three rounds of epinephrine were given in total. Patient went into V- fib and was shocked twice. Family requested to stop at approximately 16:07. Patient pronounced at 16:11. Original Note: <Jordan Caba - Last Filed: 03/30/18 15:25> CCU Subjective - Physician Review Subjective (Free Text): 03/30/18 08:49 Patient seen and examined. Patient spiked fever this morning Tmax 101. Patient was originally for terminal extubation but the family has requested full code at this time. They will re-evaluate their wishes in the coming days and [place]. CCU Objective - Vital Signs / Intake & Output Vital Signs (Last 4 hours): Vital Signs Temp Pulse Resp BP Pulse Ox 03/30/18 08:00 101 F H 108 H 25 H 97/44 L 95 03/30/18 07:20 105 H 25 H 104/45 L 95 03/30/18 07:00 107 H 25 H 104/45 L 96 03/30/18 06:00 110 H 28 H 96/55 L 100 03/30/18 05:00 111 H 27 H 94/56 L 100 Intake and Output (Last 8hrs): Intake & Output 03/29/18 03/30/18 03/30/18 22:59 06:59 14:59 Intake Total 934.9 1163.0 149.4 Output Total 1 20 Balance 933.9 1143.0 149.4 Weight 258 lb 9.636 oz Intake: IV 276 267 40 Intake, IV Amount 658.9 896.0 109.4 Left Distal Port Femoral 56.4 92.0 9.4 Left Medial Port Femoral 344.0 750 100 Left Proximal Port 258.5 54.0 Femoral Oral 0 Output: Urine 20 Urethral (Rodriguez) 20 Urine/Stool Mix 1 Other: # Bowel Movements 1 - Physical Exam Physical Exam Limitations: Positive for: Altered Mental Status Head: Positive for: Atraumatic, Normocephalic Pupils: Positive for: Sluggish, Other (right pupil larger than left) Mouth: Positive for: Moist Mucous Membranes, Other (ETT in place) Respiratory/Chest: Positive for: Other (Coarse breath sounds). Negative for: Wheezes, Rales, Rhonchi Abdomen: Positive for: Distention. Negative for: Normal Bowel Sounds ( Hypoactive) Upper Extremity: Positive for: Edema Lower Extremity: Positive for: Edema Neurological: Positive for: Other (Brain stem reflexes not intact). Negative for: GCS=15 - Medications Active Medications: Active Medications Generic Name Dose Route Start Last Admin Trade Name Freq PRN Reason Stop Dose Admin Acetaminophen 650 mg 03/30/18 08:24 [address] Q6 PRN Fever >100.4 F Aspirin 81 mg 03/19/18 10:00 03/29/18 13:10 Ecotrin PO Not Given DAILY [facility] Diphenhydramine HCl 12.5 mg 03/29/18 07:45 03/30/18 08:16 Benadryl PO Not Given Q8H MAYRA Docusate Sodium 100 mg 03/23/18 10:00 03/29/18 17:49 Colace PO Not Given BID [facility] Enoxaparin Sodium 40 mg 03/20/18 10:00 03/29/18 13:11 Lovenox SC Not Given DAILY [facility] Home Med 1 gm 03/23/18 10:00 03/29/18 17:47 Patient's Own Topical TOP 05/18/18 23:59 Not Given TID [facility] Home Med 1 tab 03/23/18 18:00 03/29/18 17:49 Patient's Own Medication PO Not Given QPM MAYRA Hydralazine HCl 10 mg 03/22/18 13:18 03/27/18 18:27 Apresoline IVP 10 mg Q6H PRN Administration Systolic Blood Pressure Hydrocortisone 25 mg 03/24/18 18:00 03/29/18 13:09 Anusol-Hc RC 04/07/18 10:01 Not Given BID MAYRA Piperacillin Sod/Tazobactam Sod 3.375 gm in 50 mls @ 100 mls/hr 03/29/18 14: 00 03/30/18 02:10 Zosyn 3.375 Gm Iv Premix IVPB 100 mls/hr Q6H MAYRA Administration Protocol Dopamine HCl/Dextrose 400 mg in 250 mls @ 9.287 mls/hr 03/29/18 14:12 04:00 Dopamine 400mg/250ml D5w IV 0 mcg/kg/min .Q24H PRN 0 mls/hr TITRATE PER MD ORDER Titration Protocol 2 MCG/KG/MIN Norepinephrine Bitartrate 8 mg 258 mls @ 7.74 mls/hr 03/29/18 14:13 03/30/18 07:20 / Sodium Chloride IV 5 mcg/min .Q24H PRN 9.67 mls/hr TITRATE PER MD ORDER Administration Protocol 4 MCG/MIN Sodium Chloride 1,000 mls @ 100 mls/hr 03/29/18 20:00 03/30/18 07:20 Sodium Chloride 0.9% IV 100 mls/hr .Q10H MAYRA Administration Insulin Human Regular 0 unit 03/30/18 00:00 03/30/18 06:00 Novolin R SC Not Given Q6H [facility] Protocol Lidocaine HCl 0 ml 03/23/18 13:39 Lidocaine Hydrochloride Jelly 2% 5 Ml TOP BID PRN Other Metoclopramide HCl 5 mg 03/29/18 07:45 03/29/18 23:45 Reglan PO Not Given Q8H [facility] Metoprolol Tartrate 50 mg 03/25/18 10:00 03/29/18 17:49 Lopressor PO Not Given BID [facility] Nystatin 0 gm 03/20/18 18:00 03/29/18 17:45 Nystop Topical Powder TOP 04/03/18 18:00 Not Given BID [facility] Phenol/Menthol 1 ml 03/29/18 06:57 Phenaseptic 1.4% Throat [place] Q2H PRN Sore Throat Povidone Iodine 0 gm 03/20/18 17:45 03/30/18 02:10 Betadine 10% Oint TOP 1 dose Q8H [facility] Administration Saccharomyces Boulardii 250 mg 03/21/18 18:00 03/29/18 17:29 Florastor PO Not Given BID [facility] Simethicone 80 mg 03/24/18 14:40 03/29/18 17:50 Mylicon Chew Tab PO Not Given TID [facility] - Patient Studies Lab Studies: Lab Studies 03/30/18 03/30/18 03/30/18 Range/Units 06:44 06:42 06:41 WBC 19.3 H (4.8-10.8) K/uL RBC 3.21 L (4.40-5.90) Mil/uL Hgb 8.4 L (12.0-18.0) g/dL Hct 26.7 L (35.0-51.0) % MCV 83.4 (80.0-94.0) fL MCH 26.2 L (27.0-31.0) pg MCHC 31.4 L (33.0-37.0) g/dL RDW 17.3 H (11.5-14.5) % Plt Count 217 D (130-400) K/uL MPV 10.2 (7.2-11.7) fL Neut % (Auto) 85.8 H (50.0-75.0) % Lymph % (Auto) 7.9 L (20.0-40.0) % Cedar % (Auto) 6.1 (0.0-10.0) % Eos % (Auto) 0.1 (0.0-4.0) % Baso % (Auto) 0.1 (0.0-2.0) % Neut # (Auto) 16.6 H (1.8-7.0) K/uL Lymph # (Auto) 1.5 (1.0-4.3) K/uL Cedar # (Auto) 1.2 H (0.0-0.8) K/uL Eos # (Auto) 0.0 (0.0-0.7) K/uL Baso # (Auto) 0.0 (0.0-0.2) K/uL Neutrophils % (Manual) (50-75) % Band Neutrophils % (0-2) % Lymphocytes % (Manual) (20-40) % Monocytes % (Manual) (0-10) % Myelocytes % (0-0) % Toxic Granulation Platelet Estimate (NORMAL) Hypochromasia (manual) Anisocytosis (manual) Puncture Site pCO2 (35-45) mm/Hg pO2 (80-100) mm/Hg HCO3 (21-28) mmol/L ABG pH (7.35-7.45) ABG Total CO2 (22-28) mmol/L ABG O2 Saturation (95-98) % ABG Base Excess (-2.0-3.0) mmol/L Peng Test ABG Potassium (3.6-5.2) mmol/L A-a O2 Difference mm/Hg Respiratory Index Sodium 153 H (132-148) mmol/l Chloride 115 H (98-107) mmol/L Glucose (75-110) mg/dl Lactate (0.7-2.1) mmol/L Vent Mode FiO2 % PEEP Crit Value Called To Crit Value Called By Crit Value Read Back Blood Gas Notified Time Potassium 5.1 (3.6-5.2) mmol/L Carbon Dioxide 24 (22-30) mmol/L Anion Gap 19 (10-20) BUN 41 H (9-20) mg/dL Creatinine 2.7 H (0.8-1.5) mg/dL Est GFR ( Amer) 28 Est GFR (Non-Af Amer) 23 POC Glucose (mg/dL) (65-110) mg/dL Random Glucose 193 H (75-110) mg/dL Calcium 8.2 L (8.6-10.4) mg/dl Phosphorus 5.0 H (2.5-4.5) mg/dL Magnesium 2.5 H (1.6-2.3) mg/dL Total Bilirubin 1.2 (0.2-1.3) mg/dL AST 178 H D (17-59) U/L ALT 55 (21-72) U/L Alkaline Phosphatase 83 (38-126) U/L Total Protein 5.0 L (6.3-8.3) g/dL Albumin 2.2 L (3.5-5.0) g/dL Globulin 2.8 (2.2-3.9) gm/dL Albumin/Globulin Ratio 0.8 L (1.0-2.1) Arterial Blood Potassium (3.6-5.2) mmol/L Urine Color Brown (YELLOW) Urine Clarity Slight-cloudy (Clear) Urine pH 5.0 (5.0-8.0) Ur Specific [place] 1.026 (1.003-1.030) Urine Protein 1+ H (NEGATIVE) mg/dL Urine Glucose (UA) Normal (Normal) mg/dL Urine Ketones Negative (NEGATIVE) mg/dL Urine Blood 2+ H (NEGATIVE) Urine Nitrate Negative (NEGATIVE) Urine Bilirubin 1+ H (NEGATIVE) Urine Urobilinogen 4.0 (0.2-1.0) mg/dL Ur Leukocyte Esterase 1+ H (Negative) Yonis/uL Urine WBC (Auto) 146 H (0-5) /hpf Urine RBC (Auto) 33 H (0-3) /hpf Urine WBC Clumps (Auto) Occ H (NONE) /hpf Ur Squamous Epith Cells 1 (0-5) /hpf Urine Bacteria Many H (<OCC) 03/30/18 03/30/18 03/29/18 Range/Units 05:40 00:01 17:38 WBC (4.8-10.8) K/uL RBC (4.40-5.90) Mil/uL Hgb (12.0-18.0) g/dL Hct (35.0-51.0) % MCV (80.0-94.0) fL MCH (27.0-31.0) pg MCHC (33.0-37.0) g/dL RDW (11.5-14.5) % Plt Count (130-400) K/uL MPV (7.2-11.7) fL Neut % (Auto) (50.0-75.0) % Lymph % (Auto) (20.0-40.0) % Cedar % (Auto) (0.0-10.0) % Eos % (Auto) (0.0-4.0) % Baso % (Auto) (0.0-2.0) % Neut # (Auto) (1.8-7.0) K/uL Lymph # (Auto) (1.0-4.3) K/uL Cedar # (Auto) (0.0-0.8) K/uL Eos # (Auto) (0.0-0.7) K/uL Baso # (Auto) (0.0-0.2) K/uL Neutrophils % (Manual) (50-75) % Band Neutrophils % (0-2) % Lymphocytes % (Manual) (20-40) % Monocytes % (Manual) (0-10) % Myelocytes % (0-0) % Toxic Granulation Platelet Estimate (NORMAL) Hypochromasia (manual) Anisocytosis (manual) Puncture Site pCO2 (35-45) mm/Hg pO2 (80-100) mm/Hg HCO3 (21-28) mmol/L ABG pH (7.35-7.45) ABG Total CO2 (22-28) mmol/L ABG O2 Saturation (95-98) % ABG Base Excess (-2.0-3.0) mmol/L Peng Test ABG Potassium (3.6-5.2) mmol/L A-a O2 Difference mm/Hg Respiratory Index Sodium (132-148) mmol/l Chloride (98-107) mmol/L Glucose (75-110) mg/dl Lactate (0.7-2.1) mmol/L Vent Mode FiO2 % PEEP Crit Value Called To Crit Value Called By Crit Value Read Back Blood Gas Notified Time Potassium (3.6-5.2) mmol/L Carbon Dioxide (22-30) mmol/L Anion Gap (10-20) BUN (9-20) mg/dL Creatinine (0.8-1.5) mg/dL Est GFR ( Amer) Est GFR (Non-Af Amer) POC Glucose (mg/dL) 205 H 241 H 231 H (65-110) mg/dL Random Glucose (75-110) mg/dL Calcium (8.6-10.4) mg/dl Phosphorus (2.5-4.5) mg/dL Magnesium (1.6-2.3) mg/dL Total Bilirubin (0.2-1.3) mg/dL AST (17-59) U/L ALT (21-72) U/L Alkaline Phosphatase (38-126) U/L Total Protein (6.3-8.3) g/dL Albumin (3.5-5.0) g/dL Globulin (2.2-3.9) gm/dL Albumin/Globulin Ratio (1.0-2.1) Arterial Blood Potassium (3.6-5.2) mmol/L Urine Color (YELLOW) Urine Clarity (Clear) Urine pH (5.0-8.0) Ur Specific [place] (1.003-1.030) Urine Protein (NEGATIVE) mg/dL Urine Glucose (UA) (Normal) mg/dL Urine Ketones (NEGATIVE) mg/dL Urine Blood (NEGATIVE) Urine Nitrate (NEGATIVE) Urine Bilirubin (NEGATIVE) Urine Urobilinogen (0.2-1.0) mg/dL Ur Leukocyte Esterase (Negative) Yonis/uL Urine WBC (Auto) (0-5) /hpf Urine RBC (Auto) (0-3) /hpf Urine WBC Clumps (Auto) (NONE) /hpf Ur Squamous Epith Cells (0-5) /hpf Urine Bacteria (<OCC) 03/29/18 03/29/18 Range/Units 12:06 08:20 WBC (4.8-10.8) K/uL RBC (4.40-5.90) Mil/uL Hgb (12.0-18.0) g/dL Hct (35.0-51.0) % MCV (80.0-94.0) fL MCH (27.0-31.0) pg MCHC (33.0-37.0) g/dL RDW (11.5-14.5) % Plt Count (130-400) K/uL MPV (7.2-11.7) fL Neut % (Auto) (50.0-75.0) % Lymph % (Auto) (20.0-40.0) % Cedar % (Auto) (0.0-10.0) % Eos % (Auto) (0.0-4.0) % Baso % (Auto) (0.0-2.0) % Neut # (Auto) (1.8-7.0) K/uL Lymph # (Auto) (1.0-4.3) K/uL Cedar # (Auto) (0.0-0.8) K/uL Eos # (Auto) (0.0-0.7) K/uL Baso # (Auto) (0.0-0.2) K/uL Neutrophils % (Manual) 73 (50-75) % Band Neutrophils % 22 H* (0-2) % Lymphocytes % (Manual) 2 L (20-40) % Monocytes % (Manual) 2 (0-10) % Myelocytes % 1 H (0-0) % Toxic Granulation Present Platelet Estimate Slightly increased H (NORMAL) Hypochromasia (manual) Slight Anisocytosis (manual) Slight Puncture Site Rb pCO2 48 H (35-45) mm/Hg pO2 88 (80-100) mm/Hg HCO3 15.0 L (21-28) mmol/L ABG pH 7.14 L* (7.35-7.45) ABG Total CO2 17.8 L (22-28) mmol/L ABG O2 Saturation 95.1 (95-98) % ABG Base Excess -12.6 L (-2.0-3.0) mmol/L Peng Test Na ABG Potassium 5.6 H (3.6-5.2) mmol/L A-a O2 Difference 565.0 mm/Hg Respiratory Index 6.4 Sodium 147.0 (132-148) mmol/l Chloride 115.0 H (98-107) mmol/L Glucose 243 H (75-110) mg/dl Lactate 7.8 H* (0.7-2.1) mmol/L Vent Mode Prvc FiO2 100.0 % PEEP 5 Crit Value Called To Dr vázquez Crit Value Called By Saranya coleman [employer] operator Crit Value Read Back Y Blood Gas Notified Time 1217 Potassium (3.6-5.2) mmol/L Carbon Dioxide (22-30) mmol/L Anion Gap (10-20) BUN (9-20) mg/dL Creatinine (0.8-1.5) mg/dL Est GFR ( Amer) Est GFR (Non-Af Amer) POC Glucose (mg/dL) (65-110) mg/dL Random Glucose (75-110) mg/dL Calcium (8.6-10.4) mg/dl Phosphorus (2.5-4.5) mg/dL Magnesium (1.6-2.3) mg/dL Total Bilirubin (0.2-1.3) mg/dL AST (17-59) U/L ALT (21-72) U/L Alkaline Phosphatase (38-126) U/L Total Protein (6.3-8.3) g/dL Albumin (3.5-5.0) g/dL Globulin (2.2-3.9) gm/dL Albumin/Globulin Ratio (1.0-2.1) Arterial Blood Potassium 5.6 H (3.6-5.2) mmol/L Urine Color (YELLOW) Urine Clarity (Clear) Urine pH (5.0-8.0) Ur Specific [place] (1.003-1.030) Urine Protein (NEGATIVE) mg/dL Urine Glucose (UA) (Normal) mg/dL Urine Ketones (NEGATIVE) mg/dL Urine Blood (NEGATIVE) Urine Nitrate (NEGATIVE) Urine Bilirubin (NEGATIVE) Urine Urobilinogen (0.2-1.0) mg/dL Ur Leukocyte Esterase (Negative) Yonis/uL Urine WBC (Auto) (0-5) /hpf Urine RBC (Auto) (0-3) /hpf Urine WBC Clumps (Auto) (NONE) /hpf Ur Squamous Epith Cells (0-5) /hpf Urine Bacteria (<OCC) Laboratory Results - last 24 hr 03/29/18 03/29/18 03/29/18 08:20 12:06 17:38 WBC RBC Hgb Hct MCV MCH MCHC RDW Plt Count MPV Neut % (Auto) Lymph % (Auto) C[place] % (Auto) Eos % (Auto) Baso % (Auto) Neut # (Auto) Lymph # (Auto) [place] # (Auto) Eos # (Auto) Baso # (Auto) Neutrophils % (Manual) 73 Band Neutrophils % 22 H* Lymphocytes % (Manual) 2 L Monocytes % (Manual) 2 Myelocytes % 1 H Toxic Granulation Present Platelet Estimate Slightly increased H Hypochromasia (manual) Slight Anisocytosis (manual) Slight Puncture Site Rb pCO2 48 H pO2 88 HCO3 15.0 L ABG pH 7.14 L* ABG Total CO2 17.8 L ABG O2 Saturation 95.1 ABG Base Excess -12.6 L Peng Test Na ABG Potassium 5.6 H A-a O2 Difference 565.0 Respiratory Index 6.4 Sodium 147.0 Chloride 115.0 H Glucose 243 H Lactate 7.8 H* Vent Mode Prvc FiO2 100.0 PEEP 5 Crit Value Called To Dr vázquez Crit Value Called By Saranya coleman gamewell operator Crit Value Read Back Y Blood Gas Notified Time 1217 Potassium Carbon Dioxide Anion Gap BUN Creatinine Est GFR ( Amer) Est GFR (Non-Af Amer) POC Glucose (mg/dL) 231 H Random Glucose Calcium Phosphorus Magnesium Total Bilirubin AST ALT Alkaline Phosphatase Total Protein Albumin Globulin Albumin/Globulin Ratio Arterial Blood Potassium 5.6 H Urine Color Urine Clarity Urine pH Ur Specific [place] Urine Protein Urine Glucose (UA) Urine Ketones Urine Blood Urine Nitrate Urine Bilirubin Urine Urobilinogen Ur Leukocyte Esterase Urine WBC (Auto) Urine RBC (Auto) Urine WBC Clumps (Auto) Ur Squamous Epith Cells Urine Bacteria 03/30/18 03/30/18 03/30/18 00:01 05:40 06:41 WBC RBC Hgb Hct MCV MCH MCHC RDW Plt Count MPV Neut % (Auto) Lymph % (Auto) [place] % (Auto) Eos % (Auto) Baso % (Auto) Neut # (Auto) Lymph # (Auto) [place] # (Auto) Eos # (Auto) Baso # (Auto) Neutrophils % (Manual) Band Neutrophils % Lymphocytes % (Manual) Monocytes % (Manual) Myelocytes % Toxic Granulation Platelet Estimate Hypochromasia (manual) Anisocytosis (manual) Puncture Site pCO2 pO2 HCO3 ABG pH ABG Total CO2 ABG O2 Saturation ABG Base Excess Peng Test ABG Potassium A-a O2 Difference Respiratory Index Sodium 153 H Chloride 115 H Glucose Lactate Vent Mode FiO2 PEEP Crit Value Called To Crit Value Called By Crit Value Read Back Blood Gas Notified Time Potassium 5.1 Carbon Dioxide 24 Anion Gap 19 BUN 41 H Creatinine 2.7 H Est GFR ( Amer) 28 Est GFR (Non-Af Amer) 23 POC Glucose (mg/dL) 241 H 205 H Random Glucose 193 H Calcium 8.2 L Phosphorus 5.0 H Magnesium 2.5 H Total Bilirubin 1.2 AST 178 H D ALT 55 Alkaline Phosphatase 83 Total Protein 5.0 L Albumin 2.2 L Globulin 2.8 Albumin/Globulin Ratio 0.8 L Arterial Blood Potassium Urine Color Urine Clarity Urine pH Ur Specific [place] Urine Protein Urine Glucose (UA) Urine Ketones Urine Blood Urine Nitrate Urine Bilirubin Urine Urobilinogen Ur Leukocyte Esterase Urine WBC (Auto) Urine RBC (Auto) Urine WBC Clumps (Auto) Ur Squamous Epith Cells Urine Bacteria 03/30/18 03/30/18 06:42 06:44 WBC 19.3 H RBC 3.21 L Hgb 8.4 L Hct 26.7 L MCV 83.4 MCH 26.2 L MCHC 31.4 L RDW 17.3 H Plt Count 217 D MPV 10.2 Neut % (Auto) 85.8 H Lymph % (Auto) 7.9 L [place] % (Auto) 6.1 Eos % (Auto) 0.1 Baso % (Auto) 0.1 Neut # (Auto) 16.6 H Lymph # (Auto) 1.5 [place] # (Auto) 1.2 H Eos # (Auto) 0.0 Baso # (Auto) 0.0 Neutrophils % (Manual) Band Neutrophils % Lymphocytes % (Manual) Monocytes % (Manual) Myelocytes % Toxic Granulation Platelet Estimate Hypochromasia (manual) Anisocytosis (manual) Puncture Site pCO2 pO2 HCO3 ABG pH ABG Total CO2 ABG O2 Saturation ABG Base Excess Peng Test ABG Potassium A-a O2 Difference Respiratory Index Sodium Chloride Glucose Lactate Vent Mode FiO2 PEEP Crit Value Called To Crit Value Called By Crit Value Read Back Blood Gas Notified Time Potassium Carbon Dioxide Anion Gap BUN Creatinine Est GFR ( Amer) Est GFR (Non-Af Amer) POC Glucose (mg/dL) Random Glucose Calcium Phosphorus Magnesium Total Bilirubin AST ALT Alkaline Phosphatase Total Protein Albumin Globulin Albumin/Globulin Ratio Arterial Blood Potassium Urine Color Brown Urine Clarity Slight-cloudy Urine pH 5.0 Ur Specific [place] 1.026 Urine Protein 1+ H Urine Glucose (UA) Normal Urine Ketones Negative Urine Blood 2+ H Urine Nitrate Negative Urine Bilirubin 1+ H Urine Urobilinogen 4.0 Ur Leukocyte Esterase 1+ H Urine WBC (Auto) 146 H Urine RBC (Auto) 33 H Urine WBC Clumps (Auto) Occ H Ur Squamous Epith Cells 1 Urine Bacteria Many H Fingerstick Blood Sugar Results: 205 Critical Care Progress Note - Nutrition Nutrition: Nutrition Category Date Time Status NPO Diet [DIET] Diets 03/26/18 Breakfast Active Assessment/Plan - Assessment and Plan (Free Text) Assessment: This is a 72 year old male with PMHx HTN, DM, CAD who went into cardiac arrest with v-fib. ROSC was about 20 minutes after the start of code blue. Patient now in the ICU intubated and on pressors. Family at this time wishes for DNR and terminal extubation; however, the patient's wishes were to extubate only if no change after 1 day on the ventilator. On 03/30/18, family has had a change of heart and wish for full code at this time. They plan to reconsider their options within the next couple of days. Neuro Intubated, not sedated Unresponsive Cardio Assessment: Cardiac Arrest, History of CAD, History of HTN Currently on Levophed and Dopamine drips ASA 81 mg PO daily Pulm Intubated and on the ventilator GI Assessment: Post op Illeus, abdominal distention NPO Will need to re-insert NGT or OGT if possible. There was great difficulty in inserting one yesterday. Endocrine Assessment: DM Regular ISS Renal Nephrology consulted Bicarb drip Infectious Disease Cipro and Flagyl switched to Zosyn per ID Prophylaxis Lovenox SC daily Protonix 40 mg IV daily Very poor prognosis Discussed with Dr. Garcia <Leonidas Garcia - Last Filed: 03/30/18 18:09> CCU Objective - Vital Signs / Intake & Output Vital Signs (Last 4 hours): Vital Signs Temp Pulse Resp BP Pulse Ox 03/30/18 16:11 0 L 0 L 0/0 L 0 L 03/30/18 15:59 32 L 20 40/0 L 50 L 03/30/18 15:35 100.7 F H 69 20 78/46 L 83 L 03/30/18 15:00 82 20 137/55 L 82 L 03/30/18 14:30 100.4 F H 122 H 20 137/55 L 81 L 03/30/18 14:06 139 H 29 H 127/55 L 83 L 03/30/18 14:00 100.6 F H 69 20 118/78 78 L 03/30/18 13:45 100.3 F H 129 H 20 120/55 L 82 L Intake and Output (Last 8hrs): Intake & Output 03/30/18 03/30/18 03/30/18 06:59 14:59 22:59 Intake Total 1163.0 1682.9 604 Output Total 20 65 10 Balance 1143.0 1617.9 594 Weight 258 lb 9.636 oz Intake: IV 267 215 Intake, IV Amount 896.0 1467.9 604 Left Distal Port Femoral 92.0 157.9 74 Left Medial Port Femoral 750 950 350 Left Proximal Port 54.0 360 180 Femoral Output: Urine 20 65 10 Urethral (Rodriguez) 20 65 10 Other: # Bowel Movements 1 1 - Medications Active Medications: Active Medications Generic Name Dose Route Start Last Admin Trade Name Freq PRN Reason Stop Dose Admin Acetaminophen 650 mg 03/30/18 08:[address] Q6 PRN Fever >100.4 F Aspirin 81 mg 03/19/18 10:00 03/30/18 09:09 Ecotrin PO Not Given DAILY [facility] Diphenhydramine HCl 12.5 mg 03/29/18 07:45 03/30/18 08:16 Benadryl PO Not Given Q8H MAYRA Docusate Sodium 100 mg 03/23/18 10:00 03/30/18 10:00 Colace PO Not Given BID [facility] Enoxaparin Sodium 40 mg 03/20/18 10:00 03/30/18 09:10 Lovenox SC Not Given DAILY [facility] Home Med 1 gm 03/23/18 10:00 03/30/18 10:00 Patient's Own Topical TOP 05/18/18 23:59 Not Given TID MAYRA Home Med 1 tab 03/23/18 18:00 03/29/18 17:49 Patient's Own Medication PO Not Given QPM MAYRA Hydralazine HCl 10 mg 03/22/18 13:18 03/27/18 18:27 Apresoline IVP 10 mg Q6H PRN Administration Systolic Blood Pressure Hydrocortisone 25 mg 03/24/18 18:00 03/30/18 13:04 Anusol-Hc RC 04/07/18 10:01 Not Given BID MAYRA Piperacillin Sod/Tazobactam Sod 3.375 gm in 50 mls @ 100 mls/hr 03/29/18 14: 00 03/30/18 08:00 Zosyn 3.375 Gm Iv Premix IVPB 100 mls/hr Q6H MAYRA Administration Protocol Dopamine HCl/Dextrose 400 mg in 250 mls @ 9.287 mls/hr 03/29/18 14:12 14:06 Dopamine 400mg/250ml D5w IV 20 mcg/kg/min .Q24H PRN 92.873 mls/hr TITRATE PER MD ORDER Administration Protocol 2 MCG/KG/MIN Norepinephrine Bitartrate 8 mg 258 mls @ 7.74 mls/hr 03/29/18 14:13 03/30/18 07:20 / Sodium Chloride IV 5 mcg/min .Q24H PRN 9.67 mls/hr TITRATE PER MD ORDER Administration Protocol 4 MCG/MIN Sodium Chloride 1,000 mls @ 100 mls/hr 03/29/18 20:00 03/30/18 07:20 Sodium Chloride 0.9% IV 100 mls/hr .Q10H MAYRA Administration Sodium Bicarbonate 100 meq/ 1,100 mls @ 75 mls/hr 03/30/18 13:30 03/30/18 14: 00 Sodium Chloride IV 75 mls/hr .[id number] MAYRA Administration Insulin Human Regular 0 unit 03/30/18 00:00 03/30/18 11:30 Novolin R SC Not Given Q6H MAYRA Protocol Lidocaine HCl 0 ml 03/23/18 13:39 Lidocaine Hydrochloride Jelly 2% 5 Ml TOP BID PRN Other Metoclopramide HCl 5 mg 03/29/18 07:45 03/30/18 09:12 Reglan PO Not Given Q8H [facility] Metoprolol Tartrate 50 mg 03/25/18 10:00 03/30/18 09:10 Lopressor PO Not Given BID [facility] Nystatin 0 gm 03/20/18 18:00 03/30/18 13:08 Nystop Topical Powder TOP 04/03/18 18:00 Not Given BID [facility] Pantoprazole Sodium 40 mg 03/30/18 15:45 Protonix Inj IVP DAILY [facility] Phenol/Menthol 1 ml 03/29/18 06:57 Phenaseptic 1.4% Throat [place] Q2H PRN Sore Throat Povidone Iodine 0 gm 03/20/18 17:45 03/30/18 13:05 Betadine 10% Oint TOP Not Given Q8H [facility] Saccharomyces Boulardii 250 mg 03/21/18 18:00 03/30/18 09:10 Florastor PO Not Given BID [facility] Simethicone 80 mg 03/24/18 14:40 03/30/18 13:07 Mylicon Chew Tab PO Not Given TID [facility] - Patient Studies Lab Studies: Microbiology Studies 03/29/18 12:15 Blood Culture - Preliminary Blood-Thru [facility] NO GROWTH AFTER 24 HOURS 03/29/18 12:45 Blood Culture - Preliminary Blood-Thru [facility] NO GROWTH AFTER 24 HOURS 03/29/18 15:00 MRSA Culture (Admit) - Final Naris MRSA NOT DETECTED Lab Studies 03/30/18 03/30/18 03/30/18 Range/Units 12:11 11:38 06:44 WBC 19.3 H (4.8-10.8) K/uL RBC 3.21 L (4.40-5.90) Mil/uL Hgb 8.4 L (12.0-18.0) g/dL Hct 26.7 L (35.0-51.0) % MCV 83.4 (80.0-94.0) fL MCH 26.2 L (27.0-31.0) pg MCHC 31.4 L (33.0-37.0) g/dL RDW 17.3 H (11.5-14.5) % Plt Count 217 D (130-400) K/uL MPV 10.2 (7.2-11.7) fL Neut % (Auto) 85.8 H (50.0-75.0) % Lymph % (Auto) 7.9 L (20.0-40.0) % Cedar % (Auto) 6.1 (0.0-10.0) % Eos % (Auto) 0.1 (0.0-4.0) % Baso % (Auto) 0.1 (0.0-2.0) % Neut # (Auto) 16.6 H (1.8-7.0) K/uL Lymph # (Auto) 1.5 (1.0-4.3) K/uL Cedar # (Auto) 1.2 H (0.0-0.8) K/uL Eos # (Auto) 0.0 (0.0-0.7) K/uL Baso # (Auto) 0.0 (0.0-0.2) K/uL Neutrophils % (Manual) 62 (50-75) % Band Neutrophils % 28 H* (0-2) % Lymphocytes % (Manual) 8 L (20-40) % Monocytes % (Manual) 2 (0-10) % Nucleated RBC % 1 H (0-0) % Platelet Estimate Normal (NORMAL) Polychromasia Slight Hypochromasia (manual) Slight Anisocytosis (manual) Slight Target Cells Slight Puncture Site Rb pCO2 40 (35-45) mm/Hg pO2 65 L (80-100) mm/Hg HCO3 14.6 L (21-28) mmol/L ABG pH 7.18 L* (7.35-7.45) ABG Total CO2 16.1 L (22-28) mmol/L ABG O2 Saturation 90.0 L (95-98) % ABG Base Excess -12.9 L (-2.0-3.0) mmol/L Peng Test Na ABG Potassium 4.8 (3.6-5.2) mmol/L A-a O2 Difference 598.0 mm/Hg Respiratory Index 9.2 Glucose 147 H (75-110) mg/dl Lactate 6.4 H* (0.7-2.1) mmol/L Vent Mode Prvc Mechanical Rate 20 FiO2 100.0 % Tidal Volume 500 PEEP 5 Crit Value Called To Dr c jose Crit Value Called By Saranya coleman [employer] operator Crit Value Read Back Y Blood Gas Notified Time 1215 Sodium 152.0 H (132-148) mmol/L Potassium (3.6-5.2) mmol/L Chloride 121.0 H (98-107) mmol/L Carbon Dioxide (22-30) mmol/L Anion Gap (10-20) BUN (9-20) mg/dL Creatinine (0.8-1.5) mg/dL Est GFR ( Amer) Est GFR (Non-Af Amer) POC Glucose (mg/dL) 166 H (65-110) mg/dL Random Glucose (75-110) mg/dL Calcium (8.6-10.4) mg/dl Phosphorus (2.5-4.5) mg/dL Magnesium (1.6-2.3) mg/dL Total Bilirubin (0.2-1.3) mg/dL AST (17-59) U/L ALT (21-72) U/L Alkaline Phosphatase (38-126) U/L Total Protein (6.3-8.3) g/dL Albumin (3.5-5.0) g/dL Globulin (2.2-3.9) gm/dL Albumin/Globulin Ratio (1.0-2.1) Arterial Blood Potassium 4.8 (3.6-5.2) mmol/L Urine Color (YELLOW) Urine Clarity (Clear) Urine pH (5.0-8.0) Ur Specific [place] (1.003-1.030) Urine Protein (NEGATIVE) mg/dL Urine Glucose (UA) (Normal) mg/dL Urine Ketones (NEGATIVE) mg/dL Urine Blood (NEGATIVE) Urine Nitrate (NEGATIVE) Urine Bilirubin (NEGATIVE) Urine Urobilinogen (0.2-1.0) mg/dL Ur Leukocyte Esterase (Negative) Yonis/uL Urine WBC (Auto) (0-5) /hpf Urine RBC (Auto) (0-3) /hpf Urine WBC Clumps (Auto) (NONE) /hpf Ur Squamous Epith Cells (0-5) /hpf Urine Bacteria (<OCC) 03/30/18 03/30/18 03/30/18 Range/Units 06:42 06:41 05:40 WBC (4.8-10.8) K/uL RBC (4.40-5.90) Mil/uL Hgb (12.0-18.0) g/dL Hct (35.0-51.0) % MCV (80.0-94.0) fL MCH (27.0-31.0) pg MCHC (33.0-37.0) g/dL RDW (11.5-14.5) % Plt Count (130-400) K/uL MPV (7.2-11.7) fL Neut % (Auto) (50.0-75.0) % Lymph % (Auto) (20.0-40.0) % Cedar % (Auto) (0.0-10.0) % Eos % (Auto) (0.0-4.0) % Baso % (Auto) (0.0-2.0) % Neut # (Auto) (1.8-7.0) K/uL Lymph # (Auto) (1.0-4.3) K/uL Cedar # (Auto) (0.0-0.8) K/uL Eos # (Auto) (0.0-0.7) K/uL Baso # (Auto) (0.0-0.2) K/uL Neutrophils % (Manual) (50-75) % Band Neutrophils % (0-2) % Lymphocytes % (Manual) (20-40) % Monocytes % (Manual) (0-10) % Nucleated RBC % (0-0) % Platelet Estimate (NORMAL) Polychromasia Hypochromasia (manual) Anisocytosis (manual) Target Cells Puncture Site pCO2 (35-45) mm/Hg pO2 (80-100) mm/Hg HCO3 (21-28) mmol/L ABG pH (7.35-7.45) ABG Total CO2 (22-28) mmol/L ABG O2 Saturation (95-98) % ABG Base Excess (-2.0-3.0) mmol/L Peng Test ABG Potassium (3.6-5.2) mmol/L A-a O2 Difference mm/Hg Respiratory Index Glucose (75-110) mg/dl Lactate (0.7-2.1) mmol/L Vent Mode Mechanical Rate FiO2 % Tidal Volume PEEP Crit Value Called To Crit Value Called By Crit Value Read Back Blood Gas Notified Time Sodium 153 H (132-148) mmol/L Potassium 5.1 (3.6-5.2) mmol/L Chloride 115 H (98-107) mmol/L Carbon Dioxide 24 (22-30) mmol/L Anion Gap 19 (10-20) BUN 41 H (9-20) mg/dL Creatinine 2.7 H (0.8-1.5) mg/dL Est GFR ( Amer) 28 Est GFR (Non-Af Amer) 23 POC Glucose (mg/dL) 205 H (65-110) mg/dL Random Glucose 193 H (75-110) mg/dL Calcium 8.2 L (8.6-10.4) mg/dl Phosphorus 5.0 H (2.5-4.5) mg/dL Magnesium 2.5 H (1.6-2.3) mg/dL Total Bilirubin 1.2 (0.2-1.3) mg/dL AST 178 H D (17-59) U/L ALT 55 (21-72) U/L Alkaline Phosphatase 83 (38-126) U/L Total Protein 5.0 L (6.3-8.3) g/dL Albumin 2.2 L (3.5-5.0) g/dL Globulin 2.8 (2.2-3.9) gm/dL Albumin/Globulin Ratio 0.8 L (1.0-2.1) Arterial Blood Potassium (3.6-5.2) mmol/L Urine Color Brown (YELLOW) Urine Clarity Slight-cloudy (Clear) Urine pH 5.0 (5.0-8.0) Ur Specific [place] 1.026 (1.003-1.030) Urine Protein 1+ H (NEGATIVE) mg/dL Urine Glucose (UA) Normal (Normal) mg/dL Urine Ketones Negative (NEGATIVE) mg/dL Urine Blood 2+ H (NEGATIVE) Urine Nitrate Negative (NEGATIVE) Urine Bilirubin 1+ H (NEGATIVE) Urine Urobilinogen 4.0 (0.2-1.0) mg/dL Ur Leukocyte Esterase 1+ H (Negative) Yonis/uL Urine WBC (Auto) 146 H (0-5) /hpf Urine RBC (Auto) 33 H (0-3) /hpf Urine WBC Clumps (Auto) Occ H (NONE) /hpf Ur Squamous Epith Cells 1 (0-5) /hpf Urine Bacteria Many H (<OCC) 03/30/18 03/29/18 Range/Units 00:01 17:38 WBC (4.8-10.8) K/uL RBC (4.40-5.90) Mil/uL Hgb (12.0-18.0) g/dL Hct (35.0-51.0) % MCV (80.0-94.0) fL MCH (27.0-31.0) pg MCHC (33.0-37.0) g/dL RDW (11.5-14.5) % Plt Count (130-400) K/uL MPV (7.2-11.7) fL Neut % (Auto) (50.0-75.0) % Lymph % (Auto) (20.0-40.0) % Cedar % (Auto) (0.0-10.0) % Eos % (Auto) (0.0-4.0) % Baso % (Auto) (0.0-2.0) % Neut # (Auto) (1.8-7.0) K/uL Lymph # (Auto) (1.0-4.3) K/uL Cedar # (Auto) (0.0-0.8) K/uL Eos # (Auto) (0.0-0.7) K/uL Baso # (Auto) (0.0-0.2) K/uL Neutrophils % (Manual) (50-75) % Band Neutrophils % (0-2) % Lymphocytes % (Manual) (20-40) % Monocytes % (Manual) (0-10) % Nucleated RBC % (0-0) % Platelet Estimate (NORMAL) Polychromasia Hypochromasia (manual) Anisocytosis (manual) Target Cells Puncture Site pCO2 (35-45) mm/Hg pO2 (80-100) mm/Hg HCO3 (21-28) mmol/L ABG pH (7.35-7.45) ABG Total CO2 (22-28) mmol/L ABG O2 Saturation (95-98) % ABG Base Excess (-2.0-3.0) mmol/L Peng Test ABG Potassium (3.6-5.2) mmol/L A-a O2 Difference mm/Hg Respiratory Index Glucose (75-110) mg/dl Lactate (0.7-2.1) mmol/L Vent Mode Mechanical Rate FiO2 % Tidal Volume PEEP Crit Value Called To Crit Value Called By Crit Value Read Back Blood Gas Notified Time Sodium (132-148) mmol/L Potassium (3.6-5.2) mmol/L Chloride (98-107) mmol/L Carbon Dioxide (22-30) mmol/L Anion Gap (10-20) BUN (9-20) mg/dL Creatinine (0.8-1.5) mg/dL Est GFR ( Amer) Est GFR (Non-Af Amer) POC Glucose (mg/dL) 241 H 231 H (65-110) mg/dL Random Glucose (75-110) mg/dL Calcium (8.6-10.4) mg/dl Phosphorus (2.5-4.5) mg/dL Magnesium (1.6-2.3) mg/dL Total Bilirubin (0.2-1.3) mg/dL AST (17-59) U/L ALT (21-72) U/L Alkaline Phosphatase (38-126) U/L Total Protein (6.3-8.3) g/dL Albumin (3.5-5.0) g/dL Globulin (2.2-3.9) gm/dL Albumin/Globulin Ratio (1.0-2.1) Arterial Blood Potassium (3.6-5.2) mmol/L Urine Color (YELLOW) Urine Clarity (Clear) Urine pH (5.0-8.0) Ur Specific [place] (1.003-1.030) Urine Protein (NEGATIVE) mg/dL Urine Glucose (UA) (Normal) mg/dL Urine Ketones (NEGATIVE) mg/dL Urine Blood (NEGATIVE) Urine Nitrate (NEGATIVE) Urine Bilirubin (NEGATIVE) Urine Urobilinogen (0.2-1.0) mg/dL Ur Leukocyte Esterase (Negative) Yonis/uL Urine WBC (Auto) (0-5) /hpf Urine RBC (Auto) (0-3) /hpf Urine WBC Clumps (Auto) (NONE) /hpf Ur Squamous Epith Cells (0-5) /hpf Urine Bacteria (<OCC) Laboratory Results - last 24 hr 03/29/18 03/30/18 03/30/18 17:38 00:01 05:40 WBC RBC Hgb Hct MCV MCH MCHC RDW Plt Count MPV Neut % (Auto) Lymph % (Auto) Cedar % (Auto) Eos % (Auto) Baso % (Auto) Neut # (Auto) Lymph # (Auto) [place] # (Auto) Eos # (Auto) Baso # (Auto) Neutrophils % (Manual) Band Neutrophils % Lymphocytes % (Manual) Monocytes % (Manual) Nucleated RBC % Platelet Estimate Polychromasia Hypochromasia (manual) Anisocytosis (manual) Target Cells Puncture Site pCO2 pO2 HCO3 ABG pH ABG Total CO2 ABG O2 Saturation ABG Base Excess Peng Test ABG Potassium A-a O2 Difference Respiratory Index Glucose Lactate Vent Mode Mechanical Rate FiO2 Tidal Volume PEEP Crit Value Called To Crit Value Called By Crit Value Read Back Blood Gas Notified Time Sodium Potassium Chloride Carbon Dioxide Anion Gap BUN Creatinine Est GFR ( Amer) Est GFR (Non-Af Amer) POC Glucose (mg/dL) 231 H 241 H 205 H Random Glucose Calcium Phosphorus Magnesium Total Bilirubin AST ALT Alkaline Phosphatase Total Protein Albumin Globulin Albumin/Globulin Ratio Arterial Blood Potassium Urine Color Urine Clarity Urine pH Ur Specific [place] Urine Protein Urine Glucose (UA) Urine Ketones Urine Blood Urine Nitrate Urine Bilirubin Urine Urobilinogen Ur Leukocyte Esterase Urine WBC (Auto) Urine RBC (Auto) Urine WBC Clumps (Auto) Ur Squamous Epith Cells Urine Bacteria 03/30/18 03/30/18 03/30/18 06:41 06:42 06:44 WBC 19.3 H RBC 3.21 L Hgb 8.4 L Hct 26.7 L MCV 83.4 MCH 26.2 L MCHC 31.4 L RDW 17.3 H Plt Count 217 D MPV 10.2 Neut % (Auto) 85.8 H Lymph % (Auto) 7.9 L C[place] % (Auto) 6.1 Eos % (Auto) 0.1 Baso % (Auto) 0.1 Neut # (Auto) 16.6 H Lymph # (Auto) 1.5 [place] # (Auto) 1.2 H Eos # (Auto) 0.0 Baso # (Auto) 0.0 Neutrophils % (Manual) 62 Band Neutrophils % 28 H* Lymphocytes % (Manual) 8 L Monocytes % (Manual) 2 Nucleated RBC % 1 H Platelet Estimate Normal Polychromasia Slight Hypochromasia (manual) Slight Anisocytosis (manual) Slight Target Cells Slight Puncture Site pCO2 pO2 HCO3 ABG pH ABG Total CO2 ABG O2 Saturation ABG Base Excess Peng Test ABG Potassium A-a O2 Difference Respiratory Index Glucose Lactate Vent Mode Mechanical Rate FiO2 Tidal Volume PEEP Crit Value Called To Crit Value Called By Crit Value Read Back Blood Gas Notified Time Sodium 153 H Potassium 5.1 Chloride 115 H Carbon Dioxide 24 Anion Gap 19 BUN 41 H Creatinine 2.7 H Est GFR ( Amer) 28 Est GFR (Non-Af Amer) 23 POC Glucose (mg/dL) Random Glucose 193 H Calcium 8.2 L Phosphorus 5.0 H Magnesium 2.5 H Total Bilirubin 1.2 AST 178 H D ALT 55 Alkaline Phosphatase 83 Total Protein 5.0 L Albumin 2.2 L Globulin 2.8 Albumin/Globulin Ratio 0.8 L Arterial Blood Potassium Urine Color Brown Urine Clarity Slight-cloudy Urine pH 5.0 Ur Specific [place] 1.026 Urine Protein 1+ H Urine Glucose (UA) Normal Urine Ketones Negative Urine Blood 2+ H Urine Nitrate Negative Urine Bilirubin 1+ H Urine Urobilinogen 4.0 Ur Leukocyte Esterase 1+ H Urine WBC (Auto) 146 H Urine RBC (Auto) 33 H Urine WBC Clumps (Auto) Occ H Ur Squamous Epith Cells 1 Urine Bacteria Many H 03/30/18 03/30/18 11:38 12:11 WBC RBC Hgb Hct MCV MCH MCHC RDW Plt Count MPV Neut % (Auto) Lymph % (Auto) [place] % (Auto) Eos % (Auto) Baso % (Auto) Neut # (Auto) Lymph # (Auto) [place] # (Auto) Eos # (Auto) Baso # (Auto) Neutrophils % (Manual) Band Neutrophils % Lymphocytes % (Manual) Monocytes % (Manual) Nucleated RBC % Platelet Estimate Polychromasia Hypochromasia (manual) Anisocytosis (manual) Target Cells Puncture Site Rb pCO2 40 pO2 65 L HCO3 14.6 L ABG pH 7.18 L* ABG Total CO2 16.1 L ABG O2 Saturation 90.0 L ABG Base Excess -12.9 L Peng Test Na ABG Potassium 4.8 A-a O2 Difference 598.0 Respiratory Index 9.2 Glucose 147 H Lactate 6.4 H* Vent Mode Prvc Mechanical Rate 20 FiO2 100.0 Tidal Volume 500 PEEP 5 Crit Value Called To Dr melissa garcia Crit Value Called By Saranya coleman gamewell operator Crit Value Read Back Y Blood Gas Notified Time 1215 Sodium 152.0 H Potassium Chloride 121.0 H Carbon Dioxide Anion Gap BUN Creatinine Est GFR ( Amer) Est GFR (Non-Af Amer) POC Glucose (mg/dL) 166 H Random Glucose Calcium Phosphorus Magnesium Total Bilirubin AST ALT Alkaline Phosphatase Total Protein Albumin Globulin Albumin/Globulin Ratio Arterial Blood Potassium 4.8 Urine Color Urine Clarity Urine pH Ur Specific [place] Urine Protein Urine Glucose (UA) Urine Ketones Urine Blood Urine Nitrate Urine Bilirubin Urine Urobilinogen Ur Leukocyte Esterase Urine WBC (Auto) Urine RBC (Auto) Urine WBC Clumps (Auto) Ur Squamous Epith Cells Urine Bacteria Critical Care Progress Note - Nutrition Nutrition: Nutrition Category Date Time Status NPO Diet [DIET] Diets 03/26/18 Breakfast Active Attending/Attestation - Attestation I have personally seen and examined this patient.: Yes I have fully participated in the care of the patient.: Yes I have reviewed all pertinent clinical information: Yes Notes (Text): 03/30/18 17:32 Patient seen and examined. Case discussed with house staff in the morning rounds. Assessment and plan as per resident note
[2018-03-30 08:53] LABS: ANISOCYTOSIS SLIGHT; HYPOCHROMIC SLIGHT; PLATELET ESTIMATE NORMAL (NORMAL); POLYCHROMIC SLIGHT; TARGET CELLS SLIGHT
[2018-03-30] MEDS: Enoxaparin 40 mg Syringe SC SCH (09:10)
[2018-03-30] MEDS: Saccharomyces Boulardi 250 mg Cap PO SCH (09:10)
[2018-03-30] MEDS: DILTIAZEM 2% TOP SCH (10:00)
--- NOTE | 2018-03-30 10:37 | CP.PCM.PN ---
Subjective - Date & Time of Evaluation Date of Evaluation: 03/30/18 Time of Evaluation: 10:34 - Subjective Subjective: Patient unresponsive Objective - Vital Signs/Intake and Output Vital Signs (last 24 hours): Temp Pulse Resp BP Pulse Ox 101 F H 105 H 20 97/44 L 96 03/30/18 08:00 03/30/18 08:00 03/30/18 08:00 03/30/18 08:00 03/30/18 08:00 Intake and Output: 03/30/18 03/30/18 06:59 18:59 Intake Total 1796.7 349.4 Output Total 20 20 Balance 1776.7 329.4 - Medications Medications: Current Medications Acetaminophen (Tylenol 650 Mg Supp) 650 mg [place] Q6 PRN PRN Reason: Fever >100.4 F Aspirin (Ecotrin) 81 mg PO DAILY [facility] Last Admin: 03/30/18 09:09 Dose: Not Given Diphenhydramine HCl (Benadryl) 12.5 mg PO Q8H [facility] Last Admin: 03/30/18 08:16 Dose: Not Given Docusate Sodium (Colace) 100 mg PO BID [facility] Last Admin: 03/29/18 17:49 Dose: Not Given Enoxaparin Sodium (Lovenox) 40 mg SC DAILY [facility] Last Admin: 03/30/18 09:10 Dose: Not Given Home Med (Patient's Own Topical) 1 gm TOP TID [facility] Stop: 05/18/18 23:59 Last Admin: 03/29/18 17:47 Dose: Not Given Home Med (Patient's Own Medication) 1 tab PO QPM [facility] Last Admin: 03/29/18 17:49 Dose: Not Given Hydralazine HCl (Apresoline) 10 mg IVP Q6H PRN PRN Reason: Systolic Blood Pressure Last Admin: 03/27/18 18:27 Dose: 10 mg Hydrocortisone (Anusol-Hc) 25 mg RC BID [facility] Stop: 04/07/18 10:01 Last Admin: 03/29/18 13:09 Dose: Not Given Piperacillin Sod/Tazobactam Sod (Zosyn 3.375 Gm Iv Premix) 3.375 gm in 50 mls @ 100 mls/hr IVPB Q6H [facility]RA PRN Reason: Protocol Last Admin: 03/30/18 02:10 Dose: 100 mls/hr Dopamine HCl/Dextrose (Dopamine 400mg/250ml D5w) 400 mg in 250 mls @ 9.287 mls/ hr IV .Q24H PRN; Protocol; 2 MCG/KG/MIN PRN Reason: TITRATE PER MD ORDER Last Titration: 03/30/18 04:00 Dose: 0 mcg/kg/min, 0 mls/hr Norepinephrine Bitartrate 8 mg (/ Sodium Chloride) 258 mls @ 7.74 mls/hr IV .Q24H PRN; Protocol; 4 MCG/MIN PRN Reason: TITRATE PER MD ORDER Last Admin: 03/30/18 07:20 Dose: 5 mcg/min, 9.67 mls/hr Sodium Chloride (Sodium Chloride 0.9%) 1,000 mls @ 100 mls/hr IV .Q10H [facility] Last Admin: 03/30/18 07:20 Dose: 100 mls/hr Insulin Human Regular (Novolin R) 0 unit SC Q6H [facility]RA PRN Reason: Protocol Last Admin: 03/30/18 06:00 Dose: Not Given Lidocaine HCl (Lidocaine Hydrochloride Jelly 2% 5 Ml) 0 ml TOP BID PRN PRN Reason: Other Metoclopramide HCl (Reglan) 5 mg PO Q8H [facility] Last Admin: 03/30/18 09:12 Dose: Not Given Metoprolol Tartrate (Lopressor) 50 mg PO BID [facility] Last Admin: 03/30/18 09:10 Dose: Not Given Nystatin (Nystop Topical Powder) 0 gm TOP BID [facility] Stop: 04/03/18 18:00 Last Admin: 03/29/18 17:45 Dose: Not Given Phenol/Menthol (Phenaseptic 1.4% Throat [place]) 1 ml MT Q2H PRN PRN Reason: Sore Throat Povidone Iodine (Betadine 10% Oint) 0 gm TOP Q8H [facility] Last Admin: 03/30/18 02:10 Dose: 1 dose Saccharomyces Boulardii (Florastor) 250 mg PO BID [facility] Last Admin: 03/30/18 09:10 Dose: Not Given Simethicone (Mylicon Chew Tab) 80 mg PO TID [facility] Last Admin: 03/29/18 17:50 Dose: Not Given - Labs Labs: 03/30/18 06:44 05/01/18 06:41 PT 14.8 SECONDS (9.7-12.2) H 03/26/18 08:09 INR 1.3 03/26/18 08:09 APTT 31 SECONDS (21-34) 03/26/18 08:09 - Constitutional Appears: In Acute Distress - Head Exam Head Exam: ATRAUMATIC, NORMAL INSPECTION, NORMOCEPHALIC - Eye Exam Additional comments: no corneal reflex - ENT Exam Additional comments: NGT - Neck Exam Additional comments: ETT tube - Respiratory Exam Additional comments: On MV - Cardiovascular Exam Cardiovascular Exam: Tachycardia, Irregular Rhythm - GI/Abdominal Exam GI & Abdominal Exam: Distended, Firm - Rectal Exam Rectal Exam: Deferred - Exam Additional comments: Rodriguez cath - Extremities Exam Extremities Exam: Pedal Edema - Back Exam Back Exam: NORMAL INSPECTION, paraspinal tenderness - Neurological Exam Neurological Exam: Motor Sensory Deficit Neuro motor strength exam: Left Upper Extremity: 0, Right Upper Extremity: 0, Left Lower Extremity: 0, Right Lower Extremity: 0 - Psychiatric Exam Psychiatric exam: Flat Affect - Skin Skin Exam: Normal Color Assessment and Plan - Assessment and Plan (Free Text) Assessment: Patient examined in bed with son and daughter at bed side. Patient remains unresponsive, intubated, no sedation, corneal reflex absent, patient unresponsive to stimuli. Abdomen distended, NGT in place, drainage green.There is no active ROM to upper nor lower extremities. Rodriguez at bed side, urine tea color, amount is decreasing since yesterday. BP 97/44, HR 108, RR 25. Hb dropped to 8.4, Na increased to 153. and son at bed side. I asked to continue discussion from yesterday regarding removal of life support as family requested yesterday. The son Mr. Warren said that family had changed their minds now, as they see " improvement" in patient's condition. Son feels, patient is responding to him when he talks. Son states, his father shows grimacing when talked to. Also, the son stated, a few more family members are coming over from [place] and he would like to wait for them to come. I questioned son about patient's wishes " to be on life support for one day only " if it should be needed. Son replayed that at the time when his father made this statement, he was in pain and his reasoning was not straight. We discussed POLST again and family choose Full Code at this time. They would want all measures to be applied to save patient's life, including CPR. I discussed this with Doctor Jordan. Chances for patient's recovery are very slim but at this time family feels there is a hope and is acting accordingly to those feelings. Impression * AMS with GCS of 3 * Respiratory distress, supported by MV * Distended abdomen * immobility, at risk for pressure sores * At risk for malnutrition * Family has change of heart and is asking for full life support Suggestions * Would refer to Neurologist for EEG and neuro evaluation * Continue NGT, MV support * Promote skin integrity * IV hydration * Full Code Family will need constant reassurance and guidelines throughout this process. Advance Care planing 30 min
[2018-03-30] MEDS ORDERED: Sodium Bicarbonate (8.4%) 50 Meq Syringe IVP ONE ×2 (11:57→12:11)
[2018-03-30 12:15] LABS: ARTERIAL BLOOD GAS HCO3 14.6 mmol/L (21-28); ARTERIAL BLOOD GAS PCO2 40 mm/Hg (35-45); ARTERIAL BLOOD GAS PH 7.18 (7.35-7.45); ARTERIAL BLOOD GAS PO2 65 mm/Hg (80-100); ARTERIAL BLOOD GAS TCO2 16.1 mmol/L (22-28)
[2018-03-30] MEDS: Simethicone 80 mg Chewtab PO SCH (13:07)
[2018-03-30] MEDS: Nystatin 100,000 Units/gm Topical Pow(15 gm) TOP SCH (13:08)
[2018-03-30] MEDS: DOPamine 400mg/250ml D5W 400 MG/250 ML BAG IV PRN (14:06)
--- NOTE | 2018-03-30 15:31 | CARD ---
APPROVED REPORT EKG Measurement Heart [id number] <Conclusion> Sinus tachycardia Left axis deviation Inferior infarct, age undetermined cannot be excluded Abnormal ECG
--- NOTE | 2018-03-30 16:16 | CP.PCM.PRO ---
Pronouncement of Note - Clinical Findings Physical Exam: No Response Verbal/Painful Stimuli, Absent Peripheral Pulses{ Carotid & Femoral}, Absent Heart & Breath Sounds, No Pupillary Light Reflex, No Corneal Reflex, Pupils Fixed & Dilated, Absence of Vital Signs - Pronouncement Time Time of Pronouncement of : 16:11 - Notifications Pronouncement Notifications: Family Notified, Atending Notified Human Resources Specialist Notified: No - Autopsy Autopsy Requested: No [place] [id number]
[2018-03-30] MEDS ORDERED: Sodium Bicarbonate (8.4%) 50 Meq Syringe ONE (16:23)
[2018-03-30] MEDS ORDERED: Calcium Chloride 1000 mg/10 ml Syringe IV ONE (16:23)
[2018-03-30 17:01] VITALS: TEMP 100.7
[2018-03-30 17:05] VITALS: BP 0/0; PULSE 0; RESP 0; O2SAT 0
--- NOTE | 2018-03-30 20:37 | CP.PCM.DIS ---
Provider - Provider Date of Admission: 03/18/18 18:31 Attending physician: Mark Lee MD Primary care physician: Dr. Moreland Consults: Orthopedics Dr. Tuttle General Surgery Dr. Ramandeep Kam Nephrology Dr. Jennifer Lees Palliative Care Joellen [facility] Time Spent in preparation of Discharge (in minutes): 40 Hospital Course - Lab Results Lab Results: Micro Results 03/29/18 12:15 Blood-Thru Central Line Blood Culture - Preliminary NO GROWTH AFTER 24 HOURS 03/29/18 12:45 Blood-Thru Central Line Blood Culture - Preliminary NO GROWTH AFTER 24 HOURS 03/29/18 15:00 Naris MRSA Culture (Admit) - Final MRSA NOT DETECTED 03/21/18 10:49 Blood-Venous Blood Culture - Final NO GROWTH AFTER 5 DAYS 03/21/18 10:49 Blood-Venous Gram Stain - Final TEST NOT PERFORMED 03/21/18 09:07 Blood-Venous Blood Culture - Final NO GROWTH AFTER 5 DAYS 03/21/18 09:07 Blood-Venous Gram Stain - Final TEST NOT PERFORMED 03/21/18 09:20 Urine,Rodriguez Urine Culture - Final No Growth (<1,000 CFU/ML) Most Recent Lab Values WBC 19.3 K/uL (4.8-10.8) H 03/30/18 06:44 RBC 3.21 Mil/uL (4.40-5.90) L 03/30/18 06:44 Hgb 8.4 g/dL (12.0-18.0) L 03/30/18 06:44 Hct 26.7 % (35.0-51.0) L 03/30/18 06:44 MCV 83.4 fL (80.0-94.0) 03/30/18 06:44 MCH 26.2 pg (27.0-31.0) L 03/30/18 06:44 MCHC 31.4 g/dL (33.0-37.0) L 03/30/18 06:44 RDW 17.3 % (11.5-14.5) H 03/30/18 06:44 Plt Count 217 K/uL (130-400) D 03/30/18 06:44 MPV 10.2 fL (7.2-11.7) 03/30/18 06:44 Neut % (Auto) 85.8 % (50.0-75.0) H 03/30/18 06:44 Lymph % (Auto) 7.9 % (20.0-40.0) L 03/30/18 06:44 Dolores % (Auto) 6.1 % (0.0-10.0) 03/30/18 06:44 Eos % (Auto) 0.1 % (0.0-4.0) 03/30/18 06:44 Baso % (Auto) 0.1 % (0.0-2.0) 03/30/18 06:44 Neut # (Auto) 16.6 K/uL (1.8-7.0) H 03/30/18 06:44 Lymph # (Auto) 1.5 K/uL (1.0-4.3) 03/30/18 06:44 Dolores # (Auto) 1.2 K/uL (0.0-0.8) H 03/30/18 06:44 Eos # (Auto) 0.0 K/uL (0.0-0.7) 03/30/18 06:44 Baso # (Auto) 0.0 K/uL (0.0-0.2) 03/30/18 06:44 Neutrophils % (Manual) 62 % (50-75) 03/30/18 06:44 Band Neutrophils % 28 % (0-2) H* 03/30/18 06:44 Lymphocytes % (Manual) 8 % (20-40) L 03/30/18 06:44 Reactive Lymphs % 1 % (0-0) H 03/20/18 06:32 Monocytes % (Manual) 2 % (0-10) 03/30/18 06:44 Eosinophils % (Manual) 1 % (0-4) 03/28/18 19:45 Basophils % (Manual) 1 % (0-2) 03/28/18 19:45 Myelocytes % 1 % (0-0) H 03/29/18 08:20 Nucleated RBC % 1 % (0-0) H 03/30/18 06:44 Toxic Granulation Present 03/29/18 08:20 Platelet Estimate Normal (NORMAL) 03/30/18 06:44 Large Platelets Present 03/28/18 19:45 Giant Platelets Present 03/20/18 06:32 Polychromasia Slight 03/30/18 06:44 Hypochromasia (manual) Slight 03/30/18 06:44 Poikilocytosis (manual Slight 03/28/18 19:45 Anisocytosis (manual) Slight 03/30/18 06:44 Target Cells Slight 03/30/18 06:44 Ovalocytes Slight 03/28/18 19:45 PT 14.8 SECONDS (9.7-12.2) H 03/26/18 08:09 INR 1.3 03/26/18 08:09 APTT 31 SECONDS (21-34) 03/26/18 08:09 Puncture Site Rb 03/30/18 12:11 pCO2 40 mm/Hg (35-45) 03/30/18 12:11 pO2 65 mm/Hg (80-100) L 03/30/18 12:11 HCO3 14.6 mmol/L (21-28) L 03/30/18 12:11 ABG pH 7.18 (7.35-7.45) L* 03/30/18 12:11 ABG Total CO2 16.1 mmol/L (22-28) L 03/30/18 12:11 ABG O2 Saturation 90.0 % (95-98) L 03/30/18 12:11 ABG Base Excess -12.9 mmol/L (-2.0-3.0) L 03/30/18 12:11 Peng Test Na 03/30/18 12:11 ABG Potassium 4.8 mmol/L (3.6-5.2) 03/30/18 12:11 A-a O2 Difference 598.0 mm/Hg 03/30/18 12:11 Respiratory Index 9.2 03/30/18 12:11 Sodium 152.0 mmol/l (132-148) H 03/30/18 12:11 Chloride 121.0 mmol/L (98-107) H 03/30/18 12:11 Glucose 147 mg/dl (75-110) H 03/30/18 12:11 Lactate 6.4 mmol/L (0.7-2.1) H* 03/30/18 12:11 Vent Mode Prvc 03/30/18 12:11 Mechanical Rate 20 03/30/18 12:11 FiO2 100.0 % 03/30/18 12:11 Tidal Volume 500 03/30/18 12:11 PEEP 5 03/30/18 12:11 Crit Value Called To Dr melissa garcia 03/30/18 12:11 Crit Value Called By Saranya coleman nurse recruiter 03/30/18 12:11 Crit Value Read Back Y 03/30/18 12:11 Blood Gas Notified Time 1215 03/30/18 12:11 Sodium 153 mmol/L (132-148) H 03/30/18 06:41 Potassium 5.1 mmol/L (3.6-5.2) 03/30/18 06:41 Chloride 115 mmol/L (98-107) H 03/30/18 06:41 Carbon Dioxide 24 mmol/L (22-30) 03/30/18 06:41 Anion Gap 19 (10-20) 03/30/18 06:41 BUN 41 mg/dL (9-20) H 03/30/18 06:41 Creatinine 2.7 mg/dL (0.8-1.5) H 03/30/18 06:41 Est GFR ( Amer) 28 03/30/18 06:41 Est GFR (Non-Af Amer) 23 03/30/18 06:41 POC Glucose (mg/dL) 166 mg/dL (65-110) H 03/30/18 11:38 Random Glucose 193 mg/dL (75-110) H 03/30/18 06:41 Calcium 8.2 mg/dl (8.6-10.4) L 03/30/18 06:41 Phosphorus 5.0 mg/dL (2.5-4.5) H 03/30/18 06:41 Magnesium 2.5 mg/dL (1.6-2.3) H 03/30/18 06:41 Iron < 10 ug/dL (49-181) L 03/22/18 07:17 TIBC 292 ug/dL (250-450) 03/22/18 07:17 % Saturation 3.4 (20-55) L 03/22/18 07:17 Ferritin 28.6 ng/mL 03/22/18 07:17 Total Bilirubin 1.2 mg/dL (0.2-1.3) 03/30/18 06:41 AST 178 U/L (17-59) H D 03/30/18 06:41 ALT 55 U/L (21-72) 03/30/18 06:41 Alkaline Phosphatase 83 U/L (38-126) 03/30/18 06:41 Total Creatine Kinase 45 U/L (55-170) L 03/29/18 01:17 CK-MB (Mass) 4.08 ng/mL (0.0-3.38) H 03/29/18 01:17 Troponin I < 0.0120 ng/mL (0.00-0.120) 03/29/18 01:17 Total Protein 5.0 g/dL (6.3-8.3) L 03/30/18 06:41 Albumin 2.2 g/dL (3.5-5.0) L 03/30/18 06:41 Globulin 2.8 gm/dL (2.2-3.9) 03/30/18 06:41 Albumin/Globulin Ratio 0.8 (1.0-2.1) L 03/30/18 06:41 Arterial Blood Potassium 4.8 mmol/L (3.6-5.2) 03/30/18 12:11 Urine Color Brown (YELLOW) 03/30/18 06:42 Urine Clarity Slight-cloudy (Clear) 03/30/18 06:42 Urine pH 5.0 (5.0-8.0) 03/30/18 06:42 Ur Specific [place] 1.026 (1.003-1.030) 03/30/18 06:42 Urine Protein 1+ mg/dL (NEGATIVE) H 03/30/18 06:42 Urine Glucose (UA) Normal mg/dL (Normal) 03/30/18 06:42 Urine Ketones Negative mg/dL (NEGATIVE) 03/30/18 06:42 Urine Blood 2+ (NEGATIVE) H 03/30/18 06:42 Urine Nitrate Negative (NEGATIVE) 03/30/18 06:42 Urine Bilirubin 1+ (NEGATIVE) H 03/30/18 06:42 Urine Urobilinogen 4.0 mg/dL (0.2-1.0) 03/30/18 06:42 Ur Leukocyte Esterase 1+ Yonis/uL (Negative) H 03/30/18 06:42 Urine WBC (Auto) 146 /hpf (0-5) H 03/30/18 06:42 Urine RBC (Auto) 33 /hpf (0-3) H 03/30/18 06:42 Urine WBC Clumps (Auto) Occ /hpf (NONE) H 03/30/18 06:42 Ur Squamous Epith Cells 1 /hpf (0-5) 03/30/18 06:42 Urine Bacteria Many (<OCC) H 03/30/18 06:42 Vancomycin Trough 12.6 ug/mL (5.0-10.0) H 03/22/18 23:45 Influenza Typ A,B (EIA) Negative for flu a/b (NEGATIVE) 03/21/18 22:40 H.influenzae Type B Ag Negative (NEGATIVE) 03/21/18 09:35 Ur L.pneumophila Ag Negative (NEGATIVE) 03/21/18 09:35 Mycoplasma pneumon IgG <=0.90 (<=0.90) 03/22/18 07:17 Mycoplasma pneumon IgM 40 U/mL (<770) 03/22/18 07:17 N.meningitidis ACY/W135 Negative (NEGATIVE) 03/21/18 09:35 N.meningi B/E.coli K1 Ag Negative (NEGATIVE) 03/21/18 09:35 Group B Strep Antigen Negative (NEGATIVE) 03/21/18 09:35 S. pneumoniae Antigen Negative (NEGATIVE) 03/21/18 09:35 Blood Type B POSITIVE 03/19/18 14:01 Antibody Screen Negative 03/19/18 14:01 - Hospital Course Hospital Course: This is a 72 year old male who originally present with Right Subtrochanteric Fracture but then had a complicated hospital course after ORIF. He eventually coded on 03/29/18 leading to intubation and transfer to ICU where he on after coding for a second time and CPR being terminated by son. Please see the individual assessments and plans below for brief details and the complete medical record for full details: Constipation 03/28: He pulled out his NGT last night. I (Dr. Reyez) discussed with the patient and the family that should he redevelop pain we may have to put the NGT back in. Patient had repeat CT done which showed there is decreasing bowel loop distention. He is currently not in any pain at the moment, they kept asking for the rectal tune to be discontinued so we will remove this and see how he does. Remains NPO except ice chips We also discussed with the family given the history of diabetes - probably there is some diabetes gastroparesis that is affecting him as well. -CT abd 03/21/18: rectosigmoid colonic wall thickening w/mass like irma w/ dilation of colon proximal thickening and large amount of stool and gas w/in colon. Suspicious for colon cancer Vs inflammatory mass 2/2 infectious inflam Vs stool related proctocolitis -Repeat CT abd/pelvis with PO contrast 03/26/18: Mural thickening of rectosigmoid colon and transverse colon suspicious of nonspecific colitis. No evidence of SBO. See full report for details. -GI ([facility]) - no decompression was perform -Surgery ([facility]) - recommend pt advance to ice chips -Cipro/flagyl. Florastor -No pain medications on board. Right Hip fracture 03/28: Currently pain is controlled, continue with PT/OT -Right Subtrochanteric Femoral Fracture s/p ORIF with Long Hip Nail 03/19/18 -PT OT -Continue Aspirin Diabetes ISS High Hold home insulin as patient NPO Likely a component gastroparesis HTN (hypertension) -hydralzine PRN -Lopressor 50 mg po BID Prophylactic measure -Lovenox 40sc qd -Simethicone Discharge Exam - Head Exam Head Exam: ATRAUMATIC, NORMAL INSPECTION, NORMOCEPHALIC Discharge Plan - Follow Up Plan Condition: FAIR Disposition: WITH WITHOUT AUTOPSY
--- NOTE | 2018-04-04 17:53 | CP.PCM.CON ---
History of Present Illness - History of Present Illness History of Present Illness: 72 yo Male w/ PMH= HTN, DM, morbid obesity, CAD w/ h/o NE? presented to the ER at on 03/18/18 with R LE pain and inability to WB or ambulate since fall earlier that day at home. He states that while at home on 03/18/18, he had just finished taking a shower when he slipped while getting out of the shower, landed on R buttocks and thigh resulting in immediate 10/10 pain localized to the R thigh/hip and inability to get up from the ground or tolerate any ROM at the RLE. He was brought to the ER at via EMS immediately after the trauma. After evaluation by ER staff and review of imaging, he was diagnosed with a R femur subtrochanteric displaced hip fracture. He was admitted to the hospitalist service for definitive tx and an orthopedic consultation was placed. I evaluated the pt in the evening on 03/18/18 in the ER holding after being admitted and waiting for a bed on the med/surg unit. I had a long conversation with ER staff and the hospitalist Dr Olivarez about admission orders and preparation for possible OR tomorrow if medically cleared. I confirmed the above history with the pt and his family, they were all in agreement that he fell without any syncopal episode or LOC, no head trauma, truly a slip and fall. He can recall the entire trauma and recalls striking the ground on his R thigh/hip. Review of imaging: Right hip/pelvis/femur x-rays: ++ displaced, segmental proximal femoral shaft- subtrochanteric hip fracture CT R hip: ++ displaced, segmental proximal femoral shaft-subtrochanteric hip fracture, no other fracture lines proximal or distal, no evidence of pathologic fx He denied, LOC, head trauma, other MSK trauma, CP, SOB, fevers, chills, WRIGHT, N&V , numbness or tingling. He admits to RLE progressive pain with circulation issues that have been attributed to his DM, he was scheduled at the recommendations of his PCP, Dr. Moreland to have vascular studies done on B/L LE. Son: Beck [phone] PMD: Aniceto PMHx: hypertension, diabetes, ?CAD, obesity, DM neuropathy, GERD PSHx: none Allergy: none Social Hx: Current smoker. Denies alcohol or other drug use. Retired, lives with 2 sons and . Family Hx: both parents with diabetes Home meds: ASA, baclofen, canagliflozin, gabapentin, insulin 70/30, losartan/ HCTZ, metoclopramide, metoprolol, protonix, setraline Past Patient History - Past Medical History & Family History Past Medical History?: Yes - Past Social History Smoking Status: Never Smoked - CARDIAC Hx Hypertension: Yes - PULMONARY Hx Sleep Apnea: Yes - NEUROLOGICAL Hx Neurological Disorder: No - HEENT Hx HEENT Problems: Yes Hx Cataracts: Yes (BILAT IOL) Hx Glaucoma: Yes - RENAL Hx Chronic Kidney Disease: No - ENDOCRINE/METABOLIC Hx Diabetes Mellitus Type 2: Yes - HEMATOLOGICAL/ONCOLOGICAL Hx Blood Disorders: No - INTEGUMENTARY Hx Dermatological Problems: Yes (REDDNESS BLE) Other/Comment: FUNGAL INFECTION BILATERAL GROINS - MUSCULOSKELETAL/RHEUMATOLOGICAL Hx Arthritis: Yes (KNEES) - GASTROINTESTINAL Hx Gastrointestinal Disorders: Yes (HEMORRHOIDS CONSTIPATION) Other/Comment: hx anal fissure - GENITOURINARY/GYNECOLOGICAL Hx Genitourinary Disorders: Yes Hx Prostate Problems: Yes - PSYCHIATRIC Hx Substance Use: No - SURGICAL HISTORY Hx Surgeries: Yes Hx Cataract Extraction: Yes (CAT EXT IOL BILAT) - ANESTHESIA Hx Anesthesia: Yes Hx Anesthesia Reactions: No Hx Malignant Hyperthermia: No Meds Allergies/Adverse Reactions: Allergies Allergy/AdvReac Type Severity Reaction Status Date / Time No Known Allergies Allergy Verified 07/16/17 07:37 Physical Exam - Extremities Exam Additional comments: secondary survey (-) Right Lower Extremity: +++ Log roll, +++ ttp at groin and GT, pain with any hip / femur movement/ROM skin intact, - swelling/warmth/redness +5/5 motor strength ankle DF/PF, toes up & down, sensory intact L2-S1, DPN/TN/SPN/SN 2+ DP, BCR all toes +++ dermatic vascular changes along amaya/anterior distal leg Left Lower Extremity: - Log roll, - ttp, full ROM at all joints w/o pain -swelling/warmth/redness +5/5 motor strength Hip flex/ext, knee flex/ext, ankle df/pf, toes up & down sensory intact L2-S1, DPN/TN/SPN/SN 2+ DP, BCR all toes Results - Vital Signs Recent Vital Signs: Last Vital Signs Temp 100.7 F H 03/30/18 15:35 Pulse 0 L 03/30/18 16:11 Resp 0 L 03/30/18 16:11 BP 0/0 L 03/30/18 16:11 Pulse Ox 0 L 03/30/18 16:11 - Labs Result Diagrams: 03/30/18 06:44 03/30/18 06:41 Assessment & Plan (1) Displaced subtrochanteric fracture of right femur Assessment and Plan: 72 yo Male w/ multiple PMH including ? h/o NE, CAD, morbid obesity, DM presented to the ER at on 03/18/18 with Right hip/thigh pain since fall at home from standing w/o LOC or syncope on 03/18/18 Dx= Right proximal femoral shaft/ subtrochanteric hip displaced, segmental fracture PLAN: R femur/hip: -clinically and confirmed on imaging, + displaced segmental subtrochanteric hip fracture -indicated for closed possibly need for open reduction and internal fixation with long hip IM nail with possible need for cables -the risks, benefits, alternatives to the procedure were d/w the pt and his family at length, all questions answered, they accept the risks, understand the surgery and wish to proceed mishel -needs pre-op medical clearance/optimization, +/- cardiac clearance -if there is no medical or cardiac contraindication to proceeding with surgery mishel, plan for surgery/hip fixation tomorrow in OR, please communicate progress with me -placed on add on schedule for OR tomorrow -hold DVT proph, SCD ok -NPO after MN -IVFH -consider marquez cath -strict NWB RLE -overhead trapeze -bucks traction with 5lbs -will follow -please contact me with any questions, concerns, updates at [phone] Thank you for allowing me to contribute to the care of your pt. Grupo Rushing MD Orthopedic Surgery Status: Acute
--- NOTE | 2018-04-05 13:14 | CARD ---
APPROVED REPORT EKG Measurement Heart [id number] <Conclusion> Sinus tachycardia Left axis deviation Right bundle branch block Inferior infarct, age cannot be excluded.undetermined Abnormal ECG
--- NOTE | 2018-04-22 01:34 | OP ---
PROCEDURE DATE: 03/19/2018 PREOPERATIVE DIAGNOSIS: Right hip displaced, segmental subtrochanteric/proximal femoral shaft fracture. POSTOPERATIVE DIAGNOSIS: Right hip displaced, segmental subtrochanteric/proximal femoral shaft fracture. PROCEDURE: Right hip displaced, segmental subtrochanteric/proximal femoral shaft fracture open reduction and internal fixation with long intramedullary hip nail (long PFNA). SURGEON: Grupo Rushing MD MOTOR INSPECTION MECHANIC: Merline Pagan PA-C. JUSTIFICATION FOR MOTOR INSPECTION MECHANIC: Merline Pagan is a certified physician parts room assistant, whose skilled surgical service was an absolute necessity for successful completion of the procedure as he provided skilled surgical assistance with positioning of patient, positioning of extremity, maintenance of anatomic fracture reduction, placement of temporizing hardware, placement of intramedullary flexible reamers and preparation of the femur, placement of final intramedullary hardware, placement of helical blade, placement of 2 distal interlocking screws utilizing perfect yerington technique, wound closure. Merline Pagan was present for the entire case and was an absolute necessity for successful completion of this procedure. ANESTHESIA: General endotracheal anesthesia. ESTIMATED BLOOD LOSS: 200 mL. DRAINS: None. COMPLICATIONS: None. DISPOSITION: The patient was extubated and transferred to PACU in stable condition, having tolerated the procedure well. IMPLANTS: [employer] long PFNA nail, 11 mm diameter x 420 mm length, 110 mm length helical blade, 2 distal interlocking screws. INDICATIONS FOR SURGERY: The patient is a 72-year-old male with past medical history significant for hypertension, diabetes, morbid obesity, coronary artery disease with history of possible NV who presented to the ER at [facility] in 03/18/2018 with right lower extremity pain and inability to weight bear on the right lower extremity or ambulate since a fall earlier that day at home. He stated that while at home on 03/18/2018, he had just finished taking a shower when he slipped while getting out of the shower, landing on his right buttock and thigh resulting in an immediate 10/10 pain, localized to the right thigh and hip and inability to get up from the ground or tolerate any range of motion at the right lower extremity. He was brought to the emergency room at [facility] via EMS immediately after the trauma. After evaluation by ER staff and review of imaging, he was diagnosed with a right femur displaced segmental subtrochanteric hip fracture/proximal femoral shaft fracture extension. He was admitted to the hospitalist service for definitive treatment, and then orthopedic consultation was placed. I evaluated the patient in the evening of 03/18/2018 in the ER holding after being admitted and waiting for a bed on the med/surg unit. I had a long conversation with the ER staff and the hospitalist, Dr. Olivarez, about admission orders and preparation for possible over the next day if he was medically cleared. I confirmed the above history with the patient and his family, and they were all in agreement that he fell without any syncopal episode or LOC, no head trauma, no other musculoskeletal trauma, no shortness of breath or chest pain, no fevers, no chills, no numbness or tingling. He could recall the entire trauma and recall striking the ground on his right thigh/hip. REVIEW OF IMAGING: Right hip/pelvis/femur x-rays showed a displaced segmental proximal femoral shaft/subtrochanteric hip fracture. CAT scan of right hip also confirmed a displaced, segmental proximal femoral shaft/subtrochanteric hip fracture with no other fracture line and no evidence of pathologic fracture. His primary care physician was Dr. Moreland. The patient also had poor right lower extremity circulation and issues with dermatologic changes of the amaya, foot and ankle area as well from the vascular issues. After reviewing the imaging and the injury at length with the patient and his family, the patient was indicated for surgery. 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 The patient was highly functioning and independent at baseline and a community ambulator. He was indicated for closed versus open reduction of the displaced subtrochanteric/proximal femur fracture and placement of a long intramedullary hip nail. The risks, benefits, and alternatives of the procedure were discussed at length with the patient and his family with the risk including but not limited to infection, neurovascular damage, malunion, nonunion, failure of hardware, need for conversion to total hip arthroplasty in the future with screw cut out of the possibility and painful hardware, inability to return to preinjury level of activity, development of blood clots including DVT and PE, development of chronic pain and disability, anesthesia reaction including , cardiopulmonary perioperative complications. After answering all of their questions, they stated that they understood the risks and wished to proceed with the surgery. I reviewed at length with them the procedure itself as well as placement of the hardware and internal fixation as well as the fracture. They stated that they had good understanding of the fracture pattern and the procedure itself. After obtaining cardiac medical clearance, the patient was scheduled for surgery in the next morning on the elective OR schedule at [facility] on 03/19/2018. PROCEDURE IN DETAIL: The patient was identified in the preoperative holding area, and the right hip and thigh were marked for surgery. Once again as described above, the risks, benefits, and alternatives of the procedure were discussed at length with the patient, and informed consent was obtained. The right thigh and hip were marked for surgery. After a brief discussion with anesthesia staff, perioperative IV antibiotics were administered, the patient was taken to the operating room on his stretcher. An initial time-out was done with the surgeon, anesthesia staff, OR staff, all in agreement with the patient, procedure being done, and the extremity being operated on. General anesthesia was administered without difficulty or complication. The patient was then carefully transferred to the fracture top table with all bony prominences and superficial neurovascular structures were well padded. The right upper extremity was well padded in egg crate padding and secured across his chest. The right lower extremity was well padded and secured in the traction boot. Perineal post was in position. Left lower extremity was brought into flexion and abduction and secured to the well leg robertson. Left upper extremity was well padded on the armboard and secured. A final time-out was done with the surgeon, anesthesia staff, OR staff, and all were in agreement with the patient, procedure being done, and the extremity being operated on. Biplanar fluoroscopic imaging was used to confirm and visualize the fracture. Indeed, it is a displaced segmental subtrochanteric hip fracture with extension into the proximal femoral shaft. Biplanar fluoroscopic imaging was used to take prereduction x-rays. Multiple closed reduction maneuvers were carried out unsuccessfully as the fracture has significant deforming forces despite general anesthesia removing muscle tone. At that point in time, decision was made to proceed with open reduction and placement of reduction clamps. A 6-cm incision at the level of the fracture was made to the skin, down the subcutaneous tissue, down the level of the fascia. The fracture planes were identified, and there was significant interposed soft tissue and muscle caught within the fracture fragments. The fracture fragments were debrided of interposed soft tissue and with the use of multiple fracture reduction clamps, an anatomic reduction was carried out successfully. The entry point for placement of the nerve was identified proximally at the tip of the greater trochanter, and a proximal 3-cm incision was made for passage of the nail as well as the guidewire and flexible reamers. Guidewire was advanced to the tip of the greater trochanter and with the soft tissue protector in position, the proximal reamer was advanced down the level of the lesser trochanter and the proximal path for the nail was created. Guidewire and proximal reamer were removed, and a beaded-tip guidewire was passed through the entry point of the greater trochanter, passed to the level of the fracture down to the superior pole of the patella. Length of nail was measured using biplanar fluoroscopic imaging and confirming good length at the superior tip of the patella and at the greater trochanter. A 420 mm x 11 mm diameter long PFNA intramedullary hip nail from [employer] was selected. With my parts room assistant holding the fracture reduction, the flexible cannulated reamers were advanced over the beaded-tip guidewire, sequentially starting at 9 mm, advancing to a 13 mm diameter. Once the path for the nail was reamed, we noted the nail would pass easily. The nail was then passed over the beaded-tip guidewire until the tip was at the superior pole of the patella and the pad for the helical blade was confirmed to be in a good position using biplanar fluoroscopic imaging. Attention was first turned towards the placement of the helical blade and using biplanar fluoroscopic imaging through the large laterally based incision created for the open reduction, the triple-sleeve cannula was advanced until it was at the lateral cortex of the proximal femur, and the guidewire was advanced center-center on the femoral head and neck using biplanar fluoroscopic imaging to confirm good position. Length of the nail was taken to be 110 mm length helical blade. The cannulated drill was advanced with good tip-to-apex distance maintained. A 110-mm length helical blade was advanced over the guidewire until it was at a good tip-to-apex distance within the femoral head and neck in good position confirmed with biplanar fluoroscopic imaging. At that point in time, we then turned our attention to the distal interlocking screws using perfect yerington technique. The proximal helical blade was locked in position as there was no fracture at that level. Utilizing the perfect yerington technique, 2 distal interlocking screws were placed bicortically successfully at the proximal hole and the dynamic hole. Care was taken to place a dynamic screw in a position that the nail can be released and compression can be achieved at the fracture if the static screw is removed. The screw was placed in the more distal aspect of the dynamic hole to allow for compression if needed in the future. Two drill bits were used using perfect yerington technique after laterally based stab incisions were made to the skin down the subcutaneous tissue down the level of the lateral cortex of the distal femur. The drill bits were advanced bicortically and confirmed to go through the nail. Screw lengths were taken, and the drill bits were removed, and two bicortical distal interlocking screws were placed with good bicortical fixation achieved. Biplanar fluoroscopic imaging was used to confirm good screw length as well as optimal placement through the nail bicortically. Once the screw position was confirmed, and we confirmed good placement of the hardware, we then turned our attention to the fracture itself again. The fracture near anatomic reduction was maintained, but as stated before, this was segmental. It was a difficult fracture pattern. All wounds were copiously irrigated, and deep tissue and fascia were reapproximated with #1 Vicryl suture. Subcutaneous tissue was reapproximated with 2-0 Vicryl suture followed by ben for skin. Sterile dressings were applied. The patient was carefully transferred back to his hospital bed/stretcher. He was extubated from general anesthesia and transferred to PACU in stable condition having tolerated the procedure well. DISPOSITION: The patient will remain as an inpatient until he recovers and is cleared from a medical standpoint for discharge to rehab facility. He will work with case management, social media marketing manager, physical therapy to determine optimal placement. I will monitor his progress as an inpatient. He will receive adequate pain control. He will be started on DVT prophylaxis in the form of 40 mg subcutaneous Lovenox injection starting on postoperative day #1 unless the medical team preferred a different regimen. Grupo Rushing MD
== END 2018-03-30 16:11 | DRG 533 ==
LOC: C.ER 16:28 → C.9E 18:31 → C.6T 22:36 → C.9I 03-29 10:38
PROVIDERS: ADMIT Internal Medicine; ATTEND Internal Medicine
PROC: 0DJD8ZZ Inspection of Lower Intestinal Tract, Via Natural or Artificial Opening Endoscopic (ICD-10-PCS; principal; 2018-03-24 13:02)
PROC: 0BH17EZ Insertion of Endotracheal Airway into Trachea, Via Natural or Artificial Opening (ICD-10-PCS; 2018-03-29)
PROC: 5A1945Z Respiratory Ventilation, 24-96 Consecutive Hours (ICD-10-PCS; 2018-03-29)
DX: S72.351A Displaced comminuted fracture of shaft of right femur, initial encounter for closed fracture (principal); J96.20 Acute and chronic respiratory failure, unspecified whether with hypoxia or hypercapnia; R18.8 Other ascites; L97.909 Non-pressure chronic ulcer of unspecified part of unspecified lower leg with unspecified severity; K56.7 Ileus, unspecified; K59.39 Other megacolon; W19.XXXA Unspecified fall, initial encounter; S72.21XA Displaced subtrochanteric fracture of right femur, initial encounter for closed fracture; Y92.002 Bathroom of unspecified non-institutional (private) residence as the place of occurrence of the external cause; M17.0 Bilateral primary osteoarthritis of knee; Z66 Do not resuscitate; Z79.4 Long term (current) use of insulin; K59.04 Chronic idiopathic constipation; F17.200 Nicotine dependence, unspecified, uncomplicated; G47.30 Sleep apnea, unspecified; H40.9 Unspecified glaucoma; I10 Essential (primary) hypertension; I25.10 Atherosclerotic heart disease of native coronary artery without angina pectoris; K31.84 Gastroparesis; K60.2 Anal fissure, unspecified; E66.9 Obesity, unspecified; E11.43 Type 2 diabetes mellitus with diabetic autonomic (poly)neuropathy